=== PATIENT | female | born 1985 | race Caucasian/White ===

== ENCOUNTER 2023-08-05 15:23 | Outpatient (AMB) | payer OTHER, SELFPAY ==
--- NOTE | 2023-08-05 15:28 | A.OFFPC_ITS ---
Vital Signs 08/05/23 15:36 08/05/23 15:40 08/05/23 16:07 Height 5 ft 7.4 in Weight 377 lb 4 oz BMI 58.4 BP 178/115 H 169/92 H 124/66 Blood Pressure Location Rt brachial Lt brachial Rt radial Position Sitting Sitting Sitting Respiration 22 H Pulse 92 Pulse Source Pulse Oximeter Temp 98 F Temp Source Oral Pulse Oximetry (%) 98 Oxygen Delivery Method Room Air Intake Visit Reasons: Establish Care Intake Note: New patient visit Jde Developer Required: No Allergies No Known Allergies Allergy (Verified 08/05/23 15:30) Tobacco use date assessed: 08/05/23 Dental Screening Dental Screen Date: 08/05/23 Did you have a dental visit in the last 12 months?: Yes Did you have a dental problem in the last 6 months where you did not have access to dental care?: No Was dental information given to patient?: Patient has dentist HPI HPI Comments History of Present Illness Details 38-year-old female with scoliosis, seaso nal allergies, former smoker, obesity, varicose veins in BLE, generalized anxiety disorder family history: father alcohol abuse, paternal grandmother diabetes, maternal grandmother colon cancer, maternal aunt breast cancer Health Maintenance: Tdap 08/12/2008, Pap admits to being overdue Specialists: Bariatric clinic at [facility] PROFESSIONAL B[employer] FISHER Here today as a new patient to establish care and for complete physical exam. Most problematic issue is her obesity. Always feels tired, gaining weight, snoring. Was recently tested for DM and Thyroid during an urgent care visit. Working w/ Dr Mohan for bariatric surgery. August 30 meet w/ cpr ambulance driver Has never had medical intervention Plans to get full gastric bypass Has edema of BLE assoc w/ varicose veins , painful legs that limit her physical activity Reports frequent urination at night. Tinea versicolor present since her teens. Treated with topicals with limited relief. Plan Start Wellbutrin XL 150 mg p.o. daily. Start fluconazole >Text vascular to see if there is any limitations on treatment for varicose veins given her BMI. As at this time no answer back from vascular I will follow up with them. Advised to buy compression stockings. PFSH Medical History (Updated 08/05/23 @ 16:28 by Ofelia Layne, CORRECTIONAL OFFICER LIEUTENANT-) Edema Family History (Updated 08/05/23 @ 15:51 by Anisa Pabon CMA) Father HTN (hypertension) Cirrhosis Colon cancer Paternal Aunt No problems noted. 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 1. Little interest or pleasure in doing things: not at all 2. Feeling down, depressed, or hopeless: not at all 3. Trouble falling or staying asleep, or sleeping too much: not at all 4. Feeling tired or having little energy: several days 5. Poor appetite or overeating: not at all 6. Feeling bad about yourself - or that you are a failure or have let yourself or your family down: not at all 7. Trouble concentrating on things, such as reading the newspaper or watching television: not at all 8. Moving or speaking so slowly that other people could have noticed. Or the op posite - being so fidgety or restless that you have been moving around a lot more than usual: not at all 9. Thoughts that you would be better off or of hurting yourself in some way: not at all Total score: 1 Depression Screening Interpretation: Negative Depression Screening Done: Yes 41337 - PHQ-9 Billing: Yes Source: Developed by Drs. Chao Flower, Agustina Butcher, Chuy Dave and colleagues, with an educational jame from [employer]. Thrive Questionnaire Date Thrive assessed: 08/05/23 I am a: Patient What is your living situation today?: I have a steady place to live Within the past 12 months, did the food you bought not last and you didn't have the money to get more?: Never true Within the past 12 months, did you worry whether your food would run out before you got money to buy more?: Never true Do you have trouble paying for medicines?: No Do you have trouble getting transportation to medical appointments?: No Do you have trouble paying your heating and electricity bill?: No Do you have trouble taking care of your child, family member or friend?: No Do you have trouble with day-to-day activities such as bathing, preparing meals, shopping, managing finances, etc.?: No Are you currently unemployed and looking for a job?: No Are you interested in more education?: No Please select the resources that you would like help with: None Currently or been in a relationship where the following occur: no concerns reported THRIVE Score: 0 AUDIT C Alcohol Use Questionnaire (AUDIT-C) 1. How often do you have a drink containing alcohol?: Monthly or less 2. How many drinks containing alcohol do you have on a typical day when you are drinking?: 10 or more (14) 3. How often do you have six or more drinks on one occasion?: Less than monthly Total Score: 6 Score Reviewed/Action Taken: Yes FLORINA-7 AMB Questionnaire FLORINA-7 Date FLORINA - 7 assessed: 08/05/23 Feeling nervous, anxious, or on edge: 0 = Not at all Not being able to stop or control worryin = Not at all Worrying too much about different things: 0 = Not at all Trouble relaxin = Not at all Being so restless that it is hard to sit still: 0 = Not at all Becoming easily annoyed or irritable: 1 = Several days Feeling afraid as if something awful might happen: 0 = Not at all Total FLORINA-7 score (0-4 normal; 5-9 mild; 10-14 moderate; 15-21 severe): 1 Source: Developed by Drs. Chao Flower, Agustina Butcher, Chuy Dave and colleagues, with an educational jame from [employer]. FLORINA-7 Assessment Billing FLORINA-7 Assessment Tool: FLORINA-7 Assessment 64693 Review of Systems Const Details: Constitutional: Denies fever. Skin: Denies rash. Eye: Denies eye pain. ENMT: Denies sore throat and nasal congestion. Respiratory: Denies shortness of breath and cough. Gastrointestinal: Denies nausea, vomiting or abdominal pain. Cardiovascular: Denies chest pain and syncope. Genitourinary: Denies dysuria. Neurologic: Denies headaches, confusion, and weakness. Psychiatric: Denies suicidal thoughts and substance abuse. Allergy/ Immunologic: Denies impaired immunity. Physical exam (Primary Care) Vital Signs: Last Vital Signs Temp 98 F 08/05/23 15:36 Pulse 92 08/05/23 15:36 Resp 22 H 08/05/23 15:36 BP 169/92 H 08/05/23 15:40 Pulse Ox 98 08/05/23 15:36 Oxygen Delivery Method Room Air 08/05/23 15:36 BMI result Body Mass Index 58.4 BMI Assessment/Plan discussion: High BMI High, discussed plan: lifestyle Tobacco/Smoking Status: Tobacco use Status Tobacco use date assessed 08/05/23 08/05/23 15:35 Patient Tobacco Use Status Former Tobacco user 08/05/23 15:35 e-Cigarette/Vaping Use Never Used 08/05/23 15:35 PHQ-9: PHQ-9 Score PHQ-9: Total score 1 08/05/23 15:43 Depression Screening Interpretation: Negative Thrive Assessment: Date of Thrive Assessment Date Thrive assessed 08/05/23 08/05/23 15:43 Currently or been in a relationship where the following occur: no concerns repor mirian Const Other: General: Well developed, well nourished, in no acute distress. Appears stated age. Head: Normocephalic, atraumatic. Eyes: Pupils are equal, round and reactive to light and accommodation. Conjunctivae are clear. Vision grossly normal. Ears: TMs clear AU, EACS WNL Nose: Patent, without discharge. Mouth: There are no ulcers or lesions noted. No inflammation, no post nasal drip, no plaques nor exudates. Neck: Supple, no adenopathy or thyromegaly. Lungs: Clear to auscultation bilaterally. No rales, rhonchi or wheeze noted. Good air flow in all rodriguez. Heart: Regular rate and rhythm. No murmurs, click, rubs or gallops are noted. Abdomen: Bowel sounds present in all quadrants. The abdomen is soft, nontender, with no masses or organomegaly noted. No hernias are noted. Musculoskeletal: Joints are nontender, without redness, or effusions. Range of motion is observed to be normal. Pulses: Peripheral pulses are equal and palpable bilaterally. Extremities: No clubbing, cyanosis is noted. Trace edema bilateral lower extremities with tortuous varicosities upper and lower legs bilat Neurologic: Gait and station normal. Cranial Nerves 2-12 intact. Motor strength grossly symmetrical and intact. No sensory loss. Balance normal. Skin: Tinea versicolor to left neck and anterior chest,No ulcers, or lesions noted. Turgor is good. Skin color is good. Hair and nails are without abnormalities. Psych: Normal eye contact, affect and mood appropriate, and normal interactions. Patient is alert and appropriate to context. Extremities: No clubbing, cyanosis or edema. Very tearful and anxious when talking about her weight Assessment and Plan Assessment & Plan (1) Encounter for general adult medical examination with abnormal findings: Code(s): Z00.01 - Encounter for general adult medical examination with abnormal findings (2) Morbid (severe) obesity due to excess calories: Code(s): E66.01 - Morbid (severe) obesity due to excess calories (3) Varicose veins of both legs with edema: Code(s): I83.893 - Varicose veins of bilateral lower extremities with other complications (4) Cervical cancer screening: Code(s): Z12.4 - Encounter for screening for malignant neoplasm of cervix (5) FLORINA (generalized anxiety disorder): Code(s): F41.1 - Generalized anxiety disorder (6) Tinea versicolor: Code(s): B36.0 - Pityriasis versicolor Plan This note is constructed using voice recognition software. While every effort has been made to ensure accuracy in knockout man, still errors may have been included Sometimes, these errors may affect the content or meaning of the given sentence . Additional time spent caring for the patient today was 15 minutes to manage the problems. This includes time spent before the visit reviewing the chart, time spent during the visit, and time spent after the visit on documentation Orders: Referrals SALES APPOINTMENT COORDINATOR Referral Z12.4 - Encounter for screening for malignant neoplasm of cervix Medications: New bupropion HCl XL (Wellbutrin XL) 150 mg PO QAM 90 tabs 0RF fluconazole one tablet once per week x 2 weeks 200 mg PO DAILY 2 tabs 0RF Patient Instructions: Plan Start Wellbutrin XL 150 mg p.o. daily. Start fluconazole >Text vascular to see if there is any limitations on treatment for varicose veins given her BMI. As at this time no answer back from vascular I will follow up with them. Advised to buy compression stockings. Tdap 08/12/2008, -- please get updated shot at pharmacy [email or web address] Return to office in about 8 weeks to follow up on the Wellbutrin, anxiety. Sooner if needed Health screenings for women You should visit your health care provider from time to time, even if you are healthy. The purpose of these visits is to: Screen for medical issues Assess your risk for future medical problems Encourage a healthy lifestyle Update vaccinations and other preventive care services Help you get to know your provider in case of an illness Information Even if you feel fine, you should still see your provider for regular checkups. These visits can help you avoid problems in the future. For example, the only way to find out if you have high blood pressure is to have it checked regularly. High blood sugar and high cholesterol levels also may not have any symptoms in the early stages. A simple blood test can check for these conditions. There are specific times when you should see your provider or receive specific health screenings. The [place] Preventive Services Task Force publishes a list of recommended screenings. Below are screening guidelines for women ages 18 to 39. BLOOD PRESSURE SCREENING Your blood pressure should be checked at least once every 3 to 5 years if: Your blood pressure is in the normal range (top number less than 120 mm Hg and bottom number less than 80 mm Hg) You don't have risk factors for high blood pressure Ask your provider if you need your blood pressure checked more often if: The top number is 120 to 129 mm Hg or the bottom number is 70 to 79 mm Hg You have diabetes, heart disease, kidney problems, are overweight, or have certain other health conditions You have a first-degree relative with high blood pressure You are Black You had high blood pressure during a If the top number is 130 mm Hg or greater or the bottom number is 80 mm Hg or greater, this is considered stage 1 hypertension. Schedule an appointment with your provider to learn how you can reduce your blood pressure. Watch for blood pressure screenings in your area. Ask your provider if you can stop in to have your blood pressure checked. BREAST CANCER SCREENING Experts do not agree about the benefits of breast self-exams in finding breast cancer or saving lives. Talk to your provider about what is best for you. A screening mammogram is not recommended for most women under age 40. Your provider may discuss and recommend mammograms, MRI scans, or ultrasounds if you have an increased risk for breast cancer, such as: A mother or sister who had breast cancer at a young age (most often starting screening earlier than the age the close relative was diagnosed) You carry a high-risk genetic marker CERVICAL CANCER SCREENING Cervical cancer screening should start at age 21 years unless your provider advises otherwise. After the first test: Women ages 21 through 29 should have a Pap test every 3 years. Exoprts do not agree on whether HPV testing is recommended for this age group. Women ages 30 through 65 should be screened with either a Pap test every 3 years or the HPV test every 5 years or both tests every 5 years (called cotesting ). Women who have been treated for precancer (cervical dysplasia) should continue to have Pap tests for 20 years after treatment or until age 65, whichever is longer. If you have had your uterus and cervix removed (total hysterectomy), and you have not been diagnosed with cervical cancer or precancer (high grade cervical neoplasia), you do not need cervical cancer screening. CHOLESTEROL SCREENING Cholesterol screening should begin at: Age 45 for women with no known risk factors for coronary heart disease Age 20 for women with known risk factors for coronary heart disease Repeat cholesterol screening should take place: Every 5 years for women with normal cholesterol levels More often if changes occur in lifestyle (including weight gain and diet) More often if you have diabetes, heart disease, kidney problems, or certain other conditions DIABETES SCREENING You should be screened for diabetes starting at age 35 and then repeated every 3 years if you have no risk factors for diabetes. Screening may need to start earlier and be repeated more often if you have other risk factors for diabetes, such as: You have a first degree relative with diabetes. You are overweight or have obesity. You have high blood pressure, prediabetes, or a history of heart disease. Screening for diabetes should be done if you are planning to become and you are overweight and have other risk factors such as high blood pressure. DENTAL EXAM Go to the dentist once or twice every year for an exam and cleaning. Your dentist will evaluate if you need more frequent visits. EYE EXAM Have an eye exam every 5 to 10 years before age 40. If you have vision problems, have an eye exam every 2 years or more often if recommended by your provider. You should have an eye exam that includes an examination of your retina (back of your eye) at least every year if you have diabetes. IMMUNIZATIONS Commonly needed vaccines include: Flu shot: get one every year. COVID-19 vaccine: ask your provider what is best for you. Tetanus-diphtheria and acellular pertussis (Tdap) vaccine: have one at or after age 19 as one of your tetanus-diphtheria vaccines if you did not receive it as an adolescent. Tetanus-diphtheria: have a booster (or Tdap) every 10 years. Varicella vaccine: receive 2 doses if you never had chickenpox or the varicella vaccine. Hepatitis B vaccine: receive 2, 3, or 4 doses, depending on your exact cir cumstances. Measles, mumps, and rubella (MMR) vaccine: receive 1 to 2 doses if you are not already immune to MMR. Your provider can tell you if you are immune. Ask your provider about the human papillomavirus (HPV) vaccine if: You have not received the HPV vaccine in the past You have not completed the full vaccine series (you should catch up on this shot) Ask your provider if you should receive other immunizations if you have certain health problems that increase your risk for some diseases such as pneumonia. INFECTIOUS DISEASE SCREENING Women who are sexually active should be screened for chlamydia and gonorrhea up until age 25. Women 25 years and older should be screened for chlamydia and gonorrhea if at high risk. Screening for hepatitis C: All adults ages 18 to 79 should get a one-time test for hepatitis C. people should be screened at every . Screening for human immunodeficiency virus (HIV): All people ages 15 to 65 should get a one-time test for HIV. Depending on your lifestyle and medical history, you may also need to be screened for infections such as syphilis and HIV, as well as other infections. PHYSICAL EXAM All adults should visit their provider from time to time, even if they are healthy. The purpose of these visits is to: Screen for disease Assess your risk of future medical problems Encourage a healthy lifestyle Update your vaccinations and other preventive care services Maintain a relationship with a provider in case of an illness Your height, weight, and BMI should be checked at every exam. During your exam, your provider may ask you about: Depression and anxiety Diet and exercise Alcohol and tobacco use Safety issues, such as using seat belts, smoke detectors, and intimate partner violence Your medicines and risk for interactions SKIN SELF-EXAM Your provider may check your skin for signs of skin cancer, especially if you're at high risk, such as if you: Have had skin cancer before Have close relatives with skin cancer Have a weakened immune system OTHER SCREENING Talk with your provider about colon cancer screening if you have a strong family history of colon cancer or polyps, or if you have had inflammatory bowel disease or polyps yourself. Routine bone density screening of women under 40 is not recommended. Coding Level of Care Code New Pt Level 2 (55296) New Pt Prev Care 18-39yr(38904 Diagnoses Encounter for general adult medical examination with abnormal findings Z00.01 Morbid (severe) obesity due to excess calories E66.01 Varicose veins of both legs with edema I83.893 Cervical cancer screening Z12.4 FLORINA (generalized anxiety disorder) F41.1 Tinea versicolor B36.0 Additional Codes FLORINA-7 Assessment Billing - FLORINA-7 Assessment Tool: FLORINA-7 Assessment [id number] ([id number])
[2023-08-05 15:36] VITALS: BP 178/115; PULSE 92; RESP 22; TEMP 36.6; O2SAT 98; BMI 58.4
[2023-08-05 15:40] VITALS: BP 169/92
[2023-08-05 16:07] VITALS: BP 124/66
== END 2023-08-05 16:23 | disposition home or self-care (01) ==
PROVIDERS: PCP Nurse Practitioner Family; Visit Provider Nurse Practitioner Family
DX: Z00.01 Encounter for general adult medical examination with abnormal findings (principal); E66.01 Morbid (severe) obesity due to excess calories; Z68.43 Body mass index [BMI] 50.0-59.9, adult; I83.893 Varicose veins of bilateral lower extremities with other complications; F41.1 Generalized anxiety disorder; B36.0 Pityriasis versicolor
CPT/HCPCS: 99202; 99385

== ENCOUNTER 2023-10-04 08:15 | Outpatient (AMB) | payer OTHER, SELFPAY ==
--- NOTE | 2023-10-04 08:25 | A.OFFPC_ITS ---
Vital Signs 10/04/23 08:29 Height 5 ft 7.4 in Weight 377 lb BMI 58.3 BP 128/88 Blood Pressure Location Rt brachial Position Sitting Respiration 16 Pulse 81 Pulse Source Pulse Oximeter Pulse Oximetry (%) 97 Oxygen Delivery Method Room Air Intake Visit Reasons: F/U FLORINA Wellbutrin sta Intake Note: Medication follow up Is last menstrual period known: No Allergies No Known Allergies Allergy (Verified 10/04/23 09:09) Medication List - Last Reconciled 10/04/23 by IRENE BeckhamP- bupropion HCl XL (Wellbutrin XL) 150 mg PO QAM Tobacco use date assessed: 10/04/23 Dental Screening Dental Screen Date: 08/05/23 HPI HPI Comments History of Present Illness Details 38-year-old female with scoliosis, seaso nal allergies, former smoker, obesity, varicose veins in BLE, generalized anxiety disorder family history: father alcohol abuse, paternal grandmother diabetes, maternal grandmother colon cancer, maternal aunt breast cancer Health Maintenance: Tdap 08/12/2008, today Pap admits to being overdue Specialists: Bariatric clinic at [facility] vascular Here today to fu on chronic conditions Since starting the Wellbutrin she has noticed that she was snacking less, chocolate taste discussing and therefore she is not eating at. It is also helping her anxiety. Admitted that she was argumentative within the 1st week of starting at however this has completely resolved. She is active with [facility] bariatric clinic and will receiving labs for them today. She will need a physical prior to having the surgery done. She remains interested in having her varicose veins treated however the initial referral to [place] [facility] did not accept her insurance. We will refer to [facility]'s vascular group for evaluation and treatment. She used fluconazole 200 mg for the tinea versicolor which helped initially, however the rash has returned. She is due for a Tdap and willing to get today New complaints today of hypersomnolence, witnessed apnea, severe snoring, falling asleep while driving, nodding off during the day, wakes feeling exhausted. Yawns all day long. Has never had a sleep study. Exam: General: Well developed, well nourished, in no acute distress. Appears stated age. Lungs: Clear to auscultation bilaterally. No rales, rhonchi or wheeze noted. Good air flow in all rodriguez. Heart: Regular rate and rhythm. No murmurs, click, rubs or gallops are noted. Extremities: No clubbing, cyanosis is noted. Trace edema bilateral lower extremities with tortuous varicosities upper and lower legs bilat Skin: Tinea versicolor to left neck and anterior chest,No ulcers, or lesions noted. Turgor is good. Skin color is good. Hair and nails are without abnormalities. Psych: Normal eye contact, affect and mood appropriate, and normal interactions. Patient is alert and appropriate to context. Plan Increase Wellbutrin to 300 mg daily. Continue care with [facility] bariatric office. Please cc all labs performed to me. Refer to [facility] vascular for varicose veins Start terbinafine 250 mg p.o. daily x6 weeks. Use the additional 2 weeks for pulse therapy as needed. Tdap today Stat Slep Study I will see you back in November for complete physical exam, sooner as needed. This note is constructed using voice recognition software. While every effort has been made to ensure accuracy in bellhop captain, still errors may have been included Sometimes, these errors may affect the content or meaning of the given sentence . [facility] Medical History (Updated 10/04/23 @ 09:15 by YEYO Beckham-) Edema Family History (Updated 08/05/23 @ 15:51 by Anisa Pabon [facility]) Father HTN (hypertension) Cirrhosis Colon cancer Paternal Aunt No problems noted. 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 1. Little interest or pleasure in doing things: not at all 2. Feeling down, depressed, or hopeless: not at all 3. Trouble falling or staying asleep, or sleeping too much: not at all 4. Feeling tired or having little energy: nearly every day 5. Poor appetite or overeating: nearly every day 6. Feeling bad about yourself - or that you are a failure or have let yourself or your family down: not at all 7. Trouble concentrating on things, such as reading the newspaper or watching television: not at all 8. Moving or speaking so slowly that other people could have noticed. Or the opposite - being so fidgety or restless that you have been moving around a lot more than usual: not at all 9. Thoughts that you would be better off or of hurting yourself in some way: not at all Total score: 6 Depression Screening Interpretation: Positive Depression Screening Done: Yes 47479 - PHQ-9 Billing: Yes Source: Developed by Drs. Chao Flower, Agustina Butcher, Chuy Dave and colleagues, with an educational jame from [employer]. Thrive Questionnaire Date Thrive assessed: 08/05/23 FLORINA-7 AMB Questionnaire FLORINA-7 Date FLORINA - 7 assessed: 08/05/23 Feeling nervous, anxious, or on edge: 0 = Not at all Not being able to stop or control worryin = Not at all Trouble relaxin = Not at all Being so restless that it is hard to sit still: 0 = Not at all Becoming easily annoyed or irritable: 1 = Several days Feeling afraid as if something awful might happen: 0 = Not at all Source: Developed by Drs. Chao Flower, Agustina Butcher, Chuy Dave and colleagues, with an educational jame from [employer]. Physical exam (Primary Care) Vital Signs: Last Vital Signs Pulse 81 10/04/23 08:29 Resp 16 10/04/23 08:29 BP 128/88 10/04/23 08:29 Pulse Ox 97 10/04/23 08:29 Oxygen Delivery Method Room Air 10/04/23 08:29 BMI result Body Mass Index 58.3 Tobacco/Smoking Status: Tobacco use Status Tobacco use date assessed 10/04/23 10/04/23 08:31 Patient Tobacco Use Status Former Tobacco user 10/04/23 08:31 e-Cigarette/Vaping Use Never Used 10/04/23 08:31 PHQ-9: PHQ-9 Score PHQ-9: Total score 6 10/04/23 09:31 Depression Screening Interpretation: Positive Thrive Assessment: Date of Thrive Assessment Date Thrive assessed 08/05/23 10/04/23 08:31 Assessment and Plan Assessment & Plan (1) Morbid (severe) obesity due to excess calories: Code(s): E66.01 - Morbid (severe) obesity due to excess calories (2) Hypersomnia: Code(s): G47.10 - Hypersomnia, unspecified (3) Witnessed episode of apnea: Code(s): R06.81 - Apnea, not elsewhere classified (4) FLORINA (generalized anxiety disorder): Code(s): F41.1 - Generalized anxiety disorder (5) Tinea versicolor: Code(s): B36.0 - Pityriasis versicolor (6) Varicose veins of both legs with edema: Code(s): I83.893 - Varicose veins of bilateral lower extremities with other complications Orders: Orders RT home sleep study Today E66.01 - Morbid (severe) obesity due to excess calories, G47.10 - Hypersomnia, unspecified, R06.81 - Apnea, not elsewhere classified Medications: New bupropion HCl XL 300 mg PO QAM 90 tabs 0RF terbinafine HCl 250 mg PO DAILY 30 tabs 1RF Discontinued bupropion HCl XL (Wellbutrin XL) Discontinued Reason: Doctor's Order 150 mg PO QAM 90 tabs 0RF Coding Level of Care Code Est Pt Level 4 (76497) Diagnoses Morbid (severe) obesity due to excess calories E66.01 Hypersomnia G47.10 Witnessed episode of apnea R06.81 FLORINA (generalized anxiety disorder) F41.1 Tinea versicolor B36.0 Varicose veins of both legs with edema I83.893
[2023-10-04 08:29] VITALS: BP 128/88; PULSE 81; RESP 16; O2SAT 97; BMI 58.3
== END 2023-10-04 09:31 | disposition home or self-care (01) ==
PROVIDERS: PCP Nurse Practitioner Family; Visit Provider Nurse Practitioner Family
DX: G47.10 Hypersomnia, unspecified (principal); F41.1 Generalized anxiety disorder; E66.01 Morbid (severe) obesity due to excess calories; Z68.43 Body mass index [BMI] 50.0-59.9, adult; B36.0 Pityriasis versicolor; I83.893 Varicose veins of bilateral lower extremities with other complications; R06.81 Apnea, not elsewhere classified
CPT/HCPCS: 99214

== ENCOUNTER 2023-11-15 07:50 | Outpatient (AMB) | payer OTHER, SELFPAY ==
--- NOTE | 2023-11-15 08:01 | A.OFFPC_ITS ---
Vital Signs 11/15/23 08:04 Height 5 ft 4 in Weight 362 lb BMI 62.1 BP 118/70 Blood Pressure Location Rt brachial Position Sitting Respiration 14 Pulse 70 Pulse Source Pulse Oximeter Pulse Oximetry (%) 99 Oxygen Delivery Method Room Air Intake Visit Reasons: CPE Intake Note: physical Allergies No Known Allergies Allergy (Verified 11/15/23 08:03) Medication List - Last Reconciled 11/15/23 by Ofelia Layne, DENSITOMETER READER- bupropion HCl XL 300 mg PO QAM cholecalciferol (vitamin D3) 1,250 mcg PO QWEEK ferrous sulfate 324 mg PO BID 90 days Tobacco use date assessed: 11/15/23 Dental Screening Dental Screen Date: 11/15/23 Did you have a dental visit in the last 12 months?: Yes Did you have a dental problem in the last 6 months where you did not have access to dental care?: No Was dental information given to patient?: Patient has dentist HPI HPI Comments History of Present Illness Details 38-year-old female with scoliosis, seaso nal allergies, former smoker, obesity, varicose veins in BLE, generalized anxiety disorder, Vit D def, Iron Def Anemia s/p D&C 2011 family history: father alcohol abuse, paternal grandmother diabetes, maternal grandmother colon cancer, maternal aunt breast cancer 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 Broke up w boyfriend who enabled her overeating. Using wellbutrin. Exercising. Cont w/ bariatrics. No surgery date yet. However still in the plans. Tinea is not resolved. It does get better w/ treatment, however as soon as this is stopped it comes right back. Interested in referral to Derm at this point. Was referred to [facility] in July however has not been able to get appt d/t referral issues. I have updated the referral today. Has sleep study this week. Cont to feel the same sx as last time. Never did hear about vascular referral, the referral was placed again today to tx her sx varicose veins BLE Optho feels like her vision is blurry, both near and far vision. Does not wear glasses or contacts. Interested in referral, placed today. GI: had some constipation which resolved w/ increased h20 intake. No hospital or ED visits. 2 weeks ago, mechanical fall landed on right side, was having pain in R arm that is now resolved. Admits to falling a lot. Plan: Continue medications as currently prescribed. Continue follow up with your care team. If you have any issues with the referrals placed today, please let me know. I will follow up with you via phone after her sleep study results are ba ck. I would like to see you back in the office in 4-6 months follow up on your generalized anxiety disorder and obesity. Sooner as needed. This note is constructed using voice recognition software. While every effort has been made to ensure accuracy in business ethics professor, still errors may have been included Sometimes, these errors may affect the content or meaning of the given sentence . [facility] Medical History (Updated 11/15/23 @ 08:45 by YEYO Beckham-) Edema Family History (Updated 08/05/23 @ 15:51 by Anisa Pabon [facility]) Father HTN (hypertension) Cirrhosis Colon cancer Paternal Aunt No problems noted. 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 1. Little interest or pleasure in doing things: not at all 2. Feeling down, depressed, or hopeless: not at all 3. Trouble falling or staying asleep, or sleeping too much: not at all 4. Feeling tired or having little energy: nearly every day 5. Poor appetite or overeating: not at all 6. Feeling bad about yourself - or that you are a failure or have let yourself or your family down: several days 7. Trouble concentrating on things, such as reading the newspaper or watching television: not at all 8. Moving or speaking so slowly that other people could have noticed. Or the opposite - being so fidgety or restless that you have been moving around a lot more than usual: not at all 9. Thoughts that you would be better off or of hurting yourself in some way: not at all Total score: 4 70606 - PHQ-9 Billing: Yes Source: Developed by Drs. Chao Flower, Agustina Butcher, Chuy Dave and colleagues, with an educational jame from [employer]. Thrive Questionnaire Date Thrive assessed: 11/15/23 I am a: Patient What is your living situation today?: I have a steady place to live Within the past 12 months, did the food you bought not last and you didn't have the money to get more?: Never true Within the past 12 months, did you worry whether your food would run out before you got money to buy more?: Never true Do you have trouble paying for medicines?: No Do you have trouble getting transportation to medical appointments?: No Do you have trouble paying your heating and electricity bill?: No Do you have trouble taking care of your child, family member or friend?: No Do you have trouble with day-to-day activities such as bathing, preparing meals, shopping, managing finances, etc.?: No Are you currently unemployed and looking for a job?: No Are you interested in more education?: No Please select the resources that you would like help with: None THRIVE Score: 0 FLORINA-7 AMB Questionnaire FLORINA-7 Date FLORINA - 7 assessed: 11/15/23 Feeling nervous, anxious, or on edge: 0 = Not at all Not being able to stop or control worryin = Not at all Worrying too much about different things: 0 = Not at all Trouble relaxin = Not at all Being so restless that it is hard to sit still: 0 = Not at all Becoming easily annoyed or irritable: 1 = Several days Feeling afraid as if something awful might happen: 1 = Several days Total FLORINA-7 score (0-4 normal; 5-9 mild; 10-14 moderate; 15-21 severe): 2 Source: Developed by Drs. Chao Flower, Agustina Butcher, Chuy Dave and colleagues, with an educational jame from [employer]. FLORINA-7 Assessment Billing FLORINA-7 Assessment Tool: FLORINA-7 Assessment 99144 Review of Systems Const Details: Constitutional: Denies fever. Skin: Denies rash. Eye: Denies eye pain. ENMT: Denies sore throat and nasal congestion. Respiratory: Denies shortness of breath and cough. Gastrointestinal: Denies nausea, vomiting or abdominal pain. Cardiovascular: Denies chest pain and syncope. Genitourinary: Denies dysuria. Musculoskeletal: Denies back pain and extremity pain. Neurologic: Denies headaches, confusion, and weakness. Psychiatric: Denies suicidal thoughts and substance abuse. Allergy/ Immunologic: Denies impaired immunity. Physical exam (Primary Care) Vital Signs: Last Vital Signs Pulse 70 11/15/23 08:04 Resp 14 11/15/23 08:04 BP 118/70 11/15/23 08:04 Pulse Ox 99 11/15/23 08:04 Oxygen Delivery Method Room Air 11/15/23 08:04 BMI result Body Mass Index 62.1 Tobacco/Smoking Status: Tobacco use Status Tobacco use date assessed 11/15/23 11/15/23 08:06 Patient Tobacco Use Status Former Tobacco user 11/15/23 08:01 e-Cigarette/Vaping Use Never Used 11/15/23 08:01 PHQ-9: PHQ-9 Score PHQ-9: Total score 4 11/15/23 08:10 Thrive Assessment: Date of Thrive Assessment Date Thrive assessed 08/05/23 11/15/23 08:01 Const Other: General: Well developed, well nourished, in no acute distress. Appears stated age. Head: Normocephalic, atraumatic. Eyes: Pupils are equal, round and reactive to light and accommodation. Conjunctivae are clear. Vision grossly normal. Ears: TMs clear AU, EACS WNL Nose: Patent, without discharge. Mouth: There are no ulcers or lesions noted. No inflammation, no post nasal drip, no plaques nor exudates. Neck: Supple, no adenopathy or thyromegaly. Lungs: Clear to auscultation bilaterally. No rales, rhonchi or wheeze noted. Good air flow in all rodriguez. Heart: Regular rate and rhythm. No murmurs, click, rubs or gallops are noted. Abdomen: Bowel sounds present in all quadrants. The abdomen is soft, nontender, with no masses or organomegaly noted. No hernias are noted. Musculoskeletal: Joints are nontender, without swelling, redness, or effusions. Range of motion is observed to be normal. Pulses: Peripheral pulses are equal and palpable bilaterally. Extremities: No clubbing, cyanosis is noted. Trace edema bilateral lower extremities with tortuous varicosities upper and lower legs bilat Neurologic: Gait and station normal. Cranial Nerves 2-12 intact. Motor strength grossly symmetrical and intact. No sensory loss. Balance normal. Skin: Tinea versicolor to left neck and anterior chest,No ulcers, or lesions noted. Turgor is good. Skin color is good. Hair and nails are without abnormalities. Psych: Normal eye contact, affect and mood appropriate, and normal interactions. Patient is alert and appropriate to context. Assessment and Plan Assessment & Plan (1) Encounter for general adult medical examination without abnormal findings: Code(s): Z00.00 - Encounter for general adult medical examination without abnormal findings (2) Tinea versicolor: Code(s): B36.0 - Pityriasis versicolor (3) Varicose veins of both legs with edema: Code(s): I83.893 - Varicose veins of bilateral lower extremities with other complications (4) Blurred vision: Code(s): H53.8 - Other visual disturbances (5) Cervical cancer screening: Code(s): Z12.4 - Encounter for screening for malignant neoplasm of cervix (6) FLORINA (generalized anxiety disorder): Code(s): F41.1 - Generalized anxiety disorder (7) Morbid (severe) obesity due to excess calories: Code(s): E66.01 - Morbid (severe) obesity due to excess calories (8) Hypersomnia: Code(s): G47.10 - Hypersomnia, unspecified (9) Witnessed episode of apnea: Code(s): R06.81 - Apnea, not elsewhere classified (10) Vitamin D deficiency: Code(s): E55.9 - Vitamin D deficiency, unspecified (11) Iron deficiency anemia: Code(s): D50.9 - Iron deficiency anemia, unspecified Qualifiers: Iron deficiency anemia type: other iron deficiency Qualified Code(s): D50.8 - Other iron deficiency anemias Orders: Referrals Dermatology Referral B36.0 - Pityriasis versicolor Vascular Surgery Referral I83.893 - Varicose veins of bilateral lower extremities with other complications BIN TRIPPER OPERATOR Referral Z12.4 - Encounter for screening for malignant neoplasm of cervix Ophthalmology Referral H53.8 - Other visual disturbances Medications: New ferrous sulfate 324 mg PO BID 90 days 180 tabs 2RF Patient Instructions: Health screenings for women You should visit your health care provider from time to time, even if you are healthy. The purpose of these visits is to: Screen for medical issues Assess your risk for future medical problems Encourage a healthy lifestyle Update vaccinations and other preventive care services Help you get to know your provider in case of an illness Information Even if you feel fine, you should still see your provider for regular checkups. These visits can help you avoid problems in the future. For example, the only way to find out if you have high blood pressure is to have it checked regularly. High blood sugar and high cholesterol levels also may not have any symptoms in the early stages. A simple blood test can check for these conditions. There are specific times when you should see your provider or receive specific health screenings. The [place] Preventive Services Task Force publishes a list of recommended screenings. Below are screening guidelines for women ages 18 to 39. BLOOD PRESSURE SCREENING Your blood pressure should be checked at least once every 3 to 5 years if: Your blood pressure is in the normal range (top number less than 120 mm Hg and bottom number less than 80 mm Hg) You don't have risk factors for high blood pressure Ask your provider if you need your blood pressure checked more often if: The top number is 120 to 129 mm Hg or the bottom number is 70 to 79 mm Hg You have diabetes, heart disease, kidney problems, are overweight, or have certain other health conditions You have a first-degree relative with high blood pressure You are Black You had high blood pressure during a If the top number is 130 mm Hg or greater or the bottom number is 80 mm Hg or greater, this is considered stage 1 hypertension. Schedule an appointment with your provider to learn how you can reduce your blood pressure. Watch for blood pressure screenings in your area. Ask your provider if you can stop in to have your blood pressure checked. BREAST CANCER SCREENING Experts do not agree about the benefits of breast self-exams in finding breast cancer or saving lives. Talk to your provider about what is best for you. A screening mammogram is not recommended for most women under age 40. Your provider may discuss and recommend mammograms, MRI scans, or ultrasounds if you have an increased risk for breast cancer, such as: A mother or sister who had breast cancer at a young age (most often starting screening earlier than the age the close relative was diagnosed) You carry a high-risk genetic marker CERVICAL CANCER SCREENING Cervical cancer screening should start at age 21 years unless your provider advises otherwise. After the first test: Women ages 21 through 29 should have a Pap test every 3 years. Exoprts do not agree on whether HPV testing is recommended for this age group. Women ages 30 through 65 should be screened with either a Pap test every 3 years or the HPV test every 5 years or both tests every 5 years (called cotesting ). Women who have been treated for precancer (cervical dysplasia) should continue to have Pap tests for 20 years after treatment or until age 65, whichever is longer. If you have had your uterus and cervix removed (total hysterectomy), and you have not been diagnosed with cervical cancer or precancer (high grade cervical neoplasia), you do not need cervical cancer screening. CHOLESTEROL SCREENING Cholesterol screening should begin at: Age 45 for women with no known risk factors for coronary heart disease Age 20 for women with known risk factors for coronary heart disease Repeat cholesterol screening should take place: Every 5 years for women with normal cholesterol levels More often if changes occur in lifestyle (including weight gain and diet) More often if you have diabetes, heart disease, kidney problems, or certain other conditions DIABETES SCREENING You should be screened for diabetes starting at age 35 and then repeated every 3 years if you have no risk factors for diabetes. Screening may need to start earlier and be repeated more often if you have other risk factors for diabetes, such as: You have a first degree relative with diabetes. You are overweight or have obesity. You have high blood pressure, prediabetes, or a history of heart disease. Screening for diabetes should be done if you are planning to become and you are overweight and have other risk factors such as high blood pressure. DENTAL EXAM Go to the dentist once or twice every year for an exam and cleaning. Your dentist will evaluate if you need more frequent visits. EYE EXAM Have an eye exam every 5 to 10 years before age 40. If you have vision problems, have an eye exam every 2 years or more often if recommended by your provider. You should have an eye exam that includes an examination of your retina (back of your eye) at least every year if you have diabetes. IMMUNIZATIONS Commonly needed vaccines include: Flu shot: get one every year. COVID-19 vaccine: ask your provider what is best for you. Tetanus-diphtheria and acellular pertussis (Tdap) vaccine: have one at or after age 19 as one of your tetanus-diphtheria vaccines if you did not receive it as an adolescent. Tetanus-diphtheria: have a booster (or Tdap) every 10 years. Varicella vaccine: receive 2 doses if you never had chickenpox or the varicella vaccine. Hepatitis B vaccine: receive 2, 3, or 4 doses, depending on your exact ci rcumstances. Measles, mumps, and rubella (MMR) vaccine: receive 1 to 2 doses if you are not already immune to MMR. Your provider can tell you if you are immune. Ask your provider about the human papillomavirus (HPV) vaccine if: You have not received the HPV vaccine in the past You have not completed the full vaccine series (you should catch up on this shot) Ask your provider if you should receive other immunizations if you have certain health problems that increase your risk for some diseases such as pneumonia. INFECTIOUS DISEASE SCREENING Women who are sexually active should be screened for chlamydia and gonorrhea up until age 25. Women 25 years and older should be screened for chlamydia and gonorrhea if at high risk. Screening for hepatitis C: All adults ages 18 to 79 should get a one-time test for hepatitis C. people should be screened at every . Screening for human immunodeficiency virus (HIV): All people ages 15 to 65 should get a one-time test for HIV. Depending on your lifestyle and medical history, you may also need to be screened for infections such as syphilis and HIV, as well as other infections. PHYSICAL EXAM All adults should visit their provider from time to time, even if they are healthy. The purpose of these visits is to: Screen for disease Assess your risk of future medical problems Encourage a healthy lifestyle Update your vaccinations and other preventive care services Maintain a relationship with a provider in case of an illness Your height, weight, and BMI should be checked at every exam. During your exam, your provider may ask you about: Depression and anxiety Diet and exercise Alcohol and tobacco use Safety issues, such as using seat belts, smoke detectors, and intimate partner violence Your medicines and risk for interactions SKIN SELF-EXAM Your provider may check your skin for signs of skin cancer, especially if you're at high risk, such as if you: Have had skin cancer before Have close relatives with skin cancer Have a weakened immune system OTHER SCREENING Talk with your provider about colon cancer screening if you have a strong family history of colon cancer or polyps, or if you have had inflammatory bowel disease or polyps yourself. Routine bone density screening of women under 40 is not recommended. Coding Level of Care Code Est Pt Prev Care 18-39y(07252) Diagnoses Encounter for general adult medical examination without abnormal findings Z00.00 Tinea versicolor B36.0 Varicose veins of both legs with edema I83.893 Blurred vision H53.8 Cervical cancer screening Z12.4 FLORINA (generalized anxiety disorder) F41.1 Morbid (severe) obesity due to excess calories E66.01 Hypersomnia G47.10 Witnessed episode of apnea R06.81 Vitamin D deficiency E55.9 Other iron deficiency anemia D50.8 Iron deficiency anemia type: other iron deficiency Additional Codes FLORINA-7 Assessment Billing - FLORINA-7 Assessment Tool: FLORINA-7 Assessment 61357 ([id number])
[2023-11-15 08:04] VITALS: BP 118/70; PULSE 70; RESP 14; O2SAT 99; BMI 62.1
== END 2023-11-15 08:40 | disposition home or self-care (01) ==
PROVIDERS: PCP Nurse Practitioner Family; Visit Provider Nurse Practitioner Family
DX: Z00.00 Encounter for general adult medical examination without abnormal findings (principal); E66.01 Morbid (severe) obesity due to excess calories; Z68.44 Body mass index [BMI] 60.0-69.9, adult; B36.0 Pityriasis versicolor; I83.893 Varicose veins of bilateral lower extremities with other complications; H53.8 Other visual disturbances; F41.1 Generalized anxiety disorder; G47.10 Hypersomnia, unspecified; R06.81 Apnea, not elsewhere classified; E55.9 Vitamin D deficiency, unspecified; D50.8 Other iron deficiency anemias
CPT/HCPCS: 99395

== ENCOUNTER → 2023-11-17 16:00 | Outpatient (BNV) | payer OTHER, SELFPAY | PROVIDERS: PCP Nurse Practitioner Family; Visit Provider Internal Medicine | DX: G47.33 Obstructive sleep apnea (adult) (pediatric) (principal) | CPT/HCPCS: 95806 ==

== ENCOUNTER → 2023-11-17 16:09 | Outpatient (REF) | payer OTHER, SELFPAY | LOC: HO.SL 16:09 | PROVIDERS: PCP Nurse Practitioner Family; Visit Provider Nurse Practitioner Family | DX: E66.01 Morbid (severe) obesity due to excess calories (principal); G47.10 Hypersomnia, unspecified; R06.81 Apnea, not elsewhere classified | CPT/HCPCS: 95806 ==

== ENCOUNTER 2023-11-25 07:59 | Outpatient (AMB) | payer OTHER, SELFPAY ==
--- NOTE | 2023-11-25 08:05 | MHC.OFFWIV ---
Intake Vital Signs 11/25/23 09:25 Height 5 ft 4 in Weight 359 lb BMI 61.6 Pulse 79 Pulse Source Pulse Oximeter Pulse Oximetry (%) 98 Oxygen Delivery Method Room Air Intake Visit Reasons: est/ edgard stated she could come in Intake Note: Wonders if she has BV Patient Tobacco Use Status: Former Tobacco user Archaeology Professor Required: No Accompanied by: Self / Same As Patient Patient : No Allergies No Known Allergies Allergy (Verified 11/25/23 08:06) Medication List - Last Reconciled 11/25/23 by AZAM Beckham bupropion HCl XL 300 mg PO QAM cholecalciferol (vitamin D3) 1,250 mcg PO QWEEK ferrous sulfate 324 mg PO BID 90 days Do you need a note to return to daycare/school/sports/work: No HPI HPI Comments History of Present Illness Details Here today for complaints of vaginal discharge Fishy odor after cleaning, started a few days ago after using a new body wash No douching No blood No concern for STD No GI complaints No itch Exam Awake alert oriented Self swabbed for BV Plan Will send in medications as needed based on swab results. This note is constructed using voice recognition software. While every effort has been made to ensure accuracy in segmental wall installer, still errors may have been included Sometimes, these errors may affect the content or meaning of the given sentence . PFSH Medical History (Updated 11/25/23 @ 09:27 by YEYO Beckham-ANNA) Edema Family History (Updated 08/05/23 @ 15:51 by Anisa Pabon CMA) Father HTN (hypertension) Cirrhosis Colon cancer Paternal Aunt No problems noted. 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 Orders: Orders Bacterial Vaginosis Panel Today Z11.3 - Encounter for screening for infections with a predominantly sexual mode of transmission Coding Level of Care Code Est Pt Level 3 (25205) Diagnoses Vaginal discharge N89.8
[2023-11-25 09:25] VITALS: PULSE 79; O2SAT 98; BMI 61.6
== END 2023-11-25 11:29 | disposition home or self-care (01) ==
PROVIDERS: PCP Nurse Practitioner Family; Visit Provider Nurse Practitioner Family
DX: N89.8 Other specified noninflammatory disorders of vagina (principal)

== ENCOUNTER 2023-11-25 07:59 | Outpatient (REF) | payer OTHER, SELFPAY | END 2023-11-25 08:00 | disposition home or self-care (01) | LOC: HO.LAB 07:59 | PROVIDERS: PCP Nurse Practitioner Family; Visit Provider Nurse Practitioner Family | DX: N89.8 Other specified noninflammatory disorders of vagina (principal) | CPT/HCPCS: 99212 ==

== ENCOUNTER 2023-11-25 08:22 | Outpatient (REF) | payer OTHER, SELFPAY ==
[2023-11-25 14:40] LABS: Bacterial Vaginosis PCR NEGATIVE (Negative); Candida Group PCR NOT DETECTED (Not Detect); Candida glab krusei PCR DETECTED (Not Detect); Trichomonas vaginalis PCR NOT DETECTED (Not Detect)
== END 2023-11-25 08:23 | disposition home or self-care (01) ==
LOC: HO.LNP 08:22
PROVIDERS: Visit Provider Nurse Practitioner Family
DX: Z11.3 Encounter for screening for infections with a predominantly sexual mode of transmission (principal)
CPT/HCPCS: 0352U

== ENCOUNTER 2023-12-12 16:11 | Outpatient (AMB) | payer OTHER, SELFPAY ==
--- NOTE | 2023-12-12 16:48 | A.OFFPC_ITS ---
Intake Visit Reasons: Sleep Apnea Results Allergies No Known Allergies Allergy (Verified 11/25/23 08:06) Medication List - Last Reconciled 12/12/23 by Ofelia Layne PROCUREMENT CLERK- bupropion HCl XL 300 mg PO QAM cholecalciferol (vitamin D3) 1,250 mcg PO QWEEK ferrous sulfate 324 mg PO BID 90 days Tobacco use date assessed: 11/15/23 Dental Screening Dental Screen Date: 11/15/23 HPI HPI Comments History of Present Illness Details Telehealth visit today for this 38-year-old female to sleep study results. Sleep study from 11/17/2023 reviewed with her today. Significant for mild to moderate obstructive sleep apnea. Auto PAP recommended. CPAP instructions reviewed with her today. She is willing to proceed. Order form will be faxed to [facility] ( ) Patient aware that she needs to wear this 7 days a week. Compliance will be reviewed. Consider B testing when she is situated to see if the overnight hypoxemia is corrected. In other regards she would like to discuss medication options for losing weight. She continues to lead a healthy lifestyle. Has lost weight on the bupropion. We will hold off on undergoing bariatric surgery. She is currently maintained on bupropion 300 mg daily. She is suffering constipation in the use of this a low with iron. Not taking anything at the current time but wonders what she can take. Plan: Start colace 100mg po BID as needed for constipation OR can try Miralax 1 capful (17gm) mixed in 8 oz of fluid at bedtime as needed. Both available OTC CPAP supplies sent as above, advised to follow up with them directly if she does not hear from them Discontinue bupropion 300 mg daily and start bupropion SR 150 mg p.o. b.i.d. and naltrexone 50 mg take half tablet once per day x1 week then increase to half tablet twice per day. Discouraged use of GLP ones I would like to follow up with her at the end of January, sooner as needed Office staff sent message to arrange FU wt loss/ADRIÁN This note is constructed using voice recognition software. While every effort has been made to ensure accuracy in manager biologics, still errors may have been included Sometimes, these errors may affect the content or meaning of the given sentence . Total time spent caring for the patient today was 30 minutes. This includes time spent before the visit reviewing the chart, time spent during the visit, and time spent after the visit on documentation [facility] Medical History (Updated 12/12/23 @ 17:28 by YEYO Beckham-) Hypersomnia Edema Family History (Updated 08/05/23 @ 15:51 by Anisa Pabon CMA) Father HTN (hypertension) Cirrhosis Colon cancer Paternal Aunt No problems noted. 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 Chao Flower, Agustina Butcher, Chuy Dave and colleagues, with an educational jame from [employer]. Physical exam (Primary Care) Tobacco/Smoking Status: Tobacco use Status Tobacco use date assessed 11/15/23 12/12/23 16:53 Patient Tobacco Use Status Former Tobacco user 12/12/23 16:53 e-Cigarette/Vaping Use Never Used 12/12/23 16:53 Thrive Assessment: Date of Thrive Assessment Date Thrive assessed 11/15/23 12/12/23 16:53 Telehealth Telehealth Telehealth Platform: Telephone Location of provider rendering services: practice address Location of patient: address on file Patient Identification confirmed using: Name, : Yes Telehealth method: voice only Patient verbally consented to treatment: Yes Patient verbally consented to billing insurance company: Yes Patient informed of any privacy concerns related to visit: Yes Minutes spent on Phone/Video with Pt.: 13 Coding Level of Care Code Tele Est Pt Level 3 (07958) Complex EM visit Add On G2211 Diagnoses ADRIÁN (obstructive sleep apnea) G47.33 Morbid (severe) obesity due to excess calories E66.01 Drug induced constipation K59.03 Assessment & Plan Assessment & Plan (1) ADRIÁN (obstructive sleep apnea): Comment: sleep study 11/17/2023 [facility] 12/2023 Code(s): G47.33 - Obstructive sleep apnea (adult) (pediatric) Category: Medical Plan: . (2) Morbid (severe) obesity due to excess calories: Code(s): E66.01 - Morbid (severe) obesity due to excess calories Category: Medical Plan: . (3) Drug induced constipation: Code(s): K59.03 - Drug induced constipation Plan: . Medications: New bupropion HCl SR 150 mg PO BID 180 tabs 0RF 90 days naltrexone Take 1/2 tab daily in the AM for 1 week then 1/2 tab twice per day 25 mg (1/2 x 50 mg) PO DIRECTED 45 tabs 0RF Discontinued bupropion HCl XL Discontinued Reason: Doctor's Order 300 mg PO QAM 90 tabs 0RF fluconazole take 1 tab day 1, repeat second dose on day 3 Discontinued Reason: Patient Completed Course 150 mg PO Q3D 2 tabs 0RF
== END 2023-12-12 17:01 | disposition home or self-care (01) ==
LOC: HO.HMCFM 16:11
PROVIDERS: PCP Nurse Practitioner Family; Visit Provider Nurse Practitioner Family
DX: G47.33 Obstructive sleep apnea (adult) (pediatric) (principal); E66.01 Morbid (severe) obesity due to excess calories; K59.03 Drug induced constipation

== ENCOUNTER → 2023-12-12 16:11 | Outpatient (BNVA) | payer OTHER, SELFPAY | PROVIDERS: PCP Nurse Practitioner Family; Visit Provider Nurse Practitioner Family ==

== ENCOUNTER 2024-01-26 08:55 | Outpatient (AMB) | payer OTHER, SELFPAY ==
--- NOTE | 2024-01-26 09:01 | A.OFFVIS_ITS ---
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 Doing well with concerns: She recently found out her partner of 11 years had cheated on her and she is concerned as she has a large skin tag that developed in the perianal region. History of syphilis years ago treated. Regular monthly menses. Has a Nexplanon device in place that was in 2021. Currently is not sexually active. She denies vaginal itching and irritation. STI screening offered; she accepts. She tries to eat healthy and stays active with exercise-admits she had gained 100 lb during COVID and reports recent lost 55 lb in the last 3 months. Denies family history of ovarian cancer. Family history of colon cancer- maternal grandmother, paternal with breast cancer Last pap smear many years ago, last was negative. Prior history of abnormal, no records available. [facility] Medical History (Updated 01/26/24 @ 09:44 by Beth Quintanilla CNM) Labial lesion History of syphilis Vitamin D deficiency Iron deficiency anemia ADRIÁN (obstructive sleep apnea) Hypersomnia Edema Surgical History (Updated 01/26/24 @ 09:09 by RANDY Lin) Hx of dilation and curettage Family History (Updated 01/26/24 @ 09:09 by RANDY Lin) Father HTN (hypertension) Cirrhosis Colon cancer Paternal Aunt History of breast cancer Paternal Grandmother Diabetes Maternal Grandmother Colon cancer Other FH: mental illness Hypercholesteremia Substance use Social History Housing: Apartment Patient Tobacco Use Status: Former Tobacco user Years Smoked: 26 quit 02/26 e-Cigarette/Vaping Use: Never Used Second Hand Smoke Exposure: No service: No Current occupational status: employed 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 Current occupational exposures/hazards: No Cognitive needs: No Hearing needs: No Vision needs: No Female Reproductive History Menstrual Date of last menstrual period: 01/20/24 control method: implanted (2017 Nexplanon) Total pregnancies: 4 Full term: 1 Number of Living Children: 1 Ab induced: 2 Ab spontaneous: 1 Review of Systems Const All systems reviewed & are unremarkable except as noted in HPI and below Reports as per HPI Eyes Reports no additional complaints ENT Reports no additional complaints Card Reports no additional complaints Resp Reports no additional complaints GI Reports as per HPI and Reports no additional complaints Reports as per HPI Musc Reports no additional complaints Skin/Breast Reports as per HPI Neuro Reports no additional complaints Psych Reports no additional complaints Endo Reports no additional complaints Andrés/Lymph Reports no additional complaints Aller/Immun Reports no additional complaints Physical Exam Const General: cooperative, healthy appearing, no acute distress, well developed and alert Orientation/consciousness: patient oriented x3 HEENT Head: Yes normal to inspection Eyes General: appearance normal, both eyes and all related structures Neck Neck: Yes normal visual inspection Thyroid: Thyroid normal Chest Chest palpation & inspection: normal inspection of the chest and other (no puckering, dimpling, peau de orange, retraction, discharge, masses) Breast/axilla inspection: normal inspection of the breasts Breast/axilla palpation: normal palpation of the breasts Resp Effort & Inspection: normal respiratory effort GI Inspection: Yes normal to inspection Palpation (GI): Soft to palpation Rectal Exam - Female: deferred Other: Left labial lesion lower section dark with rough surface(she reports it was present for years), large perianal lesion appears to be condyloma. General: Yes bladder normal to palpation External Female Exam: normal external appearance and normal appearance of the urethra Speculum Exam - Vagina: normal appearance of the vagina, normal palpation and no rmal vaginal discharge Speculum Exam - Cervix: normal appearance of the cervix, normal palpation and Other cervical findings present (Bled slightly with Pap) Bimanual exam- vagina & uterus: normal bimanual exam, normal palpation, uterine size normal, bladder normal to palpation, normal palpation and non-tender Bimanual Exam- Adnexa, other: no masses Skin General skin exam: no rashes or lesions noted Rashes: no rashes Neuro General: patient oriented x3 Cognition (Neuro): normal cognition Extrem General: Yes normal to inspection Psych Attitude: cooperative Thought process: Normal thought process present Assessment & Plan Assessment & Plan (1) Encounter for well woman exam with routine gynecological exam: Code(s): Z01.419 - Encounter for gynecological examination (general) (routine) without abnormal findings Category: Medical (2) Potential exposure to STD: Code(s): Z20.2 - Contact with and (suspected) exposure to infections with a predominantly sexual mode of transmission Category: Medical (3) Lesion of female perineum: Code(s): N90.9 - Noninflammatory disorder of vulva and perineum, unspecified Plan Discussed: Current recommendations for pap smears per ASCCP guidelines. Breast awareness and periodic breast exams. Maintain a healthy lifestyle including a well balanced diet and routine exercise. Use condoms for STI and prevention. Follow up pending test results. Schedule Nexplanon removal appointment. Desires a referral to a female provider only for further evaluation/treatment of perineal, labial lesion. Referral [facility] to [facility]. Patient verbalizes understanding and agrees to the plan of care. She was given opportunity to ask questions and all questions were answered to the best of my ability. RTO in one year for annual court of appeals judge examination. This note is constructed using voice recognition software. While every effort has been made to ensure accuracy, rubber tubing splicer errors may have been included. Orders: Orders HIV Ab/Ag Today Z20.2 - Contact with and (suspected) exposure to infections with a predominantly sexual mode of transmission RPR Monitor reflex titer Today Z20.2 - Contact with and (suspected) exposure to infections with a predominantly sexual mode of transmission, Z86.19 - Personal history of other infectious and parasitic diseases Hepatitis C Antibody Reflex Today Z20.2 - Contact with and (suspected) exposure to infections with a predominantly sexual mode of transmission Hepatitis B Core Antibody Today Z20.2 - Contact with and (suspected) exposure to infections with a predominantly sexual mode of transmission CT NG by PCR Today Z20.2 - Contact with and (suspected) exposure to infections with a predominantly sexual mode of transmission Bacterial Vaginosis Panel Today Z20.2 - Contact with and (suspected) exposure to infections with a predominantly sexual mode of transmission Pap Smear Today Z01.419 - Encounter for gynecological examination (general) (routine) without abnormal findings Referrals CHARGEBACK SPECIALIST Referral N90.89 - Other specified noninflammatory disorders of vulva and perineum, N90.9 - Noninflammatory disorder of vulva and perineum, unspecified Coding Level of Care Code New Pt Prev Care 18-39yr(38110 Diagnoses Encounter for well woman exam with routine gynecological exam Z01.419 Potential exposure to STD Z20.2 Lesion of female perineum N90.9
[2024-01-26 09:07] VITALS: BP 120/82; BMI 59.2
== END 2024-01-26 09:37 | disposition home or self-care (01) ==
LOC: HO.HWS 08:55
PROVIDERS: PCP Nurse Practitioner Family; Visit Provider Advanced Practice Midwife
DX: Z01.419 Encounter for gynecological examination (general) (routine) without abnormal findings (principal); Z20.2 Contact with and (suspected) exposure to infections with a predominantly sexual mode of transmission; N90.9 Noninflammatory disorder of vulva and perineum, unspecified
CPT/HCPCS: 99385

== ENCOUNTER 2024-01-26 08:55 | Outpatient (REF) | payer OTHER, SELFPAY ==
[2024-01-26 11:12] LABS: HIV AB/AG Nonreactive (Nonreactive); HIV Num 1 0.06 S/CO (0.00-0.99); Hepatitis B Core Antibody Nonreactive (Nonreactive); ~HepC Num1 0.11 S/CO (0.00-0.79); ~Hepatitis C Antibody Nonreactive (Nonreactive)
[2024-01-26 14:19] LABS: HPV 16,18/45 See PAP report
[2024-01-27 11:56] LABS: Bacterial Vaginosis PCR NEGATIVE (Negative); Candida Group PCR NOT DETECTED (Not Detect); Candida glab krusei PCR DETECTED (Not Detect); Trichomonas vaginalis PCR NOT DETECTED (Not Detect)
[2024-01-27 17:38] LABS: CT PCR NOT DETECTED (Not Detect.); NG PCR NOT DETECTED (Not Detect.)
[2024-01-30 11:08] LABS: RPR Rapid Plasma Reagin NON-REACTIVE (NON-REACTIVE)
== END 2024-01-26 08:56 | disposition home or self-care (01) ==
LOC: HO.LNP 08:55
PROVIDERS: PCP Nurse Practitioner Family; Visit Provider Advanced Practice Midwife
DX: Z01.419 Encounter for gynecological examination (general) (routine) without abnormal findings (principal); Z12.4 Encounter for screening for malignant neoplasm of cervix; Z20.2 Contact with and (suspected) exposure to infections with a predominantly sexual mode of transmission; Z86.19 Personal history of other infectious and parasitic diseases
CPT/HCPCS: 0352U; 86592; 86704; 86803; 87389; 87491; 87591; 87624; 88175; 99385

== ENCOUNTER 2024-01-26 09:40 | Outpatient (REF) | payer OTHER, SELFPAY | END 2024-01-26 09:41 | disposition home or self-care (01) | LOC: HO.LAB 09:40 | PROVIDERS: PCP Nurse Practitioner Family; Visit Provider Advanced Practice Midwife | DX: Z13.89 Encounter for screening for other disorder (principal) ==

== ENCOUNTER → 2024-02-07 15:22 | Outpatient (AMB) | payer OTHER, SELFPAY ==
--- NOTE | 2024-02-07 15:24 | A.OFFVIS_ITS ---
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 Started 20 years ago. 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 Accompanied by: Self / Same As Patient Allergies No Known Allergies Allergy (Verified 02/07/24 15:27) HPI HPI PRODUCT MARKETING DIRECTOR/HMG referral for BLE VV: Details: Very pleasant 38-year-old morbidly obese female patient presents for painful varicose veins. Complaints include pain over varicosities, swelling of lower extremities, cramping, fatigue, and heaviness of the lower extremities. 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 It is noted more so in left leg. She reports it all began approximately 20 years ago after the of her 1st child. Patient denies any previous venous surgery or injections. Patient denies any history of DVT/ PE. Patient denies any history of phlebitis. Trial of compression includes - [id number] They now present for vascular evaluation regarding their varicose veins. [facility] Medical History Labial lesion History of syphilis Vitamin D deficiency Iron deficiency anemia ADRIÁN (obstructive sleep apnea) Hypersomnia Edema Surgical History Hx of dilation and curettage Family History Father HTN (hypertension) Cirrhosis Colon cancer Paternal Aunt History of breast cancer Paternal Grandmother Diabetes Maternal Grandmother Colon cancer Other FH: mental illness Hypercholesteremia Substance use Social History Housing: Apartment Patient Tobacco Use Status: Former Tobacco user Years Smoked: 26 quit 02/26 e-Cigarette/Vaping Use: Never Used Second Hand Smoke Exposure: No service: No Current occupational status: employed 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 Current occupational exposures/hazards: No Cognitive needs: No Hearing needs: No Vision needs: No Review of Systems Const Reports as per HPI ENT Reports no additional complaints Card Denies chest pain, Denies chest pain at rest and Denies chest pain with activity Resp Denies chest congestion and Denies cough GI Reports no additional complaints Musc Details: pain over varicosities, aching of lower extremities, swelling, cramping, heaviness and tiredness, itching Denies abnormal gait Skin/Breast Reports pruritus and Denies wounds Neuro Reports no additional complaints and Denies abnormal gait Psych Denies no additional complaints Physical Exam Const General: cooperative, healthy appearing and comfortable Orientation/consciousness: oriented to person, oriented to place and oriented to time Neck Carotids: no bruits Chest Chest palpation & inspection: normal inspection of the chest and normal palpation of entire chest wall Resp Effort & Inspection: normal respiratory effort and able to speak in complete sentences Cardio Rate: regular rate Heart sounds: S1 normal heart sound present and S2 normal heart sound present Peripheral pulses: Peripheral pulses 2+ throughout GI Inspection: Yes normal to inspection Skin Other: +2 edema, large rope-like varicosities greater than 4 mm bilateral thighs CEAP Classification C4 - skin color changes Ep - Etiology Primary As - superficial veins P - reflux General skin exam: dry skin Neuro General: oriented to person, oriented to place and oriented to time Extrem Right lower extremity: full ROM, normal capillary refill and edema Left lower extremity: full ROM, normal capillary refill and edema Psych Mental Status: mental status grossly normal Assessment & Plan Assessment & Plan (1) Varicose veins of left lower extremity with inflammation: Code(s): I83.12 - Varicose veins of left lower extremity with inflammation Category: Medical Plan: In short, the patient has evidence of venous insufficiency. I have discussed the pathophysiology with the patient. In addition I have provided informational material regarding venous disease to the patient. We have discussed conservative measures including compression, elevation, and exercise. I have also provided a handout regarding appropriate use of compression stockings and where to purchase good compression stockings as well. I have taken the liberty of ordering venous insufficiency testing with the patient. They will follow up with me after testing. The patient had an opportunity to ask questions regarding the treatment plan. All questions were answered. Imaging studies, laboratory studies and physical exam results were discussed and reviewed in detail. No major barriers to understanding were identified. The patient expressed understanding and agreement with the above treatment plan. The patient is aware they should contact our office by phone for worsening of the current condition or the appearance of new symptoms. Thank you for allowing me to participate in the vascular care of this patient. If you have any questions or concerns regarding the treatment for the above condition please do not hesitate to contact me. The office telephone contact is [phone]. This note is constructed using voice recognition software. While every effort has been made to ensure accuracy, medical transcription radiology errors may have been included. Thank you for allowing me to participate in the care of your patient. Yours sincerely, Fan Sy MD, FACS, R.P.V.I. Orders: Orders US venous duplex LE BI 1 Week I83.12 - Varicose veins of left lower extremity with inflammation Coding Level of Care Code New Pt Level 4 (16217) Diagnoses Varicose veins of left lower extremity with inflammation I83.12
== END ==
PROVIDERS: PCP Nurse Practitioner Family; Visit Provider Surgery Vascular Surgery
DX: I83.12 Varicose veins of left lower extremity with inflammation (principal)
CPT/HCPCS: 99204

== ENCOUNTER → 2024-02-07 15:22 | Outpatient (BNVA) | payer OTHER, SELFPAY | PROVIDERS: PCP Nurse Practitioner Family; Visit Provider Surgery Vascular Surgery | DX: I83.12 Varicose veins of left lower extremity with inflammation (principal); I83.813 Varicose veins of bilateral lower extremities with pain | CPT/HCPCS: 99202 ==

== ENCOUNTER 2024-02-27 13:12 | Outpatient (REF) | payer OTHER, SELFPAY | END 2024-02-27 13:13 | disposition home or self-care (01) | LOC: HO.US 13:12 | PROVIDERS: PCP Nurse Practitioner Family; Visit Provider Surgery Vascular Surgery | DX: I83.12 Varicose veins of left lower extremity with inflammation (principal) | CPT/HCPCS: 93970 ==

== ENCOUNTER 2024-03-05 12:58 | Outpatient (AMB) | payer OTHER, SELFPAY ==
--- NOTE | 2024-03-05 12:59 | A.OFFPC_ITS ---
Vital Signs 03/05/24 13:02 Height 5 ft 4 in Weight 345 lb 6 oz BMI 59.3 BP 134/80 Blood Pressure Location Lt brachial Position Sitting Respiration 14 Pulse 73 Pulse Source Pulse Oximeter Pulse Oximetry (%) 96 Oxygen Delivery Method Room Air Intake Visit Reasons: FU Wt loss/ADRIÁN Intake Note: follow up on weight loss Encapsulator Required: No Allergies No Known Allergies Allergy (Verified 03/05/24 13:27) Medication List - Last Reconciled 03/05/24 by IRENE BeckhamP- bupropion HCl SR 150 mg PO BID 90 days cholecalciferol (vitamin D3) 1,250 mcg PO QWEEK ferrous sulfate 324 mg PO BID 90 days naltrexone 25 mg (1/2 x 50 mg) PO DIRECTED Tobacco use date assessed: 11/15/23 Dental Screening Dental Screen Date: 11/15/23 HPI HPI Comments History of Present Illness0 Details 38-year-old female with scoliosis, seaso nal allergies, former smoker, obesity, varicose veins in BLE, generalized anxiety disorder family history: father alcohol abuse, paternal grandmother diabetes, maternal grandmother colon cancer, maternal aunt breast cancer Health Maintenance: Tdap 10/04/23 Pap 01/2024 wnl @ [facility] Specialists: Bariatric clinic at [facility] TRAVEL RN vascular first appt 03/2024 The patient is a 38-year-old female presenting with follow-up for weight loss and obstructive sleep apnea. She reports ongoing efforts to address weight loss through medical therapy and dietitian consultations. Initially experienced nausea while on naltrexone, which abated after a period off medication. Appetite suppression was great initially w/ naltrexone, however she stopped taking for a few days and restarted, she did not notice the same benefit upon restarting. She has urge to snack. Working hard to resist this as she has successfully lost chelo ght. She has been engaging in regular physical activity. She reports difficulty with her continuous positive airway pressure (CPAP) therapy for obstructive sleep apnea due to nasal pillow discomfort and full-face mask issues, including a chin strap not maintaining its position. The patient is experiencing suboptimal sleep, typically achieving 3.5 to 4 hours consecutively, which contributes to daytime fatigue. There have been attempts to utilize the internet for support in adjusting CPAP equipment. The patient also reports left arm pain over several weeks, exacerbated by movement with symptoms suggesting possible shoulder involvement. She recalls no specific inciting trauma other than possibly sleeping in an awkward position. Did have a mechanical fall prior to onset. Exam: General: Well developed, well nourished, in no acute distress. Appears stated age. Lungs: Clear to auscultation bilaterally. No rales, rhonchi or wheeze noted. Good air flow in all rodriguez. Heart: Regular rate and rhythm. No murmurs, click, rubs or gallops are noted. Extremities: No clubbing, cyanosis is noted. Trace edema bilateral lower extremities with tortuous varicosities upper and lower legs bilat. Full ROM L arm, pain with overhead extension in the anterior aspect of shoulder; pain with palp in this area. No clavicular pain. No deformity, erythema or warmth. Neurovasc intact. Skin: Tinea versicolor to left neck and anterior chest,No ulcers, or lesions noted. Turgor is good. Skin color is good. Hair and nails are without abnormalities. Psych: Normal eye contact, affect and mood appropriate, and normal interactions. Patient is alert and appropriate to context. Plan - Increase naltrexone from 25mg BID to 5 0mg twice per day - max dose. - Increased bupropion to 200 mg twice da laci - max dose . - Adjust CPAP therapy equipment as neede d, ensuring proper fitting. Consult w/ company or buy mask online. - Recommend physical therapy home exerci ses for left arm/shoulder pain possibly due to rotator cuff tendinitis. - Suggested analgesic gel like tiger bal m for symptomatic relief of left arm pain. - Follow-up and evaluation of arm pain, possibly considering x-ray if symptoms persist. Recommend increasing naltrexone first for 2 weeks before adding the higher dose on wellbutrin to monitor for side effects. RTO in Mar as scheduled to fu on med increase and L shoulder pain, sooner PRN Patient was informed and verbally consented to the use of an ambient scribe for clinic note documentation during this visit. This note is constructed using voice recognition software. While every effort has been made to ensure accuracy in fisher quahog, still errors may have been included Sometimes, these errors may affect the content or meaning of the given sentence . Total time spent caring for the patient today was 40 minutes. This includes time spent before the visit reviewing the chart, time spent during the visit, and time spent after the visit on documentation [facility] Medical History Labial lesion History of syphilis Vitamin D deficiency Iron deficiency anemia ADRIÁN (obstructive sleep apnea) Hypersomnia Edema Surgical History Hx of dilation and curettage Family History Father HTN (hypertension) Cirrhosis Colon cancer Paternal Aunt History of breast cancer Paternal Grandmother Diabetes Maternal Grandmother Colon cancer Other FH: mental illness Hypercholesteremia Substance use Social History Housing: Apartment Patient Tobacco Use Status: Former Tobacco user Years Smoked: 26 quit 02/26 e-Cigarette/Vaping Use: Never Used Second Hand Smoke Exposure: No service: No Current occupational status: employed 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 1. Little interest or pleasure in doing things: not at all 2. Feeling down, depressed, or hopeless: several days 3. Trouble falling or staying asleep, or sleeping too much: not at all 4. Feeling tired or having little energy: not at all 5. Poor appetite or overeating: several days 6. Feeling bad about yourself - or that you are a failure or have let yourself or your family down: not at all 7. Trouble concentrating on things, such as reading the newspaper or watching television: not at all 8. Moving or speaking so slowly that other people could have noticed. Or the opposite - being so fidgety or restless that you have been moving around a lot more than usual: not at all 9. Thoughts that you would be better off or of hurting yourself in some way: not at all Total score: 2 50745 - PHQ-9 Billing: Yes Source: Developed by Drs. Chao Flower, Agustina Butcher, Chuy Dave and colleagues, with an educational jame from [employer]. Thrive Questionnaire Date Thrive assessed: 03/05/24 I am a: Patient What is your living situation today?: I have a steady place to live Within the past 12 months, did the food you bought not last and you didn't have the money to get more?: Often true Within the past 12 months, did you worry whether your food would run out before you got money to buy more?: I choose not to answer this question Do you have trouble paying for medicines?: Yes Do you have trouble getting transportation to medical appointments?: I choose not to answer this question Do you have trouble paying your heating and electricity bill?: Yes Do you have trouble taking care of your child, family member or friend?: I choose not to answer this question Do you have trouble with day-to-day activities such as bathing, preparing meals, shopping, managing finances, etc.?: I choose not to answer this question Are you currently unemployed and looking for a job?: I choose not to answer this question Are you interested in more education?: I choose not to answer this question Please select the resources that you would like help with: None Currently or been in a relationship where the following occur: I choose not to answer THRIVE Score: 2 AUDIT C Alcohol Use Questionnaire (AUDIT-C) 1. How often do you have a drink containing alcohol?: Never Total Score: 0 FLORINA-7 AMB Questionnaire FLORINA-7 Date FLORINA - 7 assessed: 03/05/24 Feeling nervous, anxious, or on edge: 0 = Not at all Not being able to stop or control worryin = Not at all Worrying too much about different things: 0 = Not at all Trouble relaxin = Not at all Being so restless that it is hard to sit still: 0 = Not at all Becoming easily annoyed or irritable: 1 = Several days Feeling afraid as if something awful might happen: 0 = Not at all Total FLORINA-7 score (0-4 normal; 5-9 mild; 10-14 moderate; 15-21 severe): 1 Source: Developed by Drs. Chao Flower, Agustina Butcher, Chuy Dave and colleagues, with an educational jame from [employer] FLORINA-7 Assessment Billing FLORINA-7 Assessment Tool: FLORINA-7 Assessment 22405 Physical exam (Primary Care) Vital Signs: Last Vital Signs Pulse 73 03/05/24 13:02 Resp 14 03/05/24 13:02 BP 134/80 03/05/24 13:02 Pulse Ox 96 03/05/24 13:02 Oxygen Delivery Method Room Air 03/05/24 13:02 BMI result Body Mass Index 59.3 Tobacco/Smoking Status: Tobacco use Status Tobacco use date assessed 11/15/23 03/05/24 13:04 Patient Tobacco Use Status Former Tobacco user 03/05/24 13:04 e-Cigarette/Vaping Use Never Used 03/05/24 13:04 PHQ-9: PHQ-9 Score PHQ-9: Total score 2 03/05/24 13:27 Thrive Assessment: Date of Thrive Assessment Date Thrive assessed 03/05/24 03/05/24 13:04 Currently or been in a relationship where the following occur: I choose not to answer Coding Level of Care Code Est Pt Level 5 (17138) Complex EM visit Add On G2211 Diagnoses Morbid (severe) obesity due to excess calories E66.01 ADRIÁN (obstructive sleep apnea) G47.33 Acute pain of left shoulder M25.512 Chronicity: acute Additional Codes FLORINA-7 Assessment Billing - FLORINA-7 Assessment Tool: FLORINA-7 Assessment 85230 ([id number]) PHQ-9 - 29524 - PHQ-9 Billing: Yes ([id number]) Assessment & Plan Assessment & Plan (1) Morbid (severe) obesity due to excess calories: Code(s): E66.01 - Morbid (severe) obesity due to excess calories Category: Medical (2) ADRIÁN (obstructive sleep apnea): Comment: sleep study 11/17/2023 [facility] 12/2023 Code(s): G47.33 - Obstructive sleep apnea (adult) (pediatric) Category: Medical (3) Left shoulder pain: Code(s): M25.512 - Pain in left shoulder Category: Medical Qualifiers: Chronicity: acute Qualified Code(s): M25.512 - Pain in left shoulder Plan . Medications: New bupropion HCl SR 200 mg PO BID 180 tabs 1RF 90 days Changed From naltrexone Take 1/2 tab daily in the AM for 1 week then 1/2 tab twice per day 25 mg (1/2 x 50 mg) PO DIRECTED 45 tabs 0RF To naltrexone 50 mg PO BID 90 tabs 0RF Discontinued bupropion HCl SR Discontinued Reason: Doctor's Order 150 mg PO BID 90 days 180 tabs 0RF
[2024-03-05 13:02] VITALS: BP 134/80; PULSE 73; RESP 14; O2SAT 96; BMI 59.3
== END 2024-03-05 13:48 | disposition home or self-care (01) ==
PROVIDERS: PCP Nurse Practitioner Family; Visit Provider Nurse Practitioner Family
DX: M25.512 Pain in left shoulder (principal); E66.01 Morbid (severe) obesity due to excess calories; Z68.43 Body mass index [BMI] 50.0-59.9, adult; G47.33 Obstructive sleep apnea (adult) (pediatric)

== ENCOUNTER → 2024-03-05 12:58 | Outpatient (BNVA) | payer OTHER, SELFPAY | PROVIDERS: PCP Nurse Practitioner Family; Visit Provider Nurse Practitioner Family | DX: E66.01 Morbid (severe) obesity due to excess calories (principal); G47.33 Obstructive sleep apnea (adult) (pediatric); Z68.43 Body mass index [BMI] 50.0-59.9, adult; M25.512 Pain in left shoulder; Z71.3 Dietary counseling and surveillance | CPT/HCPCS: 96127; 99212 ==

== ENCOUNTER 2024-03-08 15:26 | Outpatient (AMB) | payer OTHER, SELFPAY ==
--- NOTE | 2024-03-08 15:26 | A.OFFVIS_ITS ---
Intake Visit Reasons: 2 week follow up s/p US 02/27/24 Intake Note: Patient presents for US performed on 02/17/24. Stands at work , always has pains in legs. Accompanied by: Self / Same As Patient Allergies No Known Allergies Allergy (Verified 03/08/24 15:27) HPI HPI 2 week follow up s/p US 02/27/24: Details: Very pleasant 38-year-old female presents for follow-up regarding venous insufficiency. She has rather large varicosities on both lower extremities coursing through the anterior aspect of her thigh down into her calf. They have been a source of significant pain and discomfort for her. She now presents to us for follow-up with venous insufficiency testing. [facility] Medical History Labial lesion History of syphilis Vitamin D deficiency Iron deficiency anemia ADRIÁN (obstructive sleep apnea) Hypersomnia Edema Surgical History Hx of dilation and curettage Family History Father HTN (hypertension) Cirrhosis Colon cancer Paternal Aunt History of breast cancer Paternal Grandmother Diabetes Maternal Grandmother Colon cancer Other FH: mental illness Hypercholesteremia Substance use Social History Housing: Apartment Patient Tobacco Use Status: Former Tobacco user Years Smoked: 26 quit 02/26 e-Cigarette/Vaping Use: Never Used Second Hand Smoke Exposure: No service: No Current occupational status: employed 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 Current occupational exposures/hazards: No Cognitive needs: No Hearing needs: No Vision needs: No Review of Systems Const Reports as per HPI ENT Reports no additional complaints Card Denies chest pain, Denies chest pain at rest and Denies chest pain with activity Resp Denies chest congestion and Denies cough GI Reports no additional complaints Musc Details: pain over varicosities, aching of lower extremities, swelling, cramping, heaviness and tiredness, itching Denies abnormal gait Skin/Breast Reports pruritus and Denies wounds Neuro Reports no additional complaints and Denies abnormal gait Psych Denies no additional complaints Physical Exam Const General: cooperative, healthy appearing and comfortable Orientation/consciousness: oriented to person, oriented to place and oriented to time Neck Carotids: no bruits Chest Chest palpation & inspection: normal inspection of the chest and normal palpation of entire chest wall Resp Effort & Inspection: normal respiratory effort and able to speak in complete sentences Cardio Rate: regular rate Heart sounds: S1 normal heart sound present and S2 normal heart sound present Peripheral pulses: Peripheral pulses 2+ throughout GI Inspection: Yes normal to inspection Skin Other: +2 edema, large rope-like varicosities greater than 4 mm bilateral anterior thigh CEAP Classification C4 - skin color changes Ep - Etiology Primary As - superficial veins P - reflux General skin exam: dry skin Neuro General: oriented to person, oriented to place and oriented to time Extrem Right lower extremity: full ROM, normal capillary refill and edema Left lower extremity: full ROM, normal capillary refill and edema Psych Mental Status: mental status grossly normal Results Reviewed Results Reviewed: Brief summary of venous insufficiency testing is as follows: right great saphenous vein: Positive at junctional right small saphenous vein: Positive right accessory vein: none present left great saphenous vein: negative left small saphenous vein: negative left accessory vein: none present Please note there is no evidence of any venous aneurysms or significant tortuosity Assessment & Plan Assessment & Plan (1) Varicose veins of left lower extremity with inflammation: Code(s): I83.12 - Varicose veins of left lower extremity with inflammation Category: Medical Plan: This patient has varicose veins with inflammation. They continue to be a source of discomfort for the patient. The patient has tried conservative treatment with compression, leg elevation and exercise program for over 3 months time. They have been compliant with all treatment. This has provided minimal relief for the patient. I do not anticipate this course of treatment will alter the underlying etiology. The patient has been scheduled for lower extremity venous treatment inclusive of --- left leg microphlebectomy. Risks, benefits, and complications of this procedure has been discussed in detail with the patient including but not limited to bleeding, infection, and the development of a DVT. The patient has demonstrated a clear understanding and has consented. We will schedule the patient as soon as possible. Thank you for allowing us to participate in this patient's care. If there are any questions or concerns please do not hesitate to contact us. Coding Level of Care Code Est Pt Level 4 (85657) Diagnoses Varicose veins of left lower extremity with inflammation I83.12
== END 2024-03-09 08:51 | disposition home or self-care (01) ==
PROVIDERS: PCP Nurse Practitioner Family; Visit Provider Surgery Vascular Surgery
DX: I83.12 Varicose veins of left lower extremity with inflammation (principal)
CPT/HCPCS: 99214

== ENCOUNTER → 2024-03-08 15:26 | Outpatient (BNVA) | payer OTHER, SELFPAY | PROVIDERS: PCP Nurse Practitioner Family; Visit Provider Surgery Vascular Surgery | DX: I83.12 Varicose veins of left lower extremity with inflammation (principal) | CPT/HCPCS: 99212 ==

== ENCOUNTER → 2024-03-16 16:07 | Outpatient (BNV) | payer OTHER, SELFPAY ==
--- NOTE | 2024-03-16 16:07 | MHC.PC.OV ---
Intake Visit Reasons: Amb Documentation Logistics Coordinator Required: No Allergies No Known Allergies Allergy (Verified 03/16/24 16:09) Medication List - Last Reconciled 03/16/24 by YEYO Beckham- bupropion HCl SR 200 mg PO BID 90 days cholecalciferol (vitamin D3) 1,250 mcg PO QWEEK ferrous sulfate 324 mg PO BID 90 days naltrexone 50 mg PO BID 90 days Tobacco use date assessed: 03/16/24 Dental Screening Dental Screen Date: 03/16/24 Did you have a dental visit in the last 12 months?: Yes Did you have a dental problem in the last 6 months where you did not have access to dental care?: No Was dental information given to patient?: Patient has dentist HPI HPI Comments History of Present Illness Details History of Present Illness The patient is a 38-year-old female presenting with a request for medication management, specifically refills for Naltrexone which is being used for weight management. The patient reports attempting to refill Naltrexone 50 mg, which she takes twice daily; however, she was informed that no refills remain. The absence of medication previously resulted in disruption to her regimen. She also mentions recent follow-up with Dr. Strong, who considered increasing her dose of Bupropion, although she was already adjusted to a higher dose. Additionally, the patient notes a weight loss of 3 pounds since the last consult. No other updates or changes in her medical condition were discussed at this time. She is tolerating the increase of her medications quite well Review of Systems - Neurological: Reports weight loss of 3 pounds. - Psychological: Denies worsening of depressive symptoms aside from the information discussed. Plan - Refill Naltrexone with a 90-day supply, including a refill to cover treatment for 6 months. - Ensure Bupropion refill is assessed for current dose and appropriateness - Continue monitoring weight and mental health status, considering medication effects and lifestyle factors. Patient was informed and verbally consented to the use of an ambient scribe for clinic note documentation during this visit. Discussion Notes I discussed with the patient the importance of maintaining consistency with her prescribed medication regimen to avoid any lapse that might affect her recovery. We reviewed the plan to provide a 90-day supply of Naltrexone and an additional refill to manage continuity of care over six months, stressing the aim to prevent any issues with pharmacy availability. We also discussed her recent weight loss and confirmed that her current regimen is effective. I reassured her of the measures in place, including the prompt transmission of her prescriptions to the pharmacy, ensuring her medications remain a priority to her overall health plan. Patient Instructions - mother superior prescribed Naltrexone and Bupropion refills from the pharmacy. - Continue medications as advised, and adhere to the prescribed doses. - Monitor weight changes and mental health status; report any concerns. - Expect contact from the pharmacy to confirm prescription readiness. This note is constructed using voice recognition software. While every effort has been made to ensure accuracy in wheelchair van operator first responder, still errors may have been included Sometimes, these errors may affect the content or meaning of the given sentence . PFSH Medical History Labial lesion History of syphilis Vitamin D deficiency Iron deficiency anemia ADRIÁN (obstructive sleep apnea) Hypersomnia Edema Surgical History Hx of dilation and curettage Family History Father HTN (hypertension) Cirrhosis Colon cancer Paternal Aunt History of breast cancer Paternal Grandmother Diabetes Maternal Grandmother Colon cancer Other FH: mental illness Hypercholesteremia Substance use Social History Housing: Apartment Patient Tobacco Use Status: Former Tobacco user Years Smoked: 26 quit 02/26 e-Cigarette/Vaping Use: Never Used Second Hand Smoke Exposure: No service: No Current occupational status: employed 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 Chao Flower, Agustina Butcher, Chuy Dave and colleagues, with an educational jame from [facility]. Physical exam (Primary Care) Tobacco/Smoking Status: Tobacco use Status Tobacco use date assessed 03/16/24 03/16/24 16:10 Patient Tobacco Use Status Former Tobacco user 03/16/24 16:07 e-Cigarette/Vaping Use Never Used 03/16/24 16:07 Thrive Assessment: Date of Thrive Assessment Date Thrive assessed 03/05/24 03/16/24 16:07 Telehealth Telehealth Telehealth Platform: [facility] Location of provider rendering services: practice address Location of patient: address on file Patient Identification confirmed using: Name, : Yes Telehealth method: voice only Patient verbally consented to treatment: Yes Patient verbally consented to billing insurance company: Yes Patient informed of any privacy concerns related to visit: Yes Minutes spent on Phone/Video with Pt.: 4 Coding Level of Care Code Tele Est Pt Level 1 (23389) Complex EM visit Add On G2211 Diagnoses Morbid (severe) obesity due to excess calories E66.01 Assessment & Plan Assessment & Plan (1) Morbid (severe) obesity due to excess calories: Code(s): E66.01 - Morbid (severe) obesity due to excess calories Category: Medical Plan: . Medications: Changed From naltrexone 50 mg PO BID 90 tabs 0RF To naltrexone 50 mg PO BID 180 tabs 1RF 90 days
== END ==
PROVIDERS: PCP Nurse Practitioner Family; Visit Provider Nurse Practitioner Family
DX: E66.01 Morbid (severe) obesity due to excess calories (principal)
CPT/HCPCS: 99499

== ENCOUNTER 2024-03-19 08:31 | Outpatient (AMB) | payer OTHER, SELFPAY ==
--- NOTE | 2024-03-19 08:42 | A.OFFPC_ITS ---
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 Required: No Allergies No Known Allergies Allergy (Verified 03/19/24 08:54) Medication List - Last Reconciled 03/19/24 by IRENE BeckhamP- bupropion HCl SR 200 mg PO BID 90 days cholecalciferol (vitamin D3) 1,250 mcg PO QWEEK ferrous sulfate 324 mg PO BID 90 days naltrexone 50 mg PO BID 90 days Tobacco use date assessed: 03/16/24 Dental Screening Dental Screen Date: 03/16/24 HPI HPI Comments History of Present Illness Details 38-year-old female with scoliosis, seaso nal allergies, former smoker, obesity, varicose veins in BLE, generalized anxiety disorder family history: father alcohol abuse, paternal grandmother diabetes, maternal grandmother colon cancer, maternal aunt breast cancer Health Maintenance: Tdap 10/04/23 Pap 01/2024 wnl @ [facility] Specialists: Bariatric clinic at 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 Her medication-assisted weight loss regimen includes bupropion and naltrexone, which were recently increased without any reported adverse effects, leading to successful continued weight loss. She reported successful adjustment to a new CPAP machine for sleep apnea, which she described as functioning well and fitting comfortably. Previous concerns of left arm and shoulder pain have improved since she adjusted her sleeping position, allowing normal function without further discomfort. She cont w/ bariatric surgeon. She expressed concerns about the delayed timeline for surgery despite significant weight loss and the absence of clearly defined surgical weight loss targets. Additionally, the patient has scheduled microphlebectomy for vascular insuf ficiency in her left leg 04/16/24, with a follow-up procedure planned for her right leg once the left leg heals. Cont on Iron for anemia and Vit d for def. Due for repeat labs. 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 She describes sharp, pinching pain in her legs and hips, which intensifies with prolonged standing. Present for years. Affecting ble. Feels better when laying down. Has had imaging in the past, per report. Denies red flag assoc w/ back pain. The patient mentioned a history of scoliosis, potentially contributing to her symptoms, and is open to pursuing more aggressive management options, including referrals to pain management or spine centers. Exam: General: Well developed, well nourished, in no acute distress. Appears stated age. Lungs: Clear to auscultation bilaterally. No rales, rhonchi or wheeze noted. Good air flow in all rodriguez. Heart: Regular rate and rhythm. No murmurs, click, rubs or gallops are noted. Extremities: No clubbing, cyanosis is noted. Trace edema bilateral lower extremities with tortuous varicosities upper and lower legs bilat. No deformity, erythema or warmth. Neurovasc intact. Negative SLR bilat. Able to do glute bridge w/o pain. + leg length discrepancy L shorter than R, pain over lumarsacral spine w/ palp. No paraspinal tenderness. 5/5 strength, normal tone and reflexes. Skin: Tinea versicolor to left neck and anterior chest,No ulcers, or lesions noted. Turgor is good. Skin color is good. Hair and nails are without abnormalities. Psych: Normal eye contact, affect and mood appropriate, and normal interactions. Patient is alert and appropriate to context. Discussion Notes During our conversation, I outlined the management strategies for the patient's ongoing concerns. The importance of maintaining routine use of the CPAP machine for sleep apnea management was emphasized. In managing weight loss, the focus remained on consistency with medication and lifestyle changes, with surgical options discussed as a long-term goal contingent upon meeting specific criteria, which should be clarified further with the surgeon. We acknowledged the patient's frustration with the timeline. For sciatica, we discussed pain management through anti-inflammatory medication and potential referrals for further evaluation. Exercise regimens and lifestyle adjustments were proposed to alleviate musculoskeletal discomforts. I encouraged open communication with specialists to ensure a comprehensive approach to her care. A follow-up in August was planned for a physical examination unless earlier contact was necessary. Plan - Continue current dosing of bupropion a nd naltrexone for weight management, given its efficacy and lack of adverse effects. - Maintain the use of the CPAP machine f or sleep apnea and monitor ongoing benefits. - Scheduled microphlebectomy procedure - Initiate a plan to manage sciatica wit h meloxicam as an anti-inflammatory, to be taken mainly on weekends or as needed. Home exercises and refer to pain management for potential evaluation and treatment. Ok to cancel if NSAID helps. - Labs today. Patient was informed and verbally consented to the use of an ambient scribe for clinic note documentation during this visit. Patient Instructions - Continue using the CPAP machine every night. - Take meloxicam as directed, preferably with food during weekends when symptoms are more pronounced. - Reach out to the vascular surgeon to c larify surgical criteria and ongoing management plans. - Follow up on scheduled blood work for anemia and vitamin D levels. - Practice sacroiliac joint exercises an d hip bridge techniques to potentially alleviate sciatica symptoms. - Attend referral appointments with the spine or pain management center as scheduled. - Monitor symptoms and report any signif icant changes or worsening of condition promptly. This note is constructed using voice recognition software. While every effort has been made to ensure accuracy in proof press operator, still errors may have been included Sometimes, these errors may affect the content or meaning of the given sentence . Total time spent caring for the patient today was 30 minutes. This includes time spent before the visit reviewing the chart, time spent during the visit, and time spent after the visit on documentation [facility] Medical History Labial lesion History of syphilis Vitamin D deficiency Iron deficiency anemia ADRIÁN (obstructive sleep apnea) Hypersomnia Edema Surgical History Hx of dilation and curettage Family History Father HTN (hypertension) Cirrhosis Colon cancer Paternal Aunt History of breast cancer Paternal Grandmother Diabetes Maternal Grandmother Colon cancer Other FH: mental illness Hypercholesteremia Substance use Social History Housing: Apartment Patient Tobacco Use Status: Former Tobacco user Years Smoked: 26 quit 02/26 e-Cigarette/Vaping Use: Never Used Second Hand Smoke Exposure: No service: No Current occupational status: employed 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 60763 - PHQ-9 Billing: Patient declined-do not bill Source: Developed by Drs. Chao Flower, Agustina Butcher, Chuy Dave and colleagues, with an educational jame from [employer]. Thrive Questionnaire Date Thrive assessed: 03/19/24 I am a: Patient What is your living situation today?: I choose not to answer this question Within the past 12 months, did the food you bought not last and you didn't have the money to get more?: I choose not to answer this question Within the past 12 months, did you worry whether your food would run out before you got money to buy more?: I choose not to answer this question Do you have trouble paying for medicines?: I choose not to answer this question Do you have trouble getting transportation to medical appointments?: I choose not to answer this question Do you have trouble paying your heating and electricity bill?: I choose not to answer this question Do you have trouble taking care of your child, family member or friend?: I choose not to answer this question Do you have trouble with day-to-day activities such as bathing, preparing meals, shopping, managing finances, etc.?: I choose not to answer this question Are you currently unemployed and looking for a job?: I choose not to answer this question Are you interested in more education?: I choose not to answer this question Please select the resources that you would like help with: None Currently or been in a relationship where the following occur: I choose not to answer THRIVE Score: 0 AUDIT C Alcohol Use Questionnaire (AUDIT-C) 1. How often do you have a drink containing alcohol?: Never Total Score: 0 FLORINA-7 AMB Questionnaire FLORINA-7 Date FLORINA - 7 assessed: 03/19/24 Feeling nervous, anxious, or on edge: 3 = Nearly every day Not being able to stop or control worryin = Not at all Worrying too much about different things: 0 = Not at all Trouble relaxin = Not at all Being so restless that it is hard to sit still: 0 = Not at all Becoming easily annoyed or irritable: 0 = Not at all Feeling afraid as if something awful might happen: 0 = Not at all Total FLORINA-7 score (0-4 normal; 5-9 mild; 10-14 moderate; 15-21 severe): 3 Source: Developed by Drs. Chao Flower, Agustina Butcher, Chuy Dave and colleagues, with an educational jame from [employer]. FLORINA-7 Assessment Billing FLORINA-7 Assessment Tool: FLORINA-7 Assessment 77450 Physical exam (Primary Care) Vital Signs: Last Vital Signs Pulse 76 03/19/24 08:44 Resp 12 03/19/24 08:44 BP 118/68 03/19/24 08:44 Pulse Ox 94 03/19/24 08:44 Oxygen Delivery Method Room Air 03/19/24 08:44 BMI result Body Mass Index 58.7 BMI Assessment/Plan discussion: High BMI High, discussed plan: lifestyle, weight reduction and physical activity Tobacco/Smoking Status: Tobacco use Status Tobacco use date assessed 03/16/24 03/19/24 08:46 Patient Tobacco Use Status Former Tobacco user 03/19/24 08:46 e-Cigarette/Vaping Use Never Used 03/19/24 08:46 Thrive Assessment: Date of Thrive Assessment Date Thrive assessed 03/19/24 03/19/24 08:46 Currently or been in a relationship where the following occur: I choose not to answer Coding Level of Care Code Est Pt Level 4 (42959) Complex EM visit Add On G2211 Diagnoses Morbid (severe) obesity due to excess calories E66.01 ADRIÁN (obstructive sleep apnea) G47.33 Varicose veins of left lower extremity with inflammation I83.12 Chronic bilateral low back pain with bilateral sciatica M54.42; M54.41; G89.29 Chronicity: chronic Sciatica laterality: bilateral sciatica Vitamin D deficiency E55.9 Other iron deficiency anemia D50.8 Iron deficiency anemia type: other iron deficiency Varicose veins of both legs with edema I83.893 Additional Codes FLORINA-7 Assessment Billing - FLORINA-7 Assessment Tool: FLORINA-7 Assessment 41166 ([id number]) Assessment & Plan Assessment & Plan (1) Morbid (severe) obesity due to excess calories: Code(s): E66.01 - Morbid (severe) obesity due to excess calories Category: Medical (2) ADRIÁN (obstructive sleep apnea): Comment: sleep study 11/17/2023 [facility] 12/2023 Code(s): G47.33 - Obstructive sleep apnea (adult) (pediatric) Category: Medical (3) Varicose veins of left lower extremity with inflammation: Code(s): I83.12 - Varicose veins of left lower extremity with inflammation Category: Medical (4) Bilateral low back pain with sciatica: Code(s): M54.40 - Lumbago with sciatica, unspecified side Category: Medical Qualifiers: Chronicity: chronic Sciatica laterality: bilateral sciatica Qualified Code(s): M54.42 - Lumbago with sciatica, left side; M54.41 - Lumbago with sciatica, right side; G89.29 - Other chronic pain (5) Vitamin D deficiency: Code(s): E55.9 - Vitamin D deficiency, unspecified Category: Medical (6) Iron deficiency anemia: Code(s): D50.9 - Iron deficiency anemia, unspecified Category: Medical Qualifiers: Iron deficiency anemia type: other iron deficiency Qualified Code(s): D50.8 - Other iron deficiency anemias (7) Varicose veins of both legs with edema: Code(s): I83.893 - Varicose veins of bilateral lower extremities with other complications Category: Medical Plan . Orders: Orders Complete Blood Count no Diff Today D50.8 - Other iron deficiency anemias, E55.9 - Vitamin D deficiency, unspecified, E66.01 - Morbid (severe) obesity due to excess calories Hemoglobin A1c Today D50.8 - Other iron deficiency anemias, E55.9 - Vitamin D deficiency, unspecified, E66.01 - Morbid (severe) obesity due to excess calories TSH reflex Free T4 Today D50.8 - Other iron deficiency anemias, E55.9 - Vitamin D deficiency, unspecified, E66.01 - Morbid (severe) obesity due to excess calories Vitamin D 25-OH Total Today D50.8 - Other iron deficiency anemias, E55.9 - Vitamin D deficiency, unspecified, E66.01 - Morbid (severe) obesity due to excess calories Comprehensive Met. Panel Today D50.8 - Other iron deficiency anemias, E55.9 - Vitamin D deficiency, unspecified, E66.01 - Morbid (severe) obesity due to excess calories Lipid Panel Today D50.8 - Other iron deficiency anemias, E55.9 - Vitamin D deficiency, unspecified, E66.01 - Morbid (severe) obesity due to excess calories IRON PROFILE Today D50.8 - Other iron deficiency anemias, E55.9 - Vitamin D deficiency, unspecified, E66.01 - Morbid (severe) obesity due to excess calories Vitamin B12 and Folate Today D50.8 - Other iron deficiency anemias, E55.9 - Vitamin D deficiency, unspecified, E66.01 - Morbid (severe) obesity due to excess calories Referrals Pain Management Referral M54.40 - Lumbago with sciatica, unspecified side Medications: New meloxicam 15 mg PO DAILY PRN 30 tabs 3RF pain Patient Instructions: Look up exercises for sacroiliac joint dysfunctin at home and perform there.
[2024-03-19 08:44] VITALS: BP 118/68; PULSE 76; RESP 12; O2SAT 94; BMI 58.7
== END 2024-03-19 09:15 | disposition home or self-care (01) ==
PROVIDERS: PCP Nurse Practitioner Family; Visit Provider Nurse Practitioner Family
DX: I83.12 Varicose veins of left lower extremity with inflammation (principal); G47.33 Obstructive sleep apnea (adult) (pediatric); E66.01 Morbid (severe) obesity due to excess calories; Z68.43 Body mass index [BMI] 50.0-59.9, adult; M54.42 Lumbago with sciatica, left side; M54.41 Lumbago with sciatica, right side; G89.29 Other chronic pain; E55.9 Vitamin D deficiency, unspecified; D50.8 Other iron deficiency anemias; I83.893 Varicose veins of bilateral lower extremities with other complications

== ENCOUNTER → 2024-03-19 08:31 | Outpatient (BNVA) | payer OTHER, SELFPAY | PROVIDERS: PCP Nurse Practitioner Family; Visit Provider Nurse Practitioner Family | DX: E66.01 Morbid (severe) obesity due to excess calories (principal); G47.33 Obstructive sleep apnea (adult) (pediatric); I83.12 Varicose veins of left lower extremity with inflammation; M54.42 Lumbago with sciatica, left side; M54.41 Lumbago with sciatica, right side; G89.29 Other chronic pain; E55.9 Vitamin D deficiency, unspecified; D50.8 Other iron deficiency anemias; I83.893 Varicose veins of bilateral lower extremities with other complications | CPT/HCPCS: 96127; 99212 ==

== ENCOUNTER 2024-03-19 09:19 | Outpatient (REF) | payer OTHER, SELFPAY ==
[2024-03-19 11:20] LABS: Hematocrit 40.7 % (37.0-47.0); Hemoglobin 13.3 g/dl (12.0-16.0); Mean Corpuscular HGB Conc 32.7 g/dl (31.0-35.0); Mean Corpuscular Volume 91.7 fL (80.0-98.0); Mean Platelet Volume 9.5 fL (9.4-12.3); Platelet Count 295 X10*3/uL (160-400); Red Blood Count 4.44 X10*6/uL (4.20-5.50); White Blood Count 6.9 X10*3/uL (4.8-10.8)
[2024-03-19 11:26] LABS: Estimated Average Glucose 111 mg/dL; Hemoglobin A1C 124.1494 umol/L; Hemoglobin A1c % 5.5 % (<6.0)
[2024-03-19 12:19] LABS: Alanine Aminotransferase 26 U/L (0-31); Albumin Level 3.9 g/dL (3.5-5.0); Alkaline Phosphatase 73 U/L (39-117); Anion Gap 8 (12-20); Aspartate Amino Transferase 20 U/L (5-31); Bilirubin Total 0.3 mg/dL (0.0-1.0); Blood Urea Nitrogen 14 mg/dL (9-16); Carbon Dioxide 28 mmol/L (22-29); Chloride 110 mmol/L (96-108); Cholesterol 176 mg/dL (<200); Estimated Glomerular Filt Rate > 60; Glucose Random 71 mg/dL (60-115); HDL Cholesterol 37 mg/dL (>40); Iron 45 mcg/dL (30-160); LDL Cholesterol Calculated 117 mg/dL (<100); Percent Iron Saturation 16 % (15-50); Potassium 4.1 mmol/L (3.3-5.1); Sodium 142 mmol/L (135-145); TSH reflex Free T4 0.68 uIU/mL (0.32-4.0); Total Iron Binding Capacity 278 mcg/dL (228-428); Triglycerides 112 mg/dL (<150); Unsaturated Iron Binding 233 ug/dL
[2024-03-19 12:29] LABS: Folate 9.5 ng/mL (> or = 4.0); Vitamin B12 487 pg/mL (200-900)
== END 2024-03-19 09:20 | disposition home or self-care (01) ==
LOC: HO.WFDLDS 09:19
PROVIDERS: Visit Provider Nurse Practitioner Family
DX: E55.9 Vitamin D deficiency, unspecified (principal); D50.8 Other iron deficiency anemias; E66.01 Morbid (severe) obesity due to excess calories
CPT/HCPCS: 36415; 80053; 80061; 82306; 82607; 82746; 83036; 83540; 84443; 85027

== ENCOUNTER → 2024-04-03 14:03 | Outpatient (BNVA) | payer OTHER, SELFPAY | PROVIDERS: PCP Nurse Practitioner Family; Visit Provider Advanced Practice Midwife | DX: Z30.46 Encounter for surveillance of implantable subdermal contraceptive (principal) | CPT/HCPCS: 11982 ==

== ENCOUNTER 2024-04-09 11:40 | Outpatient (AMB) | payer OTHER, SELFPAY ==
[2024-04-09 12:54] VITALS: BP 118/80; PULSE 77; TEMP 36.7; O2SAT 96
--- NOTE | 2024-04-09 12:54 | AM.OFFWIN_ITS ---
Intake Vital Signs 04/09/24 12:54 Weight 341 lb BP 118/80 Blood Pressure Location Rt brachial Position Sitting Pulse 77 Pulse Source Pulse Oximeter Temp 98.1 F Temp Source Oral Pulse Oximetry (%) 96 Oxygen Delivery Method Room Air Intake Visit Reasons: EP stuffy nose, sore throat, cough, feeling tired Intake Note: Patient here for cough, congestion, sore throat, fatigued which started Tuesday night. Patient Tobacco Use Status: Former Tobacco user Allergies No Known Allergies Allergy (Verified 04/09/24 12:58) Do you need a note to return to daycare/school/sports/work: Yes HPI HPI Comments History of Present Illness Details 38 y/o female patient who presents to [facility] walk in clinic with c/o cough, chest/nasal congestion, sore-throat and headaches since Tuesday night. [facility] Medical History (Updated 04/09/24 @ 12:57 by Maite Galicia NP) Acute respiratory disease Labial lesion History of syphilis Vitamin D deficiency Iron deficiency anemia ADRIÁN (obstructive sleep apnea) Hypersomnia Edema Surgical History Hx of dilation and curettage Family History Father HTN (hypertension) Cirrhosis Colon cancer Paternal Aunt History of breast cancer Paternal Grandmother Diabetes Maternal Grandmother Colon cancer Other FH: mental illness Hypercholesteremia Substance use Social History Housing: Apartment Patient Tobacco Use Status: Former Tobacco user Years Smoked: 26 quit 02/26 e-Cigarette/Vaping Use: Never Used Second Hand Smoke Exposure: No service: No Current occupational status: employed 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 Current occupational exposures/hazards: No Cognitive needs: No Hearing needs: No Vision needs: No Review of Systems Const All systems reviewed & are unremarkable except as noted in HPI and below Physical Exam Vital Signs: Last Vital Signs Temp 98.1 F 04/09/24 12:54 Pulse 77 04/09/24 12:54 BP 118/80 04/09/24 12:54 Pulse Ox 96 04/09/24 12:54 Oxygen Delivery Method Room Air 04/09/24 12:54 Const General: cooperative and no acute distress Nutritional Appearance: obese Orientation/consciousness: patient oriented x3 HEENT Head: Yes normocephalic Ears: external ears normal and TM abnormal bulging bilateral and with fluid behind the TM bilateral General nose exam: Abnormal mucous membranes and turbinates present boggy and erythematous and Nasal discharge present Face and sinus: Yes sinuses nontender Mouth: moist mucous membranes Throat: Yes posterior oropharynx normal, Yes uvula midline and Yes postnasal drainage Resp Effort & Inspection: normal respiratory effort and able to speak in complete sentences Auscultation: clear to auscultation bilaterally, no crackles, no rales, no rhonchi and no wheezes Cardio Heart sounds: S1 normal heart sound present and S2 normal heart sound present Neuro General: patient oriented x3 Assessment & Plan Assessment & Plan (1) Acute respiratory disease: Code(s): J06.9 - Acute upper respiratory infection, unspecified Plan: Ordered SARs Acetaminophen for pain relief Rest and hydrate well Orders: Orders SARS-CoV2/FLU/RSV Today J06.9 - Acute upper respiratory infection, unspecified Medications: New pseudoephedrine HCl ER (Sudafed 12 Hour) 120 mg PO Q12H 30 tabs 0RF J06.9 - Acute upper respiratory infection, unspecified acetaminophen 1,000 mg (2 x 500 mg) PO Q6H PRN 90 caps 0RF pain J06.9 - Acute upper respiratory infection, unspecified Coding Level of Care Code Est Pt Level 4 (91359) Diagnoses Acute respiratory disease J06.9 Time Spent (min) 20
--- OUTSIDE RECORDS SUMMARY | 2024-04-09 12:58 | XMS_ITS | Clinical Summary ---
Author Organization 175 [facility] Address [address] [place] [address] Phone Care Team Providers Care Clinical Molecular Geneticist Name Role Phone Dayanna Arellano MD Primary Care Provider [phone] Allergies No known active allergies Medications Medication Sig Dispensed Refills Start Date End Date Status etonogestrel-elutin g contraceptive device 68 mg implant subdermal implant Inject into the skin. Active buPROPion SR (WELLBUTRIN SR) 150 mg 12 hr tablet Take 1 tablet (150 mg total) by mouth 2 (two) times a day. for 90 days 12/12/2023 Active ferrous sulfate 324 mg (65 mg elemental iron) EC tablet Take 1 tablet (324 mg total) by mouth 2 (two) times a day. 12/06/2023 Active naltrexone (DEPADE) 50 mg tablet Take 1 tablet (50 mg total) by mouth 1 (one) time each day. 02/06/2024 Active cholecalciferol (VITAMIN D-3) 1,250 mcg (50,000 unit) capsuleIndications: Obesity, class 3 TAKE 1 CAPSULE BY MOUTH ONE TIME PER WEEK 8 capsule 04/03/2024 Active cholecalciferol (VITAMIN D-3) 1,250 mcg (50,000 unit) capsuleIndications: Obesity, class 3 TAKE 1 CAPSULE BY MOUTH ONE TIME PER WEEK 8 capsule 02/05/2024 Discontinued Active Problems Problem Noted Date Diagnosed Date Class 3 severe obesity with body mass index (BMI) of 50.0 to 59.9 in adult 12/02/2023 Seasonal allergies 08/21/2010 Tinea versicolor 05/13/2009 Overview (12/02/2023): Tinea Versicolor 05/14 right arm & back Scoliosis 10/29/2008 Backache 09/23/2005 Overview (12/02/2023): IMO update Encounters Date Type Department Care Team Description 04/02/2024 3:30 PM EST Office Visit Bariatric Surgery - [address] [phone] Chelita Amador PA Class 3 severe obesity due to excess calories with body mass index (BMI) of 50.0 to 59.9 in adult, unspecified whether serious comorbidity present (CMS/HCC) (Primary Dx) 03/15/2024 3:15 PM EST Office Visit Bariatric Surgery [address] [phone] Neida Mohan MD Class 3 severe obesity with body mass index (BMI) of 50.0 to 59.9 in adult, unspecified obesity type, unspecified whether serious comorbidity present (CMS/HCC) (Primary Dx) 03/06/2024 2:00 PM EST Telemedicine Bariatric Surgery - [address] [phone] Class 3 severe obesity with body mass index (BMI) of 50.0 to 59.9 in adult, unspecified obesity type, unspecified whether serious comorbidity present (CMS/HCC) (Primary Dx) 01/24/2024 [facility] [address] [phone] Selina Garcia MD Appointment 01/11/2024 3:00 PM EST Telemedicine Bariatric Surgery [address] [phone] Class 3 severe obesity with serious comorbidity and body mass index (BMI) of 50.0 to 59.9 in adult, unspecified obesity type (CMS/HCC) (Primary Dx) from Last 3 Months Immunizations Name Administration Dates Next Due HPV, Quadrivalent 01/31/2008 Tdap Tetanus diptheria acell ular pertussis (Boostrix; Adacel) 7yo and older 08/12/2008 Surgical History Surgery Date Site/Laterality Comments OTHER SURGICAL HISTORY PROCEDURE: DENIES PREVIOUS SURGERY Medical History Medical History Date Comments Backache, unspecified 09/23/2005 DX:Backach e, unspecified Seasonal allergies 08/21/2010 DX:Seasonal a llergies Family History Medical History Relation Name Comments Breast cancer Aunt mothers sister Alcohol abuse Father Colon cancer Maternal Grandmother Diabetes Paternal Grandmother Ovarian cancer Neg Hx Relation Name Status Comments Aunt Father Maternal Grandmother Paternal Grandmother Social History Tobacco Use Types Packs/Day Years Used Date Smoking Tobacco: Every Day Cigarettes Smokeless Tobacco: Never Alcohol Use Standard Drinks/Week Comments Yes 0 (1 standard drink = 0.6 oz pur e alcohol) Sex and Gender Information Value Date Recorded Sex Assigned at Not on file Gender Identity Not on file Sexual Orientation Not on file Job Start Date Occupation Industry Not on file Not on file Not on file Obstetrics History Last Filed Vital Signs Vital Sign Reading Time Taken Comments Blood Pressure 130/78 04/02/2024 3:33 PM EST Pulse 64 04/02/2024 3:33 PM EST Temperature 36.2 ??C (97.2 ??F) 04/02/2024 3:33 PM ES T Respiratory Rate - - Oxygen Saturation - - Inhaled Oxygen Concentration - - Weight 156 kg (343 lb) 04/02/2024 3:33 PM EST Height 170.2 cm (5' 7 ) 04/02/2024 3:33 PM EST Body Mass Index 53.72 04/02/2024 3:33 PM EST Plan of Treatment Upcoming Encounters Date Type Department Care Team (Late st Contact Info) Description 05/02/2024 2:00 PM EST Telemedicine Bariatric Surgery - [place] 175 [facility] [address] [place] [phone] Randee Daniel, RD 175 [facility] [address] [place] [address] Scheduled Procedures Name Priority Associated Diagnoses Date/Ti me ANASTOMOSIS DUODENOILEAL SIN GLE ROBOT Class 3 severe obesity due to excess calories with body mass index (BMI) of 50.0 to 59.9 in adult, unspecified whether serious comorbidity present (CMS/HCC) Health Maintenance Due Date Last Done Comments Pneumococcal Vaccine: Pediatrics (0 to 5 Years) and At-Risk Patients (6 to 64 Years) (1 of 2 - PCV) 06/30/1991 HPV Vaccines (2 - 3-dose series) 02/28/2008 01/31/2008 Hepatitis B Vaccines (2 of 3 - 19+ 3-dose series) 04/20/2012 03/23/2012 Cervical Cancer Screening: P ap Smear 12/24/2013 12/24/2010 Depression Screening 09/27/2023 Social Influencers of Health Screening 09/27/2023 COVID-19 Vaccine (3 - 2023-2 5 season) 2023 09/28/2020, 08/05/2020 Influenza Vaccine (#1) 2023 DTaP,Tdap,and Td Vaccines (3 - Td or Tdap) 01/14/2027 01/14/2017, 08/12/2008 Cholesterol Screening (Lipid Panel) 10/05/2028 10/06/2023, 10/06/2023 Hepatitis C Screening Completed 05/27/2009 HIV Screening Completed 12/24/2010 MMR Vaccines Aged Out 03/23/2012 No longer eligi ble based on patient's age to complete this topic HIB Vaccines Aged Out No longer eligi ble based on patient's age to complete this topic Hepatitis A Vaccines Aged Out No long er eligible based on patient's age to complete this topic IPV Vaccines Aged Out No longer eligi ble based on patient's age to complete this topic Meningococcal ACWY Vaccine Aged Out N o longer eligible based on patient's age to complete this topic RSV Immunization Patients Under 20 months Aged Out No longer eligible b ased on patient's age to complete this topic Varicella Vaccines Aged Out No longer eligible based on patient's age to complete this topic Procedures Procedure Name Priority Date/Time Associated Diagnosis Comments EXTERNAL CLINICAL LAB 03/19/2024 LIPID PANEL Routine 10/06/2023 HIV SCREENING Routine 12/24/2010 HM PAP SMEAR Routine 12/24/2010 HEPATITIS C SCREENING Routine 05/27/2009 from Last 3 Months or Most Recently Relevant to Health Maintenance Results * External clinical lab (03/19/2024) Provider Susy Onpedro LAB BLOOD ORDERA BLES * (ABNORMAL) Lipid panel (10/06/2023) [facility] LDL/HDL Ratio 4 0 - 4 Triglycerides 121 0 - 150 mg/dL Cholesterol 193 0 - 200 mg/dL HDL 51 40 mg/dL LDL Cholesterol 118(A) 0 - 100 mg/dL Blood Venous blood specimen / Unknown Historical Provider LAB BLOOD ORDERAB LES * HIV Screening (12/24/2010) [facility] HIV Screening abstracted Historical Provider [facility] SmalldealsJULIET E * Pap Smear (12/24/2010) [facility] Pap smear abstracted, no interpretation Historical Provider [facility] SmalldealsJULIET * Hepatitis C Screening (05/27/2009) [facility] Hepatitis C Screening abstracted Historical Provider [facility] SmalldealsJULIET E from Last 3 Months or Most Recently Relevant to Health Maintenance Care Teams Clinical Molecular Geneticist Relationship Specialty Start Date End Date Dayanna Arellano MD [address] [place] [address] [address] [place] [address] PCP - General 04/21/23
--- OUTSIDE RECORDS SUMMARY | 2024-04-09 12:58 | XMS_ITS | Encounter Summary ---
Author Organization [facility] Address [address] [place] [address] Care Team Providers Care Slat Basket Maker Helper Machine Name Role Phone Dayanna Arellano MD Primary Care Provider [phone] Reason for Visit * Reason Comments Follow-up Encounter Details Date Type Department Care Team ([facility] Contact Info) Description 03/15/2024 3:15 PM EST Office Visit Bariatric Surgery - [place] [address] [facility] [address] [place] [phone] Neida Mohan MD 175 [facility] [address] [place] [address] Class 3 severe obesity with body mass index (BMI) of 50.0 to 59.9 in adult, unspecified obesity type, unspecified whether serious comorbidity present (CMS/HCC) (Primary Dx) Social History Tobacco Use Types Packs/Day Years [...] file Not on file Not on file documented as of this encounter Last Filed Vital Signs Vital Sign Reading Time Taken Comments Blood Pressure 124/79 03/15/2024 2:52 PM EST Pulse 71 03/15/2024 2:52 PM EST Temperature 36.9 ??C (98.4 ??F) 03/15/2024 2:52 PM ES T Respiratory Rate - - Oxygen Saturation - - Inhaled Oxygen Concentration - - Weight 156 kg (343 lb) 03/15/2024 2:52 PM EST Height 170.2 cm (5' 7 ) 03/15/2024 2:52 PM EST Body Mass Index 53.72 03/15/2024 2:52 PM EST documented in this encounter Progress Notes * Neida Mohan MD - 03/15/2024 3:15 PM EST Ms. Tony is a 38 y.o. year old female who presents for surgical follow up regarding obesity. HPI: Ms. Tony has lost 34 lbs since July. Has been on combination of naltrexone and bupropion. Has changed eating habits. Hiking and water aerobics. BMI is 53.72. ROS: GENERAL: No malaise, significant unintentional weight loss, fever, chills or night sweats. HEENT: No changes in hearing or vision, no nose bleeds or other nasal problems. NECK: No lumps, goiter, pain or significant neck swelling RESPIRATORY: No cough, wheezing or shortness of breath CARDIOVASCULAR: No chest pain, leg swelling or palpitations. GI: No abdominal discomfort, nausea, vomiting, or change in bowel habits. : No dysuria, frequency or incontinence. SKIN: No lesions, rash or itching. HEMATOLOGY: No prolonged bleeding, easy bruisability. LYMPHOLOGY No swollen nodes. MUSCULOSKELETAL: No abnormalities. NEURO: No abnormalities. All other systems reviewed which are negative. PAST MEDICAL HISTORY: Patient Active Problem List Diagnosis Date Noted Date Diagnosed Class 3 severe obesity with body mass index (BMI) of 50.0 to 59.9 in adult ([facility]) 12/02/2023 Seasonal allergies 08/21/2010 Tinea versicolor 05/13/2009 Scoliosis 10/29/2008 Backache 09/23/2005 PAST SURGICAL HISTORY: Past Surgical History: Procedure Laterality Date OTHER SURGICAL HISTORY PROCEDURE: DENIES PREVIOUS SURGERY SOCIAL HISTORY: Social History Tobacco Use Smoking status: Every Day Current packs/day: 0.30 Types: Cigarettes Smokeless tobacco: Never Substance Use Topics Alcohol use: Yes FAMILY HISTORY: Family History Problem Relation Name Age of Onset Alcohol abuse Father Diabetes Paternal Grandmother Colon cancer Maternal Grandmother Breast cancer Aunt mothers sister Ovarian cancer Neg Hx Family Status Relation Name Status Father (Not Specified) PGM (Not Specified) MGM (Not Specified) Aunt (Not Specified) Neg Hx (Not Specified) No partnership data on file MEDICATIONS: There are no discontinued medications. ACTIVE MEDICATIONS: Outpatient Medications Marked as Taking for the 03/15/24 encounter (Office Visit) with Neida Mohan MD Medication Sig Dispense Refill buPROPion SR (WELLBUTRIN SR) 150 mg 12 hr tablet Take 1 tablet (150 mg total) by mouth 2 (two) times a day. for 90 days ferrous sulfate 324 mg (65 mg elemental iron) EC tablet Take 1 tablet (324 mg total) by mouth 2 (two) times a day. naltrexone (DEPADE) 50 mg tablet Take 1 tablet (50 mg total) by mouth 1 (one) time each day. ALLERGIES: No Known Allergies PHYSICAL EXAM: Visit Vitals BP 124/79 Pulse 71 Temp 36.9 ??C (98.4 ??F) (Oral) Ht 1.702 m (67 ) Wt 156 kg (343 lb) BMI 53.72 kg/m?? Smoking Status Every Day BSA 2.55 m?? APPEARANCE: Alert and oriented and in no acute distress EYES: Conjunctiva normal and sclera normal and anicteric. NECK: Neck supple with no adenopathy. HEART: RRR with normal S 1 and S 2, no murmurs, no gallops. LUNG: Clear to auscultation LYMPH NODES: No gross cervical or clavicular lymphadenopathy. ABDOMEN: Bowel sounds normoactive, soft, non-tender, non-distended, EXTREMITIES: Extremities warm and well perfused without clubbing, cyanosis, or edema. SKIN: Skin color and texture normal. No rashes or lesions. NEUROLOGIC: Alert and oriented ??3. No motor or sensory deficits in the extremities. LABS/IMAGING: ASSESSMENT: 1. Class 3 severe obesity with body mass index (BMI) of 50.0 to 59.9 in adult, unspecified obesity type, unspecified whether serious comorbidity present (CMS/[facility]) PLAN: 1. I reviewed with the patient different techniques to change the behavior towards food. Written material was given to the patient can review these tools. I explained to the patient the need for night good sleep; the benefits of exercising half an hour to an hour a day, 4 to 5 days a week; and the importance of self-monitoring by weighing 3-5 times a week, and importance of practicing mindfulnesswhen eating: what, how much and why. 2. Will continue combination of naltrexone and bupropion. 3. F/U in 6 months. documented in this encounter Plan of Treatment Upcoming Encounters Date Type Department Care Team (Late st Contact Info) Description 05/02/2024 2:00 PM EST Telemedicine Bariatric Surgery - [place] 175 [facility] [address] [place] [address] 175 [facility] [address] [place] [address] Scheduled Procedures Name Priority Associated Diagnoses Date/Ti me ANASTOMOSIS DUODENOILEAL SIN GLE ROBOT Class 3 severe obesity due to excess calories with body mass index (BMI) of 50.0 to 59.9 in adult, unspecified whether serious comorbidity present (CMS/HCC) documented as of this encounter Visit Diagnoses Diagnosis Class 3 severe obesity with body mass index (BMI) of 50.0 to 59.9 in adult, unspecified obesity type, unspecified whether serious comorbidity present (CMS/HCC)- Primary documented in this encounter Historical Medications * This list may reflect changes made after this encounter. Medication Sig Dispensed Refills Start Date End Date naltrexone (DEPADE) 50 mg tablet Take 1 tablet (50 mg total) by mouth 1 (one) time each day. 02/06/2024 ferrous sulfate 324 mg (65 mg elemental iron) EC tablet Take 1 tablet (324 mg total) by mouth 2 (two) times a day. 12/06/2023 buPROPion SR (WELLBUTRIN SR) 150 mg 12 hr tablet Take 1 tablet (150 mg total) by mouth 2 (two) times a day. for 90 days 12/12/2023 added in this encounter Care Teams Slat Basket Maker Helper Machine Relationship Specialty Start Date End Date Dayanna Arellano MD 175 [facility] [address] [place] [address] PCP - General 04/21/23 documented as of this encounter
--- OUTSIDE RECORDS SUMMARY | 2024-04-09 12:58 | XMS_ITS | Encounter Summary ---
Author Organization [facility] Address [address] [place] [address] Care Team Providers Care Decorating Equipment Setter Name Role Phone Dayanna Arellano MD Primary Care Provider [phone] Reason for Visit * Reason Comments Consult Ready to sign Encounter Details Date Type Department Care Team ([facility] Contact Info) Description 04/02/2024 3:30 PM EST Office Visit Bariatric Surgery - [place] 175 [facility] [address] [place] [phone] Chelita Amador PA [address] [facility] [address] [place] [address] Class 3 severe obesity due to excess [...] Mass Index 53.72 04/02/2024 3:33 PM EST documented in this encounter Progress Notes * KORI Santana - 04/02/2024 3:30 PM EST Katja Tony is a 38 y.o. year old female who presents for follow up regarding obesity. HPI: Katja Tony has shown dedication and commitment to our program They have been cleared by the dietitian and psych Proposed procedure is JACOB Weight has been stable since last follow up Family hx of obesity (paternal side) and bariatric surgery PMHx and Medication reviewed: + ADRIÁN on CPAP faithfully Non smoker No cardiac conditions Prediabetic Medication: Wellbutrin and Naltrexone, Iron, Vit D PSHx reviewed: D&C Allergies reviewed: NKDA Pre op labs have been reviewed and discussed with the patient. A1c 5.9 Body mass index is 53.72 kg/m??. ROS: GENERAL: No malaise, significant unintentional weight loss, fever, chills or night sweats. RESPIRATORY: No cough, wheezing or shortness of breath CARDIOVASCULAR: No chest pain, leg swelling or palpitations. GI: No abdominal discomfort, nausea, vomiting, or change in bowel habits. : No dysuria, frequency or incontinence. SKIN: No lesions, rash or itching. HEMATOLOGY/LYMPHOLOGY No prolonged bleeding, easy bruisability or swollen nodes. MUSCULOSKELETAL: No abnormalities. NEURO: No abnormalities. The remainder of the review of systems is noncontributory PAST MEDICAL HISTORY: Patient Active Problem List Diagnosis Backache Scoliosis Seasonal allergies Tinea versicolor Class 3 severe obesity with body mass index (BMI) of 50.0 to 59.9 in adult (CMS/[facility]) PAST SURGICAL HISTORY: Past Surgical History: Procedure [...] There are no discontinued medications. ACTIVE MEDICATIONS: No outpatient medications have been marked as taking for the 04/02/24 encounter (Office Visit) with KORI Santana. ALLERGIES: No Known Allergies PHYSICAL EXAM: Visit Vitals BP 130/78 Pulse 64 Temp 36.2 ??C (97.2 ??F) (Oral) Ht 1.702 m (67 ) Wt 156 kg (343 lb) BMI 53.72 kg/m?? Smoking Status Every Day BSA 2.55 m?? APPEARANCE: Alert and in no acute distress EYES: Conjunctiva normal and sclera normal and anicteric. LUNG: Chest no retractions. ABDOMEN: Soft, non-tender, without organomegaly or palpable masses. EXTREMITIES: Extremities warm and well perfused without clubbing, cyanosis, or edema. SKIN: Skin color and texture normal. No rashes or lesions. ASSESSMENT: 1. Class 3 severe obesity due to excess calories with body mass index (BMI) of 50.0 to 59.9 in adult, unspecified whether serious comorbidity present (CMS/[facility]) PLAN: 1. Obesity - We will submit surgical booking form Patient will need to follow-up for PAT, pre op class, and pre op appointment All questions were answered to the patient's satisfaction. Information regarding the procedure was provided to the patient. Total time of today's encounter was 15 minutes in reviewing PMHx/PSHx, performing a medical appropriate exam, counseling the patient, and documenting in the EMR. None of which was spent performing separately billable procedures or ancillary services. Medication and lab orders: Orders Placed This Encounter Procedures XR Chest 2 Views CBC and differential BMP Magnesium Prothrombin time with INR Type and screen , urine Urinalysis with reflex microscopic and culture NPO Instructions Prior to Day of Procedure ECG 12 lead Other orders: DIET INSTRUCTIONS TO NURSING XR CHEST 2 VIEWS KORI Santana cc: Dayanna Arellano MD documented in this encounter Plan of Treatment Upcoming Encounters Date Type Department Care Team ([facility] st Contact Info) Description 05/02/2024 2:00 PM EST Telemedicine Bariatric Surgery - [address] [place] [address] [place] [phone] Randee Daniel, RD [address] [facility] [address] [place] [address] Scheduled Orders Name Type Priority Associated Diagnoses Orde r Schedule CBC and differential Lab Routine Class 3 severe obesity due to excess calories with body mass index (BMI) of 50.0 to 59.9 in adult, unspecified whether serious comorbidity present (CMS/HCC) 1 Occurrences starting 04/05/2024 until 04/05/2025 BMP Lab Routine Class 3 severe obesity due to excess calories with body mass index (BMI) of 50.0 to 59.9 in adult, unspecified whether serious comorbidity present (CMS/HCC) 1 Occurrences starting 04/05/2024 until 04/05/2025 Magnesium Lab Routine Class 3 severe obesity due to excess calories with body mass index (BMI) of 50.0 to 59.9 in adult, unspecified whether serious comorbidity present (CMS/HCC) 1 Occurrences starting 04/05/2024 until 04/05/2025 Prothrombin time with INR Lab Routine Class 3 severe obesity due to excess calories with body mass index (BMI) of 50.0 to 59.9 in adult, unspecified whether serious comorbidity present (CMS/HCC) 1 Occurrences starting 04/05/2024 until 04/05/2025 Type and screen Lab Routine Class 3 severe obesity due to excess calories with body mass index (BMI) of 50.0 to 59.9 in adult, unspecified whether serious comorbidity present (CMS/HCC) 1 Occurrences starting 04/05/2024 until 04/05/2025 , urine Lab Routine Class 3 severe obesity due to excess calories with body mass index (BMI) of 50.0 to 59.9 in adult, unspecified whether serious comorbidity present (CMS/HCC) 1 Occurrences starting 04/05/2024 until 04/05/2025 Urinalysis with reflex microscopic and culture Lab Routine Class 3 severe obesity due to excess calories with body mass index (BMI) of 50.0 to 59.9 in adult, unspecified whether serious comorbidity present (CMS/HCC) 1 Occurrences starting 04/05/2024 until 04/05/2025 XR Chest 2 Views Imaging Routine Class 3 severe obesity due to excess calories with body mass index (BMI) of 50.0 to 59.9 in adult, unspecified whether serious comorbidity present (CMS/HCC) Expected: 04/05/2024, Expires: 04/05/2025 ECG 12 lead ECG Routine Class 3 severe obesity due to excess calories with body mass index (BMI) of 50.0 to 59.9 in adult, unspecified whether serious comorbidity present (CMS/HCC) 1 Occurrences starting 04/05/2024 until 04/05/2025 Scheduled Procedures Name Priority Associated Diagnoses Date/Ti me ANASTOMOSIS DUODENOILEAL SIN GLE ROBOT Class 3 severe obesity due to excess calories with body mass index (BMI) of 50.0 to 59.9 in adult, unspecified whether serious comorbidity present (CMS/HCC) documented as of this encounter Visit Diagnoses Diagnosis Class 3 severe obesity due to excess calories with body mass index (BMI) of 50.0 to 59.9 in adult, unspecified whether serious comorbidity present (CMS/HCC)- Primary documented in this encounter Orders Nursing Count Last Ordered Date First Orde red Date DIET INSTRUCTIONS TO NURSING 1 04/05/2024 Case Request Count Last Ordered Date First Orde red Date CASE REQUEST OPERATING ROOM 1 04/05/2024 documented in this encounter Care Teams Decorating Equipment Setter Relationship Specialty Start Date End Date Dayanna Arellano MD [address] [place] [address] [place] [address] PCP - General 04/21/23 documented as of this encounter
--- OUTSIDE RECORDS SUMMARY | 2024-04-09 12:58 | XMS_ITS | Clinical Summary ---
Author Organization [facility] Address [address] [place] [address] Care Team Providers Care Hosting Engineer Name Role Phone Dayanna Arellano MD Primary Care Provider [phone] Allergies No known active allergies Medications Medication Sig Dispensed Refills Start Date End Date Status ALBUTEROL SULFATE (PROAIR HFA) 108 (90 BASE) MCG/ACT Aero Soln Inhale 2 Puffs into the lungs every 4 hours as needed for Wheezing or Shortness of Breath. 1 Inhaler 3 11/09/2014 Active Etonogestrel (NEXPLANON) 68 MG Implant Inject into the skin. 0 Active Naproxen 500 MG Tab EC Take 1 Tab by mouth 2 times daily. Take with food. 60 Tab 1 09/09/2015 Active Cholecalciferol (Vitamin D3) 1.25 MG (72655 UT) CapIndications:Class 3 severe obesity with body mass index (BMI) of 50.0 to 59.9 in adult, unspecified obesity type, unspecified whether serious comorbidity present (HCC) TAKE 1 CAPSULE BY MOUTH ONE TIME PER WEEK 8 Capsule 0 12/07/2023 Active Active Problems Problem Noted Date Class 3 severe obesity with body mass in dex (BMI) of 50.0 to 59.9 in adult 08/31/2023 Seasonal allergies 08/21/2010 Tinea versicolor 05/13/2009 Overview: Tinea Versicolor 05/14 right arm & back Scoliosis 10/29/2008 BACKACHE 09/23/2005 Overview: IMO update Immunizations Name Administration Dates Next Due HPV (Gardasil) 01/31/2008 03/31/2008 Tdap 08/12/2008 Family History Medical History Relation Name Comments CA Breast Aunt mothers sister Alcohol Abuse Father CA Colon Maternal Grandmother Diabetes Paternal Grandmother CA Ovarian Negative Hx Relation Name Status Comments Aunt Father Maternal Grandmother Paternal Grandmother Social History Tobacco Use Types Packs/Day Years Used Date Smoking Tobacco: Every Day Cigarettes 0.3 Smokeless Tobacco: Never Comments:1/2 pack a day Alcohol Use Standard Drinks/Week Comments Yes 0 (1 standard drink = 0.6 oz pur e alcohol) occ Sex Assigned at Date Recorded Not on file Last Filed Vital Signs Vital Sign Reading Time Taken Comments Blood Pressure 134/84 07/25/2023 2:26 PM EDT Pulse 83 07/25/2023 2:26 PM EDT Temperature 36.7 ??C (98.1 ??F) 07/13/2023 1:48 PM ED T Respiratory Rate 14 09/09/2015 2:06 PM EDT Oxygen Saturation 92% 07/13/2023 1:48 PM EDT Inhaled Oxygen Concentration - - Weight 171 kg (377 lb) 08/31/2023 8:07 AM EDT Height 172.7 cm (5' 8 ) 07/25/2023 2:26 PM EDT Body Mass Index 57.32 07/25/2023 2:26 PM EDT Plan of Treatment Health Maintenance Due Date Last Done Comments Covid-19 Vaccine (#1) 1985 TOBACCO CHECK/ADVISE 06/30/2003 BASELINE HEALTH EXAM 18-39 2004 CERVICAL CANCER SCREENING 12/24/20132010, 05/27/2009, 01/31/2008 DTAP/TDAP/TD (2 - Td or Tdap) 08/12/2018 08/12/2008 INFLUENZA (#1) 2023 BMI CHECK/ADVISE 03/07/2024 07/25/2023 DEPRESSION SCREENING/FOLLOWUP 03/07/2024 SOCIAL NEEDS SCREENING 03/07/2024 CHOLESTEROL SCREENING 10/05/2028 10/06/2023 PNEUMOCOCCAL VACCINE FOR HIG H RISK PATIENTS (#1) 2050 Care Teams Hosting Engineer Relationship Specialty Start Date End Date Dayanna Arellano MD PCP - General Internal Medicine 04/21/23
--- OUTSIDE RECORDS SUMMARY | 2024-04-09 12:58 | XMS_ITS | Encounter Summary ---
Author Organization [facility] Address [address] [place] [address] Care Team Providers Care Senior Engineering Manager Name Role Phone Dayanna Arellano MD Primary Care Provider [phone] Encounter Details Date Type Department Care Team Description 11/10/2023 Station Detective Reports Bariatric Surgery - [address] [place] [address] Social History Tobacco Use Types Packs/Day Years Used Date Smoking Tobacco: Every Day Cigarettes 0.3 Smokeless Tobacco: Never Comments:1/2 pack a day Alcohol Use Standard Drinks/Week Comments Yes 0 (1 standard drink = 0.6 oz pur e alcohol) occ Sex Assigned at Date Recorded Not on file documented as of this encounter Plan of Treatment Not on file documented as of this encounter Visit Diagnoses Not on filedocumented in this encounter Care Teams Senior Engineering Manager Relationship Specialty Start Date End Date Dayanna Arellano MD PCP - General Internal Medicine 04/21/23 documented as of this encounter
--- OUTSIDE RECORDS SUMMARY | 2024-04-09 12:58 | XMS_ITS | Encounter Summary ---
Author Organization [facility] Address [address] [place] [address] Care Team Providers Care Hop Worker Name Role Phone Steffen Robles MD Primary Care Provider [phone] Dayanna Arellano MD Primary Care Provider [phone] Encounter Details Date Type Department Care Team Description 05/17/2012 Plant Engineer Report Medical Records [address] [place] [phone] Edson Rouse III, MD Social History Tobacco Use Types Packs/Day Years Used Date Smoking Tobacco: Every Day Cigarettes 0.3 Smokeless Tobacco: Never Alcohol Use Standard Drinks/Week Comments Yes 0 (1 standard drink = 0.6 oz pur e alcohol) occ Sex Assigned at Date Recorded Not on file documented as of this encounter Plan of Treatment Not on file documented as of this encounter Visit Diagnoses Not on filedocumented in this encounter Care Teams Hop Worker Relationship Specialty Start Date End Date Steffen Robles MD [address] [place] [address] [phone] PCP - General 12/05/08 04/20/23 Dayanna Arellano MD [address] [place] [phone] PCP - General Internal Medicine 04/21/23 documented as of this encounter
--- OUTSIDE RECORDS SUMMARY | 2024-04-09 12:58 | XMS_ITS | Encounter Summary ---
Author Organization [facility] Address [address] [place] [address] Care Team Providers Care Acid Crane Operator Name Role Phone Steffen Robles MD Primary Care Provider [phone] Dayanna Arellano MD Primary Care Provider [phone] Encounter Details Date Type Department Care Team Description 01/14/2012 Hospital Medical Records [address] [place] [address] Karla Romero MD Social History Tobacco Use Types Packs/Day [...] on filedocumented in this encounter Care Teams Acid Crane Operator Relationship Specialty Start Date End Date Steffen Robles MD [address] [place] [address] PCP - General 12/05/08 04/20/23 Dayanna Arellano MD [address] [place] [id number] PCP - General Internal Medicine 04/21/23 documented as of this encounter
== END 2024-04-09 13:25 | disposition home or self-care (01) ==
PROVIDERS: PCP Nurse Practitioner Family; Visit Provider Nurse Practitioner Family
DX: J06.9 Acute upper respiratory infection, unspecified (principal); Z13.9 Encounter for screening, unspecified

== ENCOUNTER 2024-04-09 11:40 | Outpatient (REF) | payer OTHER, SELFPAY ==
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
--- OUTSIDE RECORDS SUMMARY | 2024-04-09 14:28 | XMS_ITS | Encounter Summary ---
Author Organization [facility] Address [address] [place] [address] Care Team Providers Care Manager Cargo Name Role Phone Steffen Robles MD Primary Care Provider [phone] Dayanna Arellano MD Primary Care Provider [phone] Encounter Details Date Type Department Care Team Description 05/17/2012 Casino Gaming Worker Report Medical Records [address] [place] [address] Edson Rouse III, MD Social History Tobacco [...] on filedocumented in this encounter Care Teams Manager Cargo Relationship Specialty Start Date End Date Steffen Robles MD [address] [place] [address] [id number] PCP - General 12/05/08 04/20/23 Dayanna Arellano MD [address] [place] [address] PCP - General Internal Medicine 04/21/23 documented as of this encounter
--- OUTSIDE RECORDS SUMMARY | 2024-04-09 14:28 | XMS_ITS | Encounter Summary ---
Author Organization [facility] Address [address] [place] [address] Care Team Providers Care Dietitian Chief Name Role Phone Steffen Robles MD Primary Care Provider [phone] Dayanna Arellano MD Primary Care Provider [phone] Encounter Details Date Type Department Care Team Description 01/14/2012 Hospital Medical Records [address] [place] [address] Karla Romero MD Social History Tobacco Use [...] on filedocumented in this encounter Care Teams Dietitian Chief Relationship Specialty Start Date End Date Steffen Robles MD [address] [place] [phone] PCP - General 12/05/08 04/20/23 Dayanna Arellano MD [address] [place] [address] PCP - General Internal Medicine 04/21/23 documented as of this encounter
--- OUTSIDE RECORDS SUMMARY | 2024-04-09 14:28 | XMS_ITS | Encounter Summary ---
Author Organization [facility] Address [address] [place] [address] Care Team Providers Care Pianos And Organs Salesperson Name Role Phone Steffen Robles MD Primary Care Provider [phone] Dayanna Arellano MD Primary Care Provider [phone] Encounter Details Date Type Department Care Team Description 11/07/2011 Night Triage Doc Medical Records [address] [place] [address] Abstract, Provider Social History Tobacco Use Types Packs/Day Years [...] on filedocumented in this encounter Care Teams Pianos And Organs Salesperson Relationship Specialty Start Date End Date Steffen Robles MD [address] [place] [address] PCP - General 12/05/08 04/20/23 Dayanna Arellano MD [address] [place] [address] PCP - General Internal Medicine 04/21/23 documented as of this encounter
--- OUTSIDE RECORDS SUMMARY | 2024-04-09 14:29 | XMS_ITS | Encounter Summary ---
Author Organization [facility] Address [address] [place] [address] Care Team Providers Care Billboard Poster Helper Name Role Phone Dayanna Arellano MD Primary Care Provider [phone] Reason for Visit * Reason Onset Date Comments REFERRAL 10/06/2023 Encounter Details Date Type Department Care Team Description 10/06/2023 Telephone OBGYN - [place] [address] [place] [address] Selina Garcia MD [address] [place] [address] REFERRAL Social History Tobacco Use Types Packs/Day Years Used Date Smoking Tobacco: Every Day Cigarettes 0.3 Smokeless Tobacco: Never Comments:1/2 pack a day Alcohol Use Standard Drinks/Week Comments Yes 0 (1 standard drink = 0.6 oz pur e alcohol) occ Sex Assigned at Date Recorded Not on file documented as of this encounter Miscellaneous Notes * Telephone Encounter - Tracey Alvarez - 10/06/2023 4:32 PM EDT [facility] [place] [facility]- for screening for malignant neoplasm of cervix. Left message on to call back. documented in this encounter Plan of Treatment Not on file documented as of this encounter Visit Diagnoses Not on filedocumented in this encounter Care Teams Billboard Poster Helper Relationship Specialty Start Date End Date Dayanna Arellano MD PCP - General Internal Medicine 04/21/23 documented as of this encounter
--- OUTSIDE RECORDS SUMMARY | 2024-04-09 14:29 | XMS_ITS | Clinical Summary ---
Author Organization [address] [facility] Address [address] [place] [address] Phone Care Team Providers Care Service Tech Name Role Phone Dayanna Arellano MD Primary Care Provider [phone] Allergies No known active allergies Medications Medication [...] PM EST Office Visit Bariatric Surgery - [address] [phone] Chelita Amador PA Class 3 severe obesity due to excess calories with body mass index (BMI) of 50.0 to 59.9 in adult, unspecified whether serious comorbidity present (CMS/HCC) (Primary Dx) 03/15/2024 3:15 PM EST Office Visit Bariatric Surgery [address] [phone] Neida Mohan MD Class 3 severe obesity with body mass index (BMI) of 50.0 to 59.9 in adult, unspecified obesity type, unspecified whether serious comorbidity present (CMS/HCC) (Primary Dx) 03/06/2024 2:00 PM EST Telemedicine Bariatric Surgery - [address] [phone] Class 3 severe obesity with body mass index (BMI) of 50.0 to 59.9 in adult, unspecified obesity type, unspecified whether serious comorbidity present (CMS/HCC) (Primary Dx) 01/24/2024 [facility] [address] [phone] Selina Garcia MD Appointment 01/11/2024 3:00 PM EST Telemedicine Bariatric Surgery [address] [phone] Class 3 severe obesity [...] 2:00 PM EST Telemedicine Bariatric Surgery - [place] 175 [facility] [address] [place] [phone] Randee Daniel, RD 175 [facility] [address] [place] [address] Scheduled Procedures Name Priority Associated Diagnoses Date/Ti [...] ORDERA BLES * (ABNORMAL) Lipid panel (10/06/2023) [facility] LDL/HDL Ratio 4 0 - 4 Triglycerides 121 0 - 150 mg/dL Cholesterol 193 0 - 200 mg/dL HDL 51 40 mg/dL LDL Cholesterol 118(A) 0 - 100 mg/dL Blood Venous blood specimen / Unknown Historical Provider LAB BLOOD ORDERAB LES * HIV Screening (12/24/2010) [facility] HIV Screening abstracted Historical Provider [facility] [employer] E * Pap Smear (12/24/2010) [facility] Pap smear abstracted, no interpretation Historical Provider [facility] [employer] * Hepatitis C Screening (05/27/2009) [facility] Hepatitis C Screening abstracted Historical Provider [facility] [employer]UL[employer] E from Last 3 Months or Most Recently Relevant to Health Maintenance Care Teams Service Tech Relationship Specialty Start Date End Date Dayanna Arellano MD [address] [place] [address] [address] [place] [address] PCP - General 04/21/23
--- OUTSIDE RECORDS SUMMARY | 2024-04-09 14:29 | XMS_ITS | Encounter Summary ---
Author Organization [facility] Address [address] [place] [address] Care Team Providers Care Electron Beam Welding Machine Operator Name Role Phone Dayanna Arellano MD Primary Care Provider [phone] Reason for Visit * Reason Onset Date Comments LAB WORK 08/31/2023 Encounter Details Date Type Department Care Team Description 08/31/2023 Telephone Bariatric Surgery - [place] [address] [phone] Randee Diallo MS,RDN,LDN [address] [address] LAB WORK Social History Tobacco Use Types Packs/Day Years Used Date Smoking Tobacco: Every Day Cigarettes 0.3 Smokeless Tobacco: Never Comments:1/2 pack a day Alcohol Use Standard Drinks/Week Comments Yes 0 (1 standard drink = 0.6 oz pur e alcohol) occ Sex Assigned at Date Recorded Not on file documented as of this encounter Miscellaneous Notes * Telephone Encounter - Randee Diallo MS,RAMÍREZN,LDN - 08/31/2023 8:29 AM EDT Please order bariatric labs, Dr. Mohan is the surgeon documented in this encounter Plan of Treatment Not on file documented as of this encounter Visit Diagnoses Not on filedocumented in this encounter Care Teams Electron Beam Welding Machine Operator Relationship Specialty Start Date End Date Dayanna Arellano MD PCP - General Internal Medicine 04/21/23 documented as of this encounter
--- OUTSIDE RECORDS SUMMARY | 2024-04-09 14:29 | XMS_ITS | Encounter Summary ---
Author Organization [facility] Address [address] [place] [address] Care Team Providers Care Image Processing Engineer Name Role Phone Dayanna Arellano MD Primary Care Provider [phone] Reason for Visit * Reason Comments Consult Ready to sign Encounter Details Date Type Department Care Team ([facility] Contact Info) Description 04/02/2024 3:30 PM EST Office Visit Bariatric Surgery - [place] 175 [facility] [address] [place] [phone] Chelita Amador PA [address] [facility] [address] [place] [address] Class 3 severe obesity due to excess [...] (BMI) of 50.0 to 59.9 in adult (CMS/[facility]) PAST SURGICAL HISTORY: Past Surgical History: Procedure [...] in adult, unspecified whether serious comorbidity present (CMS/[facility]) PLAN: 1. Obesity - We will submit [...] Upcoming Encounters Date Type Department Care Team ([facility] st Contact Info) Description 05/02/2024 2:00 PM EST Telemedicine Bariatric Surgery - [address] [place] [address] [place] [address] Randee Daniel, RD 175 [facility] [address] [place] [address] Scheduled Orders Name Type Priority Associated Diagnoses [...] 04/05/2024 documented in this encounter Care Teams Image Processing Engineer Relationship Specialty Start Date End Date Dayanna Arellano MD [address] [place] [address] [place] [address] PCP - General 04/21/23 documented as of this encounter
--- OUTSIDE RECORDS SUMMARY | 2024-04-09 14:29 | XMS_ITS | Encounter Summary ---
Author Organization [facility] Address [address] [place] [address] Care Team Providers Care Mobile Marketing Manager Name Role Phone Dayanna Arellano MD Primary Care Provider [phone] Reason for Visit * Reason Comments E-prescribe Rx Request Encounter Details Date Type Department Care Team Description 12/06/2023 Refill Bariatric Surgery - [address] [place] [phone] Neida Mohan MD [address] [place] [address] [address] [place] [address] E-prescribe Rx Request Social History Tobacco Use Types Packs/Day Years [...] type, unspecified whether serious comorbidity present (HCC) documented in this encounter Care Teams Mobile Marketing Manager Relationship Specialty Start Date End Date Dayanna Arellano MD PCP - General Internal Medicine 04/21/23 documented as of this encounter
--- OUTSIDE RECORDS SUMMARY | 2024-04-09 14:29 | XMS_ITS | Encounter Summary ---
Author Organization [facility] Address [address] [place] [address] Care Team Providers Care Echocardiograph Tech Name Role Phone Dayanna Arellano MD Primary Care Provider [phone] Reason for Visit * Reason Comments Follow-up Encounter Details Date Type Department Care Team ([facility] Contact Info) Description 03/15/2024 3:15 PM EST Office Visit Bariatric Surgery - [place] 175 [facility] [address] [place] [phone] Neida Mohan MD 175 [facility] [address] [place] [address] Class 3 severe obesity with body mass [...] (BMI) of 50.0 to 59.9 in adult ([facility]) 12/02/2023 Seasonal allergies 08/21/2010 Tinea [...] obesity type, unspecified whether serious comorbidity present (CMS/[facility]) PLAN: 1. I reviewed with [...] 2:00 PM EST Telemedicine Bariatric Surgery - [place] 175 [facility] [address] [place] [address] [facility] [address] [place] [address] Scheduled Procedures Name Priority Associated Diagnoses Date/Ti [...] 12/12/2023 added in this encounter Care Teams Echocardiograph Tech Relationship Specialty Start Date End Date Dayanna Arellano MD 175 [facility] [address] [place] [address] PCP - General 04/21/23 documented as of this encounter
[2024-04-09 17:33] LABS: Influenza A PCR NEGATIVE (Negative); Influenza B PCR NEGATIVE (Negative); Resp Syncy Virus RNA Qual PCR NEGATIVE (Negative); SARS COV2 PCR INHOUSE NEGATIVE (Negative)
== END 2024-04-09 11:41 | disposition home or self-care (01) ==
LOC: HO.LAB 11:40
PROVIDERS: PCP Nurse Practitioner Family; Visit Provider Nurse Practitioner Family
DX: J06.9 Acute upper respiratory infection, unspecified (principal)
CPT/HCPCS: 0241U; 87880; 99212

== ENCOUNTER 2024-04-30 05:48 | Day surgery (SDC) | payer OTHER, SELFPAY ==
[2024-04-12 13:40] VITALS: BMI 53.2
--- NOTE | 2024-04-13 08:51 | HO.ANESPROP2 ---
Documented by User: Erica Owens NP 04/13/24 08:58 HPI - Anesthesia Eval Consult details Narrative: 38yo F for Left MicroPhlebectomy BMI 53 Recent URI - negative Flu/COVID Naltrexone daily for weight loss PMFSH Active Problems Active Problems: All Active Problems Bilateral low back pain with sciatica (Acute) Varicose veins of left lower extremity with inflammation (Acute) Potential exposure to STD (Acute) Encounter for well woman exam with routine gynecological exam (Acute) Encounter for general adult medical examination without abnormal findings (Acute) Blurred vision (Acute) Tinea versicolor (Acute) FLORINA (generalized anxiety disorder) (Acute) Cervical cancer screening (Acute) Varicose veins of both legs with edema (Acute) Morbid (severe) obesity due to excess calories (Acute) Acute respiratory disease (Acute) Labial lesion (Acute) History of syphilis (Acute) ADRIÁN (obstructive sleep apnea) (Acute) Iron deficiency anemia (Acute) Vitamin D deficiency (Acute) Past Medical History Medical History Pre-diabetes URI (upper respiratory infection) (04/09/24) Acute respiratory disease Labial lesion History of syphilis ADRIÁN (obstructive sleep apnea) Iron deficiency anemia Vitamin D deficiency Hypersomnia Edema Family History Family History Father HTN (hypertension) Cirrhosis Colon cancer Paternal Aunt History of breast cancer Paternal Grandmother Diabetes Maternal Grandmother Colon cancer Other FH: mental illness Hypercholesteremia Substance use Surgical History Surgical History Hx of dilation and curettage Social History Social History (Updated 04/12/24 @ 13:45 by Rossy Gibson RN) Household Members: None Housing: Apartment Are you a primary resident care manager rn to a significant other at home: No Do you presently have visiting nurse or other home services: No Patient Tobacco Use Status: Former Tobacco user Tobacco use type: Cigarette Years Smoked: 26 quit 02/2023 Smoked in Last 30 Days: No e-Cigarette/Vaping Use: Never Used Second Hand Smoke Exposure: No Use of substances other than those prescribed or required for medical reasons: Yes Substance Use Type: Marijuana Substance Use Frequency: Daily Have you been hit, kicked, punched, or otherwise hurt by someone within the past year? 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 Current occupational exposures/hazards: No Cognitive needs: No Hearing needs: No Vision needs: No Meds Allergies Allergy/AdvReac Type Severity Reaction Status Date / Time No Known Allergies Allergy Verified 04/30/24 06:05 Home Medications ?Medication ?Instructions ?Recorded ?Confirmed ?Last Taken ?Type cholecalciferol (vitamin D3) 1,250 1,250 mcg PO QWEEK 11/15/23 04/30/24 Unknown History mcg (50,000 unit) capsule Exam Height,Weight and Vital Signs: Height 5 ft 7 in Weight 154.221 kg Pertinent Lab Results Pertinent Lab Results: Laboratory Tests 03/19/24 09:20 WBC 6.9 Hgb 13.3 Hct 40.7 Plt Count 295 Sodium 142 Potassium 4.1 Chloride 110 H Carbon Dioxide 28 BUN 14 Creatinine 0.89 Assessment and Plan Assessment Anesthesia Assessment: Chart Reviewed Documented by User: Silva Senior MD 04/30/24 07:27 [facility] Past Medical History Medical History Pre-diabetes URI (upper respiratory infection) (04/09/24) Acute respiratory disease Labial lesion History of syphilis ADRIÁN (obstructive sleep apnea) Iron deficiency anemia Vitamin D deficiency Hypersomnia Edema Family History Family History Father HTN (hypertension) Cirrhosis Colon cancer Paternal Aunt History of breast cancer Paternal Grandmother Diabetes Maternal Grandmother Colon cancer Other FH: mental illness Hypercholesteremia Substance use Family history of problems with anesthesia: No Surgical History Surgical History Hx of dilation and curettage History of Problems with Anesthesia: No Social History Social History (Updated 04/12/24 @ 13:45 by Rossy Gibson RN) Household Members: None Housing: Apartment Are you a primary resident care manager rn to a significant other at home: No Do you presently have visiting nurse or other home services: No Patient Tobacco Use Status: Former Tobacco user Tobacco use type: Cigarette Years Smoked: 26 quit 02/2023 Smoked in Last 30 Days: No e-Cigarette/Vaping Use: Never Used Second Hand Smoke Exposure: No Use of substances other than those prescribed or required for medical reasons: Yes Substance Use Type: Marijuana Substance Use Frequency: Daily Have you been hit, kicked, punched, or otherwise hurt by someone within the past year? 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 Current occupational exposures/hazards: No Cognitive needs: No Hearing needs: No Vision needs: No Meds Allergies Allergy/AdvReac Type Severity Reaction Status Date / Time No Known Allergies Allergy Verified 04/30/24 06:05 Home Medications ?Medication ?Instructions ?Recorded ?Confirmed ?Last Taken ?Type cholecalciferol (vitamin D3) 1,250 1,250 mcg PO QWEEK 11/15/23 04/30/24 Unknown History mcg (50,000 unit) capsule Exam Airway Mallampati Class: III TM Dist: >3cm Neck ROM: Full Loose/Missing/Broken Teeth: Yes and Lower Assessment and Plan Assessment Anesthesia Assessment: Anesthesia Plan Discussed Final Anesthetic Review Family History of Problems with Anesthesia: No History of Problems with Anesthesia: No NPO: Yes ASA Class: III Final Preanesthetic Review: No Changes in Pt Med Stat, Meds/Allgs Chart Reviewed, Consent Obtained/Reviewed, Anes Risks/Benef Reviewed and DNR Form (If Appl.) Patient Risk: Intermediate Procedure Risk: Low Anesthetic Plan Anesthetic Plan: GA Disposition: Standard PACU
--- NOTE | 2024-04-16 07:39 | MHC.SHP ---
Pre-Procedural Eval Section A - 24 Hr Update-Section A only Date of Service: 04/16/24 The patient is an INPATIENT: No Changes since office visit: Yes Patient answered all questions The patient has been examined within 24 hours of the surgical procedure. The History & Physical has been completed within 30 days and I have reviewed it.: Yes Section B - Complete if H&P > 30 days Chief Complaint: Varicose veins of left lower extremity with inflam Allergies: Allergies Allergy/AdvReac Type Severity Reaction Status Date / Time No Known Allergies Allergy Verified 04/12/24 13:46 Plan I have reviewed the history and physical and performed a pertinent physical examination on my patient. No changes have occurred unless specified. Time Spent With Patient Time: Total time managing care of this patient today ____ minutes.
[2024-04-30] VITALS (17 sets, daily range): BP systolic 108–134; BP diastolic 55–80; PULSE 58–69; RESP 15–20; TEMP 36.4–36.7; O2SAT 93–99; BMI 52.3
[2024-04-30 06:23] LABS: Urine Pregnancy NEGATIVE (NEGATIVE)
[2024-04-30 06:24] LABS: UPreg QC Valid YES
[2024-04-30] MEDS: Lactated Ringers 1,000 ML 100 ML IVCONT (06:32)
--- NOTE | 2024-04-30 07:27 | MHC.SHP ---
Pre-Procedural Eval Section A - 24 Hr Update-Section A only Date of Service: 04/30/24 The patient is an INPATIENT: No Changes since office visit: Yes Patient answered all questions The patient has been examined within 24 hours of the surgical procedure. The History & Physical has been completed within 30 days and I have reviewed it.: Yes Section B - Complete if H&P > 30 days Chief Complaint: Varicose veins of left lower extremity with inflam Allergies: Allergies Allergy/AdvReac Type Severity Reaction Status Date / Time No Known Allergies Allergy Verified 04/30/24 06:05 Plan I have reviewed the history and physical and performed a pertinent physical examination on my patient. No changes have occurred unless specified. Time Spent With Patient Time: Total time managing care of this patient today ____ minutes.
--- NOTE | 2024-04-30 08:52 | P.OP_ITS ---
Operative Note Operative Note Date of Service: 04/30/24 Narrative: Operative note by [facility] Preoperative diagnosis: Left leg varicose veins with inflammation Postoperative diagnosis: Same Procedure: 1. Left leg microphlebectomy (21) 2. Ligation of venous cluster x2 Surgeon:Fan Sy M.D. Crimping Machine Operator: Vesta SHEIKH Anesthesia: General Specimens: 1 Drains: None Estimated blood loss: 250 mL Indications: 38-year-old female with history of significant left lower extremity varicosities now presents for microphlebectomy The patient has signed the informed consent after reviewing risks, complications, benefits, and alternatives previously discussed with the patient. The patient was given the opportunity to ask any additional questions or voice any concerns. All questions were answered to the patient's satisfaction. Procedure in detail: Varicose veins were marked in the standing position on the left leg and the patient was then placed in the supine position. The left lower extremity was prepared and draped to allow knee flexion in the sterile field. The patient had large superficial varicose veins with significant symptoms of pain. It was therefore determined to perform microphlebectomies of the clusters of varicose veins. The patient had bulging varicose veins which were previously marked in the standing position. A small stab incision was made longitudinally directly overlying the varicose vein in the calf and the varicose vein was grasped with a hemostat aided by a vein hook. It was then dissected as far proximally and distally as possible and avulsed. A total of 21 stab incisions were made and the procedure of stab phlebectomies was repeated 21 times. There were 2 venous clusters on the medial aspect thigh. We identified the base remove the varicosities. Due to the bleeding from the base we had to suture ligated with a 2-0 Polysorb. Residual varicosities were removed. This was once again done in 2 separate locations. Hemostasis was checked and stab incision sites were closed with steri-strips and sterile dressing was given with gauze and krilex wrap followed by an galina bandage. There were no complications and blood loss was minimal. Post-Op instructions were given and a follow-up appointment was recommended. This note is constructed using voice recognition software. While every effort has been made to ensure accuracy, cuffing machine operator errors may have been included. Thank you for allowing me to participate in the care of your patient. Yours sincerely, Fan Sy MD, FACS, R.P.V.I.
[2024-04-30] MEDS: fentaNYL citrate/PF 100 MCG/2 ML VIAL 50 MCG IVPUSH ×4 (09:14→09:37)
== END 2024-04-30 10:41 | disposition home or self-care (01) ==
PROVIDERS: Nurse Practitioner; PCP Nurse Practitioner Family; Visit Provider Surgery Vascular Surgery
PROC: (CPT 37766; principal; 2024-04-30 07:30)
DX: I83.12 Varicose veins of left lower extremity with inflammation (principal); M79.652 Pain in left thigh; M79.662 Pain in left lower leg; D50.9 Iron deficiency anemia, unspecified; R60.9 Edema, unspecified; E55.9 Vitamin D deficiency, unspecified; G47.10 Hypersomnia, unspecified; G47.33 Obstructive sleep apnea (adult) (pediatric); N90.89 Other specified noninflammatory disorders of vulva and perineum; Z86.19 Personal history of other infectious and parasitic diseases; Z79.899 Other long term (current) drug therapy; Z87.891 Personal history of nicotine dependence
CPT/HCPCS: 37766; 37785; 81025; 88304; J0131; J0690; J1100; J2003; J2250; J2405; J2704; J2795; J3010

== ENCOUNTER → 2024-04-30 05:48 | Outpatient (BNV) | payer OTHER, SELFPAY | PROVIDERS: PCP Nurse Practitioner Family; Visit Provider Surgery Vascular Surgery | DX: I83.12 Varicose veins of left lower extremity with inflammation (principal) | CPT/HCPCS: 37766; 37785 ==

== ENCOUNTER 2024-05-04 12:37 | Emergency (ER) | payer OTHER, SELFPAY ==
--- NOTE | ~2024-05-04 | US_ITS ---
EXAMINATION: US TRIPLEX LOWER EXTREMITY, RIGHT CLINICAL INFORMATION: Right lower extremity swelling and erythema, rule out DVT. The patient is status post microfollicular lobe 04/30/[address] Sy. COMPARISON: None available. TECHNIQUE: Color-flow triplex imaging with spectral analysis and compression Doppler were performed on the right lower extremity. Imaging of the left lower extremity superficial venous system was also performed per request given recent microphlebectomy. FINDINGS: Right Lower Extremity: Respiratory variation, normal compression and augmented flow are noted throughout the right lower extremity. The visualized common femoral vein, superficial femoral vein, profunda femoral vein, popliteal vein and midcalf peroneal and posterior tibial venous segments show no evidence of deep venous thrombosis. There is no Tran's cyst. In the area of concern in the medial calf, mid aspect, there are varicosities seen, largest diameter 0.6 cm. Left Lower Extremity: There is thrombosis of the greater saphenous vein beginning approximately 1.0 cm distal to the saphenofemoral junction. US/US venous duplex LE RT IMPRESSION: 1. No evidence of deep venous thrombosis involving the RIGHT lower extremity. In the area of concern in the RIGHT medial calf, mid aspect, there are varicosities seen, largest diameter 0.6 cm. 2. Thrombosis of the greater saphenous vein on the LEFT beginning approximately 1.0 cm distal to the saphenofemoral junction. Electronically signed by: Kirk Nielson MD 05/04/2024 02:50 PM [facility]
[2024-05-04 12:44] VITALS: BP 135/81; PULSE 88; RESP 20; TEMP 36.4; O2SAT 96; BMI 51.0
--- NOTE | 2024-05-04 12:46 | ED_ITS ---
HPI - Extremity Injury (Lower) General Chief Complaint: General Medical Stated Complaint: surgery 04/30 r leg redness Related Data Home Medications ?Medication ?Instructions ?Recorded ?Confirmed cholecalciferol (vitamin D3) 1,250 1,250 mcg PO QWEEK 11/15/23 04/30/24 mcg (50,000 unit) capsule Previous Rx's ?Medication ?Instructions ?Recorded ferrous sulfate 324 mg (65 mg 324 mg PO BID 90 days #180 tabs 11/15/23 iron) tablet,delayed release bupropion HCl 200 mg tablet,12 hr 200 mg PO BID 90 days #180 tabs 03/05/24 sustained-release naltrexone 50 mg tablet 50 mg PO BID 90 days #180 tabs 03/16/24 acetaminophen 500 mg capsule 1,000 mg (2 x 500 mg) PO Q6H PRN 04/09/24 pain #90 caps apixaban 5 mg (74 tabs) tablets in 5 mg PO BID #74 ea 05/04/24 a dose pack (Wakie/Budist DVT-PE Treat 30D Start) Allergies Allergy/AdvReac Type Severity Reaction Status Date / Time No Known Allergies Allergy Verified 05/04/24 20:57 [facility] Past Medical History Medical History Pre-diabetes URI (upper respiratory infection) (04/09/24) Acute respiratory disease Labial lesion History of syphilis ADRIÁN (obstructive sleep apnea) Iron deficiency anemia Vitamin D deficiency Hypersomnia Edema Surgical History Hx of dilation and curettage Family History Family History Father HTN (hypertension) Cirrhosis Colon cancer Paternal Aunt History of breast cancer Paternal Grandmother Diabetes Maternal Grandmother Colon cancer Other FH: mental illness Hypercholesteremia Substance use Social History Social History Household Members: None Housing: Apartment Are you a primary career development manager to a significant other at home: No Do you presently have visiting nurse or other home services: No Comment: medicated Patient Tobacco Use Status: Former Tobacco user Tobacco use type: Cigarette Years Smoked: 26 quit 02/2023 e-Cigarette/Vaping Use: Never Used Second Hand Smoke Exposure: No Substance Use Type: Marijuana Advance Directives: No Advance Directives Information Provided: No Do you have a plan to hurt others: No Plan service: No Current occupational status: employed 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 Full HPI, ROS and PE to be performed by primary ED provider. 38 yo F w/PMHx Left leg microphlebectomy by Dr Sy on 04/30/24 presenting to the ED c/o RLE swelling, erythema & pain since Tuesday. Denies AC use or SOB PE: +RLE localized swelling/erythema & ttp Plan: US 2025--US venous duplex LE RT IMPRESSION: 1. No evidence of deep venous thrombosis involving the RIGHT lower extremity. In the area of concern in the RIGHT medial calf, mid aspect, there are varicosities seen, largest diameter 0.6 cm. 2. Thrombosis of the greater saphenous vein on the LEFT beginning approximately 1.0 cm distal to the saphenofemoral junction. > patient left without completing treatment however called to inform of US results, informed she should return to the ED for labs as she should be anticoagulated based on this ultrasound read. She is agreeable and will return to the ED Discharge Plan Discharge Clinical Impression: Leg pain, right Patient Disposition: Left W/O Completing Treatment Prescriptions: No Action Eliquis DVT-PE Treat 30D Start 5 mg (74 tabs) tablets,dose pack 5 mg PO BID Qty: 74 0RF Rx Instructions: 10 mg twice a day for 7 days then 5 mg twice daily ferrous sulfate 324 mg (65 mg iron) tablet,delayed release (DR/EC) 324 mg PO BID 90 Days Qty: 180 2RF cholecalciferol (vitamin D3) 1,250 mcg (50,000 unit) capsule 1,250 mcg PO QWEEK naltrexone 50 mg tablet 50 mg PO BID 90 Days Qty: 180 1RF bupropion HCl 200 mg tablet sustained-release 12 hr 200 mg PO BID 90 Days Qty: 180 1RF acetaminophen 500 mg capsule 1,000 mg PO Q6H PRN (Reason: pain) Qty: 90 0RF Discharge Date/Time: 05/04/24 20:16
--- NOTE | 2024-05-04 19:51 | PC.NURSE ---
no answer from [facility] at 194
--- NOTE | 2024-05-04 20:00 | PC.NURSE ---
T/w reviewed chart and imaging as patient was not in the [facility]. +DVT noted on U/S. KORI Cantu made aware that this patient was no longer in the [facility]. Alondra calling this patient to return to the ED for labs and possibly anticoagulants.
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
--- OUTSIDE RECORDS SUMMARY | 2024-05-04 20:09 | XMS_ITS | Encounter Summary ---
Author Organization [facility] Address [address] [place] [address] Care Team Providers Care Cattle Knocker Name Role Phone Steffen Robles MD Primary Care Provider [phone] Dayanna Arellano MD Primary Care Provider [phone] Reason for Visit * Reason Onset Date Comments er follow up 06/05/2014 [facility] 06/05/2014 Encounter Details Date Type Department Care Team Description 06/05/2014 Telephone Adult Medicine [facility] [address] [place] [id number] [id number] Steffen Robles MD [address] [place] [id number] er follow up ([facility]); injury Social History Tobacco Use Types Packs/Day Years Used Date Smoking Tobacco: Every Day Cigarettes 0.3 Smokeless Tobacco: Never Alcohol Use Standard Drinks/Week Comments Yes 0 (1 standard drink = 0.6 oz pur e alcohol) occ Sex Assigned at Date Recorded Not on file documented as of this encounter Miscellaneous Notes * Telephone Encounter - Candis Cardozo R.N. - 06/05/2014 3:25 PM EDT [facility] - Telephone Triage Documentation CHIEF COMPLAINT ER followup CAll placed to patient she was in a stand up tanning abdalla yesterday when she went in the abdalla the door caught her nipple ring and pulled it out, tearing her nipple she was given a referral to plastic surgeon Lianna Galvez MD when she called today for appt she was told they don't take her insurance she will need a referral to plastic surgeon PCP: Steffen Robles LMP/EDC: Current Outpatient Prescriptions Medication Sig Dispense Refill ??? ketoconazole (NIZORAL) 2 % cream Apply topically. Twice daily 60 g 1 ??? ibuprofen (IBU) 800 MG tablet Take 1 Tab by mouth every 8 hours as needed for Pain. 60 Tab 3 ??? [DISCONTINUED] omeprazole (PRILOSEC) 20 MG capsule Take 1 Cap by mouth daily. 30 Cap 0 No current facility-administered medications for this visit. Allergies: Review of patient's allergies indicates no known allergies. Patient Active Problem List Diagnosis Code ??? BACKACHE 724.5 ??? Scoliosis 737.30 ??? Tinea Versicolor 111.0 ??? Seasonal allergies 477.9 DISPOSITION:Appointment given REFERENCE:[facility] Telephone Triage Protocols for Nurses by Kiley Arias CALLER UNDERSTANDS & AGREES WITH ADVICE:YES * Telephone Encounter - Hermes Pro - 06/05/2014 1:12 PM EDT Patient is calling back to speak to triage * Telephone Encounter - George Billingsley L.P.N. - 06/05/2014 11:56 AM EDT Called patient left message for patient to call triage nurse * Telephone Encounter - Steffany Mckeon - 06/05/2014 9:40 AM EDT Hospital follow up appointment needed Hospital patient was treated at: [facility] Was this only an ER visit or was the patient admitted to the hospital? ER visit only Date of visit if ER visit only: 06/04/14 If patient was admitted what was the date of discharge? N/A Reason/diagnosis for visit or stay: Patient ripped her piercing from her nipple and now she needs to see an plastic surgeon [facility]. The one that she was referred to can't see her. When was the patient told to follow up? [facility] Was visit or stay related to an injury? NO If yes, what was the date of injury (DOI)? N/A If yes, was the injury due to N/A documented in this encounter Plan of Treatment Not on file documented as of this encounter Visit Diagnoses Not on filedocumented in this encounter Care Teams Cattle Knocker Relationship Specialty Start Date End Date Steffen Robles MD [address] [place] [phone] PCP - General 12/05/08 04/20/23 Dayanna Arellano MD [address] [place] [phone] PCP - General Internal Medicine 04/21/23 documented as of this encounter
--- OUTSIDE RECORDS SUMMARY | 2024-05-04 20:09 | XMS_ITS | Clinical Summary ---
Author Organization 175 [facility] Address [address] [place] [address] Phone Care Team Providers Care Electric Range Servicer Name Role Phone LiudmilaOfelia Dutta YEYO Primary Care Provider [phone] Allergies No known active allergies Medications buPROPion SR (WELLBUTRIN SR) 150 mg 12 hr tablet Take 1 tablet (150 mg total) by mouth 2 (two) times a day. for 90 days 12/12/19 24 Active ferrous sulfate 324 mg (65 mg elemental iron) EC tablet Take 1 tablet (324 mg total) by mouth 2 (two) times a day. 12/06/19 24 Active naltrexone (DEPADE) 50 mg tablet Take 1 tablet (50 mg total) by mouth 1 (one) time each day. 02/06/20 24 Active cholecalciferol (VITAMIN D-3) 1,250 mcg (50,000 unit) capsuleIndication s:Obesity, class 3 TAKE 1 CAPSULE BY MOUTH ONE TIME PER WEEK 8 capsule 04/03/19 25 Active acetaminophen (TYLENOL) 500 mg tablet Take 2 tablets (1,000 mg total) by mouth every 8 (eight) hours. 180 tablet 04/26/19 25 Active pantoprazole (PROTONIX) 40 mg EC tablet Take 1 tablet (40 mg total) by mouth 1 (one) time each day before breakfast. Do not crush, chew, or split. 30 each 2 04/26/19 25 025 Active polyethylene glycol (MIRALAX) 17 gram packet Take 17 g by mouth 1 (one) time each day. 510 g 04/26/19 25 025 Active simethicone (MYLICON) 80 mg chewable tablet Chew 1 tablet (80 mg total) every 6 (six) hours if needed for flatulence. 120 tablet 04/26/19 25 Active ursodioL (ACTIGALL) 300 mg capsule Take 1 capsule (300 mg total) by mouth 2 (two) times a day. 60 each 5 04/26/19 25 025 Active wheat dextrin 3 gram/3.5 gram powder in packet Take 1 packet by mouth 1 (one) time each day. 30 packet 04/26/19 25 Active etonogestrel-elut ing contraceptive device 68 mg implant subdermal implant Inject into the skin. 025 Discontinued ondansetron (ZOFRAN) 4 mg tablet Take 1 tablet (4 mg total) by mouth every 8 (eight) hours if needed for nausea or vomiting for up to 7 days. 21 tablet 04/26/19 25 025 Active Problems Problem Noted Date Diagnosed Date Class 3 severe obesity with body mass index (BMI) of 50.0 to 59.9 in adult 12/02/2023 Seasonal allergies 08/21/2010 Tinea versicolor 05/13/2009 Overview (12/02/2023): Tinea Versicolor 05/14 right arm & back Scoliosis 10/29/2008 Backache 09/23/2005 Overview (12/02/2023): IMO update Encounters Date Type Department Care Team Description 05/02/2024 2:00 PM EST Telemedicine Bariatric Surgery - [address] [phone] Class 3 severe obesity with body mass index (BMI) of 50.0 to 59.9 in adult, unspecified obesity type, unspecified whether serious comorbidity present (CMS/HCC) (Primary Dx) 04/26/2024 10:45 AM EST Consult Bariatric Surgery - [address] [phone] Chelita Amador PA Class 3 severe obesity due to excess calories with body mass index (BMI) of 50.0 to 59.9 in adult, unspecified whether serious comorbidity present (CMS/HCC) (Primary Dx) 04/26/2024 10:25 AM EST - 04/26/2024 11:59 PM EST Hospital Encounter Xray [address] [place] [phone] Discharge Disposition: Home or Self Care 04/23/2024 Telephone Bariatric Surgery - [address] [phone] Neida Mohan MD Advice Only (Pre admission testing) 04/02/2024 3:30 PM EST Office Visit Bariatric Surgery [address] [phone] Chelita Amador PA Class 3 severe obesity due to excess calories with body mass index (BMI) of 50.0 to 59.9 in adult, unspecified whether serious comorbidity present (CMS/HCC) (Primary Dx) 03/15/2024 3:15 PM EST Office Visit Bariatric Surgery - [address] [phone] Neida Mohan MD Class 3 severe obesity with body mass index (BMI) of 50.0 to 59.9 in adult, unspecified obesity type, unspecified whether serious comorbidity present (CMS/HCC) (Primary Dx) 03/06/2024 2:00 PM EST Telemedicine Bariatric Surgery - [address] [phone] Class 3 severe obesity with body mass index (BMI) of 50.0 to 59.9 in adult, unspecified obesity type, unspecified whether serious comorbidity present (CMS/HCC) (Primary Dx) from Last 3 Months Immunizations Name Administration Dates Next Due HPV, Quadrivalent 01/31/2008 Tdap Tetanus diptheria acell ular pertussis (Boostrix; Adacel) 7yo and older 08/12/2008 Surgical History Surgery Date Site/Laterality Comments OTHER SURGICAL HISTORY PROCEDURE: DENIES PREVIOUS SURGERY DILATION AND CURETTAGE OF UTERUS Medical History Medical History Date Comments Backache, [...] AM EST Sexual Orientation Not on file Obstetrics History Last Filed Vital Signs Vital Sign Reading Time Taken Comments Blood Pressure 134/83 04/26/2024 10:53 AM EST Pulse 78 04/26/2024 10:53 AM EST Temperature 36.2 ??C (97.2 ??F) 04/02/2024 3:33 PM ES T Respiratory Rate - - Oxygen Saturation - - Inhaled Oxygen Concentration - - Weight 151 kg (333 lb) 05/02/2024 2:00 PM EST Height 170.2 cm (5' 7 ) 04/26/2024 10:53 AM EST Body Mass Index 52.16 04/26/2024 10:53 AM EST Plan of Treatment Upcoming Encounters Date Type Department Care Team (Latest Contact Info) Description 05/09/2024 8:30 AM EST Hospital Encounter Main OR [address] [place] [phone] Neida Mohan MD [address] [phone] 05/09/2024 8:30 AM EST - 05/09/2024 11:00 AM EST Surgery Main OR [address] [place] [phone] Neida Mohan MD [address] [address] DAVINCI ANASTOMOSIS DUODENOILEAL SINGLE (JACOB) [[id number] (CPT??)] 05/24/2024 9:45 AM EDT Office Visit Bariatric Surgery - [place] [address] [phone] Chelita Amador PA [address] [phone] 06/12/2024 12:30 PM EDT Telemedicine Bariatric Surgery - [place] [address] [phone] Randee Daniel, RD [address] [phone] 07/03/2024 11:30 AM EDT Office Visit Bariatric Surgery [address] [phone] Chelita Amador PA [address] [phone] Scheduled Procedures Name Priority Associated Diagnoses Date/Ti me ANASTOMOSIS DUODENOILEAL SINGLE ROBOT Class 3 severe obesity due to excess calories with body mass index (BMI) of 50.0 to 59.9 in adult, unspecified whether serious comorbidity present ([facility]/HCC) 05/09/2024 8:30 AM EST Health Maintenance Due Date Last Done Comments Pneumococcal Vaccine: Pediatrics (0 to 5 Years) and At-Risk Patients (6 to 64 Years) (1 of 2 - PCV) 2004 HPV Vaccines (2 - 3-dose series) 02/28/2008 [...] patient's age to complete this topic Meningococcal B Vacine Aged Out No lo nger eligible based on patient's age to complete this topic RSV Immunization Patients Under 20 months Aged Out No longer eligible b ased on patient's age to complete this topic Varicella Vaccines Aged Out No longer eligible based on patient's age to complete this topic Procedures Procedure Name Priority Date/Time Associated Diagnosis Comments XR CHEST 2 VIEWS Routine 04/26/2024 10:2 8 AM EST Class 3 severe obesity due to excess calories with body mass index (BMI) of 50.0 to 59.9 in adult, unspecified whether serious comorbidity present (CMS/HCC) CBC WITH AUTO DIFFERENTIAL Routine 04/26/2024 10:00 AM EST Class 3 severe obesity due to excess calories with body mass index (BMI) of 50.0 to 59.9 in adult, unspecified whether serious comorbidity present (CMS/HCC) STEELE URINE CULTURE TUBE Routine 04/26/2024 10:00 AM EST Class 3 severe obesity due to excess calories with body mass index (BMI) of 50.0 to 59.9 in adult, unspecified whether serious comorbidity present (CMS/HCC) URINALYSIS WITH REFLEX MICROSCOPIC AND CULTURE Routine 04/26/2024 10:00 AM EST Class 3 severe obesity due to excess calories with body mass index (BMI) of 50.0 to 59.9 in adult, unspecified whether serious comorbidity present (CMS/HCC) CBC AND DIFFERENTIAL Routine 04/26/2024 10:00 AM EST Class 3 severe obesity due to excess calories with body mass index (BMI) of 50.0 to 59.9 in adult, unspecified whether serious comorbidity present (CMS/HCC) BASIC METABOLIC PANEL Routine 04/26/2024 10:00 AM EST Class 3 severe obesity due to excess calories with body mass index (BMI) of 50.0 to 59.9 in adult, unspecified whether serious comorbidity present (CMS/HCC) MAGNESIUM Routine 04/26/2024 10:00 AM EST Class 3 severe obesity due to excess calories with body mass index (BMI) of 50.0 to 59.9 in adult, unspecified whether serious comorbidity present (CMS/HCC) PROTHROMBIN TIME WITH INR Routine 04/26/2024 10:00 AM EST Class 3 severe obesity due to excess calories with body mass index (BMI) of 50.0 to 59.9 in adult, unspecified whether serious comorbidity present (CMS/HCC) TYPE AND SCREEN Routine 04/26/2024 10:00 AM EST Class 3 severe obesity due to excess calories with body mass index (BMI) of 50.0 to 59.9 in adult, unspecified whether serious comorbidity present (CMS/HCC) URINALYSIS WITH REFLEX MICROSCOPIC AND CULTURE Routine 04/26/2024 10:00 AM EST Class 3 severe obesity due to excess calories with body mass index (BMI) of 50.0 to 59.9 in adult, unspecified whether serious comorbidity present (CMS/HCC) CULTURE URINE Routine 04/26/2024 10:00 AM EST Class 3 severe obesity due to excess calories with body mass index (BMI) of 50.0 to 59.9 in adult, unspecified whether serious comorbidity present (CMS/HCC) ECG 12-LEAD Routine 04/26/2024 9:43 AM EST Class 3 severe obesity due to excess calories with body mass index (BMI) of 50.0 to 59.9 in adult, unspecified whether serious comorbidity present (CMS/HCC) EXTERNAL CLINICAL LAB 03/19/2024 LIPID PANEL Routine 10/06/2023 HIV SCREENING Routine 12/24/2010 HM PAP SMEAR Routine 12/24/2010 HEPATITIS C SCREENING Routine 05/27/2009 from Last 3 Months or Most Recently Relevant to Health Maintenance Results * XR Chest 2 Views (04/26/2024 10:28 AM EST) Anatomical Region Laterality Modality Body Radiographic Chely ging 04/26/2024 10:3 3 AM EST Impressions 04/26/2024 10:34 AM EST Normal examination. Code 51567 -------- FINAL REPORT -------- Dictated By: Billy Kam Dictated Date: 04/26/2024 10:33 ET Assigned Physician: Billy Kam Reviewed and Electronically Signed By: Billy Kam Signed Date: 04/26/2024 10:34 ET Workstation ID: [id number] Transcribed By: Self Edit Transcribed Date: 04/26/2024 10:33 ET Narrative 04/26/2024 10:34 AM EST HISTORY: The patient is a 38-year-old female undergoing evaluation prior to bariatric surgery. FINDINGS: PA and lateral radiographs of the chest demonstrate normal appearance of the bony structures. The cardiac and mediastinal contours are within normal limits. The lungs and costophrenic angles are clear. Procedure Note Billy Kam MD - 04/26/2024 HISTORY: The patient is a 38-year-old female undergoing evaluation priorto bariatric surgery. FINDINGS: PA and lateral radiographs of the chest demonstrate normalappearance of the bony structures. The cardiac and mediastinal contoursare within normal limits. The lungs and costophrenic angles are clear. IMPRESSION: Normal examination. Code 76603 -------- FINAL REPORT -------- Dictated By: Billy Kam Dictated Date: 04/26/2024 10:33 ET Assigned Physician: Billy Kam Reviewed and Electronically Signed By: Billy Kam Signed Date: 04/26/2024 10:34 ET Workstation ID: [id number] Transcribed By: Self Edit Transcribed Date: 04/26/2024 10:33 ET Chelita SHEIKH IMG XR PROCEDURES Final Resu lt * (ABNORMAL) Urinalysis with reflex microscopic and culture (04/26/2024 10:00 AM EST) Pathologist [facility] Specific [place] Urine 1.012 1.003 - 1.030 LAB URINALYSIS - AUTOMATED METHOD 04/26/2024 10:54 AM [facility] pH, Urine 6.0 5.0 - 8.0 pH LAB URINALYSIS - AUTOMATED METHOD 04/26/2024 10:54 AM [facility] Leukocytes, Urine Trace(A) Negative LAB URINALYSIS - AUTOMATED METHOD 04/26/2024 10:54 AM [facility] Nitrite, Urine Negative Negative LAB URINALYSIS - AUTOMATED METHOD 04/26/2024 10:54 AM [facility] Protein, Urine Negative <=Trace mg/dL LAB URINALYSIS - AUTOMATED METHOD 04/26/2024 10:54 AM [facility] Glucose, Urine Negative Negative mg/dL LAB URINALYSIS - AUTOMATED METHOD 04/26/2024 10:54 AM [facility] Ketones, Urine Negative Negative mg/dL LAB URINALYSIS - AUTOMATED METHOD 04/26/2024 10:54 AM [facility] Urobilinogen, Urine 0.2 0.2 - 1.0 mg/dL LAB URINALYSIS - AUTOMATED METHOD 04/26/2024 10:54 AM [facility] Bilirubin, Urine Negative Negative LAB URINALYSIS - AUTOMATED METHOD 04/26/2024 10:54 AM [facility] Blood, Urine Negative Negative LAB URINALYSIS - AUTOMATED METHOD 04/26/2024 10:54 AM [facility] RBC, Urine 1.8 0 - 4 /HPF LAB URINALYSIS - AUTOMATED METHOD 04/26/2024 10:54 AM [facility] WBC, Urine 3.3 0 - 4 /HPF LAB URINALYSIS - AUTOMATED METHOD 04/26/2024 10:54 AM [facility] Squamous Epithelial, Urine 44 0 - 60 /LPF LAB URINALYSIS - AUTOMATED METHOD 04/26/2024 10:54 AM [facility] Bacteria, Urine Negative Negative /HPF LAB URINALYSIS - AUTOMATED METHOD 04/26/2024 10:54 AM [facility] Hyaline Casts, Urine 0.4 0 - 3 /LPF LAB URINALYSIS - AUTOMATED METHOD 04/26/2024 10:54 AM [facility] Urine Urine specimen obtained by clean catch procedure / Unknown Non-blood Collection / Unknown 04/26/2024 10:00 AM EST 04/26/2024 10:47 AM EST us Chelita SHEIKH LAB URINE ORDERABLES Final R esult Performing Organization Address [facility]/ZIP Co de Phone Number [facility] [address] [place] [address], [place] [phone] * Steele urine culture tube (04/26/2024 10:00 AM EST) Extra Tube Hold for add-ons. 04/26/2024 12:01 PM [facility] Comment:Auto resulted. Urine Urine specimen obtained by clean catch procedure / Unknown Non-blood Collection / Unknown 04/26/2024 10:00 AM EST 04/26/2024 10:47 AM EST us Chelita SHEIKH LAB URINE ORDERABLES Final R esult [facility] [address] [place] [address], * CBC auto differential (04/26/2024 10:00 AM EST) [facility] WBC 8.8 4.8 - 10.8 K/mcL LAB HEMETOLOGY METHOD 04/26/2024 11:00 AM [facility] RBC 4.40 3.80 - 4.80 M/mcL LAB HEMETOLOGY METHOD 04/26/2024 11:00 AM [facility] Hemoglobin 13.2 11.5 - 16.0 g/dL LAB HEMETOLOGY METHOD 04/26/2024 11:00 AM [facility] Hematocrit 41.1 35.0 - 47.0 % LAB HEMETOLOGY METHOD 04/26/2024 11:00 AM [facility] MCV 93.4 79.0 - 98.0 FL LAB HEMETOLOGY METHOD 04/26/2024 11:00 AM [facility] MCH 30.0 27.0 - 32.0 pcg LAB HEMETOLOGY METHOD 04/26/2024 11:00 AM [facility] MCHC 32.1 32.0 - 37.0 g/dL LAB HEMETOLOGY METHOD 04/26/2024 11:00 AM [facility] RDW 12.8 11.0 - 15.0 % LAB HEMETOLOGY METHOD 04/26/2024 11:00 AM [facility] Platelets 269 130 - 400 K/mcL LAB HEMETOLOGY METHOD 04/26/2024 11:00 AM [facility] MPV 9.8 7.0 - 11.0 FL LAB HEMETOLOGY METHOD 04/26/2024 11:00 AM [facility] NRBC 0.0 <1.0 % LAB HEMETOLOGY METHOD 04/26/2024 11:00 AM [facility] NRBC Absolute 0.00 <0.10 K/mcL LAB HEMETOLOGY METHOD 04/26/2024 11:00 AM [facility] Neutrophils Relative 62.4 % LAB HEMETOLOGY METHOD 04/26/2024 11:00 AM [facility] Lymphocytes Relative 26.8 % LAB HEMETOLOGY METHOD 04/26/2024 11:00 AM [facility] Monocytes Relative 7.8 % LAB HEMETOLOGY METHOD 04/26/2024 11:00 AM [facility] Eosinophils Relative 2.0 % LAB HEMETOLOGY METHOD 04/26/2024 11:00 AM [facility] Basophils Relative 0.8 % LAB HEMETOLOGY METHOD 04/26/2024 11:00 AM [facility] Immature Granulocytes Relative 0.2 % LAB HEMETOLOGY METHOD 04/26/2024 11:00 AM [facility] Neutrophils Absolute 5.50 1.50 - 7.00 K/mcL LAB HEMETOLOGY METHOD 04/26/2024 11:00 AM [facility] Lymphocytes Absolute 2.36 1.00 - 5.00 K/mcL LAB HEMETOLOGY METHOD 04/26/2024 11:00 AM [facility] Monocytes Absolute 0.69 0.20 - 1.00 K/mcL LAB HEMETOLOGY METHOD 04/26/2024 11:00 AM [facility] Eosinophils Absolute 0.18 0.00 - 0.50 K/mcL LAB HEMETOLOGY METHOD 04/26/2024 11:00 AM [facility] Basophils Absolute 0.07 0.00 - 0.20 K/mcL LAB HEMETOLOGY METHOD 04/26/2024 11:00 AM [facility] Immature Granulocytes Absolute 0.02 0.00 - 0.03 K/mcL LAB HEMETOLOGY METHOD 04/26/2024 11:00 AM [facility] Blood Venous blood specimen / Unknown Venipuncture / Unknown 04/26/2024 10:00 AM EST 04/26/2024 10:47 AM EST us Chelita SHEIKH LAB BLOOD ORDERABLES Final R esult Performing Organization Address City/[facility]/ZIP Co de Phone Number [facility] [address] [place] [address], [place] [phone] * Prothrombin time with INR (04/26/2024 10:00 AM EST) Protime 12.3 10.6 - 13.9 sec LAB COAGULATION METHOD 04/26/2024 11:11 AM EST [facility] INR 1.0 LAB COAGULATION METHOD 04/26/2024 11:11 AM EST [facility] Blood Venous blood specimen / Unknown Venipuncture / Unknown 04/26/2024 10:00 AM EST 04/26/2024 10:47 AM EST us Chelita SHEIKH LAB BLOOD ORDERABLES Final R esult Performing Organization Address City/[facility]/ZIP Co de Phone Number [facility] [address] [place] [address], [place] [phone] * Type and screen (04/26/2024 10:00 AM EST) ABO Group O 04/26/2024 4:39 PM EST [facility] Rh Type Positive 04/26/2024 4:39 PM EST [facility] Antibody Screen Negative 04/26/2024 4:39 PM EST [facility] Blood Venous blood specimen / Unknown Venipuncture / Unknown 04/26/2024 10:00 AM EST 04/26/2024 10:46 AM EST us Chelita SHEIKH LAB BLOOD BANK TEST ORDERABL ES Final Result Performing Organization Address [facility]/ZIP Co de Phone Number [facility] [address] [place] [address], [place] [phone] * Culture urine (04/26/2024 10:00 AM EST) Culture, Urine No growth 04/27/2024 10:31 AM EST [facility] Urine Urine specimen obtained by clean catch procedure / Unknown Non-blood Collection / Unknown 04/26/2024 10:00 AM EST 04/26/2024 10:54 AM EST Chelita SHEIKH LAB MICROBIOLOGY - GENERAL O RDERABLES Final Result Performing Organization Address [facility] Co de Phone Number [facility] [address] [place] [address], * Magnesium (04/26/2024 10:00 AM EST) Magnesium 2.1 1.9 - 2.6 mg/dL LAB CHEMISTRY METHOD 04/26/2024 11:20 AM EST [facility] Blood Venous blood specimen / Unknown Venipuncture / Unknown 04/26/2024 10:00 AM EST 04/26/2024 10:47 AM EST Chelita SHEIKH LAB BLOOD ORDERABLES Final R esult Performing Organization Address City/[facility]/ZIP Co de Phone Number [facility] [address] [place] [address], [place] [phone] * BMP (04/26/2024 10:00 AM EST) Sodium 139 133 - 145 mmol/L LAB CHEMISTRY METHOD 04/26/2024 11:23 AM EST [facility] Potassium 4.2 3.5 - 5.5 mmol/L LAB CHEMISTRY METHOD 04/26/2024 11:23 AM [facility] Chloride 109 96 - 110 mmol/L LAB CHEMISTRY METHOD 04/26/2024 11:23 AM [facility] CO2 21 21 - 32 mmol/L LAB CHEMISTRY METHOD 04/26/2024 11:23 AM [facility] Anion Gap 9 3 - 11 LAB CHEMISTRY METHOD 04/26/2024 11:23 AM [facility] Glucose 85 70 - 100 mg/dL LAB CHEMISTRY METHOD 04/26/2024 11:23 AM [facility] BUN 11 5 - 25 mg/dL LAB CHEMISTRY METHOD 04/26/2024 11:23 AM [facility] Creatinine 0.86 0.50 - 1.10 mg/dL LAB CHEMISTRY METHOD 04/26/2024 11:23 AM [facility] eGFR 89 >=60 mL/min/1. 73m2 LAB CHEMISTRY METHOD 04/26/2024 11:23 AM [facility] Comment:Calculation based on the??Chronic Kidney Disease Epidemiology Collaboration (CKD-EPI) equation refit??without adjustment for race. BUN/Creatinine Ratio 12.8 LAB CHEMISTRY METHOD 04/26/2024 11:23 AM [facility] Calcium 8.8 8.5 - 10.5 mg/dL LAB CHEMISTRY METHOD 04/26/2024 11:23 AM [facility] Blood Venous blood specimen / Unknown Venipuncture / Unknown 04/26/2024 10:00 AM EST 04/26/2024 10:47 AM EST us Chelita SHEIKH LAB BLOOD ORDERABLES Final R esult [facility] [address] [place] [address], [place] [phone] * ECG 12 lead (04/26/2024 9:43 AM EST) Ventricular Rate ECG 77 BPM GEMUSE Atrial Rate 77 BPM GEMUSE P-R Interval 144 ms GEMUSE QRS Duration 84 ms GEMUSE Q-T Interval 366 ms GEMUSE QTc 414 ms GEMUSE P Wave [place] 57 degrees GEMUSE R [place] 38 degrees GEMUSE T [place] 53 degrees GEMUSE ECG Interpretation Normal sinus rhythm Normal ECG No previous ECGs available Confirmed by MD Sierra Christopher ([id number]) on 04/26/2024 9:51:59 PM GEMUSE 04/26/2024 9:43 AM EST 04/26/2024 9:51 PM EST Result [facility] Chelita SHEIKH ECG ORDERABLES Final Result GEMUSE * External clinical lab (03/19/2024) Result [facility] Susy [facility] LAB BLOOD ORDERABLES Fin al Result * (ABNORMAL) Lipid panel (10/06/2023) [facility] LDL/HDL Ratio 4 0 - 4 Triglycerides 121 0 - 150 mg/dL Cholesterol 193 0 - 200 mg/dL HDL 51 >=40 mg/dL LDL Cholesterol 118(A) 0 - 100 mg/dL Blood Venous blood specimen / Unknown Result [facility] LAB BLOOD ORDERABLES Gabbi l Result * HIV Screening (12/24/2010) [facility] HIV Screening abstracted Result [facility] Provider HEALTH MAINTENANCE Final Result * Pap Smear (12/24/2010) [facility] Pap smear abstracted, no interpretation Result [facility] Provider HEALTH MAINTENANCE Final Result * Hepatitis C Screening (05/27/2009) [facility] Hepatitis C Screening abstracted Result [facility] Zarina MENDOZA HEALTH MAINTENANCE Final Result from Last 3 Months or Most Recently Relevant to Health Maintenance Insurance [employer] Care Teams Electric Range Servicer Relationship Specialty Start Date End Date Ofelia Layne FNP [address] [place] [address] PCP - General Nurse Practitioner 04/18/24
--- OUTSIDE RECORDS SUMMARY | 2024-05-04 20:09 | XMS_ITS | Clinical Summary ---
Author Organization [facility] Address [address] [place] [address] Care Team Providers Care Applications Chemist Name Role Phone Dayanna Arellano MD Primary Care Provider [phone] Allergies No known active allergies Medications Medication [...] 09/09/2015 Active Cholecalciferol (Vitamin D3) 1.25 MG (87385 UT) CapIndications:Class 3 severe obesity with body [...] H RISK PATIENTS (#1) 2050 Care Teams Applications Chemist Relationship Specialty Start Date End Date Dayanna Arellano MD PCP - General Internal Medicine 04/21/23
--- OUTSIDE RECORDS SUMMARY | 2024-05-04 20:09 | XMS_ITS | Encounter Summary ---
Author Organization [facility] Address [address] [place] [address] Care Team Providers Care Demolitionist Name Role Phone Ofelia Layne Primary Care Provider [phone] Reason for Visit * Reason Comments Pre-op Exam JACOB 05/09 Encounter Details Date Type Department Care Team ([facility] Contact Info) Description 04/26/2024 10:45 AM EST Consult Bariatric Surgery - [place] [address] [phone] Chelita Amador PA [address] [facility] [address] [place] [address] Class 3 severe obesity due to excess [...] Pulse 78 04/26/2024 10:53 AM EST Temperature - - Respiratory Rate - - Oxygen Saturation - - Inhaled Oxygen Concentration - - Weight 152 kg (334 lb 12.8 oz) 04/26/2024 10:53 AM EST Height 170.2 cm (5' 7 ) 04/26/2024 10:53 AM EST Body Mass Index 52.44 04/26/2024 10:53 AM EST documented in this encounter Ordered Prescriptions Prescription Sig Dispense Quantity Refills Last Filled Start Date End Date wheat dextrin 3 gram/3.5 gram powder in packet Take 1 packet by mouth 1 (one) time each day. 30 packet 04/26/2024 ursodioL (ACTIGALL) 300 mg capsule Take 1 capsule (300 mg total) by mouth 2 (two) times a day. 60 each 5 04/26/2024 5 simethicone (MYLICON) 80 mg chewable tablet Chew 1 tablet (80 mg total) every 6 (six) hours if needed for flatulence. 120 tablet 04/26/2024 polyethylene glycol (MIRALAX) 17 gram packet Take 17 g by mouth 1 (one) time each day. 510 g 04/26/2024 5 pantoprazole (PROTONIX) 40 mg EC tablet Take 1 tablet (40 mg total) by mouth 1 (one) time each day before breakfast. Do not crush, chew, or split. 30 each 2 04/26/2024 5 acetaminophen (TYLENOL) 500 mg tablet Take 2 tablets (1,000 mg total) by mouth every 8 (eight) hours. 180 tablet 04/26/2024 ondansetron (ZOFRAN) 4 mg tablet Take 1 tablet (4 mg total) by mouth every 8 (eight) hours if needed for nausea or vomiting for up to 7 days. 21 tablet 04/26/2024 5 documented in this encounter Progress Notes * KORI Santana - 04/26/2024 10:45 AM EST Katja Tony is a 38 y.o. year old female who presents for follow up regarding obesity. HPI: Katja Tony is scheduled for JACOB with Kimberlee on 05/09/24 - 10 lbs since RTS On the pre op diet Weight has been stable since last follow up Family hx of obesity (paternal side) and bariatric surgery PMHx and Medication reviewed: + ADRIÁN on CPAP faithfully Non smoker No cardiac conditions Prediabetic Medication: Wellbutrin and Naltrexone, Iron, Vit D PSHx reviewed: D&C Allergies reviewed: NKDA Pre op labs have been reviewed and discussed with the patient. A1c 5.9 No leuko on pre op labs BMP pending EKG WNL CXR pending Body mass index is 52.44 kg/m??. ROS: GENERAL: No malaise, significant unintentional [...] of 50.0 to 59.9 in adult (CMS/[facility]) PAST SURGICAL HISTORY: Past Surgical History: Procedure Laterality Date DILATION AND CURETTAGE OF UTERUS OTHER SURGICAL HISTORY PROCEDURE: DENIES PREVIOUS SURGERY [...] have been marked as taking for the 04/26/24 encounter (Consult) with KORI Santana. ALLERGIES: No Known Allergies PHYSICAL EXAM: Visit Vitals BP 134/83 Pulse 78 Ht 1.702 m (67 ) Wt 152 kg (334 lb 12.8 oz) BMI 52.44 kg/m?? Smoking Status Every Day BSA 2.52 m?? APPEARANCE: Alert and in no acute [...] adult, unspecified whether serious comorbidity present (CMS/[facility]) PLAN: 1. Obesity - Post op medications discussed and sent to patient's pharmacy Patient to attend pre op class prior to surgery for more information regarding what to expect in the hospital, discharge instructions, post op diet requirements Follow up 2 weeks post op Medication and lab orders: No orders of the defined types were placed in this encounter. Other orders: None KORI Santana cc: YEYO Morse documented in this encounter Plan of Treatment Upcoming Encounters Date Type Department Care Team (Latest Contact Info) Description 05/09/2024 8:30 AM EST Hospital Encounter [address] [phone] Neida Mohan MD [address] [address] 05/09/2024 8:30 AM EST - 05/09/2024 11:00 AM EST Surgery [address] [phone] Neida Mohan MD [address] [address] DAVINCI ANASTOMOSIS DUODENOILEAL SINGLE (JACOB) [[id number] (CPT??)] 05/24/2024 9:45 AM EDT Office Visit Bariatric Surgery - [place] [address] [phone] Chelita Amador PA [address] [address] 06/12/2024 12:30 PM EDT Telemedicine Bariatric Surgery - [place] [address] [phone] Randee Daniel, RAMÍREZ [address] [phone] 07/03/2024 11:30 AM EDT Office Visit Bariatric Surgery - [place] [address] [phone] Chelita Amador PA [address] [address] Scheduled Procedures Name Priority Associated Diagnoses Date/Ti [...] adult (CMS/HCC)- Primary Class 3 severe obesity due to excess calories with body mass index (BMI) of 50.0 to 59.9 in adult, unspecified whether serious comorbidity present (CMS/HCC)- Primary Class 3 severe obesity due to excess calories with body mass index (BMI) of 50.0 to 59.9 in adult, unspecified whether serious comorbidity present (CMS/HCC) documented in this encounter Care Teams Demolitionist Relationship Specialty Start Date End Date Ofelia Layne FNP [address] [place] [address] PCP - General Nurse Practitioner 04/18/24 documented as of this encounter
--- OUTSIDE RECORDS SUMMARY | 2024-05-04 20:09 | XMS_ITS | Encounter Summary ---
Author Organization [facility] Address [address] [place] [address] Care Team Providers Care Java Web Application Developer Name Role Phone Dayanna Arellano MD Primary Care Provider [phone] Encounter Details Date Type Department Care Team Description 11/10/2023 Inspector Structural Bonding Reports Bariatric Surgery - [address] [place] [address] Social History Tobacco Use Types [...] on filedocumented in this encounter Care Teams Java Web Application Developer Relationship Specialty Start Date End Date Dayanna Arellano MD PCP - General Internal Medicine 04/21/23 documented as of this encounter
--- OUTSIDE RECORDS SUMMARY | 2024-05-04 20:09 | XMS_ITS | Encounter Summary ---
Author Organization [facility] Address [address] [place] [address] Care Team Providers Care Metal Products Viewer Name Role Phone Dayanna Arellano MD Primary Care Provider [phone] Reason for Visit * Reason Onset Date Comments REFERRAL 10/06/2023 Encounter Details Date Type Department Care Team Description 10/06/2023 Telephone OBGYN - [place] [address] [place] [address] Selina Garcai MD [address] [place] [address] REFERRAL Social History Tobacco Use Types Packs/Day [...] PM EDT Patient referred to us by [facility]- for screening for malignant neoplasm of cervix. Left message on to call back. documented in this encounter Plan of Treatment Not on file documented as of this encounter Visit Diagnoses Not on filedocumented in this encounter Care Teams Metal Products Viewer Relationship Specialty Start Date End Date Dayanna Arellano MD PCP - General Internal Medicine 04/21/23 documented as of this encounter
--- OUTSIDE RECORDS SUMMARY | 2024-05-04 20:09 | XMS_ITS | Encounter Summary ---
Author Organization [facility] Address [address] [place] [address] Care Team Providers Care Barrel Cutter Name Role Phone Dayanna Arellano MD Primary Care Provider Reason for Visit * Reason Comments E-prescribe Rx Request Encounter Details Date Type Department Care Team Description 12/06/2023 Refill Bariatric Surgery - [address] [place] [phone] Neida Mohan MD [address] [place] [address] [address] [place] [address] E-prescribe Rx Request Social History Tobacco Use [...] (HCC) documented in this encounter Care Teams Barrel Cutter Relationship Specialty Start Date End Date Dayanna Arellano MD PCP - General Internal Medicine 04/21/23 documented as of this encounter
--- OUTSIDE RECORDS SUMMARY | 2024-05-04 20:09 | XMS_ITS | Encounter Summary ---
Author Organization [facility] Address [address] [place] [address] Care Team Providers Care Batch Tester Name Role Phone Steffen Robles MD Primary Care Provider [phone] Dayanna Arellano MD Primary Care Provider [phone] Encounter Details Date Type Department Care Team Description 08/04/2012 Night Triage Doc Medical Records [address] [place] [address] Abstract, Provider Social History Tobacco Use Types [...] on filedocumented in this encounter Care Teams Batch Tester Relationship Specialty Start Date End Date Steffen Robles MD [address] [place] [address] PCP - General 12/05/08 04/20/23 Dayanna Arellano MD [address] [place] [address] PCP - General Internal Medicine 04/21/23 documented as of this encounter
--- OUTSIDE RECORDS SUMMARY | 2024-05-04 20:09 | XMS_ITS | Encounter Summary ---
Author Organization [facility] Address [address] [place] [address] Care Team Providers Care Enterprise Systems Administrator Name Role Phone Ofelia Layne Primary Care Provider [phone] Encounter Details Date Type Department Care Team (Latest Contact Info) Description 04/26/2024 10:25 AM EST - 04/26/2024 11:59 PM EST Hospital Encounter [facility] Xray [address] [place] [address] Discharge Disposition: Home or Self Care Social History Tobacco Use Types Packs/Day Years [...] on file documented as of this encounter Medications at Time of Discharge acetaminophen (TYLENOL) 500 mg tablet Take 2 tablets (1,000 mg total) by mouth every 8 (eight) hours. 180 tablet 04/26/2024 buPROPion SR (WELLBUTRIN SR) 150 mg 12 hr tablet Take 1 tablet (150 mg total) by mouth 2 (two) times a day. for 90 days 12/12/2023 cholecalciferol (VITAMIN D-3) 1,250 mcg (50,000 unit) capsuleIndicatio ns:Obesity, class 3 TAKE 1 CAPSULE BY MOUTH ONE TIME PER WEEK 8 capsule 04/03/2024 ferrous sulfate 324 mg (65 mg elemental iron) EC tablet Take 1 tablet (324 mg total) by mouth 2 (two) times a day. 12/06/2023 naltrexone (DEPADE) 50 mg tablet Take 1 tablet (50 mg total) by mouth 1 (one) time each day. 02/06/2024 pantoprazole (PROTONIX) 40 mg EC tablet Take 1 tablet (40 mg total) by mouth 1 (one) time each day before breakfast. Do not crush, chew, or split. 30 each 2 04/26/2024 07/25/2024 polyethylene glycol (MIRALAX) 17 gram packet Take 17 g by mouth 1 (one) time each day. 510 g 04/26/2024 05/26/2024 simethicone (MYLICON) 80 mg chewable tablet Chew 1 tablet (80 mg total) every 6 (six) hours if needed for flatulence. 120 tablet 04/26/2024 ursodioL (ACTIGALL) 300 mg capsule Take 1 capsule (300 mg total) by mouth 2 (two) times a day. 60 each 5 04/26/2024 10/23/2024 wheat dextrin 3 gram/3.5 gram powder in packet Take 1 packet by mouth 1 (one) time each day. 30 packet 04/26/2024 ondansetron (ZOFRAN) 4 mg tablet Take 1 tablet (4 mg total) by mouth every 8 (eight) hours if needed for nausea or vomiting for up to 7 days. 21 tablet 04/26/2024 05/03/2024 documented as of this encounter Discharge Disposition Disposition Code Departure Means Destination Home or Self Care documented in this encounter Plan of Treatment Upcoming Encounters Date Type Department Care Team (Latest Contact Info) Description 05/09/2024 8:30 AM EST Hospital Encounter [facility] Main OR [address] [place] [phone] Neida Mohan MD [address] [address] 05/09/2024 8:30 AM EST - 05/09/2024 11:00 AM EST Surgery [facility] Main OR [address] [place] [phone] Neida Mohan MD [address] [phone] DAVINCI ANASTOMOSIS DUODENOILEAL SINGLE (JACOB) [[id number] (CPT??)] 05/24/2024 9:45 AM EDT Office Visit Bariatric Surgery - [place] [address] [phone] Chelita Amador PA [address] [phone] 06/12/2024 12:30 PM EDT Telemedicine Bariatric Surgery - [place] [address] [phone] [phone] 07/03/2024 11:30 AM EDT Office Visit Bariatric Surgery [facility] [address] [phone] Chelita Amador PA [address] [phone] Scheduled Procedures Name Priority Associated Diagnoses Date/Ti me ANASTOMOSIS DUODENOILEAL SINGLE ROBOT Class 3 severe obesity due to excess calories with body mass index (BMI) of 50.0 to 59.9 in adult, unspecified whether serious comorbidity present (CMS/HCC) 05/09/2024 8:30 AM EST documented as of this encounter Procedures Procedure Name Priority Date/Time Associated Diagnosis Comments XR CHEST 2 VIEWS Routine 04/26/2024 10:2 8 AM EST Class 3 severe obesity due to excess calories with body mass index (BMI) of 50.0 to 59.9 in adult, unspecified whether serious comorbidity present (CMS/HCC) documented in this encounter Results * XR Chest 2 Views (04/26/2024 10:28 AM EST) Anatomical Region Laterality Modality Body Radiographic Chely ging 04/26/2024 10:3 3 AM EST Impressions 04/26/2024 10:34 AM EST Normal examination. Code 71184 -------- FINAL REPORT -------- Dictated By: Billy Kam Dictated Date: 04/26/2024 10:33 ET Assigned Physician: Billy Kam Reviewed and Electronically Signed By: Billy Kam Signed Date: 04/26/2024 10:34 ET Workstation ID: [id number] Transcribed By: Self Edit Transcribed Date: 04/26/2024 [...] angles are clear. IMPRESSION: Normal examination. Code 53408 -------- FINAL REPORT -------- Dictated By: Billy Kam Dictated Date: 04/26/2024 10:33 ET Assigned Physician: Billy Kam Reviewed and Electronically Signed By: Billy Kam Signed Date: 04/26/2024 10:34 ET Workstation ID: [id number] Transcribed By: Self Edit Transcribed Date: 04/26/2024 10:33 ET Chelita SHEIKH IMG XR PROCEDURES Final Resu lt documented in this encounter Visit Diagnoses Not on filedocumented in this encounter Care Teams Enterprise Systems Administrator Relationship Specialty Start Date End Date Ofelia Layne FNP [address] [place] [address] PCP - General Nurse Practitioner 04/18/24 documented as of this encounter
--- OUTSIDE RECORDS SUMMARY | 2024-05-04 20:09 | XMS_ITS | Encounter Summary ---
Author Organization [facility] Address [address] [place] [address] Care Team Providers Care Executive Vice President Name Role Phone Dayanna Arellano MD Primary Care Provider [phone] Reason for Visit * Reason Onset Date Comments LAB WORK 08/31/2023 Encounter Details Date Type Department Care Team Description 08/31/2023 Telephone Bariatric Surgery - [place] [address] [phone] Randee Diallo MS,RDN,LDN [address] [address] LAB WORK Social History Tobacco Use Types [...] on filedocumented in this encounter Care Teams Executive Vice President Relationship Specialty Start Date End Date Dayanna Arellano MD PCP - General Internal Medicine 04/21/23 documented as of this encounter
--- OUTSIDE RECORDS SUMMARY | 2024-05-04 20:09 | XMS_ITS | Encounter Summary ---
Author Organization [facility] Address [address] [place] [address] Care Team Providers Care Tester Regulator Name Role Phone LiudmilaYanetOfelia Kearney Primary Care Provider [phone] Reason for Visit * Reason Onset Date Comments Advice Only 04/23/2024 Pre admission te sting Encounter Details Date Type Department Care Team (Late st Contact Info) Description 04/23/2024 Telephone Bariatric Surgery - [place] 175 [facility] [address] [place] [phone] Neida Mohan MD 175 [facility] [address] [place] [address] Advice Only (Pre admission testing) Social History Tobacco Use Types Packs/Day Years [...] on file documented as of this encounter Progress Notes * Jenelle Fonseca MA - 04/30/2024 5:03 PM EST I was out of the office 04/23 - 04/25 The patient was rescheduled for pre admission testing on 04/26/24 - all testing complete. * Justina Tabares - 04/23/2024 9:34 AM EST Patient needs to reschedule her PAT due to illness. She says she's available next Mon. 04/30 and the later the better (if not, she'll take what they have). documented in this encounter Plan of Treatment Upcoming Encounters Date Type Department Care Team (Latest Contact Info) Description 05/09/2024 8:30 AM EST Hospital Encounter [facility] Main OR [address] [place] [phone] Neida Mohan MD [address] [address] 05/09/2024 8:30 AM EST - 05/09/2024 11:00 AM EST Surgery [facility] Main [place] [address] [place] [phone] Neida Mohan MD [address] [address] DAVINCI ANASTOMOSIS DUODENOILEAL SINGLE (JACOB) [[id number] (CPT??)] 05/24/2024 9:45 AM EDT Office Visit Bariatric Surgery - [place] [address] [phone] Chelita Amador PA [address] [address] 06/12/2024 12:30 PM EDT Telemedicine Bariatric Surgery - [address] [phone] [address] 07/03/2024 11:30 AM EDT Office Visit Bariatric Surgery - [place] 175 [facility] [address] [place] [phone] Chelita Amador PA 271 [facility] [address] [place] [address] Scheduled Procedures Name Priority Associated Diagnoses Date/Ti me ANASTOMOSIS DUODENOILEAL SINGLE ROBOT Class 3 severe obesity due to excess calories with body mass index (BMI) of 50.0 to 59.9 in adult, unspecified whether serious comorbidity present (CMS/[facility]) 05/09/2024 8:30 AM EST documented as of this encounter Visit Diagnoses Not on filedocumented in this encounter Care Teams Tester Regulator Relationship Specialty Start Date End Date Ofelia Layne FNP [address] [place] [address] PCP - General Nurse Practitioner 04/18/24 documented as of this encounter
== END 2024-05-04 20:16 | disposition left against medical advice (07) ==
LOC: HO.ED 20:07
PROVIDERS: Emergency Provider Emergency Medicine; PCP Nurse Practitioner Family
DX: M79.604 Pain in right leg (principal); R60.0 Localized edema
CPT/HCPCS: 93971; 99281; 99284

== ENCOUNTER → 2024-05-04 12:49 | Outpatient (BNV) | payer OTHER, SELFPAY | PROVIDERS: PCP Nurse Practitioner Family; Visit Provider Radiology Diagnostic Radiology | DX: I83.11 Varicose veins of right lower extremity with inflammation (principal) | CPT/HCPCS: 93971 ==

== ENCOUNTER 2024-05-04 20:53 | Emergency (ER) | payer OTHER, SELFPAY ==
[2024-05-04 20:54] VITALS: BP 143/78; PULSE 78; RESP 20; TEMP 36.4; O2SAT 98; BMI 51.3
[2024-05-04 21:14] LABS: Hemoglobin 13.4 g/dl (12.0-16.0); PLT CLUMP 1; SCAN SMEAR FLAG 1
[2024-05-04 21:16] LABS: Basophils Absolute Auto 0.1 X10*3/uL (0.0-0.2); Basophils Percent Auto 0.7 % (0-2); Eosinophils Absolute Auto 0.5 X10*3/uL (0.0-0.4); Hematocrit 39.7 % (37.0-47.0); Imm Gran Abs Auto 0.05 X10*3/uL (0.00-0.03); Imm Gran Pct Auto 0.4 % (0.0-0.4); Lymphocytes Absolute Auto 2.9 X10*3/uL (1.2-4.9); Lymphocytes Percent Auto 21.2 % (20-40); MANUAL DIFF FLAG SCAN; Mean Corpuscular HGB Conc 33.8 g/dl (31.0-35.0); Mean Corpuscular Hemoglobin 30.4 pg (27.0-33.0); Mean Platelet Volume 9.7 fL (9.4-12.3); Monocytes Absolute Auto 1.1 X10*3/uL (0.1-1.2); Monocytes Percent Auto 8.5 % (2-11); Neutrophils Absolute Auto 8.8 x10*3/uL (2.0-8.3); Neutrophils Percent Auto 65.2 % (45-73); Red Blood Count 4.41 X10*6/uL (4.20-5.50)
[2024-05-04 21:20] LABS: Prothrombin Time 12.2 SEC (10.9-12.4)
[2024-05-04 21:23] LABS: Partial Thromboplastin Time 31.3 SEC (26.0-36.8)
--- OUTSIDE RECORDS SUMMARY | 2024-05-04 21:23 | XMS_ITS | Encounter Summary ---
Author Organization [facility] Address [address] [place] [address] Care Team Providers Care Director Of Tax Services Name Role Phone LiudmilaYanetOfelia Kearney Primary Care Provider [phone] Reason for Visit * Reason Onset Date Comments Advice Only 04/23/2024 Pre admission te sting Encounter Details Date Type Department Care Team (Late st Contact Info) Description 04/23/2024 Telephone Bariatric Surgery - [place] 175 [facility] [address] [place] [phone] Neida Mohan MD 175 [facility] [address] [place] [address] Advice Only (Pre admission testing) Social History [...] Description 05/09/2024 8:30 AM EST Hospital Encounter [facility] Main OR [address] [place] [phone] Neida Mohan MD [address] [address] 05/09/2024 8:30 AM EST - 05/09/2024 11:00 AM EST Surgery [facility] Main OR [address] [place] [phone] Neida Mohan MD [address] [address] DAVINCI ANASTOMOSIS DUODENOILEAL SINGLE (JACOB) [[id number] (CPT??)] 05/24/2024 9:45 AM EDT Office Visit Bariatric Surgery - [place] [address] [phone] Chelita Amador PA [address] [address] 06/12/2024 12:30 PM EDT Telemedicine Bariatric Surgery - [address] [phone] [address] 07/03/2024 11:30 AM EDT Office Visit Bariatric Surgery - [place] 175 [facility] [address] [place] [phone] Chelita Amador PA 271 [facility] [address] [place] [address] Scheduled Procedures Name Priority Associated Diagnoses Date/Ti me ANASTOMOSIS DUODENOILEAL SINGLE ROBOT Class 3 severe obesity due to excess calories with body mass index (BMI) of 50.0 to 59.9 in adult, unspecified whether serious comorbidity present (CMS/[facility]) 05/09/2024 8:30 AM EST documented as of this encounter Visit Diagnoses Not on filedocumented in this encounter Care Teams Director Of Tax Services Relationship Specialty Start Date End Date Ofelia Layne FNP [address] [place] [address] PCP - General Nurse Practitioner 04/18/24 documented as of this encounter
--- OUTSIDE RECORDS SUMMARY | 2024-05-04 21:23 | XMS_ITS | Encounter Summary ---
Author Organization [facility] Address [address] [place] [address] Care Team Providers Care Stapler Machine Name Role Phone Ofelia Layne Primary Care Provider [phone] Encounter Details Date Type Department Care Team (Latest Contact Info) Description 04/26/2024 10:25 AM EST - 04/26/2024 11:59 PM EST Hospital Encounter [facility] Xray [address] [place] [address] Discharge Disposition: Home or Self Care Social [...] Description 05/09/2024 8:30 AM EST Hospital Encounter [facility] Main OR [address] [place] [phone] Neida Mohan MD [address] [address] 05/09/2024 8:30 AM EST - 05/09/2024 11:00 AM EST Surgery [facility] Main OR [address] [place] [phone] Neida Mohan MD [address] [phone] DAVINCI ANASTOMOSIS DUODENOILEAL SINGLE (JACOB) [[id number] (CPT??)] 05/24/2024 9:45 AM EDT Office Visit Bariatric Surgery - [place] [address] [phone] Chelita Amador PA [address] [phone] 06/12/2024 12:30 PM EDT Telemedicine Bariatric Surgery - [place] [address] [phone] [phone] 07/03/2024 11:30 AM EDT Office Visit Bariatric Surgery [facility] [address] [phone] Chelita Amador PA [address] [phone] Scheduled Procedures Name Priority Associated Diagnoses Date/Ti [...] 04/26/2024 10:34 AM EST Normal examination. Code 54751 -------- FINAL REPORT -------- Dictated By: Billy Kam Dictated Date: 04/26/2024 10:33 ET Assigned Physician: Billy Kam Reviewed and Electronically Signed By: Billy Kam Signed Date: 04/26/2024 10:34 ET Workstation ID: [id number] Transcribed By: Self Edit Transcribed Date: 04/26/2024 [...] angles are clear. IMPRESSION: Normal examination. Code 32311 -------- FINAL REPORT -------- Dictated By: Billy Kam Dictated Date: 04/26/2024 10:33 ET Assigned Physician: Billy Kam Reviewed and Electronically Signed By: Billy Kam Signed Date: 04/26/2024 10:34 ET Workstation ID: [id number] Transcribed By: Self Edit Transcribed Date: 04/26/2024 10:33 ET Chelita SHEIKH IMG XR PROCEDURES Final Resu lt documented in this encounter Visit Diagnoses Not on filedocumented in this encounter Care Teams Stapler Machine Relationship Specialty Start Date End Date Ofelia Layne FNP [address] [place] [address] PCP - General Nurse Practitioner 04/18/24 documented as of this encounter
--- OUTSIDE RECORDS SUMMARY | 2024-05-04 21:23 | XMS_ITS | Clinical Summary ---
Author Organization 175 [facility] Address [address] [place] [address] Phone Care Team Providers Care Rn Acls Name Role Phone LiudmilaOfelia Dutta YEYO Primary Care Provider [phone] Allergies No known active allergies Medications buPROPion [...] 2:00 PM EST Telemedicine Bariatric Surgery - [address] [phone] Class 3 severe obesity with body mass index (BMI) of 50.0 to 59.9 in adult, unspecified obesity type, unspecified whether serious comorbidity present (CMS/HCC) (Primary Dx) 04/26/2024 10:45 AM EST Consult Bariatric Surgery - [address] [phone] Chelita Amador PA Class 3 severe obesity due to excess calories with body mass index (BMI) of 50.0 to 59.9 in adult, unspecified whether serious comorbidity present (CMS/HCC) (Primary Dx) 04/26/2024 10:25 AM EST - 04/26/2024 11:59 PM EST Hospital Encounter [facility] Xray [address] [place] [phone] Discharge Disposition: Home or Self Care 04/23/2024 Telephone Bariatric Surgery - [address] [phone] Neida Mohan MD Advice Only (Pre admission testing) 04/02/2024 3:30 PM EST Office Visit Bariatric Surgery [address] [phone] Chelita Amador PA Class 3 severe obesity due to excess calories with body mass index (BMI) of 50.0 to 59.9 in adult, unspecified whether serious comorbidity present (CMS/HCC) (Primary Dx) 03/15/2024 3:15 PM EST Office Visit Bariatric Surgery - [address] [phone] Neida Mohan MD Class 3 severe obesity with body mass index (BMI) of 50.0 to 59.9 in adult, unspecified obesity type, unspecified whether serious comorbidity present (CMS/HCC) (Primary Dx) 03/06/2024 2:00 PM EST Telemedicine Bariatric Surgery - [address] [phone] Class 3 severe obesity [...] Description 05/09/2024 8:30 AM EST Hospital Encounter [facility] Main OR [address] [place] [phone] Neida Mohan MD [address] [address] 05/09/2024 8:30 AM EST - 05/09/2024 11:00 AM EST Surgery [facility] Main OR [address] [place] [phone] Neida Mohan MD [address] [address] DAVINCI ANASTOMOSIS DUODENOILEAL SINGLE (JACOB) [64603 (CPT??)] 05/24/2024 9:45 AM EDT Office Visit Bariatric Surgery - [place] [address] [phone] Chelita Amador PA [address] [phone] 06/12/2024 12:30 PM EDT Telemedicine Bariatric Surgery - [place] [address] [phone] Randee Daniel, RD [address] [phone] 07/03/2024 11:30 AM EDT Office Visit Bariatric Surgery [address] [phone] Chelita Amador PA [address] [phone] Scheduled Procedures Name Priority Associated Diagnoses Date/Ti me ANASTOMOSIS DUODENOILEAL SINGLE ROBOT Class 3 severe obesity due to excess calories with body mass index (BMI) of 50.0 to 59.9 in adult, unspecified whether serious comorbidity present ([facility]/HCC) 05/09/2024 8:30 AM EST Health Maintenance Due [...] 04/26/2024 10:34 AM EST Normal examination. Code 74534 -------- FINAL REPORT -------- Dictated By: Billy Kam Dictated Date: 04/26/2024 10:33 ET Assigned Physician: Billy Kam Reviewed and Electronically Signed By: Billy Kam Signed Date: 04/26/2024 10:34 ET Workstation ID: [id number] Transcribed By: Self Edit Transcribed Date: 04/26/2024 [...] angles are clear. IMPRESSION: Normal examination. Code 57361 -------- FINAL REPORT -------- Dictated By: Billy Kam Dictated Date: 04/26/2024 10:33 ET Assigned Physician: Billy Kam Reviewed and Electronically Signed By: Billy Kam Signed Date: 04/26/2024 10:34 ET Workstation ID: [id number] Transcribed By: Self Edit Transcribed Date: 04/26/2024 10:33 ET Chelita SHEIKH IMG XR PROCEDURES Final Resu lt * (ABNORMAL) Urinalysis with reflex microscopic and culture (04/26/2024 10:00 AM EST) Pathologist [facility] Specific [place] Urine 1.012 1.003 - 1.030 LAB URINALYSIS - AUTOMATED METHOD 04/26/2024 10:54 AM [facility] pH, Urine 6.0 5.0 - 8.0 pH LAB URINALYSIS - AUTOMATED METHOD 04/26/2024 10:54 AM [facility] Leukocytes, Urine Trace(A) Negative LAB URINALYSIS - AUTOMATED METHOD 04/26/2024 10:54 AM [facility] Nitrite, Urine Negative Negative LAB URINALYSIS - AUTOMATED METHOD 04/26/2024 10:54 AM [facility] Protein, Urine Negative <=Trace mg/dL LAB URINALYSIS - AUTOMATED METHOD 04/26/2024 10:54 AM [facility] Glucose, Urine Negative Negative mg/dL LAB URINALYSIS - AUTOMATED METHOD 04/26/2024 10:54 AM [facility] Ketones, Urine Negative Negative mg/dL LAB URINALYSIS - AUTOMATED METHOD 04/26/2024 10:54 AM [facility] Urobilinogen, Urine 0.2 0.2 - 1.0 mg/dL LAB URINALYSIS - AUTOMATED METHOD 04/26/2024 10:54 AM [facility] Bilirubin, Urine Negative Negative LAB URINALYSIS - AUTOMATED METHOD 04/26/2024 10:54 AM [facility] Blood, Urine Negative Negative LAB URINALYSIS - AUTOMATED METHOD 04/26/2024 10:54 AM [facility] RBC, Urine 1.8 0 - 4 /HPF LAB URINALYSIS - AUTOMATED METHOD 04/26/2024 10:54 AM [facility] WBC, Urine 3.3 0 - 4 /HPF LAB URINALYSIS - AUTOMATED METHOD 04/26/2024 10:54 AM [facility] Squamous Epithelial, Urine 44 0 - 60 /LPF LAB URINALYSIS - AUTOMATED METHOD 04/26/2024 10:54 AM [facility] Bacteria, Urine Negative Negative /HPF LAB URINALYSIS - AUTOMATED METHOD 04/26/2024 10:54 AM [facility] Hyaline Casts, Urine 0.4 0 - 3 /LPF LAB URINALYSIS - AUTOMATED METHOD 04/26/2024 10:54 AM [facility] Urine Urine specimen obtained by clean catch procedure / Unknown Non-blood Collection / Unknown 04/26/2024 10:00 AM EST 04/26/2024 10:47 AM EST us Chelita SHEIKH LAB URINE ORDERABLES Final R esult Performing Organization Address [facility]/ZIP Co de Phone Number [facility] [address] [place] [address], [place] [phone] * Steele urine culture tube (04/26/2024 10:00 AM EST) Extra Tube Hold for add-ons. 04/26/2024 12:01 PM [facility] Comment:Auto resulted. Urine Urine specimen obtained by clean catch procedure / Unknown Non-blood Collection / Unknown 04/26/2024 10:00 AM EST 04/26/2024 10:47 AM EST us Chelita SHEIKH LAB URINE ORDERABLES Final R esult [facility] [address] [place] [address], * CBC auto differential (04/26/2024 10:00 AM EST) [facility] WBC 8.8 4.8 - 10.8 K/mcL LAB HEMETOLOGY METHOD 04/26/2024 11:00 AM [facility] RBC 4.40 3.80 - 4.80 M/mcL LAB HEMETOLOGY METHOD 04/26/2024 11:00 AM [facility] Hemoglobin 13.2 11.5 - 16.0 g/dL LAB HEMETOLOGY METHOD 04/26/2024 11:00 AM [facility] Hematocrit 41.1 35.0 - 47.0 % LAB HEMETOLOGY METHOD 04/26/2024 11:00 AM [facility] MCV 93.4 79.0 - 98.0 FL LAB HEMETOLOGY METHOD 04/26/2024 11:00 AM [facility] MCH 30.0 27.0 - 32.0 pcg LAB HEMETOLOGY METHOD 04/26/2024 11:00 AM [facility] MCHC 32.1 32.0 - 37.0 g/dL LAB HEMETOLOGY METHOD 04/26/2024 11:00 AM [facility] RDW 12.8 11.0 - 15.0 % LAB HEMETOLOGY METHOD 04/26/2024 11:00 AM [facility] Platelets 269 130 - 400 K/mcL LAB HEMETOLOGY METHOD 04/26/2024 11:00 AM [facility] MPV 9.8 7.0 - 11.0 FL LAB HEMETOLOGY METHOD 04/26/2024 11:00 AM [facility] NRBC 0.0 <1.0 % LAB HEMETOLOGY METHOD 04/26/2024 11:00 AM [facility] NRBC Absolute 0.00 <0.10 K/mcL LAB HEMETOLOGY METHOD 04/26/2024 11:00 AM [facility] Neutrophils Relative 62.4 % LAB HEMETOLOGY METHOD 04/26/2024 11:00 AM [facility] Lymphocytes Relative 26.8 % LAB HEMETOLOGY METHOD 04/26/2024 11:00 AM [facility] Monocytes Relative 7.8 % LAB HEMETOLOGY METHOD 04/26/2024 11:00 AM [facility] Eosinophils Relative 2.0 % LAB HEMETOLOGY METHOD 04/26/2024 11:00 AM [facility] Basophils Relative 0.8 % LAB HEMETOLOGY METHOD 04/26/2024 11:00 AM [facility] Immature Granulocytes Relative 0.2 % LAB HEMETOLOGY METHOD 04/26/2024 11:00 AM [facility] Neutrophils Absolute 5.50 1.50 - 7.00 K/mcL LAB HEMETOLOGY METHOD 04/26/2024 11:00 AM [facility] Lymphocytes Absolute 2.36 1.00 - 5.00 K/mcL LAB HEMETOLOGY METHOD 04/26/2024 11:00 AM [facility] Monocytes Absolute 0.69 0.20 - 1.00 K/mcL LAB HEMETOLOGY METHOD 04/26/2024 11:00 AM [facility] Eosinophils Absolute 0.18 0.00 - 0.50 K/mcL LAB HEMETOLOGY METHOD 04/26/2024 11:00 AM [facility] Basophils Absolute 0.07 0.00 - 0.20 K/mcL LAB HEMETOLOGY METHOD 04/26/2024 11:00 AM [facility] Immature Granulocytes Absolute 0.02 0.00 - 0.03 K/mcL LAB HEMETOLOGY METHOD 04/26/2024 11:00 AM [facility] Blood Venous blood specimen / Unknown Venipuncture / Unknown 04/26/2024 10:00 AM EST 04/26/2024 10:47 AM EST us Chelita SHEIKH LAB BLOOD ORDERABLES Final R esult Performing Organization Address City/[facility]/ZIP Co de Phone Number [facility] [address] [place] [address], [place] [phone] * Prothrombin time with INR (04/26/2024 10:00 AM EST) Protime 12.3 10.6 - 13.9 sec LAB COAGULATION METHOD 04/26/2024 11:11 AM EST [facility] INR 1.0 LAB COAGULATION METHOD 04/26/2024 11:11 AM EST [facility] Blood Venous blood specimen / Unknown Venipuncture / Unknown 04/26/2024 10:00 AM EST 04/26/2024 10:47 AM EST us Chelita SHEIKH LAB BLOOD ORDERABLES Final R esult Performing Organization Address City/[facility]/ZIP Co de Phone Number [facility] [address] [place] [address], [place] [phone] * Type and screen (04/26/2024 10:00 AM EST) ABO Group O 04/26/2024 4:39 PM EST [facility] Rh Type Positive 04/26/2024 4:39 PM EST [facility] Antibody Screen Negative 04/26/2024 4:39 PM EST [facility] Blood Venous blood specimen / Unknown Venipuncture / Unknown 04/26/2024 10:00 AM EST 04/26/2024 10:46 AM EST us Chelita SHEIHK LAB BLOOD BANK TEST ORDERABL ES Final Result Performing Organization Address [facility]/ZIP Co de Phone Number [facility] [address] [place] [address], [place] [phone] * Culture urine (04/26/2024 10:00 AM EST) Culture, Urine No growth 04/27/2024 10:31 AM EST [facility] Urine Urine specimen obtained by clean catch procedure / Unknown Non-blood Collection / Unknown 04/26/2024 10:00 AM EST 04/26/2024 10:54 AM EST Chelita SHEIKH LAB MICROBIOLOGY - GENERAL O RDERABLES Final Result Performing Organization Address [facility] Co de Phone Number [facility] [address] [place] [address], * Magnesium (04/26/2024 10:00 AM EST) Magnesium 2.1 1.9 - 2.6 mg/dL LAB CHEMISTRY METHOD 04/26/2024 11:20 AM EST [facility] Blood Venous blood specimen / Unknown Venipuncture / Unknown 04/26/2024 10:00 AM EST 04/26/2024 10:47 AM EST Chelita SHEIKH LAB BLOOD ORDERABLES Final R esult Performing Organization Address City/[facility]/ZIP Co de Phone Number [facility] [address] [place] [address], [place] [phone] * BMP (04/26/2024 10:00 AM EST) Sodium 139 133 - 145 mmol/L LAB CHEMISTRY METHOD 04/26/2024 11:23 AM EST [facility] Potassium 4.2 3.5 - 5.5 mmol/L LAB CHEMISTRY METHOD 04/26/2024 11:23 AM [facility] Chloride 109 96 - 110 mmol/L LAB CHEMISTRY METHOD 04/26/2024 11:23 AM [facility] CO2 21 21 - 32 mmol/L LAB CHEMISTRY METHOD 04/26/2024 11:23 AM [facility] Anion Gap 9 3 - 11 LAB CHEMISTRY METHOD 04/26/2024 11:23 AM [facility] Glucose 85 70 - 100 mg/dL LAB CHEMISTRY METHOD 04/26/2024 11:23 AM [facility] BUN 11 5 - 25 mg/dL LAB CHEMISTRY METHOD 04/26/2024 11:23 AM [facility] Creatinine 0.86 0.50 - 1.10 mg/dL LAB CHEMISTRY METHOD 04/26/2024 11:23 AM [facility] eGFR 89 >=60 mL/min/1. 73m2 LAB CHEMISTRY METHOD 04/26/2024 11:23 AM [facility] Comment:Calculation based on the??Chronic Kidney Disease Epidemiology Collaboration (CKD-EPI) equation refit??without adjustment for race. BUN/Creatinine Ratio 12.8 LAB CHEMISTRY METHOD 04/26/2024 11:23 AM [facility] Calcium 8.8 8.5 - 10.5 mg/dL LAB CHEMISTRY METHOD 04/26/2024 11:23 AM [facility] Blood Venous blood specimen / Unknown Venipuncture / Unknown 04/26/2024 10:00 AM EST 04/26/2024 10:47 AM EST us Chelita SHEIKH LAB BLOOD ORDERABLES Final R esult [facility] [address] [place] [address], [place] [phone] * ECG 12 lead (04/26/2024 9:43 AM EST) Ventricular Rate ECG 77 BPM GEMUSE Atrial Rate 77 BPM GEMUSE P-R Interval 144 ms GEMUSE QRS Duration 84 ms GEMUSE Q-T Interval 366 ms GEMUSE QTc 414 ms GEMUSE P Wave Isabella 57 degrees GEMUSE R Isabella 38 degrees GEMUSE T Isabella 53 degrees GEMUSE ECG Interpretation Normal sinus rhythm Normal ECG No previous ECGs available Confirmed by MD Sierra Christopher ([id number]) on 04/26/2024 9:51:59 PM GEMUSE 04/26/2024 9:43 AM EST 04/26/2024 9:51 PM EST Result [facility] Chelita SHEIKH ECG ORDERABLES Final Result GEMUSE * External clinical lab (03/19/2024) Result [facility] Susy [facility]base LAB BLOOD ORDERABLES Fin al Result * (ABNORMAL) Lipid panel (10/06/2023) [facility] LDL/HDL Ratio 4 0 - 4 Triglycerides 121 0 - 150 mg/dL Cholesterol 193 0 - 200 mg/dL HDL 51 >=40 mg/dL LDL Cholesterol 118(A) 0 - 100 mg/dL Blood Venous blood specimen / Unknown Result [facility] LAB BLOOD ORDERABLES Gabbi l Result * HIV Screening (12/24/2010) [facility] HIV Screening abstracted Result [facility] Provider HEALTH MAINTENANCE Final Result * Pap Smear (12/24/2010) [facility] Pap smear abstracted, no interpretation Result [facility] Provider HEALTH MAINTENANCE Final Result * Hepatitis C Screening (05/27/2009) [facility] Hepatitis C Screening abstracted Result [facility] Zarina MENDOZA HEALTH MAINTENANCE Final Result from Last 3 Months or Most Recently Relevant to Health Maintenance Insurance [facility] Care Teams Rn Acls Relationship Specialty Start Date End Date Ofelia Layne FNP [address] [place] [address] PCP - General Nurse Practitioner 04/18/24
--- OUTSIDE RECORDS SUMMARY | 2024-05-04 21:23 | XMS_ITS | Encounter Summary ---
Author Organization [facility] Address [address] [place] [address] Care Team Providers Care Seamer Elastic Band Name Role Phone Ofelia Layne Primary Care Provider [phone] Reason for Visit * Reason Comments Pre-op Exam JACOB 05/09 Encounter Details Date Type Department Care Team ([facility] Contact Info) Description 04/26/2024 10:45 AM EST Consult Bariatric Surgery - [place] [address] [phone] Chelita Amador PA 271 [facility] [address] [place] [address] Class 3 severe obesity due to excess [...] (BMI) of 50.0 to 59.9 in adult (CMS/[facility]) PAST SURGICAL HISTORY: Past Surgical History: Procedure [...] in adult, unspecified whether serious comorbidity present (CMS/[facility]) PLAN: 1. Obesity - Post op medications [...] Description 05/09/2024 8:30 AM EST Hospital Encounter [address] [phone] Neida Mohan MD [address] [address] 05/09/2024 8:30 AM EST - 05/09/2024 11:00 AM EST Surgery [address] [phone] Neida Mohan MD [address] [address] DAVINCI ANASTOMOSIS DUODENOILEAL SINGLE (JACOB) [34903 (CPT??)] 05/24/2024 9:45 AM EDT Office Visit Bariatric Surgery - [place] [address] [phone] Chelita Amador PA [address] [address] 06/12/2024 12:30 PM EDT Telemedicine Bariatric Surgery - [place] [address] [phone] Randee Daniel, RAMÍREZ [address] [phone] 07/03/2024 11:30 AM EDT Office Visit Bariatric Surgery - [place] [address] [phone] Chelita Amador PA [address] [address] Scheduled Procedures Name Priority Associated Diagnoses Date/Ti [...] (CMS/HCC) documented in this encounter Care Teams Seamer Elastic Band Relationship Specialty Start Date End Date Ofelia Layne FNP [address] [place] [phone] PCP - General Nurse Practitioner 04/18/24 documented as of this encounter
--- OUTSIDE RECORDS SUMMARY | 2024-05-04 21:23 | XMS_ITS | Encounter Summary ---
Author Organization [facility] [place] [address] Care Team Providers Care Cosmetology Instructor Name Role Phone Ofelia Layne Primary Care Provider [phone] Reason for Visit * Reason Comments Obesity Encounter Details Date Type Department Care Team ([facility] Contact Info) Description 05/02/2024 2:00 PM EST Telemedicine Bariatric Surgery - [place] 175 [facility] [address] [place] [phone] Randee Daniel, RD 175 [facility] [address] [place] [address] Class 3 severe obesity with body mass [...] to communicate, the services of a qualified director of search engine marketing will be provided during the visit. Patients Location: [facility] Total Time: 30 minutes Patient Name: [...] current - wt at BMI of 25: [phone] Challenges: hungry on preop diet Changes since [...] (>50% of the time spent) in direct [id number] consultation for counseling, reviewing medical record and/or coordinating the plan as described above. Randee Daniel RD NUTRITION SERVICES Cosigned by Neida Mohan MD at 05/02/2024 4:38 PM EST documented in this encounter Plan of Treatment Upcoming Encounters Date Type Department Care Team (Latest Contact Info) Description 05/09/2024 8:30 AM EST Hospital Encounter [facility] Main OR [address] [place] [phone] Neida Mohan MD [address] [address] 05/09/2024 8:30 AM EST - 05/09/2024 11:00 AM EST Surgery [facility] Main OR [address] [place] [phone] Neida Mohan MD [address] [address] DAVINCI ANASTOMOSIS DUODENOILEAL SINGLE (JACOB) [28171 (CPT??)] 05/24/2024 9:45 AM EDT Office Visit Bariatric Surgery - [place] [address] [phone] Chelita Amador PA [address] [address] 06/12/2024 12:30 PM EDT Telemedicine Bariatric Surgery - [place] [address] [phone] Randee Daniel, RD [address] [phone] 07/03/2024 11:30 AM EDT Office Visit Bariatric Surgery - [place] [address] [phone] Chelita Amador PA [address] [address] Scheduled Procedures Name Priority Associated Diagnoses Date/Ti [...] (CMS/HCC) documented in this encounter Care Teams Cosmetology Instructor Relationship Specialty Start Date End Date Ofelia Layne FNP [address] [place] [phone] PCP - General Nurse Practitioner 04/18/24 documented as of this encounter
[2024-05-04 21:33] LABS: White Blood Count 13.4 X10*3/uL (4.8-10.8)
[2024-05-04 21:34] LABS: SLIDE REVIEW VERIFIED
[2024-05-04 21:38] LABS: Anion Gap 14 (12-20); Blood Urea Nitrogen 13 mg/dL (9-16); Calcium 9.1 mg/dL (8.4-10.2); Carbon Dioxide 19 mmol/L (22-29); Chloride 109 mmol/L (96-108); Creatinine Clr Calc Pharmacy 143.3; Estimated Glomerular Filt Rate > 60; Glucose Random 84 mg/dL (60-115); Potassium 3.8 mmol/L (3.3-5.1); Sodium 138 mmol/L (135-145)
--- NOTE | 2024-05-04 21:50 | ED_ITS ---
HPI - Extremity Problem General Chief complaint: Extremity Injury, Lower Stated complaint: + blood clots Time Seen by Provider: 05/04/24 21:50 Source: patient Mode of arrival: ambulatory Limitations: no limitations History of Present Illness ED Provider: HPI Narrative: Patient with no prior history of DVTs had microphlebectomy of left lower extremities on 04/30 since 04/30 noticed pain in the right leg along with the left groin area no shortness a breath had venous Doppler done prior to my evaluation which showed thrombosis of left great saphenous vein Related Data Home Medications ?Medication ?Instructions ?Recorded ?Confirmed cholecalciferol (vitamin D3) 1,250 1,250 mcg PO QWEEK 11/15/23 04/30/24 mcg (50,000 unit) capsule Previous Rx's ?Medication ?Instructions ?Recorded ferrous sulfate 324 mg (65 mg 324 mg PO BID 90 days #180 tabs 11/15/23 iron) tablet,delayed release bupropion HCl 200 mg tablet,12 hr 200 mg PO BID 90 days #180 tabs 03/05/24 sustained-release naltrexone 50 mg tablet 50 mg PO BID 90 days #180 tabs 03/16/24 acetaminophen 500 mg capsule 1,000 mg (2 x 500 mg) PO Q6H PRN 04/09/24 pain #90 caps apixaban 5 mg (74 tabs) tablets in 5 mg PO BID #74 ea 05/04/24 a dose pack (Eliquis DVT-PE Treat 30D Start) Allergies Allergy/AdvReac Type Severity Reaction Status Date / Time No Known Allergies Allergy Verified 05/04/24 20:57 Review of Systems 2 Review of Systems: Yes all other systems are reviewed and are negative [facility] Past Medical History Medical History Pre-diabetes URI (upper respiratory infection) (04/09/24) Acute respiratory disease Labial lesion History of syphilis ADRIÁN (obstructive sleep apnea) Iron deficiency anemia Vitamin D deficiency Hypersomnia Edema Surgical History Hx of dilation and curettage Family History Family History Father HTN (hypertension) Cirrhosis Colon cancer Paternal Aunt History of breast cancer Paternal Grandmother Diabetes Maternal Grandmother Colon cancer Other FH: mental illness Hypercholesteremia Substance use Social History Social History Household Members: None Housing: Apartment Are you a primary child care to a significant other at home: No Do you presently have visiting nurse or other home services: No Comment: medicated Patient Tobacco Use Status: Former Tobacco user Tobacco use type: Cigarette Years Smoked: 26 quit 02/2023 e-Cigarette/Vaping Use: Never Used Second Hand Smoke Exposure: No Substance Use Type: Marijuana Advance Directives: No Advance Directives Information Provided: No Do you have a plan to hurt others: No Plan service: No Current occupational status: employed 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 Oriented X3. No acute distress. Eyes: No pallor or icterus ENT: Pharynx normal. Oral Mucosa moist Neck: Normal inspection. Neck supple. CVS: Normal heart rate and rhythm. Pulses normal. Respiratory: No respiratory distress. Equal air entry bilateral, no wheezing/rales/rhonchi Abdomen: Soft and nontender. Bowel sounds are present, no mass palpable, no CVA tenderness Skin: Skin warm and dry. Normal skin color. Normal skin turgor. Extremities: No lower extremity edema. Left thigh tenderness in the upper 3rd medial area Neuro: Oriented X 3. No motor deficit. Medications Administered Discontinued Medications Generic Name Dose Route Start Last Admin Trade Name Freq PRN Reason Stop Dose Admin Apixaban 10 mg 05/04/24 21:53 05/04/24 22:06 Apixaban 5 Mg Tablet PO 05/04/24 21:54 10 mg ONCE ONE Administration Medical Decision Making Medical Decision Making MDM Narrative: Patient with new acute DVT in left saphenous vein after microphlebectomy for the varicose vein likely the cause will start on Eliquis advised patient to follow with Dr. Sy the vascular surgeon. Dark tomorrow responded to the text after patient's discharge, does not think that patient needs Eliquis as a blood clot as in superficial vein but for now advised to continue and he will call the patient on tuesday for further evaluation Lab Data MDM Lab Attestation statement: I reviewed the patient's lab results. 05/04/24 21:06 05/04/24 21:06 Labs: Lab Results 05/04/24 Range/Units 21:06 WBC 13.4 H (4.8-10.8) X10*3/uL RBC 4.41 (4.20-5.50) X10*6/uL Hgb 13.4 (12.0-16.0) g/dl Hct 39.7 (37.0-47.0) % MCV 90.0 (80.0-98.0) fL MCH 30.4 (27.0-33.0) pg MCHC 33.8 (31.0-35.0) g/dl RDW 13.0 (11.0-16.0) % Plt Count TNP MPV 9.7 (9.4-12.3) fL Immature Gran % (Auto) 0.4 (0.0-0.4) % Neut % (Auto) 65.2 (45-73) % Lymph % (Auto) 21.2 (20-40) % [place] % (Auto) 8.5 (2-11) % Eos % (Auto) 4.0 (0-4) % Baso % (Auto) 0.7 (0-2) % Lymph # (Auto) 2.9 (1.2-4.9) X10*3/uL [place] # (Auto) 1.1 (0.1-1.2) X10*3/uL Eos # (Auto) 0.5 H (0.0-0.4) X10*3/uL Baso # (Auto) 0.1 (0.0-0.2) X10*3/uL Abs Immat Gran (auto) 0.05 H (0.00-0.03) X10*3/uL Absolute Neuts (auto) 8.8 H (2.0-8.3) x10*3/uL Absolute Nucleated RBC 0.000 (0.0-0.012) X10*3/uL Nucleated RBC % (auto) 0.0 (0.0-0.2) /100WBC Smear Tech's Comments VERIFIED PT 12.2 (10.9-12.4) SEC INR 1.0 (0.9-1.1) APTT 31.3 (26.0-36.8) SEC Sodium 138 (135-145) mmol/L Potassium 3.8 (3.3-5.1) mmol/L Chloride 109 H (96-108) mmol/L Carbon Dioxide 19 L (22-29) mmol/L Anion Gap 14 (12-20) BUN 13 (9-16) mg/dL Creatinine 0.81 (0.5-1.4) mg/dL Estim Creat Clear Calc 143.3 Estimated GFR > 60 Random Glucose 84 (60-115) mg/dL Calcium 9.1 (8.4-10.2) mg/dL Radiology Impression Discussion of test interpretation with radiology: I have reviewed the radiologist's reading. Radiologist Impression: [place] [id number] Ultrasound Report Signed Patient: Katja Tony MR#: [id number] : 1985 Acct:[id number] Age/Sex: 38 / F ADM Date: 05/04/24 Loc: .ED Attending Dr: Ordering Physician: Alondra Valera Date of Service: 05/04/24 Procedure(s): US venous duplex LE RT Accession Number(s): [id number] cc: Ofelia Layne WIRE WORKER-; Alondra Valera~ EXAMINATION: US TRIPLEX LOWER EXTREMITY, RIGHT CLINICAL INFORMATION: Right lower extremity swelling and erythema, rule out DVT. The patient is status post microfollicular lobe 04/30/[address] Sy. COMPARISON: None available. TECHNIQUE: Color-flow triplex imaging with spectral analysis and compression Doppler were performed on the right lower extremity. Imaging of the left lower extremity superficial venous system was also performed per request given recent microphlebectomy. FINDINGS: Right Lower Extremity: Respiratory variation, normal compression and augmented flow are noted throughout the right lower extremity. The visualized common femoral vein, superficial femoral vein, profunda femoral vein, popliteal vein and midcalf peroneal and posterior tibial venous segments show no evidence of deep venous thrombosis. There is no Tran's cyst. In the area of concern in the medial calf, mid aspect, there are varicosities seen, largest diameter 0.6 cm. Left Lower Extremity: There is thrombosis of the greater saphenous vein beginning approximately 1.0 cm distal to the saphenofemoral junction. US/US venous duplex LE RT IMPRESSION: 1. No evidence of deep venous thrombosis involving the RIGHT lower extremity. In the area of concern in the RIGHT medial calf, mid aspect, there are varicosities seen, largest diameter 0.6 cm. 2. Thrombosis of the greater saphenous vein on the LEFT beginning approximately 1.0 cm distal to the saphenofemoral junction. Electronically signed by: Kirk Nielson MD 05/04/2024 02:50 PM [facility] Discharge Plan Discharge Clinical Impression: DVT of leg (deep venous thrombosis) Patient Disposition: Home, Self-Care Instructions: Deep Vein Thrombosis (ED) Additional Instructions: Take Eliquis as prescribed 10 mg twice a day for 7 days and then 5 mg twice daily for 3-6 months Follow up with your vascular surgeon for possible thrombectomy Prescriptions: New Eliquis DVT-PE Treat 30D Start 5 mg (74 tabs) tablets,dose pack 5 mg PO BID Qty: 74 0RF Rx Instructions: 10 mg twice a day for 7 days then 5 mg twice daily No Action ferrous sulfate 324 mg (65 mg iron) tablet,delayed release (DR/EC) 324 mg PO BID 90 Days Qty: 180 2RF cholecalciferol (vitamin D3) 1,250 mcg (50,000 unit) capsule 1,250 mcg PO QWEEK naltrexone 50 mg tablet 50 mg PO BID 90 Days Qty: 180 1RF bupropion HCl 200 mg tablet sustained-release 12 hr 200 mg PO BID 90 Days Qty: 180 1RF acetaminophen 500 mg capsule 1,000 mg PO Q6H PRN (Reason: pain) Qty: 90 0RF Stand Alone Forms: Work/School Release Interventions: ED Discharge Assessment Last Done: 05/04/24 22:34 Discharge Date/Time: 05/04/24 22:34 Print Language: Palestinian
[2024-05-04] MEDS: Apixaban 5 MG TABLET 10 MG PO (22:06)
[2024-05-04 22:27] VITALS: BP 142/96; PULSE 82; RESP 20; TEMP 36.6; O2SAT 100
[2024-05-04 22:34] VITALS: BP 142/96; PULSE 82; RESP 20; TEMP 36.6; O2SAT 100
== END 2024-05-04 22:34 | disposition home or self-care (01) ==
PROVIDERS: Physician Assistant; Emergency Provider Internal Medicine; PCP Nurse Practitioner Family
DX: I82.4Z2 Acute embolism and thrombosis of unspecified deep veins of left distal lower extremity (principal); M79.604 Pain in right leg; R10.32 Left lower quadrant pain; Z79.899 Other long term (current) drug therapy; Z87.891 Personal history of nicotine dependence
CPT/HCPCS: 36415; 80048; 85025; 85610; 85730; 99283

== ENCOUNTER 2024-05-08 15:15 | Outpatient (AMB) | payer OTHER, SELFPAY ==
[2024-05-08 15:21] VITALS: BMI 51.2
--- NOTE | 2024-05-08 15:21 | MHC.OFFVIS ---
Vital Signs 05/08/24 15:21 Height 5 ft 7 in Weight 327 lb BMI 51.2 Intake Visit Reasons: follow up Micro 04/30/2024 Intake Note: follow up Left Micro 04/30/24 w/ post procedure complications per pt, states has a round hard spot on the Right LE (not Left) the day after Left LE micro, also states that she had gone to the ED 05/04/24 for LE pain and had US of Left LE showing thrombus in GSV. Accompanied by: Self / Same As Patient Allergies No Known Allergies Allergy (Verified 05/08/24 15:27) HPI HPI follow up Micro 04/30/2024: Details: Very pleasant morbidly obese 38-year-old female presents for follow-up status post microphlebectomy. This was an operative microphlebectomy to to the large nature of her varicosities that was performed on 04/30/2024. She had a reasonable postoperative course but was concerned actually a phlebitic vein on the right lower extremity. Ended up in the emergency room they underwent an ultrasound of the left lower extremity. Subsequent to that she had concerns of a DVT and was started on Eliquis and was subsequently discharged. She now presents for follow-up after procedure. [facility] Medical History Pre-diabetes URI (upper respiratory infection) (04/09/24) Acute respiratory disease Labial lesion History of syphilis ADRIÁN (obstructive sleep apnea) Iron deficiency anemia Vitamin D deficiency Hypersomnia Edema Surgical History Hx of dilation and curettage Family History Father HTN (hypertension) Cirrhosis Colon cancer Paternal Aunt History of breast cancer Paternal Grandmother Diabetes Maternal Grandmother Colon cancer Other FH: mental illness Hypercholesteremia Substance use Social History Household Members: None Caregiver staying overnight: No Housing: Apartment Are you a primary director long term care to a significant other at home: No Do you presently have visiting nurse or other home services: No 75 years or older and lives alone: No Comment: medicated Patient Tobacco Use Status: Former Tobacco user Tobacco use type: Cigarette Years Smoked: 26 quit 02/2023 e-Cigarette/Vaping Use: Never Used Second Hand Smoke Exposure: No Substance Use Type: Marijuana service: No Current occupational status: employed 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 Current occupational exposures/hazards: No Cognitive needs: No Hearing needs: No Vision needs: No Review of Systems Const Reports as per HPI ENT Reports no additional complaints Card Denies chest pain, Denies chest pain at rest and Denies chest pain with activity Resp Denies chest congestion and Denies cough GI Reports no additional complaints Musc Details: pain over varicosities, aching of lower extremities, swelling, cramping, heaviness and tiredness, itching Denies abnormal gait Skin/Breast Reports pruritus and Denies wounds Neuro Reports no additional complaints and Denies abnormal gait Psych Denies no additional complaints Physical Exam Vital Signs: BMI result Body Mass Index 51.2 Const General: cooperative, healthy appearing and comfortable Orientation/consciousness: oriented to person, oriented to place and oriented to time Neck Carotids: no bruits Chest Chest palpation & inspection: normal inspection of the chest and normal palpation of entire chest wall Resp Effort & Inspection: normal respiratory effort and able to speak in complete sentences Cardio Rate: regular rate Heart sounds: S1 normal heart sound present and S2 normal heart sound present Peripheral pulses: Peripheral pulses 2+ throughout GI Inspection: Yes normal to inspection Skin Other: +2 edema, incision is healing well with bruising CEAP Classification C4 - skin color changes Ep - Etiology Primary As - superficial veins P - reflux General skin exam: dry skin Neuro General: oriented to person, oriented to place and oriented to time Extrem Right lower extremity: full ROM, normal capillary refill and edema Left lower extremity: full ROM, normal capillary refill and edema Psych Mental Status: mental status grossly normal Results Reviewed Results Reviewed: Ultrasound dated 05/04/2024 demonstrates no evidence of DVT. Thrombus of the left great saphenous vein 1 cm distal to the saphenofemoral junction. Written report and images were reviewed. Assessment & Plan Assessment & Plan (1) Varicose veins of left lower extremity with inflammation: Comment: 04/30/2024 - left leg operative microphlebectomy Code(s): I83.12 - Varicose veins of left lower extremity with inflammation Category: Medical Plan: In short patient is doing well status post microphlebectomy. She did have an element of phlebitis. She did not have a DVT and was stopped from taking any further Eliquis. We did reinforce that the bruising and discomfort will decrease. It is expected that the great saphenous vein be occluded and may even experience episodes of phlebitis after the procedure, and I have discussed with the patient use of warm compresses and NSAIDS if tolerated for pain discomfort. In addition, I have discussed continued conservative measures including use of compression, leg elevation, and exercise. The patient was also given an information sheet regarding appropriate use of compression stockings and future purchases. The patient is stable from my perspective to move forward with gastric bypass surgery. She will follow up with us in approximately 3 weeks to ensure that the postprocedure bruising is decreasing appropriately. Thank you for allowing us to care for your patient with venous disease. The patient had an opportunity to ask questions regarding the treatment plan. All questions were answered. Imaging studies, laboratory studies and physical exam results were discussed and reviewed in detail. No major barriers to understanding were identified. The patient expressed understanding and agreement with the above treatment plan. The patient is aware they should contact our office by phone for worsening of the current condition or the appearance of new symptoms. Thank you for allowing me to participate in the vascular care of this patient. If you have any questions or concerns regarding the treatment for the above condition please do not hesitate to contact me. The office telephone contact is [phone]. This note is constructed using voice recognition software. While every effort has been made to ensure accuracy, trading analyst errors may have been included. Thank you for allowing me to participate in the care of your patient. Yours sincerely, Fan Sy MD, FACS, R.P.V.I. Coding Level of Care Code Est Pt Level 3 (45504) Diagnoses Varicose veins of left lower extremity with inflammation I83.12
--- OUTSIDE RECORDS SUMMARY | 2024-05-08 19:18 | XMS_ITS | Clinical Summary ---
Author Organization 175 [facility] Address [address] [place] [address] Phone Care Team Providers Care Boomboat Operator Name Role Phone LiudmilaOfelia Dutta YEYO Primary Care Provider [phone] Allergies No known active allergies Medications buPROPion [...] Active Problems Problem Noted Date Diagnosed Date Morbid obesity 05/08/2024 Class 3 severe obesity with body mass index (BMI) of 50.0 to 59.9 in adult 12/02/2023 Seasonal allergies 08/21/2010 Tinea versicolor 05/13/2009 Overview (12/02/2023): Tinea Versicolor 05/14 right arm & back Scoliosis 10/29/2008 Backache 09/23/2005 Overview (12/02/2023): IMO update Encounters Date Type Department Care Team Description 05/07/2024 Telephone Bariatric Surgery - [address] [phone] Neida Mohan MD Advice Only 05/02/2024 2:00 PM EST Telemedicine Bariatric Surgery [address] [phone] Class 3 severe obesity with body mass index (BMI) of 50.0 to 59.9 in adult, unspecified obesity type, unspecified whether serious comorbidity present (CMS/[facility]) (Primary Dx) 04/26/2024 10:45 AM EST Consult Bariatric Surgery - [address] [phone] Chelita Amador PA Class 3 severe obesity due to excess calories with body mass index (BMI) of 50.0 to 59.9 in adult, unspecified whether serious comorbidity present (CMS/HCC) (Primary Dx) 04/26/2024 10:25 AM EST - 04/26/2024 11:59 PM EST Hospital Encounter [facility] Xray [address] [place] [phone] Discharge Disposition: Home or Self Care 04/23/2024 Telephone Bariatric Surgery - [address] [phone] Neida Mohan MD Advice Only (Pre admission testing) 04/02/2024 3:30 PM EST Office Visit Bariatric Surgery [address] [phone] Chelita Amador PA Class 3 severe obesity due to excess calories with body mass index (BMI) of 50.0 to 59.9 in adult, unspecified whether serious comorbidity present (CMS/HCC) (Primary Dx) 03/15/2024 3:15 PM EST Office Visit Bariatric Surgery [address] [phone] Neida Mohan MD Class 3 severe obesity with body mass index (BMI) of 50.0 to 59.9 in adult, unspecified obesity type, unspecified whether serious comorbidity present (CMS/HCC) (Primary Dx) 03/06/2024 2:00 PM EST Telemedicine Bariatric Surgery - [address] [phone] Class 3 severe obesity [...] Care Team (Late st Contact Info) Description 05/24/2024 9:45 AM EDT Office Visit Bariatric Surgery - [place] [address] [phone] Chelita Amador PA [address] [address] 05/28/2024 Hospital Encounter [facility] Main OR [address] [place] [phone] Neida Mohan MD [address] [phone] 06/12/2024 12:30 PM EDT Telemedicine Bariatric Surgery - [place] [address] [phone] [address] 07/03/2024 11:30 AM EDT Office Visit Bariatric Surgery - [place] [address] [phone] Chelita Amador PA [address] [address] Scheduled Procedures Name Priority Associated Diagnoses Date/Ti me PYLOROPLASTY LAPAROSCOPIC Morbid obesity (CMS/HCC) Health Maintenance Due Date Last Done [...] CLINICAL LAB 03/19/2024 LIPID PANEL Routine 10/06/2023 HM HIV SCREENING Routine 12/24/2010 HM PAP SMEAR Routine 12/24/2010 HM HEPATITIS C SCREENING Routine 05/27/2009 from Last 3 Months or Most Recently Relevant to Health Maintenance Results * XR Chest 2 Views (04/26/2024 10:28 AM EST) Anatomical Region Laterality Modality Body Radiographic Chely ging 04/26/2024 10:3 3 AM EST Impressions 04/26/2024 10:34 AM EST Normal examination. Code 79886 -------- FINAL REPORT -------- Dictated By: Billy Kam Dictated Date: 04/26/2024 10:33 ET Assigned Physician: Billy Kam Reviewed and Electronically Signed By: Billy Kam Signed Date: 04/26/2024 10:34 ET Workstation ID: [id number] Transcribed By: Self Edit Transcribed Date: 04/26/2024 [...] angles are clear. IMPRESSION: Normal examination. Code 45821 -------- FINAL REPORT -------- Dictated By: Billy Kam Dictated Date: 04/26/2024 10:33 ET Assigned Physician: Billy Kam Reviewed and Electronically Signed By: Billy Kam Signed Date: 04/26/2024 10:34 ET Workstation ID: [id number] Transcribed By: Self Edit Transcribed Date: 04/26/2024 10:33 ET us Chelita SHEIKH IMG XR PROCEDURES Final Resu lt * (ABNORMAL) Urinalysis with reflex microscopic and culture (04/26/2024 10:00 AM EST) Specific [place] Urine 1.012 1.003 - 1.030 LAB URINALYSIS - AUTOMATED METHOD 04/26/2024 10:54 AM [facility] pH, Urine 6.0 5.0 - 8.0 pH LAB URINALYSIS - AUTOMATED METHOD 04/26/2024 10:54 AM [facility] Leukocytes, Urine Trace(A) Negative LAB URINALYSIS - AUTOMATED METHOD 04/26/2024 10:54 AM [facility] Nitrite, Urine Negative Negative LAB URINALYSIS - AUTOMATED METHOD 04/26/2024 10:54 AM [facility] Protein, Urine Negative <=Trace mg/dL LAB URINALYSIS - AUTOMATED METHOD 04/26/2024 10:54 AM [facility] Glucose, Urine Negative Negative mg/dL LAB URINALYSIS - AUTOMATED METHOD 04/26/2024 10:54 AM [facility] Ketones, Urine Negative Negative mg/dL LAB URINALYSIS - AUTOMATED METHOD 04/26/2024 10:54 AM [facility] Urobilinogen, Urine 0.2 0.2 - 1.0 mg/dL LAB URINALYSIS - AUTOMATED METHOD 04/26/2024 10:54 AM [facility] Bilirubin, Urine Negative Negative LAB URINALYSIS - AUTOMATED METHOD 04/26/2024 10:54 AM [facility] Blood, Urine Negative Negative LAB URINALYSIS - AUTOMATED METHOD 04/26/2024 10:54 AM [facility] RBC, Urine 1.8 0 - 4 /HPF LAB URINALYSIS - AUTOMATED METHOD 04/26/2024 10:54 AM [facility] WBC, Urine 3.3 0 - 4 /HPF LAB URINALYSIS - AUTOMATED METHOD 04/26/2024 10:54 AM [facility] Squamous Epithelial, Urine 44 0 - 60 /LPF LAB URINALYSIS - AUTOMATED METHOD 04/26/2024 10:54 AM [facility] Bacteria, Urine Negative Negative /HPF LAB URINALYSIS - AUTOMATED METHOD 04/26/2024 10:54 AM [facility] Hyaline Casts, Urine 0.4 0 - 3 /LPF LAB URINALYSIS - AUTOMATED METHOD 04/26/2024 10:54 AM [facility] Urine Urine specimen obtained by clean catch procedure / Unknown Non-blood Collection / Unknown 04/26/2024 10:00 AM EST 04/26/2024 10:47 AM EST Chelita SHEIKH LAB URINE ORDERABLES Final R esult Performing Organization Address City/[facility]/ZIP Co de Phone Number [facility] [address] [place] [address], [place] [phone] * Steele urine culture tube (04/26/2024 10:00 AM EST) Extra Tube Hold for add-ons. 04/26/2024 12:01 PM EST [facility] Comment:Auto resulted. Urine Urine specimen obtained by clean catch procedure / Unknown Non-blood Collection / Unknown 04/26/2024 10:00 AM EST 04/26/2024 10:47 AM EST Chelita SHEIKH LAB URINE ORDERABLES Final R esult [facility] [address] [place] [address], [place] [phone] * CBC auto differential (04/26/2024 10:00 AM EST) WBC 8.8 4.8 - 10.8 K/[facility] LAB HEMETOLOGY METHOD 04/26/2024 11:00 AM [facility] RBC 4.40 3.80 - 4.80 M/mcL LAB HEMETOLOGY METHOD 04/26/2024 11:00 AM [facility] Hemoglobin 13.2 11.5 - 16.0 g/dL LAB HEMETOLOGY METHOD 04/26/2024 11:00 AM [facility] Hematocrit 41.1 35.0 - 47.0 % LAB HEMETOLOGY METHOD 04/26/2024 11:00 AM [facility] MCV 93.4 79.0 - 98.0 FL LAB HEMETOLOGY METHOD 04/26/2024 11:00 AM [facility] MCH 30.0 27.0 - 32.0 pcg LAB HEMETOLOGY METHOD 04/26/2024 11:00 AM [facility] MCHC 32.1 32.0 - 37.0 g/dL LAB HEMETOLOGY METHOD 04/26/2024 11:00 AM [facility] RDW 12.8 11.0 - 15.0 % LAB HEMETOLOGY METHOD 04/26/2024 11:00 AM [facility] Platelets 269 130 - 400 K/mcL LAB HEMETOLOGY METHOD 04/26/2024 11:00 AM [facility] MPV 9.8 7.0 - 11.0 FL LAB HEMETOLOGY METHOD 04/26/2024 11:00 AM [facility] NRBC 0.0 <1.0 % LAB HEMETOLOGY METHOD 04/26/2024 11:00 AM [facility] NRBC Absolute 0.00 <0.10 K/mcL LAB HEMETOLOGY METHOD 04/26/2024 11:00 AM [facility] Neutrophils Relative 62.4 % LAB HEMETOLOGY METHOD 04/26/2024 11:00 AM [facility] Lymphocytes Relative 26.8 % LAB HEMETOLOGY METHOD 04/26/2024 11:00 AM [facility] Monocytes Relative 7.8 % LAB HEMETOLOGY METHOD 04/26/2024 11:00 AM [facility] Eosinophils Relative 2.0 % LAB HEMETOLOGY METHOD 04/26/2024 11:00 AM [facility] Basophils Relative 0.8 % LAB HEMETOLOGY METHOD 04/26/2024 11:00 AM [facility] Immature Granulocytes Relative 0.2 % LAB HEMETOLOGY METHOD 04/26/2024 11:00 AM [facility] Neutrophils Absolute 5.50 1.50 - 7.00 K/mcL LAB HEMETOLOGY METHOD 04/26/2024 11:00 AM [facility] Lymphocytes Absolute 2.36 1.00 - 5.00 K/mcL LAB HEMETOLOGY METHOD 04/26/2024 11:00 AM [facility] Monocytes Absolute 0.69 0.20 - 1.00 K/mcL LAB HEMETOLOGY METHOD 04/26/2024 11:00 AM [facility] Eosinophils Absolute 0.18 0.00 - 0.50 K/mcL LAB HEMETOLOGY METHOD 04/26/2024 11:00 AM [facility] Basophils Absolute 0.07 0.00 - 0.20 K/mcL LAB HEMETOLOGY METHOD 04/26/2024 11:00 AM [facility] Immature Granulocytes Absolute 0.02 0.00 - 0.03 K/mcL LAB HEMETOLOGY METHOD 04/26/2024 11:00 AM [facility] Blood Venous blood specimen / Unknown Venipuncture / Unknown 04/26/2024 10:00 AM EST 04/26/2024 10:47 AM EST us Chelita SHEIKH LAB BLOOD ORDERABLES Final R esult [facility] [address] [place] [address], [place] [phone] * Prothrombin time with INR (04/26/2024 10:00 AM EST) Protime 12.3 10.6 - 13.9 sec LAB COAGULATION METHOD 04/26/2024 11:11 AM EST [facility] INR 1.0 LAB COAGULATION METHOD 04/26/2024 11:11 AM EST [facility] Blood Venous blood specimen / Unknown Venipuncture / Unknown 04/26/2024 10:00 AM EST 04/26/2024 10:47 AM EST us Chelita SHEIKH LAB BLOOD ORDERABLES Final R esult Performing Organization Address City/[facility]/ZIP Co de Phone Number [facility] [address] [place] [address], * Type and screen (04/26/2024 10:00 AM EST) ABO Group O 04/26/2024 4:39 PM EST [facility] Rh Type Positive 04/26/2024 4:39 PM EST [facility] Antibody Screen Negative 04/26/2024 4:39 PM EST [facility] Blood Venous blood specimen / Unknown Venipuncture / Unknown 04/26/2024 10:00 AM EST 04/26/2024 10:46 AM EST us Chelita SHEIKH LAB BLOOD BANK TEST ORDERABL ES Final Result [facility] [address] [place] [address], [place] [phone] * Culture urine (04/26/2024 10:00 AM EST) Culture, Urine No growth 04/27/2024 10:31 AM EST [facility] Urine Urine specimen obtained by clean catch procedure / Unknown Non-blood Collection / Unknown 04/26/2024 10:00 AM EST 04/26/2024 10:54 AM EST Chelita SHEIKH LAB MICROBIOLOGY - GENERAL O RDERABLES Final Result [facility] [address] [place] [address], [place] [phone] * Magnesium (04/26/2024 10:00 AM EST) Magnesium 2.1 1.9 - 2.6 mg/dL LAB CHEMISTRY METHOD 04/26/2024 11:20 AM [facility] Blood Venous blood specimen / Unknown Venipuncture / Unknown 04/26/2024 10:00 AM EST 04/26/2024 10:47 AM EST Chelita SHEIKH LAB BLOOD ORDERABLES Final R esult [facility] [address] [place] [address], [place] [phone] * BMP (04/26/2024 10:00 AM EST) Sodium 139 133 - 145 mmol/L LAB CHEMISTRY METHOD 04/26/2024 11:23 AM [facility] Potassium 4.2 3.5 - 5.5 mmol/L LAB CHEMISTRY METHOD 04/26/2024 11:23 AM [facility] Chloride 109 96 - 110 mmol/L LAB CHEMISTRY METHOD 04/26/2024 11:23 AM [facility] CO2 21 21 - 32 mmol/L LAB CHEMISTRY METHOD 04/26/2024 11:23 AM [facility] Anion Gap 9 3 - 11 LAB CHEMISTRY METHOD 04/26/2024 11:23 AM [facility] Glucose 85 70 - 100 mg/dL LAB CHEMISTRY METHOD 04/26/2024 11:23 AM EST [facility] BUN 11 5 - 25 mg/dL LAB CHEMISTRY METHOD 04/26/2024 11:23 AM [facility] Creatinine 0.86 0.50 - 1.10 mg/dL LAB CHEMISTRY METHOD 04/26/2024 11:23 AM EST [facility] eGFR 89 >=60 mL/min/1. 73m2 LAB CHEMISTRY METHOD 04/26/2024 11:23 AM [facility] Comment:Calculation based on the??Chronic Kidney Disease Epidemiology Collaboration (CKD-EPI) equation refit??without adjustment for race. BUN/Creatinine Ratio 12.8 LAB CHEMISTRY METHOD 04/26/2024 11:23 AM [facility] Calcium 8.8 8.5 - 10.5 mg/dL LAB CHEMISTRY METHOD 04/26/2024 11:23 AM EST [facility] Blood Venous blood specimen / Unknown Venipuncture / Unknown 04/26/2024 10:00 AM EST 04/26/2024 10:47 AM EST Chelita SHEIKH LAB BLOOD ORDERABLES Final R esult [facility] [address] [place] [address], * ECG 12 lead (04/26/2024 9:43 AM EST) Ventricular Rate ECG 77 BPM GEMUSE Atrial Rate 77 BPM GEMUSE P-R Interval 144 ms GEMUSE QRS Duration 84 ms GEMUSE Q-T Interval 366 ms GEMUSE QTc 414 ms GEMUSE P Wave Hurt 57 degrees GEMUSE R Hurt 38 degrees GEMUSE T Hurt 53 degrees GEMUSE ECG Interpretation Normal sinus rhythm Normal ECG No previous ECGs available Confirmed by MD Sierra Christopher ([id number]) on 04/26/2024 9:51:59 PM GEMUSE 04/26/2024 9:43 AM EST 04/26/2024 9:51 PM EST Result [facility] Chelita SHEIKH ECG ORDERABLES Final Result GEMUSE * External clinical lab (03/19/2024) Result [facility] Zarina Jain Onbase LAB BLOOD ORDERABLES Fin al Result * (ABNORMAL) Lipid panel (10/06/2023) Pathologist [facility] LDL/HDL Ratio 4 0 - 4 Triglycerides 121 0 - 150 mg/dL Cholesterol 193 0 - 200 mg/dL HDL 51 >=40 mg/dL LDL Cholesterol 118(A) 0 - 100 mg/dL Blood Venous blood specimen / Unknown Result [facility] Historical Provider LAB BLOOD ORDERABLES Gabbi l Result * HIV Screening (12/24/2010) [facility] HIV Screening abstracted Result [facility] Provider HEALTH MAINTENANCE Final Result * Pap Smear (12/24/2010) [facility] Pap smear abstracted, no interpretation Result [facility] Provider HEALTH MAINTENANCE Final Result * Hepatitis C Screening (05/27/2009) [facility] Hepatitis C Screening abstracted Result [facility] Provider HEALTH MAINTENANCE Final Result from Last 3 Months or Most Recently Relevant to Health Maintenance Insurance [facility] [employer] Care Teams Boomboat Operator Relationship Specialty Start Date End Date Ofelia Layne FNP [address] [place] [phone] PCP - General Nurse Practitioner 04/18/24
--- OUTSIDE RECORDS SUMMARY | 2024-05-08 19:18 | XMS_ITS | Encounter Summary ---
Author Organization [facility] [place] [address] Care Team Providers Care Plastic Fixture Builder Name Role Phone Ofelia Layne Primary Care Provider [phone] Reason for Visit * Reason Comments Obesity Encounter Details Date Type Department Care Team ([facility] Contact Info) Description 05/02/2024 2:00 PM EST Telemedicine Bariatric Surgery - [place] 175 [facility] [address] [place] [phone] Randee Daniel, RD 175 [facility] [address] [place] [address] Class 3 severe obesity with body mass [...] to communicate, the services of a qualified respiratory technician will be provided during the visit. Patients Location: [facility] house Total Time: 30 minutes [...] current - wt at BMI of 25: [phone] Challenges: hungry on preop diet Changes since [...] (>50% of the time spent) in direct [id number] consultation for counseling, reviewing medical record and/or coordinating the plan as described above. Randee Daniel RD NUTRITION SERVICES Cosigned by Neida Mohan MD at 05/02/2024 4:38 PM EST documented in this encounter Plan of Treatment Upcoming Encounters Date Type Department Care Team (Late st Contact Info) Description 05/24/2024 9:45 AM EDT Office Visit Bariatric Surgery [facility] [address] [phone] Chelita Amador PA [address] [address] 05/28/2024 Hospital Encounter [facility] Main OR [address] [place] [phone] Neida Mohan MD [address] [address] 06/12/2024 12:30 PM EDT Telemedicine Bariatric Surgery - [place] [address] [phone] [address] 07/03/2024 11:30 AM EDT Office Visit Bariatric Surgery - [place] 175 [facility] [address] [place] [phone] Chelita Amador PA 271 [facility] [address] [place] [address] Scheduled Procedures Name Priority Associated Diagnoses Date/Ti me PYLOROPLASTY LAPAROSCOPIC Morbid obesity (CMS/HCC) documented as of this encounter Visit Diagnoses Diagnosis Class 3 severe obesity with body mass index (BMI) of 50.0 to 59.9 in adult, unspecified obesity type, unspecified whether serious comorbidity present (CMS/HCC)- Primary documented in this encounter Care Teams Plastic Fixture Builder Relationship Specialty Start Date End Date Ofelia Layne FNP [address] [place] [phone] PCP - General Nurse Practitioner 04/18/24 documented as of this encounter
--- OUTSIDE RECORDS SUMMARY | 2024-05-08 19:18 | XMS_ITS | Encounter Summary ---
Author Organization [facility] Address [address] [place] [address] Care Team Providers Care Metal Pickling Equipment Operator Name Role Phone Ofelia Layne Primary Care Provider [phone] Reason for Visit * Reason Comments Pre-op Exam JACOB 05/09 Encounter Details Date Type Department Care Team ([facility] Contact Info) Description 04/26/2024 10:45 AM EST Consult Bariatric Surgery - [place] [address] [phone] Chelita Amador PA 271 [facility] [address] [place] [address] Class 3 severe obesity due to excess [...] (BMI) of 50.0 to 59.9 in adult (CMS/[facility]) PAST SURGICAL HISTORY: Past Surgical [...] in adult, unspecified whether serious comorbidity present (CMS/[facility]) PLAN: 1. Obesity - Post [...] 9:45 AM EDT Office Visit Bariatric Surgery [facility] [address] [phone] Chelita Amador PA [address] [address] 05/28/[address] [facility] Main OR [address] [place] [phone] Neida Mohan MD [address] [address] 06/12/2024 12:30 PM EDT Telemedicine Bariatric Surgery - [place] [address] [phone] [address] 07/03/2024 11:30 AM EDT Office Visit Bariatric Surgery [place] 175 [facility] [address] [place] [phone] Chelita Amador PA 271 [facility] [address] [place] [address] Scheduled Procedures Name Priority Associated Diagnoses Date/Ti me PYLOROPLASTY LAPAROSCOPIC Morbid obesity (CMS/HCC) documented as of this encounter Visit Diagnoses Diagnosis Class 3 severe obesity due to excess calories with body mass index (BMI) of 50.0 to 59.9 in adult, unspecified whether serious comorbidity present (CMS/HCC)- Primary documented in this encounter Care Teams Metal Pickling Equipment Operator Relationship Specialty Start Date End Date Ofelia Layne FNP [address] [place] [phone] PCP - General Nurse Practitioner 04/18/24 documented as of this encounter
--- OUTSIDE RECORDS SUMMARY | 2024-05-08 19:18 | XMS_ITS | Encounter Summary ---
Author Organization [facility] [place] [address] Care Team Providers Care Psychiatric Nurse Practitioner Name Role Phone LiudmilaYanetOfelia Kearney Primary Care Provider [phone] Reason for Visit * Reason Onset Date Comments Advice Only 05/07/2024 Encounter Details Date Type Department Care Team ([facility] Contact Info) Description 05/07/2024 Telephone Bariatric Surgery - [place] 175 [facility] [address] [place] [phone] Neida Mohan MD 175 [facility] [address] [place] [address] Advice Only Social History Tobacco Use Types Packs/Day Years [...] Progress Notes * Jenelle Fonseca MA - 05/07/2024 11:01 AM EST Surgery for 05/09/24 cancelled with OR surgical bookings. * KORI Santana - 05/07/2024 10:26 AM EST Called patient to discuss Initially scheduled for single anastomosis duodenal ileal bypass on 05/09/[address] Mohan Completed preop appointment on 04/26/2023 Subsequent to that, patient underwent vascular procedure (last week) requiring general anesthesia This was unbeknownst to our office Patient states that initially the vascular procedure was canceled however was rescheduled fairly quickly which is why our office was unaware Post surgery she developed significant pain, redness, and swelling to her leg Diagnosed with DVT and placed on Eliquis this past weekend States that the emergency department called her today and took her off Eliquis pending her follow-up with vascular surgeon (Dr. Sy) tomorrow Regardless given this information patient's bariatric procedure will have to be put on hold for 6 months given recent diagnosis of DVT And is aware and completely understands She agrees to postpone her surgery for 6 months * Justina Tabares - 05/07/2024 10:09 AM EST Patient is scheduled for surgery this Wed and was recently discharged from the hospital for a bloodclot in her leg. She has questions in reference to recently being on blood thinners. She's asking to please speak with Chelita or Dr Mohan Please call patient at [phone] documented in this encounter Plan of Treatment Upcoming Encounters Date Type Department Care Team (Late st Contact Info) Description 05/24/2024 9:45 AM EDT Office Visit Bariatric Surgery - [place] [address] [facility] [address] [phone] Chelita Amador PA [address] [address] 05/28/2024 Hospital Encounter [facility] Main OR [address] [place] [phone] Neida Mohan MD [address] [address] 06/12/2024 12:30 PM EDT Telemedicine Bariatric Surgery - [place] [address] [phone] [phone] 07/03/2024 11:30 AM EDT Office Visit Bariatric Surgery [address] [phone] Chelita Amador PA [address] [phone] Scheduled Procedures Name Priority Associated Diagnoses Date/Ti me PYLOROPLASTY LAPAROSCOPIC Morbid obesity (CMS/HCC) documented as of this encounter Visit Diagnoses Not on filedocumented in this encounter Care Teams Psychiatric Nurse Practitioner Relationship Specialty Start Date End Date Ofelia Layne FNP [address] [place] [phone] PCP - General Nurse Practitioner 04/18/24 documented as of this encounter
--- OUTSIDE RECORDS SUMMARY | 2024-05-08 19:18 | XMS_ITS | Encounter Summary ---
Author Organization [facility] Address [address] [place] [address] Care Team Providers Care Ecommerce Project Manager Name Role Phone LiudmilaYanetOfelia Kearney Primary Care Provider [phone] Reason for Visit * Reason Onset Date Comments Advice Only 04/23/2024 Pre admission te sting Encounter Details Date Type Department Care Team (Late st Contact Info) Description 04/23/2024 Telephone Bariatric Surgery - [place] 175 [facility] [address] [place] [phone] Neida Mohan MD 175 [facility] [address] [place] [address] Advice Only (Pre admission testing) Social History [...] 9:45 AM EDT Office Visit Bariatric Surgery [facility] [address] [phone] Chelita Amador PA [address] [address] 05/28/2024 Hospital Encounter [facility] Main OR 271 [place] [phone] Neida Mohan MD [address] [address] 06/12/2024 12:30 PM EDT Telemedicine Bariatric Surgery [facility] [address] [phone] [address] 07/03/2024 11:30 AM EDT Office Visit Bariatric Surgery [facility] [address] [phone] Chelita Amador PA [address] [address] Scheduled Procedures Name Priority Associated Diagnoses Date/Ti me PYLOROPLASTY LAPAROSCOPIC Morbid obesity (CMS/HCC) documented as of this encounter Visit Diagnoses Not on filedocumented in this encounter Care Teams Ecommerce Project Manager Relationship Specialty Start Date End Date O'Caio, Ofelia, TECHNOLOGY METHODOLOGY CONSULTANT [address] [place] [phone] PCP - General Nurse Practitioner 04/18/24 documented as of this encounter
--- OUTSIDE RECORDS SUMMARY | 2024-05-08 19:18 | XMS_ITS | Encounter Summary ---
Author Organization [facility] Address [address] [place] [address] Care Team Providers Care Alternative Medicine Practitioner Name Role Phone Ofelia Layne Primary Care Provider [phone] Encounter Details Date Type Department Care Team (Latest Contact Info) Description 04/26/2024 10:25 AM EST - 04/26/2024 11:59 PM EST Hospital Encounter [facility] Xray [address] [place] [address] Discharge Disposition: Home or Self Care Social [...] AM EDT Office Visit Bariatric Surgery - [place] [address] [phone] Chelita Amador PA [address] [address] 05/28/2024 Hospital Encounter [facility] Main OR [address] [place] [address] Neida Mohan MD [address] [phone] 06/12/2024 12:30 PM EDT Telemedicine Bariatric Surgery - [place] [address] [phone] [phone] 07/03/2024 11:30 AM EDT Office Visit Bariatric Surgery - [place] [address] [phone] Chelita Amador PA [address] [phone] Scheduled Procedures Name Priority Associated Diagnoses Date/Ti me PYLOROPLASTY LAPAROSCOPIC Morbid obesity (CMS/HCC) documented as of this encounter Procedures Procedure [...] 04/26/2024 10:34 AM EST Normal examination. Code 91536 -------- FINAL REPORT -------- Dictated By: Billy Kam Dictated Date: 04/26/2024 10:33 ET Assigned Physician: Billy Kam Reviewed and Electronically Signed By: Billy Kam Signed Date: 04/26/2024 10:34 ET Workstation ID: [id number] Transcribed By: Self Edit Transcribed Date: 04/26/2024 [...] angles are clear. IMPRESSION: Normal examination. Code 44436 -------- FINAL REPORT -------- Dictated By: Billy Kam Dictated Date: 04/26/2024 10:33 ET Assigned Physician: Billy Kam Reviewed and Electronically Signed By: Billy Kam Signed Date: 04/26/2024 10:34 ET Workstation ID: [id number] Transcribed By: Self Edit Transcribed Date: 04/26/2024 10:33 ET us Chelita SHEIKH IMG XR PROCEDURES Final Resu lt documented in this encounter Visit Diagnoses Not on filedocumented in this encounter Care Teams Alternative Medicine Practitioner Relationship Specialty Start Date End Date Ofelia Layne FNP [address] [place] [phone] PCP - General Nurse Practitioner 04/18/24 documented as of this encounter
== END 2024-05-09 08:22 | disposition home or self-care (01) ==
PROVIDERS: PCP Nurse Practitioner Family; Visit Provider Surgery Vascular Surgery
DX: I83.12 Varicose veins of left lower extremity with inflammation (principal)
CPT/HCPCS: 99024

== ENCOUNTER → 2024-05-08 15:15 | Outpatient (BNVA) | payer OTHER, SELFPAY | PROVIDERS: PCP Nurse Practitioner Family; Visit Provider Surgery Vascular Surgery | DX: I83.12 Varicose veins of left lower extremity with inflammation (principal) | CPT/HCPCS: 99212 ==

== ENCOUNTER 2024-05-11 14:54 | Outpatient (AMB) | payer OTHER, SELFPAY ==
--- NOTE | 2024-05-11 16:06 | A.OFFPC_ITS ---
Intake Visit Reasons: lab review Allergies No Known Allergies Allergy (Verified 05/11/24 16:07) Medication List - Last Reconciled 05/11/24 by YEYO Beckham- acetaminophen 1,000 mg (2 x 500 mg) PO Q6H PRN apixaban (Eliquis DVT-PE Treat 30D Start) 5 mg PO BID bupropion HCl SR 200 mg PO BID 90 days cholecalciferol (vitamin D3) 1,250 mcg PO QWEEK ferrous sulfate 324 mg PO BID 90 days naltrexone 50 mg PO BID 90 days Tobacco use date assessed: 03/16/24 Dental Screening Dental Screen Date: 03/16/24 HPI HPI Comments History of Present Illness Details History of Present Illness - The patient is a 38-year-old female pr esenting with a concern related to a recent superficial noninvasive skin cancer diagnosis and a need for lab review. - Diagnosis occurred after a biopsy for a perianal lesion conducted by an OBGYN at [facility] (i do not have these records), new consultation scheduled for June 17 at [facility], unsure what type of provider this is. - ED visit for superficial thrombosis of lower ext s/p phlebectomy. Work up reviewed; blood clot delayed weight loss surgery plan, now rescheduled to may 28 2024; blood thinners were discontinued on the surgeon's advice. - Labs conducted prior to initial surger y showed no abnormalities, including nicotine levels. - Ongoing dermatological issues include tinea exacerbated by medication previously prescribed and unresolved over winter months. Assessment and Plan 1. Superficial noninvasive skin cancer: The patient has a recent diagnosis of carter perficial noninvasive skin cancer in the perianal area. A referral for a full dermatological evaluation is necessary to ensure head-to-toe screening and appropriate management. Current plans include a consultation at [facility] on June 17 for further assessment and management. however i am unsure of the specialist type she is seeing; will have my staff get the consult note from mgmt consultant the patho report and see who she was referred to. if needed i will place a new derm referral; of note i did refer to [facility] back in nov 2023 for tinea - she is still waiting on an appt there 2. Blood clot in the lower extremity: patient had a superficial clot that led to prior surgery delays. Currently, anticoagulation has been stopped under the supervision of a vascular surgeon. The weight loss surgery has been rescheduled, indicating progression past clot-related issues. she is managed by vascular 3. Tinea rash: The patient continues to manage a longstanding rash exacerbated by medication. Further dermatology consultation is recommended to adequately address any treatment-resistant issues and co-manage with ongoing malignant evaluations. Telehealth Attestation The medical documentation of this visit has been conducted via telehealth, and it accurately represents the interactions and information exchanged during the session. The patient has been explained that this is an interactive (audio/video) telehealth encounter and what that consists of. The patient understands and wishes to proceed. Fairphone platform was used. Total time spent caring for the patient today was 25 minutes. This includes time spent before the visit reviewing the chart, time spent during the visit, and time spent after the visit on documentation, reviewing laboratory results, diagnostic imaging, medications, performing a medically necessary evaluation, counseling on diagnoses, care coordination, ordering appropriate tests, ordering appropriate medications, review of tests performed by other providers, reporting test results with the patient, communication with other healthcare providers. [facility] Medical History Pre-diabetes URI (upper respiratory infection) (04/09/24) Acute respiratory disease Labial lesion History of syphilis ADRIÁN (obstructive sleep apnea) Iron deficiency anemia Vitamin D deficiency Hypersomnia Edema Surgical History Hx of dilation and curettage Family History Father HTN (hypertension) Cirrhosis Colon cancer Paternal Aunt History of breast cancer Paternal Grandmother Diabetes Maternal Grandmother Colon cancer Other FH: mental illness Hypercholesteremia Substance use Social History Household Members: None Caregiver staying overnight: No Housing: Apartment Are you a primary after school caregiver to a significant other at home: No Do you presently have visiting nurse or other home services: No 75 years or older and lives alone: No Comment: medicated Patient Tobacco Use Status: Former Tobacco user Tobacco use type: Cigarette Years Smoked: 26 quit 02/2023 e-Cigarette/Vaping Use: Never Used Second Hand Smoke Exposure: No Substance Use Type: Marijuana service: No Current occupational status: employed 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 Chao Flower, Agustina Butcher, Chuy Dave and colleagues, with an educational jame from [employer]. Physical exam (Primary Care) Tobacco/Smoking Status: Tobacco use Status Tobacco use date assessed 03/16/24 03/19/24 08:46 Patient Tobacco Use Status Former Tobacco user 04/30/24 09:02 Tobacco use type Cigarette 04/12/24 13:40 e-Cigarette/Vaping Use Never Used 03/19/24 08:46 Thrive Assessment: Date of Thrive Assessment Date Thrive assessed 03/19/24 03/19/24 08:46 Telehealth Telehealth Telehealth Platform: [facility] Location of provider rendering services: practice address Location of patient: address on file Patient Identification confirmed using: Name, : Yes Telehealth method: voice only Patient verbally consented to treatment: Yes Patient verbally consented to billing insurance company: Yes Patient informed of any privacy concerns related to visit: Yes Minutes spent on Phone/Video with Pt.: 15 Coding Level of Care Code Tele Est Pt Level 4 (25528) Complex EM visit Add On G2211 Diagnoses Labial lesion N90.89 Morbid (severe) obesity due to excess calories E66.01 Tinea versicolor B36.0 Hospital discharge follow-up Z09 Status post phlebectomy Z98.890 Embolism from superficial vein of left lower extremity I82.812 Assessment & Plan Assessment & Plan (1) Labial lesion: Code(s): N90.89 - Other specified noninflammatory disorders of vulva and perineum Category: Medical (2) Morbid (severe) obesity due to excess calories: Code(s): E66.01 - Morbid (severe) obesity due to excess calories Category: Medical (3) Tinea versicolor: Code(s): B36.0 - Pityriasis versicolor Category: Medical (4) Hospital discharge follow-up: Code(s): Z09 - Encounter for follow-up examination after completed treatment for conditions other than malignant neoplasm Category: Medical (5) Status post phlebectomy: Code(s): Z98.890 - Other specified postprocedural states Category: Surgical (6) Embolism from superficial vein of left lower extremity: Code(s): I82.812 - Embolism and thrombosis of superficial veins of left lower extremity Category: Medical Plan .
--- OUTSIDE RECORDS SUMMARY | 2024-05-11 16:36 | XMS_ITS | Encounter Summary ---
Author Organization [facility] Address [address] [place] [address] Care Team Providers Care Solaris Administrator Name Role Phone LiudmilaYanetOfelia Kearney Primary Care Provider [phone] Reason for Visit * Reason Onset Date Comments Advice Only 04/23/2024 Pre admission te sting Encounter Details Date Type Department Care Team (Late st Contact Info) Description 04/23/2024 Telephone Bariatric Surgery - [place] 175 [facility] [address] [place] [phone] Neida Mohan MD 175 [facility] 120 [place] [address] Advice Only (Pre admission testing) Social History [...] Department Care Team (Latest Contact Info) Description 05/28/2024 7:30 AM EDT Hospital Encounter [facility] OR 271 [place] [phone] Neida Mohan MD [address] [address] 05/28/2024 7:30 AM EDT - 05/28/2024 10:30 AM EDT Surgery [facility] OR [address] [place] [phone] Neida Mohan MD [address] [address] DAVINCI ANASTOMOSIS DUODENOILEAL SINGLE (JACOB) [05347 (CPT??)] 06/12/2024 9:45 AM EDT Office Visit Bariatric Surgery - [address] [phone] Chelita Amador PA [address] [address] 2024 10:30 AM EDT Telemedicine Bariatric Surgery - [address] [phone] [address] 07/24/2024 11:15 AM EDT Office Visit Bariatric Surgery - [place] 175 [facility] [address] [place] [phone] Chelita Amador PA 271 [facility] [address] [place] [address] Scheduled Procedures Name Priority Associated Diagnoses Date/Ti me ANASTOMOSIS DUODENOILEAL SINGLE ROBOT Morbid obesity ([facility]) 05/28/2024 7:30 AM EDT documented as of this encounter Visit Diagnoses Not on filedocumented in this encounter Care Teams Solaris Administrator Relationship Specialty Start Date End Date Ofelia Layne FNP [address] [place] [phone] PCP - General Nurse Practitioner 04/18/24 documented as of this encounter
--- OUTSIDE RECORDS SUMMARY | 2024-05-11 16:36 | XMS_ITS | Clinical Summary ---
Author Organization 175 [facility] Address [address] [place] [address] Phone Care Team Providers Care Plate Grinder Name Role Phone LiudmilaOfelia Dutta YEYO Primary Care Provider [phone] Allergies No known active allergies Medications buPROPion [...] Team Description 05/07/2024 Telephone Bariatric Surgery - [address] [phone] Neida Mohan MD Advice Only 05/02/2024 2:00 PM EST Telemedicine Bariatric Surgery [address] [phone] Class 3 severe obesity with body mass index (BMI) of 50.0 to 59.9 in adult, unspecified obesity type, unspecified whether serious comorbidity present (CMS/[facility]) (Primary Dx) 04/26/2024 10:45 AM EST Consult Bariatric Surgery - [address] [phone] Chelita Amador PA Class 3 severe obesity due to excess calories with body mass index (BMI) of 50.0 to 59.9 in adult, unspecified whether serious comorbidity present (CMS/HCC) (Primary Dx) 04/26/2024 10:25 AM EST - 04/26/2024 11:59 PM EST Hospital Encounter [facility] Xray [address] [place] [phone] Discharge Disposition: Home or Self Care 04/23/2024 Telephone Bariatric Surgery - [address] [phone] Neida Mohan MD Advice Only (Pre admission testing) 04/02/2024 3:30 PM EST Office Visit Bariatric Surgery [address] [phone] Chelita Amador PA Class 3 severe obesity due to excess calories with body mass index (BMI) of 50.0 to 59.9 in adult, unspecified whether serious comorbidity present (CMS/HCC) (Primary Dx) 03/15/2024 3:15 PM EST Office Visit Bariatric Surgery [address] [phone] Neida Mohan MD Class 3 severe obesity with body mass index (BMI) of 50.0 to 59.9 in adult, unspecified obesity type, unspecified whether serious comorbidity present (CMS/HCC) (Primary Dx) 03/06/2024 2:00 PM EST Telemedicine Bariatric Surgery - [address] [phone] Class 3 severe obesity [...] Description 05/28/2024 7:30 AM EDT Hospital Encounter [facility] Main OR [address] [place] [address] Neida Mohan MD [address] [address] 05/28/2024 7:30 AM EDT - 05/28/2024 10:30 AM EDT Surgery [facility] Main OR [address] [place] [phone] Neida Mohan MD [address] [phone] DAVINCI ANASTOMOSIS DUODENOILEAL SINGLE (JACOB) [70476 (CPT??)] 06/12/2024 9:45 AM EDT Office Visit Bariatric Surgery [address] [phone] Chelita Aamdor PA [address] [address] 2024 10:30 AM EDT Telemedicine Bariatric Surgery [facility] [address] [phone] [phone] 07/24/2024 11:15 AM EDT Office Visit Bariatric Surgery [address] [phone] Chelita Amador PA [address] [address] Scheduled Procedures Name Priority Associated Diagnoses Date/Ti me ANASTOMOSIS DUODENOILEAL SINGLE ROBOT Morbid obesity (CMS/HCC) 05/28/2024 7:30 AM EDT Health Maintenance Due Date Last Done Comments [...] PANEL Routine 10/06/2023 HIV SCREENING Routine 12/24/2010 PAP SMEAR Routine 12/24/2010 HEPATITIS C SCREENING Routine 05/27/2009 from Last 3 Months or Most Recently Relevant to Health Maintenance Results * XR Chest 2 Views (04/26/2024 10:28 AM EST) Anatomical Region Laterality Modality Body Radiographic Chely ging 04/26/2024 10:3 3 AM EST Impressions 04/26/2024 10:34 AM EST Normal examination. Code 96677 -------- FINAL REPORT -------- Dictated By: Billy Kam Dictated Date: 04/26/2024 10:33 ET Assigned Physician: Billy Kam Reviewed and Electronically Signed By: Billy Kam Signed Date: 04/26/2024 10:34 ET Workstation ID: [id number] Transcribed By: Self Edit Transcribed Date: 04/26/2024 10:33 ET Narrative 04/26/2024 10:34 AM EST HISTORY: The patient is a 38-year-old female undergoing evaluation prior to bariatric surgery. FINDINGS: PA and lateral radiographs of the chest demonstrate normal appearance of the bony structures. The cardiac and mediastinal contours are within normal limits. The lungs and costophrenic angles are clear. Procedure Note iBlly Kam MD - 04/26/2024 HISTORY: The patient is a 38-year-old female undergoing evaluation priorto bariatric surgery. FINDINGS: PA and lateral radiographs of the chest demonstrate normalappearance of the bony structures. The cardiac and mediastinal contoursare within normal limits. The lungs and costophrenic angles are clear. IMPRESSION: Normal examination. Code 22985 -------- FINAL REPORT -------- Dictated By: Billy Kam Dictated Date: 04/26/2024 10:33 ET Assigned Physician: Billy Kam Reviewed and Electronically Signed By: Billy Kam Signed Date: 04/26/2024 10:34 ET Workstation ID: [id number] Transcribed By: Self Edit Transcribed Date: 04/26/2024 10:33 ET us Chelita SHEIKH IMG XR PROCEDURES Final Resu lt * (ABNORMAL) Urinalysis with reflex microscopic and culture (04/26/2024 10:00 AM EST) Specific [place] Urine 1.012 1.003 - 1.030 LAB URINALYSIS - AUTOMATED METHOD 04/26/2024 10:54 AM [facility] pH, Urine 6.0 5.0 - 8.0 pH LAB URINALYSIS - AUTOMATED METHOD 04/26/2024 10:54 AM [facility] Leukocytes, Urine Trace(A) Negative LAB URINALYSIS - AUTOMATED METHOD 04/26/2024 10:54 AM [facility] Nitrite, Urine Negative Negative LAB URINALYSIS - AUTOMATED METHOD 04/26/2024 10:54 AM [facility] Protein, Urine Negative <=Trace mg/dL LAB URINALYSIS - AUTOMATED METHOD 04/26/2024 10:54 AM [facility] Glucose, Urine Negative Negative mg/dL LAB URINALYSIS - AUTOMATED METHOD 04/26/2024 10:54 AM [facility] Ketones, Urine Negative Negative mg/dL LAB URINALYSIS - AUTOMATED METHOD 04/26/2024 10:54 AM [facility] Urobilinogen, Urine 0.2 0.2 - 1.0 mg/dL LAB URINALYSIS - AUTOMATED METHOD 04/26/2024 10:54 AM [facility] Bilirubin, Urine Negative Negative LAB URINALYSIS - AUTOMATED METHOD 04/26/2024 10:54 AM [facility] Blood, Urine Negative Negative LAB URINALYSIS - AUTOMATED METHOD 04/26/2024 10:54 AM [facility] RBC, Urine 1.8 0 - 4 /HPF LAB URINALYSIS - AUTOMATED METHOD 04/26/2024 10:54 AM [facility] WBC, Urine 3.3 0 - 4 /HPF LAB URINALYSIS - AUTOMATED METHOD 04/26/2024 10:54 AM [facility] Squamous Epithelial, Urine 44 0 - 60 /LPF LAB URINALYSIS - AUTOMATED METHOD 04/26/2024 10:54 AM [facility] Bacteria, Urine Negative Negative /HPF LAB URINALYSIS - AUTOMATED METHOD 04/26/2024 10:54 AM [facility] Hyaline Casts, Urine 0.4 0 - 3 /LPF LAB URINALYSIS - AUTOMATED METHOD 04/26/2024 10:54 AM [facility] Urine Urine specimen obtained by clean catch procedure / Unknown Non-blood Collection / Unknown 04/26/2024 10:00 AM EST 04/26/2024 10:47 AM EST us Chelita SHEIKH LAB URINE ORDERABLES Final R esult [facility] [address] [place] [address], * [place] urine culture tube (04/26/2024 10:00 AM EST) Extra Tube Hold for add-ons. 04/26/2024 12:01 PM [facility] Comment:Auto resulted. Urine Urine specimen obtained by clean catch procedure / Unknown Non-blood Collection / Unknown 04/26/2024 10:00 AM EST 04/26/2024 10:47 AM EST us Chelita SHEIKH LAB URINE ORDERABLES Final R esult [facility] [address] [place] [address], * CBC auto differential (04/26/2024 10:00 AM EST) WBC 8.8 4.8 - 10.8 K/mcL LAB HEMETOLOGY METHOD 04/26/2024 11:00 AM [facility] RBC 4.40 3.80 - 4.80 M/mcL LAB HEMETOLOGY METHOD 04/26/2024 11:00 AM [facility] Hemoglobin 13.2 11.5 - 16.0 g/dL LAB HEMETOLOGY METHOD 04/26/2024 11:00 AM [facility] Hematocrit 41.1 35.0 - 47.0 % LAB HEMETOLOGY METHOD 04/26/2024 11:00 AM [facility] MCV 93.4 79.0 - 98.0 FL LAB HEMETOLOGY METHOD 04/26/2024 11:00 AM [facility] MCH 30.0 27.0 - 32.0 pcg LAB HEMETOLOGY METHOD 04/26/2024 11:00 AM [facility] MCHC 32.1 32.0 - 37.0 g/dL LAB HEMETOLOGY METHOD 04/26/2024 11:00 AM [facility] RDW 12.8 11.0 - 15.0 % LAB HEMETOLOGY METHOD 04/26/2024 11:00 AM [facility] Platelets 269 130 - 400 K/mcL LAB HEMETOLOGY METHOD 04/26/2024 11:00 AM [facility] MPV 9.8 7.0 - 11.0 FL LAB HEMETOLOGY METHOD 04/26/2024 11:00 AM [facility] NRBC 0.0 <1.0 % LAB HEMETOLOGY METHOD 04/26/2024 11:00 AM [facility] NRBC Absolute 0.00 <0.10 K/mcL LAB HEMETOLOGY METHOD 04/26/2024 11:00 AM [facility] Neutrophils Relative 62.4 % LAB HEMETOLOGY METHOD 04/26/2024 11:00 AM [facility] Lymphocytes Relative 26.8 % LAB HEMETOLOGY METHOD 04/26/2024 11:00 AM [facility] Monocytes Relative 7.8 % LAB HEMETOLOGY METHOD 04/26/2024 11:00 AM [facility] Eosinophils Relative 2.0 % LAB HEMETOLOGY METHOD 04/26/2024 11:00 AM [facility] Basophils Relative 0.8 % LAB HEMETOLOGY METHOD 04/26/2024 11:00 AM [facility] Immature Granulocytes Relative 0.2 % LAB HEMETOLOGY METHOD 04/26/2024 11:00 AM [facility] Neutrophils Absolute 5.50 1.50 - 7.00 K/mcL LAB HEMETOLOGY METHOD 04/26/2024 11:00 AM [facility] Lymphocytes Absolute 2.36 1.00 - 5.00 K/mcL LAB HEMETOLOGY METHOD 04/26/2024 11:00 AM [facility] Monocytes Absolute 0.69 0.20 - 1.00 K/mcL LAB HEMETOLOGY METHOD 04/26/2024 11:00 AM [facility] Eosinophils Absolute 0.18 0.00 - 0.50 K/mcL LAB HEMETOLOGY METHOD 04/26/2024 11:00 AM [facility] Basophils Absolute 0.07 0.00 - 0.20 K/mcL LAB HEMETOLOGY METHOD 04/26/2024 11:00 AM [facility] Immature Granulocytes Absolute 0.02 0.00 - 0.03 K/mcL LAB HEMETOLOGY METHOD 04/26/2024 11:00 AM EST [facility] Blood Venous blood specimen / Unknown Venipuncture / Unknown 04/26/2024 10:00 AM EST 04/26/2024 10:47 AM EST Chelita SHEIKH LAB BLOOD ORDERABLES Final R esult [facility] [address] [place] [address], [place] [phone] * Prothrombin time with INR (04/26/2024 10:00 [...] ORDERABLES Final R esult Performing Organization Address City/[facility]/ZIP Co de Phone Number [facility] [address] [place] [address], [place] [phone] * Type and screen (04/26/2024 10:00 AM [...] ORDERABL ES Final Result Performing Organization Address [facility] Co de Phone Number [facility] [address] [place] [address], [place] [phone] * Culture urine (04/26/2024 10:00 AM EST) Pathologist [facility] Culture, Urine No growth 04/27/2024 10:31 AM EST [facility] Urine Urine specimen obtained by clean catch procedure / Unknown Non-blood Collection / Unknown 04/26/2024 10:00 AM EST 04/26/2024 10:54 AM EST us Chelita SHEIKH LAB MICROBIOLOGY - GENERAL O RDERABLES Final Result Performing Organization Address [facility] Co de Phone Number [facility] [address] [place] [address], [place] [phone] * Magnesium (04/26/2024 10:00 AM EST) [facility] Magnesium 2.1 1.9 - 2.6 mg/dL LAB CHEMISTRY METHOD 04/26/2024 11:20 AM EST [facility] Blood Venous blood specimen / Unknown Venipuncture / Unknown 04/26/2024 10:00 AM EST 04/26/2024 10:47 AM EST us Chelita SHEIKH LAB BLOOD ORDERABLES Final R esult Performing Organization Address [facility]/ZIP Co de Phone Number [facility] [address] [place] [address], [place] [phone] * BMP (04/26/2024 10:00 AM EST) [facility] Sodium 139 133 - 145 mmol/L LAB CHEMISTRY METHOD 04/26/2024 11:23 AM EST [facility] Potassium 4.2 3.5 - 5.5 mmol/L LAB CHEMISTRY METHOD 04/26/2024 11:23 AM [facility] Chloride 109 96 - 110 mmol/L LAB CHEMISTRY METHOD 04/26/2024 11:23 AM [facility] CO2 21 21 - 32 mmol/L LAB CHEMISTRY METHOD 04/26/2024 11:23 AM [facility] Anion Gap 9 3 - 11 LAB CHEMISTRY METHOD 04/26/2024 11:23 AM [facility] Glucose 85 70 - 100 mg/dL LAB CHEMISTRY METHOD 04/26/2024 11:23 AM [facility] BUN 11 5 - 25 mg/dL LAB CHEMISTRY METHOD 04/26/2024 11:23 AM [facility] Creatinine 0.86 0.50 - 1.10 mg/dL LAB CHEMISTRY METHOD 04/26/2024 11:23 AM [facility] eGFR 89 >=60 mL/min/1. 73m2 LAB CHEMISTRY METHOD 04/26/2024 11:23 AM [facility] Comment:Calculation based on the??Chronic Kidney Disease Epidemiology Collaboration (CKD-EPI) equation refit??without adjustment for race. BUN/Creatinine Ratio 12.8 LAB CHEMISTRY METHOD 04/26/2024 11:23 AM [facility] Calcium 8.8 8.5 - 10.5 mg/dL LAB CHEMISTRY METHOD 04/26/2024 11:23 AM [facility] Blood Venous blood specimen / Unknown Venipuncture / Unknown 04/26/2024 10:00 AM EST 04/26/2024 10:47 AM EST us Chelita SHEIKH LAB BLOOD ORDERABLES Final R esult [facility] [address] [place] [address], * ECG 12 lead (04/26/2024 9:43 AM EST) [facility] Ventricular Rate ECG 77 BPM GEMUSE Atrial Rate 77 BPM GEMUSE P-R Interval 144 ms GEMUSE QRS Duration 84 ms GEMUSE Q-T Interval 366 ms GEMUSE QTc 414 ms GEMUSE P Wave [place] 57 degrees GEMUSE R [place] 38 degrees GEMUSE T [place] 53 degrees GEMUSE ECG Interpretation Normal sinus rhythm Normal ECG No previous ECGs available Confirmed by MD R[place], [place] ([id number]) on 04/26/2024 9:51:59 PM GEMUSE 04/26/2024 9:43 AM EST 04/26/2024 9:51 PM EST Result [facility] Chelita SHEIKH ECG ORDERABLES Final Result GEMUSE * External clinical lab (03/19/2024) Result [facility] Susy Onbase LAB BLOOD ORDERABLES Fin al Result * (ABNORMAL) Lipid panel (10/06/2023) [facility] LDL/HDL Ratio 4 0 - 4 Triglycerides 121 0 - 150 mg/dL Cholesterol 193 0 - 200 mg/dL HDL 51 >=40 mg/dL LDL Cholesterol 118(A) 0 - 100 mg/dL Blood Venous blood specimen / Unknown Result [facility] LAB BLOOD ORDERABLES Gabbi l Result * HIV Screening (12/24/2010) [facility] HIV Screening abstracted Result [facility] Provider HEALTH MAINTENANCE Final Result * Pap Smear (12/24/2010) [facility] Pap smear abstracted, no interpretation Result [facility] Provider HEALTH MAINTENANCE Final Result * Hepatitis C Screening (05/27/2009) [facility] Hepatitis C Screening abstracted Result [facility] Zarina MENDOZA HEALTH MAINTENANCE Final Result from Last 3 Months or Most Recently Relevant to Health Maintenance Insurance [facility] Care Teams Plate Grinder Relationship Specialty Start Date End Date Ofelia Layne FNP [address] [place] [phone] PCP - General Nurse Practitioner 04/18/24
--- OUTSIDE RECORDS SUMMARY | 2024-05-11 16:36 | XMS_ITS | Encounter Summary ---
Author Organization [facility] [place] [address] Care Team Providers Care Insulation And Flooring Assembler Name Role Phone LiudmilaYanetOfelia Kearney Primary Care Provider [phone] Reason for Visit * Reason Onset Date Comments Advice Only 05/07/2024 Encounter Details Date Type Department Care Team ([facility] Contact Info) Description 05/07/2024 Telephone Bariatric Surgery - [place] 175 [facility] [address] [place] [phone] Neida Mohan MD 175 [facility] [address] [place] [address] Advice Only Social History Tobacco Use Types [...] or Dr Mohan Please call patient at [phone] documented in this encounter Plan of Treatment Upcoming Encounters Date Type Department Care Team (Latest Contact Info) Description 05/28/2024 7:30 AM EDT Hospital Encounter [facility] Main OR [address] [place] [phone] Neida Mohan MD [address] [address] 05/28/2024 7:30 AM EDT - 05/28/2024 10:[address] [facility] Main OR [address] [place] [phone] Neida Mohan MD [address] [address] DAVINCI ANASTOMOSIS DUODENOILEAL SINGLE (JACOB) [[id number] (CPT??)] 06/12/2024 9:45 AM EDT Office Visit Bariatric Surgery [facility] [address] [phone] Chelita Amador PA [address] [address] 2024 10:30 AM EDT Telemedicine Bariatric Surgery [facility] [address] [phone] [phone] 07/24/2024 11:15 AM EDT Office Visit Bariatric Surgery [facility] [address] [phone] Chelita Amador PA [address] [address] Scheduled Procedures Name Priority Associated Diagnoses Date/Ti me ANASTOMOSIS DUODENOILEAL SINGLE ROBOT Morbid obesity ([facility]/HCC) 05/28/2024 7:30 AM EDT documented as of this encounter Visit Diagnoses Not on filedocumented in this encounter Care Teams Insulation And Flooring Assembler Relationship Specialty Start Date End Date Ofelia Layne FNP [address] [place] [phone] PCP - General Nurse Practitioner 04/18/24 documented as of this encounter
--- OUTSIDE RECORDS SUMMARY | 2024-05-11 16:36 | XMS_ITS | Encounter Summary ---
Author Organization [facility] Address [address] [place] [address] Care Team Providers Care Field Administrative Assistant Name Role Phone Steffen Robles MD Primary Care Provider [phone] Dayanna Arellano MD Primary Care Provider [phone] Encounter Details Date Type Department Care Team Description 06/22/2010 Interactive Media Designer Report Medical Records [address] [place], [place] [phone] Chao Mac Social History Tobacco Use Types Packs/Day Years Used Date Smoking Tobacco: Passive Smo ke Exposure - Never Smoker Cigarettes Quit: Smokeless Tobacco: Never Alcohol Use Standard Drinks/Week Comments Yes 0 (1 standard drink = 0.6 oz pur e alcohol) occ Sex Assigned at Date Recorded Not on file documented as of this encounter Plan of Treatment Not on file documented as of this encounter Visit Diagnoses Not on filedocumented in this encounter Care Teams Field Administrative Assistant Relationship Specialty Start Date End Date Steffen Robles MD [address] [place] [address] PCP - General 12/05/08 04/20/23 Dayanna rAellano MD [address] [place] [phone] PCP - General Internal Medicine 04/21/23 documented as of this encounter
--- OUTSIDE RECORDS SUMMARY | 2024-05-11 16:36 | XMS_ITS | Encounter Summary ---
Author Organization [facility] Address [address] [place] [address] Care Team Providers Care Electrophysiology Nurse Practitioner Name Role Phone Ofelia Layne Primary Care Provider [phone] Reason for Visit * Reason Comments Pre-op Exam JACOB 05/09 Encounter Details Date Type Department Care Team ([facility] Contact Info) Description 04/26/2024 10:45 AM EST Consult Bariatric Surgery - [place] [address] [phone] Chelita Amador PA 271 [facility] [address] [place] [address] Class 3 severe obesity due to excess [...] (BMI) of 50.0 to 59.9 in adult (CMS/[facility]) PAST SURGICAL HISTORY: Past Surgical History: [...] in adult, unspecified whether serious comorbidity present (CMS/[facility]) PLAN: 1. Obesity - Post op medications [...] Description 05/28/2024 7:30 AM EDT Hospital Encounter [address] [phone] Neida Mohan MD [address] [address] 05/28/2024 7:30 AM EDT - 05/28/2024 10:30 AM EDT Surgery [facility] OR [address] [place] [phone] Neida Mohan MD [address] [address] DAVINCI ANASTOMOSIS DUODENOILEAL SINGLE (JACOB) [[id number] (CPT??)] 06/12/2024 9:45 AM EDT Office Visit Bariatric Surgery - [place] [address] [phone] Chelita Amador PA [address] [address] 2024 10:30 AM EDT Telemedicine Bariatric Surgery - [place] [address] [phone] Randee Daniel, RD [address] [phone] 07/24/2024 11:15 AM EDT Office Visit Bariatric Surgery - [place] [address] [phone] Chelita Amador PA [address] [phone] Scheduled Procedures Name Priority Associated Diagnoses Date/Ti me ANASTOMOSIS DUODENOILEAL SINGLE ROBOT Morbid obesity (CMS/HCC) 05/28/2024 7:30 AM EDT documented as of this encounter Visit Diagnoses Diagnosis Class 3 severe obesity due to excess calories with body mass index (BMI) of 50.0 to 59.9 in adult, unspecified whether serious comorbidity present (CMS/HCC)- Primary Morbid obesity (CMS/HCC) Morbid obesity documented in this encounter Care Teams Electrophysiology Nurse Practitioner Relationship Specialty Start Date End Date Ofelia Layne FNP [address] [place] [phone] PCP - General Nurse Practitioner 04/18/24 documented as of this encounter
--- OUTSIDE RECORDS SUMMARY | 2024-05-11 16:36 | XMS_ITS | Encounter Summary ---
Author Organization [facility] [place] [address] Care Team Providers Care Technical Marketing Engineer Name Role Phone Ofelia Layne Primary Care Provider [phone] Reason for Visit * Reason Comments Obesity Encounter Details Date Type Department Care Team ([facility] Contact Info) Description 05/02/2024 2:00 PM EST Telemedicine Bariatric Surgery - [place] 175 [facility] [address] [place] [phone] Randee Daniel, RD 175 [facility] 120 [place] [address] Class 3 severe obesity with body mass [...] to communicate, the services of a qualified court interpreter will be provided during the visit. Patients Location: [facility] Total Time: 30 minutes Patient Name: [...] current - wt at BMI of 25: [phone] Challenges: hungry on preop diet Changes since [...] (>50% of the time spent) in direct onzl-af-ajre consultation for counseling, reviewing medical record and/or coordinating the plan as described above. Randee Daniel RD NUTRITION SERVICES Cosigned by Neida Mohan MD at 05/02/2024 4:38 PM EST documented in this encounter Plan of Treatment Upcoming Encounters Date Type Department Care Team (Latest Contact Info) Description 05/28/2024 7:30 AM EDT Hospital Encounter [facility] Main OR [address] [place] [phone] Neida Mohan MD [address] [address] 05/28/2024 7:30 AM EDT - 05/28/2024 10:30 AM EDT Surgery [facility] Main OR [address] [place] [phone] Neida Mohan MD [address] [address] DAVINCI ANASTOMOSIS DUODENOILEAL SINGLE (JACOB) [[id number] (CPT??)] 06/12/2024 9:45 AM EDT Office Visit Bariatric Surgery - [place] [address] [phone] Chelita Amador PA [address] [address] 2024 10:30 AM EDT Telemedicine Bariatric Surgery - [place] [address] [phone] Randee Daniel, RD [address] [phone] 07/24/2024 11:15 AM EDT Office Visit Bariatric Surgery - [place] [address] [phone] Chelita Amador PA [address] [address] Scheduled Procedures Name Priority Associated Diagnoses Date/Ti me ANASTOMOSIS DUODENOILEAL SINGLE ROBOT Morbid obesity (CMS/HCC) 05/28/2024 7:30 AM EDT documented as of this encounter Visit Diagnoses Diagnosis Class 3 severe obesity with body mass index (BMI) of 50.0 to 59.9 in adult, unspecified obesity type, unspecified whether serious comorbidity present (CMS/HCC)- Primary Morbid obesity (CMS/HCC) Morbid obesity documented in this encounter Care Teams Technical Marketing Engineer Relationship Specialty Start Date End Date Ofelia Layne FNP [address] [place] [phone] PCP - General Nurse Practitioner 04/18/24 documented as of this encounter
--- OUTSIDE RECORDS SUMMARY | 2024-05-11 16:36 | XMS_ITS | Encounter Summary ---
Author Organization [facility] Address [address] [place] [address] Care Team Providers Care Speech And Hearing Clinic Director Name Role Phone Dayanna Arellano MD Primary Care Provider Reason for Visit * Reason Comments E-prescribe Rx Request Encounter Details Date Type Department Care Team Description 12/06/2023 Refill Bariatric Surgery - [address] [place] [phone] Neida Mohan MD [address] [place] [address] [address] [place] [address] E-prescribe Rx Request Social History Tobacco Use [...] (HCC) documented in this encounter Care Teams Speech And Hearing Clinic Director Relationship Specialty Start Date End Date Dayanna Arellano MD PCP - General Internal Medicine 04/21/23 documented as of this encounter
--- OUTSIDE RECORDS SUMMARY | 2024-05-11 16:36 | XMS_ITS | Encounter Summary ---
Author Organization [facility] Address [address] [place] [address] Care Team Providers Care Registered Dental Assistant Name Role Phone Steffen Robles MD Primary Care Provider [phone] Dayanna Arellano MD Primary Care Provider Encounter Details Date Type Department Care Team Description 05/17/2012 Satellite Tv Technician Report Medical Records [address] [place] [phone] Edson Rouse III, MD Social History Tobacco [...] on filedocumented in this encounter Care Teams Registered Dental Assistant Relationship Specialty Start Date End Date Steffen Robles MD [address] [place] [address] [phone] PCP - General 12/05/08 04/20/23 Dayanna Arellano MD [address] [place] [address] PCP - General Internal Medicine 04/21/23 documented as of this encounter
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
--- OUTSIDE RECORDS SUMMARY | 2024-05-11 16:36 | XMS_ITS | Encounter Summary ---
Author Organization [facility] Address [address] [place] [address] Care Team Providers Care Scribing Machine Operator Name Role Phone Ofelia Layne Primary Care Provider [phone] Encounter Details Date Type Department Care Team (Latest Contact Info) Description 04/26/2024 10:25 AM EST - 04/26/2024 11:59 PM EST Hospital Encounter [facility] Xray [address] [place] [phone] Discharge Disposition: Home or Self Care Social [...] Description 05/28/2024 7:30 AM EDT Hospital Encounter [facility] Main OR [address] [place] [phone] Neida Mohan MD [address] [address] 05/28/2024 7:30 AM EDT - 05/28/2024 10:30 AM EDT Surgery [facility] Main OR [address] [place] [phone] Neida Mohan MD [address] [phone] DAVINCI ANASTOMOSIS DUODENOILEAL SINGLE (JACOB) [[id number] (CPT??)] 06/12/2024 9:45 AM EDT Office Visit Bariatric Surgery [facility] [address] [phone] Chelita Amador PA [address] [phone] 10:30 AM EDT Telemedicine Bariatric Surgery [facility] [address] [phone] [phone] 07/24/2024 11:15 AM EDT Office Visit Bariatric Surgery [facility] [address] [phone] Chelita Amador PA [address] [address] Scheduled Procedures Name Priority Associated Diagnoses Date/Ti me ANASTOMOSIS DUODENOILEAL SINGLE ROBOT Morbid obesity ([facility]/HCC) 05/28/2024 7:30 AM EDT documented as of this encounter Procedures Procedure [...] 04/26/2024 10:34 AM EST Normal examination. Code 01807 -------- FINAL REPORT -------- Dictated By: Billy Kam Dictated Date: 04/26/2024 10:33 ET Assigned Physician: Billy Kam Reviewed and Electronically Signed By: Billy Kam Signed Date: 04/26/2024 10:34 ET Workstation ID: [id number] Transcribed By: Self Edit Transcribed Date: 04/26/2024 [...] angles are clear. IMPRESSION: Normal examination. Code 68295 -------- FINAL REPORT -------- Dictated By: Billy Kam Dictated Date: 04/26/2024 10:33 ET Assigned Physician: Billy Kam Reviewed and Electronically Signed By: Billy Kam Signed Date: 04/26/2024 10:34 ET Workstation ID: [id number] Transcribed By: Self Edit Transcribed Date: 04/26/2024 10:33 ET us Chelita SHEIKH IMG XR PROCEDURES Final Resu lt documented in this encounter Visit Diagnoses Not on filedocumented in this encounter Care Teams Scribing Machine Operator Relationship Specialty Start Date End Date Ofelia Layne FNP [address] [place] [phone] PCP - General Nurse Practitioner 04/18/24 documented as of this encounter
--- OUTSIDE RECORDS SUMMARY | 2024-05-11 16:36 | XMS_ITS | Encounter Summary ---
Author Organization [facility] Address [address] [place] [address] Care Team Providers Care Vasc Tech Name Role Phone Dayanna Arellano MD Primary Care Provider [phone] Encounter Details Date Type Department Care Team Description 11/10/2023 Masking Machine Operator Reports Bariatric Surgery - [address] [place] [address] Social History Tobacco Use Types [...] on filedocumented in this encounter Care Teams Vasc Tech Relationship Specialty Start Date End Date Dayanna Arellano MD PCP - General Internal Medicine 04/21/23 documented as of this encounter
== END 2024-05-11 17:05 | disposition home or self-care (01) ==
LOC: HO.HMCFM 14:54
PROVIDERS: PCP Nurse Practitioner Family; Visit Provider Nurse Practitioner Family
DX: N90.89 Other specified noninflammatory disorders of vulva and perineum (principal); E66.01 Morbid (severe) obesity due to excess calories; B36.0 Pityriasis versicolor; Z09 Encounter for follow-up examination after completed treatment for conditions other than malignant neoplasm; Z98.890 Other specified postprocedural states; I82.812 Embolism and thrombosis of superficial veins of left lower extremity

== ENCOUNTER 2024-05-16 16:08 | Outpatient (AMB) | payer OTHER, SELFPAY ==
--- NOTE | 2024-05-16 16:05 | A.OFFPC_ITS ---
Intake Visit Reasons: go over test results Intake Note: telehealth to go over results from obgyn [employer] Required: No Allergies No Known Allergies Allergy (Verified 05/16/24 16:33) Medication List - Last Reconciled 05/16/24 by YEYO Beckham- acetaminophen 1,000 mg (2 x 500 mg) PO Q6H PRN bupropion HCl SR 200 mg PO BID 90 days cholecalciferol (vitamin D3) 1,250 mcg PO QWEEK ferrous sulfate 324 mg PO BID 90 days naltrexone 50 mg PO BID 90 days Tobacco use date assessed: 05/16/24 Dental Screening Dental Screen Date: 05/16/24 Did you have a dental visit in the last 12 months?: Yes Did you have a dental problem in the last 6 months where you did not have access to dental care?: No Was dental information given to patient?: Patient has dentist HPI HPI Comments History of Present Illness Details 38-year-old female with scoliosis, seaso nal allergies, former smoker, obesity, varicose veins in BLE, generalized anxiety disorder, family hx of breast ca/colon ca/brain ca, 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) family history: father() alcohol abuse + bipolar, paternal grandmother diabetes, maternal grandmother colon cancer, maternal aunt breast cancer, maternal aunt brain cancer Health Maintenance: Tdap 10/04/23 Pap 01/2024 wnl @ [facility] Specialists: Bariatric clinic at [facility] vascular History of Present Illness -Visit to review patho from skin bx done by [facility] confirmed 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 Squamous Cell Carcinoma: A confirmed case of squamous cell carcinoma from a biopsy necessitates surgical excision to prevent recurrence. The plan includes potential surgical removal concurrently with upcoming weight loss surgery, subject to surgeon agreement. Post-surgical management will involve dermatologic follow-up for extensive full-body evaluation and routine monitoring to ensure no further occurrences. Aware if Dr Kimberlee unable, she will need to see Gen surg at [facility] for removal. 2. Family history of cancer: Given signi ficant family medical history, awareness of potential genetic predisposition was discussed. No immediate actions were planned beyond noting the history for future possible genetic testing consultations. Would recommend referral for genetic testing in the future, pt agrees. Telehealth Attestation The consultation was conducted via telehealth, and the details accurately reflect the conversation and information discussed during the virtual visit. The patient has been explained that this is an interactive (audio/video) telehealth encounter and what that consists of. The patient understands and wishes to proceed. Locately platform was used. Total time spent caring for the patient today was 20 minutes. This includes time spent before the visit reviewing the chart, time spent during the visit, and time spent after the visit on documentation, reviewing laboratory results, diagnostic imaging, medications, performing a medically necessary evaluation, counseling on diagnoses, care coordination, ordering appropriate tests, ordering appropriate medications, review of tests performed by other providers, reporting test results with the patient, communication with other healthcare providers. [facility] Medical History (Updated 05/16/24 @ 16:41 by YEYO Beckham-ANNA) Acute respiratory disease Edema History of syphilis Hypersomnia Iron deficiency anemia Labial lesion ADRIÁN (obstructive sleep apnea) Pre-diabetes URI (upper respiratory infection) (04/09/24) Vitamin D deficiency Surgical History (Updated 05/11/24 @ 16:22 by AZAM Beckham) Hx of dilation and curettage Family History Father HTN (hypertension) Cirrhosis Colon cancer Paternal Aunt History of breast cancer Paternal Grandmother Diabetes Maternal Grandmother Colon cancer Other FH: mental illness Hypercholesteremia Substance use Social History Household Members: None Caregiver staying overnight: No Housing: Apartment Are you a primary child care lead teacher to a significant other at home: No Do you presently have visiting nurse or other home services: No 75 years or older and lives alone: No Comment: medicated Patient Tobacco Use Status: Former Tobacco user Tobacco use type: Cigarette Years Smoked: 26 quit 02/2023 e-Cigarette/Vaping Use: Never Used Second Hand Smoke Exposure: No Substance Use Type: Marijuana service: No Current occupational status: employed 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 Chao Flower, Agustina Butcher, Chuy Dave and colleagues, with an educational jame from [employer]. Physical exam (Primary Care) Tobacco/Smoking Status: Tobacco use Status Tobacco use date assessed 05/16/24 05/16/24 16:07 Patient Tobacco Use Status Former Tobacco user 05/16/24 16:07 Tobacco use type Cigarette 05/16/24 16:07 e-Cigarette/Vaping Use Never Used 05/16/24 16:07 Thrive Assessment: Date of Thrive Assessment Date Thrive assessed 03/19/24 05/16/24 16:07 Telehealth Telehealth Telehealth Platform: [place] Location of provider rendering services: practice address Location of patient: address on file Patient Identification confirmed using: Name, : Yes Telehealth method: voice only Patient verbally consented to treatment: Yes Patient verbally consented to billing insurance company: Yes Patient informed of any privacy concerns related to visit: Yes Minutes spent on Phone/Video with Pt.: 18 Coding Level of Care Code Tele Est Pt Level 3 (70391) Complex EM visit Add On G2211 Diagnoses Squamous cell carcinoma of anal skin C44.520 Family history of brain cancer Z80.8 Family history of colon cancer Z80.0 Family history of breast cancer Z80.3 Patient's father is Z84.89 Assessment & Plan Assessment & Plan (1) Squamous cell carcinoma of anal skin: Comment: + biopsy Deacon Wharton 04/25/24 Code(s): C44.520 - Squamous cell carcinoma of anal skin Category: Medical (2) Family history of brain cancer: Comment: maternal aunt Code(s): Z80.8 - Family history of malignant neoplasm of other organs or systems Category: Medical (3) Family history of colon cancer: Comment: maternal grandma Code(s): Z80.0 - Family history of malignant neoplasm of digestive organs Category: Medical (4) Family history of breast cancer: Comment: maternal aunt Code(s): Z80.3 - Family history of malignant neoplasm of breast Category: Medical (5) Patient's father is : Code(s): Z84.89 - Family history of other specified conditions Category: Medical Plan . Orders: Referrals Dermatology Referral C44.520 - Squamous cell carcinoma of anal skin Medications: Discontinued apixaban (Eliquis DVT-PE Treat 30D Start) 10 mg twice a day for 7 days then 5 mg twice daily Discontinued Reason: Doctor's Order 5 mg PO BID 74 [id number] [id number]
--- OUTSIDE RECORDS SUMMARY | 2024-05-16 18:31 | XMS_ITS | Encounter Summary ---
Author Organization [facility] Address [address] [place] [address] Care Team Providers Care Panelboard Tank Pumper Name Role Phone Ofelia Layne Primary Care Provider [phone] Encounter Details Date Type Department Care Team (Latest Contact Info) Description 04/26/2024 10:25 AM EST - 04/26/2024 11:59 PM EST Hospital Encounter [facility] Xray [address] [place] [address] Discharge Disposition: Home or Self Care Social [...] mouth 1 (one) time each day. 02/06/2024 polyethylene glycol (MIRALAX) 17 gram packet Take 17 g by mouth 1 (one) time each day. 510 g 04/26/2024 05/26/2024 simethicone (MYLICON) 80 mg chewable tablet Chew 1 tablet (80 mg total) every 6 (six) hours if needed for flatulence. 120 tablet 04/26/2024 wheat dextrin 3 gram/3.5 gram powder in packet Take 1 packet by mouth 1 (one) time each day. 30 packet 04/26/2024 ondansetron (ZOFRAN) 4 mg tablet Take 1 tablet (4 mg total) by mouth every 8 (eight) hours if needed for nausea or vomiting for up to 7 days. 21 tablet 04/26/2024 05/03/2024 pantoprazole (PROTONIX) 40 mg EC tablet Take 1 tablet (40 mg total) by mouth 1 (one) time each day before breakfast. Do not crush, chew, or split. 30 each 2 04/26/2024 05/14/2024 ursodioL (ACTIGALL) 300 mg capsule Take 1 capsule (300 mg total) by mouth 2 (two) times a day. 60 each 5 04/26/2024 05/14/2024 documented as of this encounter Discharge Disposition Disposition Code Departure Means Destination Home or Self Care documented in this encounter Plan of Treatment Upcoming Encounters Date Type Department Care Team (Latest Contact Info) Description 05/28/2024 7:30 AM EDT Hospital Encounter [facility] Main OR [address] [place] [phone] Neida Mohan MD [address] [address] 05/28/2024 7:30 AM EDT - 05/28/2024 10:30 AM EDT Surgery [facility] Main OR [address] [place] [phone] Neida Mohan MD [address] [phone] DAVINCI ANASTOMOSIS DUODENOILEAL SINGLE (JACOB) [32512 (CPT??)] 06/12/2024 9:45 AM EDT Office Visit Bariatric Surgery [facility] [address] [phone] Chelita Amador PA [address] [phone] 10:30 AM EDT Telemedicine Bariatric Surgery [facility] [address] [phone] [phone] 07/24/2024 11:15 AM EDT Office Visit Bariatric Surgery [facility] [address] [phone] Chelita Amador PA [address] [address] Scheduled Procedures Name Priority Associated Diagnoses Date/Ti me ANASTOMOSIS DUODENOILEAL SINGLE ROBOT Morbid obesity ([facility]/HCC) 05/28/2024 7:30 AM EDT documented as of [...] 04/26/2024 10:34 AM EST Normal examination. Code 52445 -------- FINAL REPORT -------- Dictated By: Billy Kam Dictated Date: 04/26/2024 10:33 ET Assigned Physician: Billy Kam Reviewed and Electronically Signed By: Billy Kam Signed Date: 04/26/2024 10:34 ET Workstation ID: [id number] Transcribed By: Self Edit Transcribed Date: 04/26/2024 [...] angles are clear. IMPRESSION: Normal examination. Code 77243 -------- FINAL REPORT -------- Dictated By: Billy Kam Dictated Date: 04/26/2024 10:33 ET Assigned Physician: Billy Kam Reviewed and Electronically Signed By: Billy Kam Signed Date: 04/26/2024 10:34 ET Workstation ID: [id number] Transcribed By: Self Edit Transcribed Date: 04/26/2024 10:33 ET us Chelita SHEIKH IMG XR PROCEDURES Final Resu lt documented in this encounter Visit Diagnoses Not on filedocumented in this encounter Care Teams Panelboard Tank Pumper Relationship Specialty Start Date End Date Ofelia Layne FNP [address] [place] [phone] PCP - General Nurse Practitioner 04/18/24 documented as of this encounter
--- OUTSIDE RECORDS SUMMARY | 2024-05-16 18:32 | XMS_ITS | Encounter Summary ---
Author Organization [facility] [place] [address] Care Team Providers Care Real Property Evaluator Name Role Phone Ofelia Layne Primary Care Provider [phone] Reason for Visit * Reason Comments Obesity Encounter Details Date Type Department Care Team ([facility] Contact Info) Description 05/02/2024 2:00 PM EST Telemedicine Bariatric Surgery - [place] 175 [facility] [address] [place] [phone] Randee Daniel, RD 175 [facility] [address] [place] [address] Class 3 severe obesity with body mass [...] to communicate, the services of a qualified life insurance underwriter will be provided during the visit. Patients Location: [facility] Total Time: 30 minutes Patient Name: [...] current - wt at BMI of 25: [phone] Challenges: hungry on preop diet Changes since [...] (>50% of the time spent) in direct rssi-no-ukmf consultation for counseling, reviewing medical record and/or coordinating the plan as described above. Randee Daniel RD NUTRITION SERVICES Cosigned by Neida Mohan MD at 05/02/2024 4:38 PM EST documented in this encounter Plan of Treatment Upcoming Encounters Date Type Department Care Team (Latest Contact Info) Description 05/28/2024 7:30 AM EDT Hospital Encounter [facility] Main OR [address] [place] [phone] Neida Mohan MD [address] [address] 05/28/2024 7:30 AM EDT - 05/28/2024 10:30 AM EDT Surgery [facility] Main OR [address] [place] [phone] Neida Mohan MD [address] [address] DAVINCI ANASTOMOSIS DUODENOILEAL SINGLE (JACOB) [35864 (CPT??)] 06/12/2024 9:45 AM EDT Office Visit Bariatric Surgery - [place] [address] [phone] Chelita Amador PA [address] [address] 2024 10:30 AM EDT Telemedicine Bariatric Surgery - [place] [address] [phone] Randee Daniel, RD [address] [phone] 07/24/2024 11:15 AM EDT Office Visit Bariatric Surgery - [place] [address] [phone] Chelita Amador PA [address] [address] Scheduled Procedures Name Priority Associated Diagnoses Date/Ti me ANASTOMOSIS DUODENOILEAL SINGLE ROBOT Morbid obesity (CMS/HCC) 05/28/2024 7:30 AM EDT documented as of this encounter Visit Diagnoses Diagnosis Class 3 severe obesity with body mass index (BMI) of 50.0 to 59.9 in adult, unspecified obesity type, unspecified whether serious comorbidity present (CMS/HCC)- Primary Morbid obesity (CMS/HCC) Morbid obesity documented in this encounter Care Teams Real Property Evaluator Relationship Specialty Start Date End Date Ofelia Layne FNP [address] [place] [phone] PCP - General Nurse Practitioner 04/18/24 documented as of this encounter
--- OUTSIDE RECORDS SUMMARY | 2024-05-16 18:32 | XMS_ITS | Clinical Summary ---
Author Organization 175 [facility] Address [address] [place] [address] Phone Care Team Providers Care Waitstaff Captain Name Role Phone LiudmilaOfelia Dutta YEYO Primary Care Provider [phone] Allergies No known active allergies Medications buPROPion [...] (eight) hours. 180 tablet 04/26/19 25 Active polyethylene glycol (MIRALAX) 17 gram packet Take 17 g by mouth 1 (one) time each day. 510 g 04/26/19 25 025 Active simethicone (MYLICON) 80 mg chewable tablet Chew 1 tablet (80 mg total) every 6 (six) hours if needed for flatulence. 120 tablet 04/26/19 25 Active wheat dextrin 3 gram/3.5 gram powder in packet Take 1 packet by mouth 1 (one) time each day. 30 packet 04/26/19 Active etonogestrel-elut ing contraceptive device 68 mg implant subdermal implant Inject into the skin. 025 Discontinued ondansetron (ZOFRAN) 4 mg tablet Take 1 tablet (4 mg total) by mouth every 8 (eight) hours if needed for nausea or vomiting for up to 7 days. 21 tablet 04/26/19 25 025 pantoprazole (PROTONIX) 40 mg EC tablet Take 1 tablet (40 mg total) by mouth 1 (one) time each day before breakfast. Do not crush, chew, or split. 30 each 2 04/26/19 25 025 Discontinued ursodioL (ACTIGALL) 300 mg capsule Take 1 capsule (300 mg total) by mouth 2 (two) times a day. 60 each 5 04/26/19 25 025 Discontinued Active Problems Problem Noted Date Diagnosed Date Morbid obesity 05/08/2024 Class 3 severe obesity with body mass index (BMI) of 50.0 to 59.9 in adult 12/02/2023 Seasonal allergies 08/21/2010 Tinea versicolor 05/13/2009 Overview (12/02/2023): Tinea Versicolor 05/14 right arm & back Scoliosis 10/29/2008 Backache 09/23/2005 Overview (12/02/2023): IMO update Encounters Date Type Department Care Team Description 05/07/2024 Telephone Bariatric Surgery - [address] [phone] Neida Mohan MD Advice Only 05/02/2024 2:00 PM EST Telemedicine Bariatric Surgery [address] [phone] Class 3 severe obesity with body mass index (BMI) of 50.0 to 59.9 in adult, unspecified obesity type, unspecified whether serious comorbidity present (CMS/[facility]) (Primary Dx) 04/26/2024 10:45 AM EST Consult Bariatric Surgery - [address] [phone] Chelita Amador PA Class 3 severe obesity due to excess calories with body mass index (BMI) of 50.0 to 59.9 in adult, unspecified whether serious comorbidity present (CMS/HCC) (Primary Dx) 04/26/2024 10:25 AM EST - 04/26/2024 11:59 PM EST Hospital Encounter [facility] Xray [address] [place] [phone] Discharge Disposition: Home or Self Care 04/23/2024 Telephone Bariatric Surgery - [address] [phone] Neida Mohan MD Advice Only (Pre admission testing) 04/02/2024 3:30 PM EST Office Visit Bariatric Surgery [address] [phone] Chelita Amador PA Class 3 severe obesity due to excess calories with body mass index (BMI) of 50.0 to 59.9 in adult, unspecified whether serious comorbidity present (CMS/HCC) (Primary Dx) 03/15/2024 3:15 PM EST Office Visit Bariatric Surgery [address] [phone] Neida Mohan MD Class 3 severe obesity with body mass index (BMI) of 50.0 to 59.9 in adult, unspecified obesity type, unspecified whether serious comorbidity present (CMS/HCC) (Primary Dx) 03/06/2024 2:00 PM EST Telemedicine Bariatric Surgery - [address] [phone] Class 3 severe obesity [...] PREVIOUS SURGERY DILATION AND CURETTAGE OF UTERUS VEIN SURGERY Medical History Medical History Date Comments Backache, unspecified 09/23/2005 DX:Backach e, unspecified Seasonal allergies 08/21/2010 DX:Seasonal a llergies GERD (gastroesophageal reflux disease) Family History Medical History Relation Name Comments [...] - Inhaled Oxygen Concentration - - Weight 145 kg (320 lb) 05/14/2024 10:00 AM EDT Height 170.2 cm (5' 7 ) 05/14/2024 10:00 AM EDT Body Mass Index 50.12 05/14/2024 10:00 AM EDT Plan of Treatment Upcoming Encounters Date Type Department Care Team (Latest Contact Info) Description 05/28/2024 7:30 AM EDT Hospital Encounter [facility] Main OR [address] [place] [phone] Neida Mohan MD [address] [place] [address] 05/28/2024 7:30 AM EDT - 05/28/2024 10:30 AM EDT Surgery [facility] Main OR [address] [place] [phone] Neida Mohan MD [address] [phone] DAVINCI ANASTOMOSIS DUODENOILEAL SINGLE (JACOB) [14825 (CPT??)] 06/12/2024 9:45 AM EDT Office Visit Bariatric Surgery - [place] [address] [phone] Chelita Amador PA [address] [phone] 10:30 AM EDT Telemedicine Bariatric Surgery - [place] [address] [phone] [phone] 07/24/2024 11:15 AM EDT Office Visit Bariatric Surgery [address] [phone] Chelita Amador PA [address] [address] Scheduled Procedures Name Priority Associated Diagnoses Date/Ti [...] 04/26/2024 10:34 AM EST Normal examination. Code 95479 -------- FINAL REPORT -------- Dictated By: Billy Kam Dictated Date: 04/26/2024 10:33 ET Assigned Physician: Billy Kam Reviewed and Electronically Signed By: Billy Kam Signed Date: 04/26/2024 10:34 ET Workstation ID: [id number] Transcribed By: Self Edit Transcribed Date: 04/26/2024 [...] angles are clear. IMPRESSION: Normal examination. Code 05430 -------- FINAL REPORT -------- Dictated By: Billy Kam Dictated Date: 04/26/2024 10:33 ET Assigned Physician: Billy Kam Reviewed and Electronically Signed By: Billy Kam Signed Date: 04/26/2024 10:34 ET Workstation ID: [id number] Transcribed By: Self Edit Transcribed Date: 04/26/2024 10:33 ET Chelita SHEIKH IMG XR PROCEDURES Final Resu lt * (ABNORMAL) Urinalysis with reflex microscopic and culture (04/26/2024 10:00 AM EST) Specific Ayden Urine 1.012 1.003 - 1.030 LAB URINALYSIS - AUTOMATED METHOD 04/26/2024 10:54 AM [facility] pH, Urine 6.0 5.0 - 8.0 pH LAB URINALYSIS - AUTOMATED METHOD 04/26/2024 10:54 AM [facility] Leukocytes, Urine Trace(A) Negative LAB URINALYSIS - AUTOMATED METHOD 04/26/2024 10:54 AM [facility] Nitrite, Urine Negative Negative LAB URINALYSIS - AUTOMATED METHOD 04/26/2024 10:54 AM [facility] Protein, Urine Negative <=Trace mg/dL LAB URINALYSIS - AUTOMATED METHOD 04/26/2024 10:54 AM [facility] Glucose, Urine Negative Negative mg/dL LAB URINALYSIS - AUTOMATED METHOD 04/26/2024 10:54 AM [facility] Ketones, Urine Negative Negative mg/dL LAB URINALYSIS - AUTOMATED METHOD 04/26/2024 10:54 AM [facility] Urobilinogen, Urine 0.2 0.2 - 1.0 mg/dL LAB URINALYSIS - AUTOMATED METHOD 04/26/2024 10:54 AM [facility] Bilirubin, Urine Negative Negative LAB URINALYSIS - AUTOMATED METHOD 04/26/2024 10:54 AM [facility] Blood, Urine Negative Negative LAB URINALYSIS - AUTOMATED METHOD 04/26/2024 10:54 AM [facility] RBC, Urine 1.8 0 - 4 /HPF LAB URINALYSIS - AUTOMATED METHOD 04/26/2024 10:54 AM [facility] WBC, Urine 3.3 0 - 4 /HPF LAB URINALYSIS - AUTOMATED METHOD 04/26/2024 10:54 AM [facility] Squamous Epithelial, Urine 44 0 - 60 /LPF LAB URINALYSIS - AUTOMATED METHOD 04/26/2024 10:54 AM [facility] Bacteria, Urine Negative Negative /HPF LAB URINALYSIS - AUTOMATED METHOD 04/26/2024 10:54 AM [facility] Hyaline Casts, Urine 0.4 0 - 3 /LPF LAB URINALYSIS - AUTOMATED METHOD 04/26/2024 10:54 AM [facility] Urine Urine specimen obtained by clean catch procedure / Unknown Non-blood Collection / Unknown 04/26/2024 10:00 AM EST 04/26/2024 10:47 AM EST Chelita SHEIKH LAB URINE ORDERABLES Final R esult [facility] [address] [place] [address], * Steele urine culture tube (04/26/2024 10:00 AM EST) Extra Tube Hold for add-ons. 04/26/2024 12:01 PM [facility] Comment:Auto resulted. Urine Urine specimen obtained by clean catch procedure / Unknown Non-blood Collection / Unknown 04/26/2024 10:00 AM EST 04/26/2024 10:47 AM EST us Chelita SHEIKH LAB URINE ORDERABLES Final R esult [facility] [address] [place] [address], [place] [phone] * CBC auto differential (04/26/2024 10:00 AM EST) WBC 8.8 4.8 - 10.8 K/mcL LAB HEMETOLOGY METHOD 04/26/2024 11:00 AM [facility] RBC 4.40 3.80 - 4.80 M/mcL LAB HEMETOLOGY METHOD 04/26/2024 11:00 AM [facility] Hemoglobin 13.2 11.5 - 16.0 g/dL LAB HEMETOLOGY METHOD 04/26/2024 11:00 AM [facility] Hematocrit 41.1 35.0 - 47.0 % LAB HEMETOLOGY METHOD 04/26/2024 11:00 AM [facility] MCV 93.4 79.0 - 98.0 FL LAB HEMETOLOGY METHOD 04/26/2024 11:00 AM [facility] MCH 30.0 27.0 - 32.0 pcg LAB HEMETOLOGY METHOD 04/26/2024 11:00 AM [facility] MCHC 32.1 32.0 - 37.0 g/dL LAB HEMETOLOGY METHOD 04/26/2024 11:00 AM [facility] RDW 12.8 11.0 - 15.0 % LAB HEMETOLOGY METHOD 04/26/2024 11:00 AM [facility] Platelets 269 130 - 400 K/mcL LAB HEMETOLOGY METHOD 04/26/2024 11:00 AM [facility] MPV 9.8 7.0 - 11.0 FL LAB HEMETOLOGY METHOD 04/26/2024 11:00 AM [facility] NRBC 0.0 <1.0 % LAB HEMETOLOGY METHOD 04/26/2024 11:00 AM [facility] NRBC Absolute 0.00 <0.10 K/mcL LAB HEMETOLOGY METHOD 04/26/2024 11:00 AM [facility] Neutrophils Relative 62.4 % LAB HEMETOLOGY METHOD 04/26/2024 11:00 AM [facility] Lymphocytes Relative 26.8 % LAB HEMETOLOGY METHOD 04/26/2024 11:00 AM [facility] Monocytes Relative 7.8 % LAB HEMETOLOGY METHOD 04/26/2024 11:00 AM [facility] Eosinophils Relative 2.0 % LAB HEMETOLOGY METHOD 04/26/2024 11:00 AM [facility] Basophils Relative 0.8 % LAB HEMETOLOGY METHOD 04/26/2024 11:00 AM [facility] Immature Granulocytes Relative 0.2 % LAB HEMETOLOGY METHOD 04/26/2024 11:00 AM [facility] Neutrophils Absolute 5.50 1.50 - 7.00 K/mcL LAB HEMETOLOGY METHOD 04/26/2024 11:00 AM [facility] Lymphocytes Absolute 2.36 1.00 - 5.00 K/mcL LAB HEMETOLOGY METHOD 04/26/2024 11:00 AM [facility] Monocytes Absolute 0.69 0.20 - 1.00 K/mcL LAB HEMETOLOGY METHOD 04/26/2024 11:00 AM [facility] Eosinophils Absolute 0.18 0.00 - 0.50 K/mcL LAB HEMETOLOGY METHOD 04/26/2024 11:00 AM [facility] Basophils Absolute 0.07 0.00 - 0.20 K/mcL LAB HEMETOLOGY METHOD 04/26/2024 11:00 AM [facility] Immature Granulocytes Absolute 0.02 0.00 - 0.03 K/mcL LAB HEMETOLOGY METHOD 04/26/2024 11:00 AM EST [facility] Blood Venous blood specimen / Unknown Venipuncture / Unknown 04/26/2024 10:00 AM EST 04/26/2024 10:47 AM EST us Chelita SHEIKH LAB BLOOD ORDERABLES Final R esult Performing Organization Address City/[facility]/ZIP Co de Phone Number [facility] [address] [place] [address], [place] [phone] * Prothrombin time with INR (04/26/2024 10:00 AM EST) Protime 12.3 10.6 - 13.9 sec LAB COAGULATION METHOD 04/26/2024 11:11 AM EST [facility] INR 1.0 LAB COAGULATION METHOD 04/26/2024 11:11 AM EST [facility] Blood Venous blood specimen / Unknown Venipuncture / Unknown 04/26/2024 10:00 AM EST 04/26/2024 10:47 AM EST us Chelita SHEIKH LAB BLOOD ORDERABLES Final R esult Performing Organization Address City/[facility]/ZIP Co de Phone Number [facility] [address] [place] [address], [place] [phone] * Type and screen (04/26/2024 10:00 AM EST) ABO Group O 04/26/2024 4:39 PM EST [facility] Rh Type Positive 04/26/2024 4:39 PM EST [facility] Antibody Screen Negative 04/26/2024 4:39 PM EST [facility] Blood Venous blood specimen / Unknown Venipuncture / Unknown 04/26/2024 10:00 AM EST 04/26/2024 10:46 AM EST us Chelita SHEIKH LAB BLOOD BANK TEST ORDERABL ES Final Result Performing Organization Address [facility] Co de Phone Number [facility] [address] [place] [address], [place] [phone] * Culture urine (04/26/2024 10:00 AM EST) Culture, Urine No growth 04/27/2024 10:31 AM EST [facility] Urine Urine specimen obtained by clean catch procedure / Unknown Non-blood Collection / Unknown 04/26/2024 10:00 AM EST 04/26/2024 10:54 AM EST us Chelita SHEIKH LAB MICROBIOLOGY - GENERAL O RDERABLES Final Result Performing Organization Address [facility] Co de Phone Number [facility] [address] [place] [address], [place] [phone] * Magnesium (04/26/2024 10:00 AM EST) Pathologist [facility] Magnesium 2.1 1.9 - 2.6 mg/dL LAB CHEMISTRY METHOD 04/26/2024 11:20 AM EST [facility] Blood Venous blood specimen / Unknown Venipuncture / Unknown 04/26/2024 10:00 AM EST 04/26/2024 10:47 AM EST us Chelita SHEIKH LAB BLOOD ORDERABLES Final R esult Performing Organization Address [facility]/ZIP Co de Phone Number [facility] [address] [place] [address], [place] [phone] * BMP (04/26/2024 10:00 AM EST) Sodium 139 133 - 145 mmol/L LAB CHEMISTRY METHOD 04/26/2024 11:23 AM [facility] Potassium 4.2 3.5 - 5.5 mmol/L LAB CHEMISTRY METHOD 04/26/2024 11:23 AM [facility] Chloride 109 96 - 110 mmol/L LAB CHEMISTRY METHOD 04/26/2024 11:23 AM [facility] CO2 21 21 - 32 mmol/L LAB CHEMISTRY METHOD 04/26/2024 11:23 AM [facility] Anion Gap 9 3 - 11 LAB CHEMISTRY METHOD 04/26/2024 11:23 AM [facility] Glucose 85 70 - 100 mg/dL LAB CHEMISTRY METHOD 04/26/2024 11:23 AM [facility] BUN 11 5 - 25 mg/dL LAB CHEMISTRY METHOD 04/26/2024 11:23 AM [facility] Creatinine 0.86 0.50 - 1.10 mg/dL LAB CHEMISTRY METHOD 04/26/2024 11:23 AM [facility] eGFR 89 >=60 mL/min/1. 73m2 LAB CHEMISTRY METHOD 04/26/2024 11:23 AM [facility] Comment:Calculation based on the??Chronic Kidney Disease Epidemiology Collaboration (CKD-EPI) equation refit??without adjustment for race. BUN/Creatinine Ratio 12.8 LAB CHEMISTRY METHOD 04/26/2024 11:23 AM [facility] Calcium 8.8 8.5 - 10.5 mg/dL LAB CHEMISTRY METHOD 04/26/2024 11:23 AM [facility] Blood Venous blood specimen / Unknown Venipuncture / Unknown 04/26/2024 10:00 AM EST 04/26/2024 10:47 AM EST us Chelita SHEIKH LAB BLOOD ORDERABLES Final R esult [facility] [address] [place] [address], [place] [phone] * ECG 12 lead (04/26/2024 9:43 AM EST) [facility] Ventricular Rate ECG 77 BPM GEMUSE Atrial Rate 77 BPM GEMUSE P-R Interval 144 ms GEMUSE QRS Duration 84 ms GEMUSE Q-T Interval 366 ms GEMUSE QTc 414 ms GEMUSE P Wave [place] 57 degrees GEMUSE R [place] 38 degrees GEMUSE T [place] 53 degrees GEMUSE ECG Interpretation Normal sinus rhythm Normal ECG No previous ECGs available Confirmed by MD Sierra Christopher ([id number]) on 04/26/2024 9:51:59 PM GEMUSE 04/26/2024 9:43 AM EST 04/26/2024 9:51 PM EST Result [facility] Chelita SHEIKH ECG ORDERABLES Final Result GEMUSE * External clinical lab (03/19/2024) Provider Susy Onbase LAB BLOOD ORDERABLES Fin al Result * (ABNORMAL) Lipid panel (10/06/2023) [facility] LDL/HDL Ratio 4 0 - 4 Triglycerides 121 0 - 150 mg/dL Cholesterol 193 0 - 200 mg/dL HDL 51 >=40 mg/dL LDL Cholesterol 118(A) 0 - 100 mg/dL Blood Venous blood specimen / Unknown Result [facility] Provider LAB BLOOD ORDERABLES Gabbi l Result * HIV Screening (12/24/2010) [facility] HIV Screening abstracted Result [facility] Historical Provider HEALTH MAINTENANCE Final Result * Pap Smear (12/24/2010) [facility] Pap smear abstracted, no interpretation Historical Provider HEALTH MAINTENANCE Final Result * Hepatitis C Screening (05/27/2009) [facility] Hepatitis C Screening abstracted Result [facility] Provider HEALTH MAINTENANCE Final Result from Last 3 Months or Most Recently Relevant to Health Maintenance Insurance [facility] Care Teams Waitstaff Captain Relationship Specialty Start Date End Date Ofelia Layne FNP [address] [place] [phone] PCP - General Nurse Practitioner 04/18/24
--- OUTSIDE RECORDS SUMMARY | 2024-05-16 18:32 | XMS_ITS | Encounter Summary ---
Author Organization [facility] Address [address] [place] [address] Care Team Providers Care Epoxy Specialist Name Role Phone Steffen Robles MD Primary Care Provider [phone] Dayanna Arellano MD Primary Care Provider [phone] Encounter Details Date Type Department Care Team Description 08/04/2012 Night Triage Doc Medical Records [address] [place] [address] Abstract, Provider Social History Tobacco Use Types [...] on filedocumented in this encounter Care Teams Epoxy Specialist Relationship Specialty Start Date End Date Steffen Robles MD [address] [place] [address] PCP - General 12/05/08 04/20/23 Dayanna Arellano MD [address] [place] [address] PCP - General Internal Medicine 04/21/23 documented as of this encounter
--- OUTSIDE RECORDS SUMMARY | 2024-05-16 18:32 | XMS_ITS | Encounter Summary ---
Author Organization [facility] Address [address] [place] [address] Care Team Providers Care Chemotherapist Name Role Phone Ofelia Layne Primary Care Provider [phone] Reason for Visit * Reason Comments Pre-op Exam JACOB 05/09 Encounter Details Date Type Department Care Team ([facility] Contact Info) Description 04/26/2024 10:45 AM EST Consult Bariatric Surgery - [place] [address] [phone] Chelita Amador PA 271 [facility] [address] [place] [address] Class 3 severe obesity due to excess [...] (one) time each day. 30 packet 04/26/2024 simethicone (MYLICON) 80 mg chewable tablet Chew 1 tablet (80 mg total) every 6 (six) hours if needed for flatulence. 120 tablet 04/26/2024 polyethylene glycol (MIRALAX) 17 gram packet Take 17 g by mouth 1 (one) time each day. 510 g 04/26/2024 acetaminophen (TYLENOL) 500 mg tablet Take 2 tablets (1,000 mg total) by mouth every 8 (eight) hours. 180 tablet 04/26/2024 ursodioL (ACTIGALL) 300 mg capsule Take 1 capsule (300 mg total) by mouth 2 (two) times a day. 60 each 5 04/26/2024 5 pantoprazole (PROTONIX) 40 mg EC tablet Take 1 tablet (40 mg total) by mouth 1 (one) time each day before breakfast. Do not crush, chew, or split. 30 each 2 04/26/2024 5 ondansetron (ZOFRAN) 4 mg tablet Take 1 tablet (4 mg total) by mouth every 8 (eight) hours if needed for nausea or vomiting for up to 7 days. 21 tablet 04/26/2024 5 documented in this encounter Progress Notes * KORI Santana - 04/26/2024 10:45 AM EST aKtja Tony is a 38 y.o. year old [...] (BMI) of 50.0 to 59.9 in adult (CMS/[facility]) PAST SURGICAL HISTORY: Past Surgical [...] in adult, unspecified whether serious comorbidity present (CMS/[facility]) PLAN: 1. Obesity - Post [...] Description 05/28/2024 7:30 AM EDT Hospital Encounter [address] [phone] Neida Mohan MD [address] [address] 05/28/2024 7:30 AM EDT - 05/28/2024 10:30 AM EDT Surgery [facility] OR [address] [place] [phone] Neida Mohan MD [address] [address] DAVINCI ANASTOMOSIS DUODENOILEAL SINGLE (JACOB) [38820 (CPT??)] 06/12/2024 9:45 AM EDT Office Visit Bariatric Surgery - [place] [address] [phone] Chelita Amador PA [address] [address] 2024 10:30 AM EDT Telemedicine Bariatric Surgery - [place] [address] [phone] Randee Daniel, RD [address] [phone] 07/24/2024 11:15 AM EDT Office Visit Bariatric Surgery - [place] [address] [phone] Chelita Amador PA [address] [phone] Scheduled Procedures Name Priority Associated Diagnoses Date/Ti [...] obesity documented in this encounter Care Teams Chemotherapist Relationship Specialty Start Date End Date Ofelia Layne FNP [address] [place] [phone] PCP - General Nurse Practitioner 04/18/24 documented as of this encounter
--- OUTSIDE RECORDS SUMMARY | 2024-05-16 18:32 | XMS_ITS | Clinical Summary ---
Author Organization [facility] Address [address] [place] [address] Care Team Providers Care Rotary Shear Operator Name Role Phone Dayanna Arellano MD Primary Care Provider [phone] Allergies No known active allergies Medications Medication [...] 09/09/2015 Active Cholecalciferol (Vitamin D3) 1.25 MG (21724 UT) CapIndications:Class 3 severe obesity with body [...] H RISK PATIENTS (#1) 2050 Care Teams Rotary Shear Operator Relationship Specialty Start Date End Date Dayanna Arellano MD PCP - General Internal Medicine 04/21/23
--- OUTSIDE RECORDS SUMMARY | 2024-05-16 18:32 | XMS_ITS | Encounter Summary ---
Author Organization [facility] Address [address] [place] [address] Care Team Providers Care Sales And Service Consultant Name Role Phone Dayanna Arellano MD Primary Care Provider [phone] Reason for Visit * Reason Onset Date Comments LAB WORK 08/31/2023 Encounter Details Date Type Department Care Team Description 08/31/2023 Telephone Bariatric Surgery - [facility] [address] [phone] Randee Diallo MS,RDN,LDN [address] [phone] LAB WORK Social History Tobacco Use Types [...] on filedocumented in this encounter Care Teams Sales And Service Consultant Relationship Specialty Start Date End Date Dayanna Arellano MD PCP - General Internal Medicine 04/21/23 documented as of this encounter
--- OUTSIDE RECORDS SUMMARY | 2024-05-16 18:32 | XMS_ITS | Encounter Summary ---
Author Organization [facility] Address [address] [place] [address] Care Team Providers Care Tube Coater Name Role Phone Steffen Robles MD Primary Care Provider Dayanna Arellano MD Primary Care Provider [phone] Encounter Details Date Type Department Care Team Description 05/17/2012 Health Service Worker Report Medical Records [address] [place] [address] Edson Rouse III, MD Social History Tobacco [...] on filedocumented in this encounter Care Teams Tube Coater Relationship Specialty Start Date End Date Steffen Robles MD [address] [place] [address] PCP - General 12/05/08 04/20/23 Dayanna Arellano MD [address] [place] [address] PCP - General Internal Medicine 04/21/23 documented as of this encounter
--- OUTSIDE RECORDS SUMMARY | 2024-05-16 18:32 | XMS_ITS | Encounter Summary ---
Author Organization [facility] [place] [address] Care Team Providers Care Fruit Thinner Name Role Phone LiudmilaYanetOfelia Kearney Primary Care Provider [phone] Reason for Visit * Reason Onset Date Comments Advice Only 05/07/2024 Encounter Details Date Type Department Care Team ([facility] Contact Info) Description 05/07/2024 Telephone Bariatric Surgery - [place] 175 [facility] [address] [place] [phone] Neida Mohan MD 175 [facility] [address] [place] [address] Advice Only Social History Tobacco Use Types [...] or Dr Mohan Please call patient at [phone] documented in this encounter Plan of Treatment Upcoming Encounters Date Type Department Care Team (Latest Contact Info) Description 05/28/2024 7:30 AM EDT Hospital Encounter [facility] Main OR [address] [place] [phone] Neida Mohan MD [address] [address] 05/28/2024 7:30 AM EDT - 05/28/2024 10:30 AM EDT Surgery [facility] Main OR [address] [place] [phone] Neida Mohan MD [address] [address] DAVINCI ANASTOMOSIS DUODENOILEAL SINGLE (JACOB) [[id number] (CPT??)] 06/12/2024 9:45 AM EDT Office Visit Bariatric Surgery [facility] [address] [phone] Chelita Amador PA [address] [address] 2024 10:30 AM EDT Telemedicine Bariatric Surgery [facility] [address] [phone] [phone] 07/24/2024 11:15 AM EDT Office Visit Bariatric Surgery [facility] [address] [phone] Chelita Amador PA [address] [address] Scheduled Procedures Name Priority Associated Diagnoses Date/Ti me ANASTOMOSIS DUODENOILEAL SINGLE ROBOT Morbid obesity ([facility]/HCC) 05/28/2024 7:30 AM EDT documented as of this encounter Visit Diagnoses Not on filedocumented in this encounter Care Teams Fruit Thinner Relationship Specialty Start Date End Date Ofelia Layne FNP [address] [place] [phone] PCP - General Nurse Practitioner 04/18/24 documented as of this encounter
--- OUTSIDE RECORDS SUMMARY | 2024-05-16 18:32 | XMS_ITS | Encounter Summary ---
Author Organization [facility] Address [address] [place] [address] Care Team Providers Care Treatment Technician Name Role Phone Dayanna Arellano MD Primary Care Provider [phone] Reason for Visit * Reason Onset Date Comments REFERRAL 10/06/2023 Encounter Details Date Type Department Care Team Description 10/06/2023 Telephone OBGYN - [place] [address] [place] [address] Selina Garcia MD [address] [place] [phone] REFERRAL Social History Tobacco Use Types Packs/Day [...] PM EDT Patient referred to us by [facility]- for screening for malignant neoplasm of cervix. Left message on to call back. documented in this encounter Plan of Treatment Not on file documented as of this encounter Visit Diagnoses Not on filedocumented in this encounter Care Teams Treatment Technician Relationship Specialty Start Date End Date Dayanna Arellano MD PCP - General Internal Medicine 04/21/23 documented as of this encounter
--- OUTSIDE RECORDS SUMMARY | 2024-05-16 18:32 | XMS_ITS | Encounter Summary ---
Author Organization [facility] Address [address] [place] [address] Care Team Providers Care Plastic Tubing Insulation Supervisor Name Role Phone Steffen Robles MD Primary Care Provider [phone] Dayanna Arellano MD Primary Care Provider [phone] Encounter Details Date Type Department Care Team Description 06/22/2010 Macerator Operator Report Medical Records [address] [place], [place] [phone] Chao Mac Social History Tobacco Use Types [...] on filedocumented in this encounter Care Teams Plastic Tubing Insulation Supervisor Relationship Specialty Start Date End Date Steffen Robles MD [address] [place] [phone] PCP - General 12/05/08 04/20/23 Dayanna Arellano MD [address] [place] [phone] PCP - General Internal Medicine 04/21/23 documented as of this encounter
--- OUTSIDE RECORDS SUMMARY | 2024-05-16 18:32 | XMS_ITS | Encounter Summary ---
Author Organization [facility] Address [address] [place] [address] Care Team Providers Care Instructor Extension Work Name Role Phone LiudmilaYanetOfelia Kearney Primary Care Provider [phone] Reason for Visit * Reason Onset Date Comments Advice Only 04/23/2024 Pre admission te sting Encounter Details Date Type Department Care Team (Late st Contact Info) Description 04/23/2024 Telephone Bariatric Surgery - [place] 175 [facility] [address] [place] [phone] Neida Mohan MD 175 [facility] [address] [place] [address] Advice Only (Pre admission testing) Social History [...] 05/28/2024 7:30 AM EDT Hospital Encounter [facility] OR [address] [place] [phone] Neida Mohan MD [address] [address] 05/28/2024 7:30 AM EDT - 05/28/2024 10:[address] [facility] OR [address] [place] [phone] Neida Mohan MD [address] [address] DAVINCI ANASTOMOSIS DUODENOILEAL SINGLE (JACOB) [[id number] (CPT??)] 06/12/2024 9:45 AM EDT Office Visit Bariatric Surgery - [address] [phone] Chelita Amador PA [address] [address] 2024 10:30 AM EDT Telemedicine Bariatric Surgery - [address] [phone] [address] 07/24/2024 11:15 AM EDT Office Visit Bariatric Surgery - [place] 175 [facility] [address] [place] [phone] Chelita Amador PA 271 [facility] [address] [place] [address] Scheduled Procedures Name Priority Associated Diagnoses Date/Ti me ANASTOMOSIS DUODENOILEAL SINGLE ROBOT Morbid obesity ([facility]) 05/28/2024 7:30 AM EDT documented as of this encounter Visit Diagnoses Not on filedocumented in this encounter Care Teams Instructor Extension Work Relationship Specialty Start Date End Date Ofelia Layne FNP [address] [place] [phone] PCP - General Nurse Practitioner 04/18/24 documented as of this encounter
== END 2024-05-16 17:06 | disposition home or self-care (01) ==
LOC: HO.HMCFM 16:08
PROVIDERS: PCP Nurse Practitioner Family; Visit Provider Nurse Practitioner Family
DX: C44.520 Squamous cell carcinoma of anal skin (principal); Z80.8 Family history of malignant neoplasm of other organs or systems; Z80.0 Family history of malignant neoplasm of digestive organs; Z80.3 Family history of malignant neoplasm of breast; Z84.89 Family history of other specified conditions

== ENCOUNTER → 2024-05-16 16:08 | Outpatient (BNVA) | payer OTHER, SELFPAY | PROVIDERS: PCP Nurse Practitioner Family; Visit Provider Nurse Practitioner Family ==

== ENCOUNTER 2024-06-12 14:55 | Outpatient (AMB) | payer OTHER, SELFPAY ==
[2024-06-12 14:59] VITALS: BMI 51.2
--- NOTE | 2024-06-12 14:59 | A.OFFVIS_ITS ---
Vital Signs 06/12/24 14:59 Height 5 ft 7 in Weight 327 lb BMI 51.2 Intake Visit Reasons: follow up leg check Intake Note: follow up Leg check s/p Left LE Micro 04/30/24, since last seen she had dual switch jacob bypass w/ Dr. Mohan. 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 She initially underwent the procedure on April 30, 2024, and experienced post-operative concerns related to a potential Deep Vein Thrombosis (DVT). Although placed on Eliquis, further investigation ruled out the presence of DVT. Following this, she has undergone a JACOB bypass for weight management, with a weight loss of 27 pounds noted so far. The patient's presentation includes continued venous sufficiency issues in the untreated right leg, with particular emphasis on significant venous varicosities. The previously treated leg has shown improvement, although there is some persistent bruising. She would like to undergo right lower extremity treatment as soon as possible. [facility] Medical History Pre-diabetes URI (upper respiratory infection) (04/09/24) Acute respiratory disease Labial lesion History of syphilis ADRIÁN (obstructive sleep apnea) Iron deficiency anemia Vitamin D deficiency Hypersomnia Edema Surgical History Hx of dilation and curettage Family History Father HTN (hypertension) Cirrhosis Colon cancer Paternal Aunt History of breast cancer Paternal Grandmother Diabetes Maternal Grandmother Colon cancer Other FH: mental illness Hypercholesteremia Substance use Social History Household Members: None Caregiver staying overnight: No Housing: Apartment Are you a primary memory care director to a significant other at home: No Do you presently have visiting nurse or other home services: No 75 years or older and lives alone: No Comment: medicated Patient Tobacco Use Status: Former Tobacco user Tobacco use type: Cigarette Years Smoked: 26 quit 02/2023 e-Cigarette/Vaping Use: Never Used Second Hand Smoke Exposure: No Substance Use Type: Marijuana service: No Current occupational status: employed 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 Current occupational exposures/hazards: No Cognitive needs: No Hearing needs: No Vision needs: No Review of Systems Const Reports as per HPI ENT Reports no additional complaints Card Denies chest pain, Denies chest pain at rest and Denies chest pain with activity Resp Denies chest congestion and Denies cough GI Reports no additional complaints Musc Details: pain over varicosities, aching of lower extremities, swelling, cramping, heaviness and tiredness, itching Denies abnormal gait Skin/Breast Reports pruritus and Denies wounds Neuro Reports no additional complaints and Denies abnormal gait Psych Denies no additional complaints Physical Exam Vital Signs: BMI result Body Mass Index 51.2 Const General: cooperative, healthy appearing and comfortable Orientation/consciousness: oriented to person, oriented to place and oriented to time Neck Carotids: no bruits Chest Chest palpation & inspection: normal inspection of the chest and normal palpation of entire chest wall Resp Effort & Inspection: normal respiratory effort and able to speak in complete sentences Cardio Rate: regular rate Heart sounds: S1 normal heart sound present and S2 normal heart sound present Peripheral pulses: Peripheral pulses 2+ throughout GI Inspection: Yes normal to inspection Skin Other: +2 edema, large rope-like varicosities greater than 4 mm right CEAP Classification C4 - skin color changes Ep - Etiology Primary As - superficial veins P - reflux General skin exam: dry skin Neuro General: oriented to person, oriented to place and oriented to time Extrem Right lower extremity: full ROM, normal capillary refill and edema Left lower extremity: full ROM, normal capillary refill and edema Psych Mental Status: mental status grossly normal Assessment & Plan Assessment & Plan (1) Varicose veins of right lower extremity with inflammation: Code(s): I83.11 - Varicose veins of right lower extremity with inflammation Category: Medical Plan: This patient has varicose veins with inflammation. They continue to be a source of discomfort for the patient. The patient has tried conservative treatment with compression, leg elevation and exercise program for over 3 months time. They have been compliant with all treatment. This has provided minimal relief for the patient. I do not anticipate this course of treatment will alter the underlying etiology. The patient has been scheduled for lower extremity venous treatment inclusive of --- right lower extremity microphlebectomy. Risks, benefits, and complications of this procedure has been discussed in detail with the patient including but not limited to bleeding, infection, and the development of a DVT. The patient has demonstrated a clear understanding and has consented. We will schedule the patient as soon as possible. Thank you for allowing us to participate in this patient's care. If there are any questions or concerns please do not hesitate to contact us. (2) Varicose veins of left lower extremity with inflammation: Comment: 04/30/2024 - left leg operative microphlebectomy Code(s): I83.12 - Varicose veins of left lower extremity with inflammation Category: Medical Plan: Doing well will treat right lower extremity. Coding Level of Care Code Est Pt Level 4 (94446) Complex EM visit Add On G2211 Diagnoses Varicose veins of right lower extremity with inflammation I83.11 Varicose veins of left lower extremity with inflammation I83.12
--- OUTSIDE RECORDS SUMMARY | 2024-06-12 18:02 | XMS_ITS | Encounter Summary ---
Author Organization [facility] Address [address] [place] [address] Care Team Providers Care Water Filtration Technician Name Role Phone Steffen Robles MD Primary Care Provider [phone] Dayanna Arellano MD Primary Care Provider [phone] Encounter Details Date Type Department Care Team Description 11/07/2011 Night Triage Doc Medical Records [address] [place] [address] Abstract, Provider Social History Tobacco Use Types [...] on filedocumented in this encounter Care Teams Water Filtration Technician Relationship Specialty Start Date End Date Steffen Robles MD [address] [place] [phone] PCP - General 12/05/08 04/20/23 Dayanna Arellano MD [address] [place] [phone] PCP - General Internal Medicine 04/21/23 documented as of this encounter
--- OUTSIDE RECORDS SUMMARY | 2024-06-12 18:02 | XMS_ITS | Encounter Summary ---
Author Organization [facility] Address [address] [place] [address] Care Team Providers Care Cigar Bander Name Role Phone Steffen Robles MD Primary Care Provider [phone] Dayanna Arellano MD Primary Care Provider [phone] Encounter Details Date Type Department Care Team Description 01/14/2012 Hospital Medical Records [address] [place] [address] Karla Romero MD Social History Tobacco Use [...] on filedocumented in this encounter Care Teams Cigar Bander Relationship Specialty Start Date End Date Steffen Robles MD [address] [place] [phone] PCP - General 12/05/08 04/20/23 Dayanna Arellano MD [address] [place] [address] PCP - General Internal Medicine 04/21/23 documented as of this encounter
--- OUTSIDE RECORDS SUMMARY | 2024-06-12 18:03 | XMS_ITS | Clinical Summary ---
Author Organization [facility] Address [address] [place] [address] Phone Care Team Providers Care News Reporter Name Role Phone LiudmilaYanetCaioOfelia garza YEYO Primary Care Provider [phone] Allergies No known active allergies Medications buPROPion SR (WELLBUTRIN SR) 150 mg 12 hr tablet Take 1 tablet (150 mg total) by mouth 2 (two) times a day. for 90 days 12/12/19 24 Active ferrous sulfate 324 mg (65 mg elemental iron) EC tablet Take 1 tablet (324 mg total) by mouth 2 (two) times a day. 12/06/19 24 Active cholecalcifero l (VITAMIN D-3) 1,250 mcg (50,000 unit) capsuleIndicat ions:Obesity, class 3 TAKE 1 CAPSULE BY MOUTH ONE TIME PER WEEK 8 capsule 04/03/19 25 Active acetaminophen (TYLENOL) 500 mg tablet Take 2 tablets (1,000 mg total) by mouth every 8 (eight) hours. 180 tablet 04/26/19 25 Active simethicone (MYLICON) 80 mg chewable tablet Chew 1 tablet (80 mg total) every 6 (six) hours if needed for flatulence. 120 tablet 04/26/19 25 Active wheat dextrin 3 gram/3.5 gram powder in packet Take 1 packet by mouth 1 (one) time each day. 30 packet 04/26/19 25 Active polyethylene glycol (MIRALAX) 17 gram packet Take 17 g by mouth 1 (one) time each day. 510 g 05/30/19 25 025 Active enoxaparin (LOVENOX) 40 mg/0.4 mL syringe Inject 0.4 mL (40 mg total) under the skin 2 (two) times a day. 28 each 05/30/19 Active oxyCODONE (ROXICODONE) 5 mg immediate release tablet Take 1 tablet (5 mg total) by mouth every 4 (four) hours if needed for severe pain. Max Daily Amount: 30 mg 12 tablet 05/30/19 Active naltrexone (DEPADE) 50 mg tablet Take 1 tablet (50 mg total) by mouth 1 (one) time each day. 02/06/20 025 Discontinued(St op Taking at Discharge) pantoprazole (PROTONIX) 40 mg EC tablet Take 1 tablet (40 mg total) by mouth 1 (one) time each day before breakfast. Do not crush, chew, or split. 30 each 2 04/26/19 025 Discontinued polyethylene glycol (MIRALAX) 17 gram packet Take 17 g by mouth 1 (one) time each day. 510 g 04/26/19 025 Discontinued ursodioL (ACTIGALL) 300 mg capsule Take 1 capsule (300 mg total) by mouth 2 (two) times a day. 60 each 5 04/26/19 025 Discontinued Active Problems Problem Noted Date Diagnosed Date Morbid obesity 05/08/2024 Class 3 severe obesity due t o excess calories without serious comorbidity with body mass index (BMI) of 45.0 to 49.9 in adult 12/02/2023 Seasonal allergies 08/21/2010 Tinea versicolor 05/13/2009 Overview (12/02/2023): Tinea Versicolor 05/14 right arm & back Scoliosis 10/29/2008 Backache 09/23/2005 Overview (12/02/2023): IMO update Encounters Date Type Department Care Team Description 06/12/2024 9:45 AM EDT Office Visit Bariatric Surgery - [address] [place] [phone] Chelita Pedersen PA Class 3 severe obesity due to excess calories without serious comorbidity with body mass index (BMI) of 45.0 to 49.9 in adult (Primary Dx); Bariatric surgery status 06/05/2024 Telephone Bariatric Surgery - [address] [phone] Neida Mohan MD Return to Work (Patient needs a return to work note) 06/04/2024 Telephone Bariatric Surgery [address] [phone] Hilda Diehl, RN 05/29/2024 [place] [facility] [address] [phone] Neida Mohan MD Medication Problem (Blood clots) 05/28/2024 7:35 AM EDT Anesthesia Event [facility] Main OR [address] [place] [phone] Jersey Everett DO 05/28/2024 7:30 AM EDT - 05/28/2024 10:30 AM EDT Surgery [facility] Main OR [address] [place] [phone] Neida Mohan MD DAVINCI ANASTOMOSIS DUODENOILEAL SINGLE (JACOB)-S [[id number] (CPT??)] 05/28/2024 5:54 AM EDT - 05/29/2024 12:10 PM EDT Hospital Encounter [facility] Medical Surgical Unit [address] [place] [phone] Neida Mohan MD Morbid obesity (CMS/HCC) Discharge Disposition: Home or Self Care 05/25/2024 Telephone Bariatric Surgery [address] [phone] Hilda Diehl, RN 05/07/2024 Telephone Bariatric Surgery [address] [phone] Neida Mohan MD Advice Only 05/02/2024 2:00 PM EST Telemedicine Bariatric Surgery - [address] [phone] Randee Daniel RD Class 3 severe obesity with body mass index (BMI) of 50.0 to 59.9 in adult, unspecified obesity type, unspecified whether serious comorbidity present (CMS/HCC) (Primary Dx) 04/26/2024 10:45 AM EST Consult Bariatric Surgery [address] [phone] Chelita Amador PA Class 3 severe obesity due to excess calories with body mass index (BMI) of 50.0 to 59.9 in adult, unspecified whether serious comorbidity present (CMS/HCC) (Primary Dx) 04/26/2024 10:25 AM EST - 04/26/2024 11:59 PM EST Hospital Encounter [facility] Xray [address] [place] [phone] Discharge Disposition: Home or Self Care 04/23/2024 Telephone Bariatric Surgery [address] [phone] Neida Mohan MD Advice Only (Pre admission testing) 04/02/2024 3:30 PM EST Office Visit Bariatric Surgery [address] [phone] Chelita Amador PA Class 3 severe obesity due to excess calories with body mass index (BMI) of 50.0 to 59.9 in adult, unspecified whether serious comorbidity present (CMS/HCC) (Primary Dx) 03/15/2024 3:15 PM EST Office Visit Bariatric Surgery [address] [phone] Neida Mohan MD Class 3 severe obesity with body mass index (BMI) of 50.0 to 59.9 in adult, unspecified obesity type, unspecified whether serious comorbidity present (CMS/HCC) (Primary Dx) from Last 3 Months Immunizations Name Administration Dates Next Due HPV, Quadrivalent 01/31/2008 Tdap Tetanus diptheria acell ular pertussis (Boostrix; Adacel) 7yo and older 08/12/2008 Surgical History Surgery Date Site/Laterality Comments DILATION AND CURETTAGE OF UTERUS VEIN SURGERY Medical History Medical History Date Comments Backache, unspecified 09/23/2005 DX:Backach e, unspecified Seasonal allergies 08/21/2010 DX:Seasonal a llergies GERD (gastroesophageal reflux disease) Sleep apnea Family History Medical History Relation Name Comments [...] drink = 0.6 oz pur e alcohol) Interpersonal Safety Answer Date Record ed Physical Abuse 05/28/2024 Verbal Abuse 05/28/2024 Comments No Sex and Gender Information Value Date Recorded Sex Assigned at Female 04/25/2024 9:26 AM EST Legal Sex Female 12:47 PM EST Gender Identity Female 04/25/2024 9:26 AM EST Sexual Orientation Choose not to disclose 2024 5:54 AM EDT Sexual Orientation Straight 05/28/2024 5: 54 AM EDT Obstetrics History Last Filed Vital Signs Vital Sign Reading Time Taken Comments Blood Pressure 119/79 06/12/2024 9:59 AM EDT Pulse 76 06/12/2024 9:59 AM EDT Temperature 36.5 ??C (97.7 ??F) 05/29/2024 7:48 AM ED T Respiratory Rate 17 05/29/2024 7:48 AM EDT Oxygen Saturation 96% 05/29/2024 7:48 AM EDT Inhaled Oxygen Concentration - - Weight 139 kg (307 lb) 06/12/2024 9:59 AM EDT Height 170.2 cm (5' 7 ) 06/12/2024 9:59 AM EDT Body Mass Index 48.08 06/12/2024 9:59 AM EDT Plan of Treatment Upcoming Encounters Date Type Department Care Team (Late st Contact Info) Description 2024 10:30 AM EDT Telemedicine Bariatric Surgery - [place] [address] [phone] Randee Daniel, RAMÍREZ [address] [address] 07/24/2024 11:15 AM EDT Office Visit Bariatric Surgery - [place] [address] [phone] Chelita Amdaor PA [address] [phone] Health Maintenance Due Date Last Done Comments [...] 5 season) 2023 09/28/2020, 08/05/2020 Influenza Vaccine (Season Ended) 2024 DTaP,Tdap,and Td Vaccines (3 - Td or [...] age to complete this topic Meningococcal B Vaccine Aged Out No l onger eligible based on patient's age to complete this topic RSV Immunization Patients Under 20 months Aged Out No longer eligible b ased on patient's age to complete this topic Varicella Vaccines Aged Out No longer eligible based on patient's age to complete this topic Procedures Procedure Name Priority Date/Time Associated Diagnosis Comments CBC WITH AUTO DIFFERENTIAL Routine 05/29/2024 6:38 AM EDT MAGNESIUM Routine 05/29/2024 6:38 AM EDT BASIC METABOLIC PANEL Routine 05/29/2024 6:38 AM EDT CBC AND DIFFERENTIAL Routine 05/29/2024 6:38 AM EDT CPAP NIV Routine 05/28/2024 8:30 PM EDT TISSUE EXAM Routine 05/28/2024 10:03 AM EDT Morbid obesity (CMS/HCC) IN UNLISTED PROCEDURE LAPAROSCOPIC STOMACH 05/28/2024 7:33 AM EDT Morbid obesity (CMS/HCC) POC , URINE DIAGNOSTIC Routine 05/28/2024 6:10 AM EDT XR CHEST 2 VIEWS Routine 04/26/2024 10:2 [...] Recently Relevant to Health Maintenance Results * (ABNORMAL) CBC auto differential (05/29/2024 6:38 AM EDT) Only the most recent of2 resultswithin the time period is included. WBC 10.7 4.8 - 10.8 K/mcL LAB HEMETOLOGY METHOD 05/29/2024 7:09 AM [facility] RBC 4.00 3.80 - 4.80 M/mcL LAB HEMETOLOGY METHOD 05/29/2024 7:09 AM [facility] Hemoglobin 11.9 11.5 - 16.0 g/dL LAB HEMETOLOGY METHOD 05/29/2024 7:09 AM [facility] Hematocrit 37.5 35.0 - 47.0 % LAB HEMETOLOGY METHOD 05/29/2024 7:09 AM [facility] MCV 93.8 79.0 - 98.0 FL LAB HEMETOLOGY METHOD 05/29/2024 7:09 AM [facility] MCH 29.8 27.0 - 32.0 pcg LAB HEMETOLOGY METHOD 05/29/2024 7:09 AM [facility] MCHC 31.7(L) 32.0 - 37.0 g/dL LAB HEMETOLOGY METHOD 05/29/2024 7:09 AM [facility] RDW 13.2 11.0 - 15.0 % LAB HEMETOLOGY METHOD 05/29/2024 7:09 AM [facility] Platelets 194 130 - 400 K/mcL LAB HEMETOLOGY METHOD 05/29/2024 7:09 AM [facility] MPV 9.5 7.0 - 11.0 FL LAB HEMETOLOGY METHOD 05/29/2024 7:09 AM [facility] NRBC 0.0 <1.0 % LAB HEMETOLOGY METHOD 05/29/2024 7:09 AM [facility] NRBC Absolute 0.00 <0.10 K/mcL LAB HEMETOLOGY METHOD 05/29/2024 7:09 AM [facility] Neutrophils Relative 70.8 % LAB HEMETOLOGY METHOD 05/29/2024 7:09 AM [facility] Lymphocytes Relative 19.0 % LAB HEMETOLOGY METHOD 05/29/2024 7:09 AM [facility] Monocytes Relative 9.0 % LAB HEMETOLOGY METHOD 05/29/2024 7:09 AM [facility] Eosinophils Relative 0.4 % LAB HEMETOLOGY METHOD 05/29/2024 7:09 AM [facility] Basophils Relative 0.3 % LAB HEMETOLOGY METHOD 05/29/2024 7:09 AM [facility] Immature Granulocytes Relative 0.5 % LAB HEMETOLOGY METHOD 05/29/2024 7:09 AM [facility] Neutrophils Absolute 7.60(H) 1.50 - 7.00 K/mcL LAB HEMETOLOGY METHOD 05/29/2024 7:09 AM [facility] Lymphocytes Absolute 2.04 1.00 - 5.00 K/mcL LAB HEMETOLOGY METHOD 05/29/2024 7:09 AM [facility] Monocytes Absolute 0.97 0.20 - 1.00 K/mcL LAB HEMETOLOGY METHOD 05/29/2024 7:09 AM EDT [facility] Eosinophils Absolute 0.04 0.00 - 0.50 K/[facility] LAB HEMETOLOGY METHOD 05/29/2024 7:09 AM EDT [facility] Basophils Absolute 0.03 0.00 - 0.20 K/[facility] LAB HEMETOLOGY METHOD 05/29/2024 7:09 AM EDT [facility] Immature Granulocytes Absolute 0.05(H) 0.00 - 0.03 K/[facility] LAB HEMETOLOGY METHOD 05/29/2024 7:09 AM EDT [facility] Blood Venous blood specimen / Unknown Venipuncture / Unknown 05/29/2024 6:38 AM EDT 05/29/2024 6:48 AM EDT Chelita SHEIKH LAB BLOOD ORDERABLES Final R esult Performing Organization Address City/[facility]/ZIP Co de Phone Number [facility] [address] [place] [address], [place] [phone] * Magnesium (05/29/2024 6:38 AM EDT) Only the most recent of2 resultswithin the time period is included. Magnesium 2.2 1.9 - 2.6 mg/dL LAB CHEMISTRY METHOD 05/29/2024 7:21 AM EDT [facility] Blood Venous blood specimen / Unknown Venipuncture / Unknown 05/29/2024 6:38 AM EDT 05/29/2024 6:48 AM EDT Chelita SHEIKH LAB BLOOD ORDERABLES Final R esult [facility] [address] [place] [address], [place] [phone] * (ABNORMAL) Basic metabolic panel (05/29/2024 6:38 AM EDT) Only the most recent of2 resultswithin the time period is included. Sodium 137 133 - 145 mmol/L LAB CHEMISTRY METHOD 05/29/2024 7:21 AM [facility] Potassium 3.9 3.5 - 5.5 mmol/L LAB CHEMISTRY METHOD 05/29/2024 7:21 AM [facility] Chloride 106 96 - 110 mmol/L LAB CHEMISTRY METHOD 05/29/2024 7:21 AM [facility] CO2 26 21 - 32 mmol/L LAB CHEMISTRY METHOD 05/29/2024 7:21 AM [facility] Anion Gap 5 3 - 11 LAB CHEMISTRY METHOD 05/29/2024 7:21 AM [facility] Glucose 109(H) 70 - 100 mg/dL LAB CHEMISTRY METHOD 05/29/2024 7:21 AM [facility] BUN 8 5 - 25 mg/dL LAB CHEMISTRY METHOD 05/29/2024 7:21 AM [facility] Creatinine 0.70 0.50 - 1.10 mg/dL LAB CHEMISTRY METHOD 05/29/2024 7:21 AM [facility] eGFR 114 >=60 mL/min/1. 73m2 LAB CHEMISTRY METHOD 05/29/2024 7:21 AM [facility] Comment:Calculation based on the??Chronic Kidney Disease Epidemiology Collaboration (CKD-EPI) equation refit??without adjustment for race. BUN/Creatinine Ratio 11.4 LAB CHEMISTRY METHOD 05/29/2024 7:21 AM [facility] Calcium 8.5 8.5 - 10.5 mg/dL LAB CHEMISTRY METHOD 05/29/2024 7:21 AM [facility] Blood Venous blood specimen / Unknown Venipuncture / Unknown 05/29/2024 6:38 AM EDT 05/29/2024 6:48 AM EDT us Chelita SHEIKH LAB BLOOD ORDERABLES Final R esult [facility] [address] [place] [address], * Tissue exam (05/28/2024 10:03 AM EDT) Final Diagnosis A. Stomach, partial gastrectomy: - Portion of stomach with no specific pathologic changes. 05/29/2024 12:29 PM EDT [facility] Gross Description A. Stomach, : Labeled stomach . Received in formalin is a 24 x 4 x 3 cm portion of stomach with an irregular staple line. The serosa is alonzo-pink, smooth and glistening with minimal attached adipose tissue. The gastric lumen contains bloody mucoid material. The mucosa is alonzo-pink to red, with unremarkable rugal folds. The wall (muscularis) is uniform in thickness and averages 0.2 cm. The margin adjacent to the staple lines is inked black. Hog Ringer sections are submitted in one cassette, including a perpendicular section to the margin and random stomach, three pieces. DELPHINE 05/29/2024 12:29 PM EDT [facility] Disclaimer Unless otherwise specified, all tissue is 10% NB formalin fixed and paraffin embedded. 05/29/2024 12:29 PM EDT [facility] Tissue Stomach structure / Unknown 05/28/2024 10:03 AM EDT 05/28/2024 11:13 AM EDT us Neida Mohan MD LAB PATHOLOGY ORDERABLES Fin al Result [facility] [address] [place] [address], [place] [phone] * POC , urine manually resulted (05/28/2024 6:10 AM EDT) HCG, Ur POC Negative Negative POC hCG Int QC Pass? Yes Yes Urine Urine specimen obtained by clean catch procedure / Unknown 05/28/2024 6:10 AM EDT Jersey Everett DO POINT OF CARE TEST ENTER/EDIT O RDERABLES Final Result * XR Chest 2 Views (04/26/2024 10:28 AM EST) Anatomical Region Laterality Modality Body Radiographic Chely ging 04/26/2024 10:3 3 AM EST Impressions 04/26/2024 10:34 AM EST Normal examination. Code 37694 -------- FINAL REPORT -------- Dictated By: Billy Kam Dictated Date: 04/26/2024 10:33 ET Assigned Physician: Billy Kam Reviewed and Electronically Signed By: Billy Kam Signed Date: 04/26/2024 10:34 ET Workstation ID: [id number] Transcribed By: Self Edit Transcribed Date: 04/26/2024 [...] angles are clear. IMPRESSION: Normal examination. Code 00202 -------- FINAL REPORT -------- Dictated By: Billy Kam Dictated Date: 04/26/2024 10:33 ET Assigned Physician: Billy Kam Reviewed and Electronically Signed By: Billy Kam Signed Date: 04/26/2024 10:34 ET Workstation ID: [id number] Transcribed By: Self Edit Transcribed Date: 04/26/2024 10:33 ET us Chelita SHEIKH IMG XR PROCEDURES Final Resu lt * (ABNORMAL) Urinalysis with reflex microscopic and culture (04/26/2024 10:00 AM EST) Specific [place] Urine 1.012 1.003 - 1.030 LAB URINALYSIS - AUTOMATED METHOD 04/26/2024 10:54 AM [facility] pH, Urine 6.0 5.0 - 8.0 pH LAB URINALYSIS - AUTOMATED METHOD 04/26/2024 10:54 AM [facility] Leukocytes, Urine Trace(A) Negative LAB URINALYSIS - AUTOMATED METHOD 04/26/2024 10:54 AM [facility] Nitrite, Urine Negative Negative LAB URINALYSIS - AUTOMATED METHOD 04/26/2024 10:54 AM [facility] Protein, Urine Negative <=Trace mg/dL LAB URINALYSIS - AUTOMATED METHOD 04/26/2024 10:54 AM [facility] Glucose, Urine Negative Negative mg/dL LAB URINALYSIS - AUTOMATED METHOD 04/26/2024 10:54 AM [facility] Ketones, Urine Negative Negative mg/dL LAB URINALYSIS - AUTOMATED METHOD 04/26/2024 10:54 AM [facility] Urobilinogen, Urine 0.2 0.2 - 1.0 mg/dL LAB URINALYSIS - AUTOMATED METHOD 04/26/2024 10:54 AM [facility] Bilirubin, Urine Negative Negative LAB URINALYSIS - AUTOMATED METHOD 04/26/2024 10:54 AM [facility] Blood, Urine Negative Negative LAB URINALYSIS - AUTOMATED METHOD 04/26/2024 10:54 AM [facility] RBC, Urine 1.8 0 - 4 /HPF LAB URINALYSIS - AUTOMATED METHOD 04/26/2024 10:54 AM [facility] WBC, Urine 3.3 0 - 4 /HPF LAB URINALYSIS - AUTOMATED METHOD 04/26/2024 10:54 AM [facility] Squamous Epithelial, Urine 44 0 - 60 /LPF LAB URINALYSIS - AUTOMATED METHOD 04/26/2024 10:54 AM [facility] Bacteria, Urine Negative Negative /HPF LAB URINALYSIS - AUTOMATED METHOD 04/26/2024 10:54 AM [facility] Hyaline Casts, Urine 0.4 0 - 3 /LPF LAB URINALYSIS - AUTOMATED METHOD 04/26/2024 10:54 AM [facility] Urine Urine specimen obtained by clean catch procedure / Unknown Non-blood Collection / Unknown 04/26/2024 10:00 AM EST 04/26/2024 10:47 AM EST Chelita SHEIKH LAB URINE ORDERABLES Final R esult Performing Organization Address City/[facility]/ZIP Co de Phone Number [facility] [address] [place] [address], [place] [phone] * Steele urine culture tube (04/26/2024 10:00 AM EST) Extra Tube Hold for add-ons. 04/26/2024 12:01 PM [facility] Comment:Auto resulted. Urine Urine specimen obtained by clean catch procedure / Unknown Non-blood Collection / Unknown 04/26/2024 10:00 AM EST 04/26/2024 10:47 AM EST us Chelita SHEIKH LAB URINE ORDERABLES Final R esult [facility] [address] [place] [address], [place] [phone] * Prothrombin time with INR (04/26/2024 10:00 AM EST) Protime 12.3 10.6 - 13.9 sec LAB COAGULATION METHOD 04/26/2024 11:11 AM EST [facility] INR 1.0 LAB COAGULATION METHOD 04/26/2024 11:11 AM EST [facility] Blood Venous blood specimen / Unknown Venipuncture / Unknown 04/26/2024 10:00 AM EST 04/26/2024 10:47 AM EST Chelita SHEIKH LAB BLOOD ORDERABLES Final R esult [facility] [address] [place] [address], [place] [phone] * Type and screen (04/26/2024 10:00 AM EST) Pathologist [facility] ABO Group O 04/26/2024 4:39 PM [facility] Rh Type Positive 04/26/2024 4:39 PM EST [facility] Antibody Screen Negative 04/26/2024 4:39 PM EST [facility] Blood Venous blood specimen / Unknown Venipuncture / Unknown 04/26/2024 10:00 AM EST 04/26/2024 10:46 AM EST us Chelita SHEIKH LAB BLOOD BANK TEST ORDERABL ES Final Result [facility] [address] [place] [address], [place] [phone] * Culture urine (04/26/2024 10:00 AM EST) [facility] Culture, Urine No growth 04/27/2024 10:31 AM EST [facility] Urine Urine specimen obtained by clean catch procedure / Unknown Non-blood Collection / Unknown 04/26/2024 10:00 AM EST 04/26/2024 10:54 AM EST Chelita SHEIKH LAB MICROBIOLOGY - GENERAL O RDERABLES Final Result [facility] [address] [place] [address], [place] [phone] * ECG 12 lead (04/26/2024 9:43 AM EST) Pathologist [facility] Ventricular Rate ECG 77 BPM GEMUSE Atrial Rate 77 BPM GEMUSE P-R Interval 144 ms GEMUSE QRS Duration 84 ms GEMUSE Q-T Interval 366 ms GEMUSE QTc 414 ms GEMUSE P Wave [place] 57 degrees GEMUSE R [place] 38 degrees GEMUSE T [place] 53 degrees GEMUSE ECG Interpretation Normal sinus rhythm Normal ECG No previous ECGs available Confirmed by MD Sierra Christopher ([id number]) on 04/26/2024 9:51:59 PM GEMUSE 04/26/2024 9:43 AM EST 04/26/2024 9:51 PM EST Chelita SHEIKH ECG ORDERABLES Final Result GEMUSE * External clinical lab (03/19/2024) Provider Susy Onbase LAB BLOOD ORDERABLES Fin al Result * (ABNORMAL) Lipid panel (10/06/2023) Pathologist [facility] LDL/HDL Ratio 4 0 - 4 Triglycerides 121 0 - 150 mg/dL Cholesterol 193 0 - 200 mg/dL HDL 51 >=40 mg/dL LDL Cholesterol 118(A) 0 - 100 mg/dL Blood Venous blood specimen / Unknown Historical Provider LAB BLOOD ORDERABLES Gabbi l Result * HIV Screening (12/24/2010) Pathologist [facility] HIV Screening abstracted Historical Provider HEALTH MAINTENANCE Final Result * Pap Smear (12/24/2010) Pap smear abstracted, no interpretation us Historical Provider HEALTH MAINTENANCE Final Result * Hepatitis C Screening (05/27/2009) Hepatitis C Screening abstracted us Historical Provider HEALTH MAINTENANCE Final Result from Last 3 Months or Most Recently Relevant to Health Maintenance Insurance [facility] [place] [address] Advance Directives * Full Code - Default (Latest Code Status on File) Date Activated Date Inactivated Comments 05/28/2024 6:06 AM 05/29/2024 2:15 PM This is orde r is used when code status has not been discussed with the patient, or code status is otherwise unknown/unconfirmed To update the patient's code status, place a code status order. Do not modify or discontinue any currently active code status orders. Care Teams News Reporter Relationship Specialty Start Date End Date Ofelia Layne FNP [address] [place] [phone] PCP - General Nurse Practitioner 04/18/24
--- OUTSIDE RECORDS SUMMARY | 2024-06-12 18:03 | XMS_ITS | Encounter Summary ---
Author Organization [facility] Address [address] [place] [address] Care Team Providers Care Cad Cam Programmer Name Role Phone Ofelia Layne Primary Care Provider [phone] Reason for Visit * Reason Comments Post-op Visit [facility] 05/28 Encounter Details Date Type Department Care Team ([facility] st Contact Info) Description 06/12/2024 9:45 AM EDT Office Visit Bariatric Surgery - [place] 175 [facility] [address] [place] [address] Chelita Amador PA 175 [facility] 120 [place], [place] [phone] Class 3 severe obesity due to excess calories without serious comorbidity with body mass index (BMI) of 45.0 to 49.9 in adult (Primary Dx); Bariatric surgery status Social History Tobacco Use Types Packs/Day Years [...] Orientation Straight 05/28/2024 5: 54 AM EDT documented as of this encounter Last Filed Vital Signs Vital Sign Reading Time Taken Comments Blood Pressure 119/79 06/12/2024 9:59 AM EDT Pulse 76 06/12/2024 9:59 AM EDT Temperature - - Respiratory Rate - - Oxygen Saturation - - Inhaled Oxygen Concentration - - Weight 139 kg (307 lb) 06/12/2024 9:59 AM EDT Height 170.2 cm (5' 7 ) 06/12/2024 9:59 AM EDT Body Mass Index 48.08 06/12/2024 9:59 AM EDT documented in this encounter Progress Notes * KORI Santana - 06/12/2024 9:45 AM EDT 06/12/2024 HPI: Katja Tony presents for surgical follow up s/p RORY molina/ Kimberlee at [facility] on 05/28/24. She is doing well with no current concerns or complaints. -27 lbs at her preop visit on 04/26/2024 She is tolerating a stage III pur??ed diet without nausea or vomiting Doing well with protein intake Drinking plenty of clear fluids No acid reflux No abdominal pain Had some initial constipation which has since been relieved with MiraLAX Urinating without difficulty Taking daily multivitamin Denies fever, chills, chest pain, shortness of breath Body mass index is 48.08 kg/m??. Pathology: A. Stomach, partial gastrectomy: - Portion of stomach with no specific pathologic changes. ROS: GENERAL: No malaise, significant weight loss or fever HEENT: No changes in hearing or vision, nose bleeds or other nasal problems NECK: No lumps, goiter, pain or significant neck swelling RESPIRATORY: No cough, wheezing or shortness of breath CARDIOVASCULAR: No chest pain, leg swelling or palpitations GI: No abdominal discomfort, blood in stools or black stools MUSCULOSKELETAL: No joint pain or swelling, back pain, or muscle pain. SKIN: No lesions, rash or itching The remainder of the review of systems is noncontributory PAST MEDICAL HISTORY: Patient Active Problem List Diagnosis Backache Scoliosis Seasonal allergies Tinea versicolor Class 3 severe obesity due to excess calories without serious comorbidity with body mass index (BMI) of 45.0 to 49.9 in adult Morbid obesity (CMS/HCC) PAST SURGICAL HISTORY: Past Surgical History: Procedure Laterality Date DILATION AND CURETTAGE OF UTERUS VEIN SURGERY SOCIAL HISTORY: Social History Tobacco Use [...] There are no discontinued medications. ACTIVE MEDICATIONS: Medication list was reviewed/updated with the patient. No outpatient medications have been marked as taking for the 06/12/24 encounter (Office Visit) with KORI Santana. ALLERGIES: No Known Allergies PE: Vitals: 06/12/24 0959 BP: 119/79 Pulse: 76 Weight: 139 kg (307 lb) Height: 1.702 m (67 ) APPEARANCE: Alert and in no acute distress EYES: Conjunctiva and sclera normal. HEART: RRR with normal S1 and S2, no murmurs LUNG: Nonlabored respirations ABDOMEN: The incisions are healing well. There are no signs of infection, significant erythema, active drainage, seroma, hematoma or dehiscence at the surgical site. Soft, non-tender, non-distended NEURO: Awake, alert and oriented EXTREMITIES: Extremities warm and well perfused without clubbing, cyanosis, or edema. A/P: 1. Class 3 severe obesity due to excess calories without serious comorbidity with body mass index (BMI) of 45.0 to 49.9 in adult 2. Bariatric surgery status The patient is doing very well following surgery with good healing of surgical site. She is advised regarding care of the incision site and is instructed to call if any wound drainage,fever, or other concerns arise. The patient will follow up in 4-6 weeks and she is to call if there are any problems prior to scheduled visit. KORI Santana documented in this encounter Plan of Treatment Upcoming Encounters Date Type Department Care Team (Late st Contact Info) Description 2024 10:30 AM EDT Telemedicine Bariatric Surgery - [place] [address] [phone] [address] 07/24/2024 11:15 AM EDT Office Visit Bariatric Surgery - [place] [address] [phone] Chelita Amador PA [address] [address] documented as of this encounter Visit Diagnoses Diagnosis Class 3 severe obesity due to excess calories without serious comorbidity with body mass index (BMI) of 45.0 to 49.9 in adult- Primary Bariatric surgery status documented in this encounter Care Teams Cad Cam Programmer Relationship Specialty Start Date End Date Ofelia Layne FNP [address] [place] [phone] PCP - General Nurse Practitioner 04/18/24 documented as of this encounter
--- OUTSIDE RECORDS SUMMARY | 2024-06-12 18:03 | XMS_ITS | Encounter Summary ---
Author Organization [facility] Address [address] [place] [address] Care Team Providers Care Student Development Specialist Name Role Phone Dayanna Arellano MD Primary Care Provider [phone] Reason for Visit * Reason Onset Date Comments REFERRAL 10/06/2023 Encounter Details Date Type Department Care Team Description 10/06/2023 Telephone OBGYN - [place] [address] [place] [address] Selina Garcia MD [address] [place] [phone] REFERRAL Social History Tobacco Use Types Packs/Day [...] PM EDT Patient referred to us by [facility]- for screening for malignant neoplasm of cervix. Left message on to call back. documented in this encounter Plan of Treatment Not on file documented as of this encounter Visit Diagnoses Not on filedocumented in this encounter Care Teams Student Development Specialist Relationship Specialty Start Date End Date Dayanna Arellano MD PCP - General Internal Medicine 04/21/23 documented as of this encounter
--- OUTSIDE RECORDS SUMMARY | 2024-06-12 18:03 | XMS_ITS | Encounter Summary ---
Author Organization [facility] [place] [address] Care Team Providers Care Celebrity Chef Entrepreneur Media Personality Name Role Phone Ofelia Layne Primary Care Provider [phone] Reason for Visit * Reason Onset Date Comments Medication Problem 05/29/2024 Blood clots Encounter Details Date Type Department Care Team ([facility] Contact Info) Description 05/29/2024 Telephone Bariatric Surgery - [place] 175 [facility] [address] [place] [phone] Neida Mohan MD 175 [facility] 120 [place] [address] Medication Problem (Blood clots) Social History Tobacco Use Types Packs/Day Years [...] AM EDT documented as of this encounter Progress Notes * Trini Butcher - 05/29/2024 12:59 PM EDT Patient was given a script for a medication for blood clots. Please call pharmacy to clarify documented in this encounter Plan of Treatment Upcoming Encounters Date Type Department Care Team (Late st Contact Info) Description 2024 10:30 AM EDT Telemedicine Bariatric Surgery - [place] [address] [phone] [address] 07/24/2024 11:15 AM EDT Office Visit Bariatric Surgery - [place] [address] [phone] Chelita Amador PA [address] [address] documented as of this encounter Visit Diagnoses Not on filedocumented in this encounter Care Teams Celebrity Chef Entrepreneur Media Personality Relationship Specialty Start Date End Date Ofelia Layne FNP [address] [place] [address] PCP - General Nurse Practitioner 04/18/24 documented as of this encounter
--- OUTSIDE RECORDS SUMMARY | 2024-06-12 18:03 | XMS_ITS | Encounter Summary ---
Author Organization [facility] Address [address] [place] [address] Care Team Providers Care Practice Management Consultant Name Role Phone Steffen Robles MD Primary Care Provider [phone] Dayanna Arellano MD Primary Care Provider [phone] Reason for Visit * Reason Onset Date Comments er follow up 06/05/2014 [facility] 06/05/2014 Encounter Details Date Type Department Care Team Description 06/05/2014 Telephone Adult Medicine [facility] [address] [place] [phone] Steffen Robles MD [address] [place] [phone] er follow up ([facility]); injury Social History [...] appointment needed Hospital patient was treated at: [facility] Was this only an ER visit [...] on filedocumented in this encounter Care Teams Practice Management Consultant Relationship Specialty Start Date End Date Steffen Robles MD [address] [place] [address] PCP - General 12/05/08 04/20/23 Dayanna Arellano MD [address] [place] [address] PCP - General Internal Medicine 04/21/23 documented as of this encounter
== END 2024-06-12 15:35 | disposition home or self-care (01) ==
LOC: HO.HVS 14:56
PROVIDERS: PCP Nurse Practitioner Family; Visit Provider Surgery Vascular Surgery
DX: I83.11 Varicose veins of right lower extremity with inflammation (principal); I83.12 Varicose veins of left lower extremity with inflammation
CPT/HCPCS: 99024

== ENCOUNTER → 2024-06-12 14:55 | Outpatient (BNVA) | payer OTHER, SELFPAY | PROVIDERS: PCP Nurse Practitioner Family; Visit Provider Surgery Vascular Surgery | DX: I83.11 Varicose veins of right lower extremity with inflammation (principal); I83.12 Varicose veins of left lower extremity with inflammation | CPT/HCPCS: 99212 ==

== ENCOUNTER 2024-06-18 07:46 | Day surgery (SDC) | payer OTHER, SELFPAY ==
--- OUTSIDE RECORDS SUMMARY | 2024-06-13 06:06 | XMS_ITS | Clinical Summary ---
Author Organization 175 [facility] Address [address] [place] [address] Phone Care Team Providers Care Specimen Collector Name Role Phone LiudmilaYanetCaioOfelia garza YEYO Primary Care Provider [phone] Allergies No known active allergies Medications buPROPion [...] mouth 1 (one) time each day. 02/06/20 Discontinued(St op Taking at Discharge) polyethylene glycol (MIRALAX) 17 gram packet Take 17 g by mouth 1 (one) time each day. 510 g 04/26/19 025 Discontinued Active Problems Problem Noted [...] AM EDT Office Visit Bariatric Surgery - [address] [phone] Chelita Amador PA Class 3 severe obesity due to excess calories without serious comorbidity with body mass index (BMI) of 45.0 to 49.9 in adult (Primary Dx); Bariatric surgery status 06/05/2024 Telephone Bariatric Surgery [address] [phone] Neida Mohan MD Return to Work (Patient needs a return to work note) 06/04/2024 Telephone Bariatric Surgery [address] [phone] Hilda Diehl, RN 05/29/2024 Telephone Bariatric Surgery [address] [phone] Neida Mohan MD Medication Problem (Blood clots) 05/28/2024 7:35 AM EDT Anesthesia Event [facility] Main OR [address] [place] [phone] Jersey Everett DO 05/28/2024 7:30 AM EDT - 05/28/2024 10:30 AM EDT Surgery [facility] OR [address] [place] [phone] Neida Mohan MD DAVINCI ANASTOMOSIS DUODENOILEAL SINGLE (JACOB)-S [[id number] (CPT??)] 05/28/2024 5:54 AM EDT - 05/29/2024 12:10 PM EDT Hospital Encounter [facility] Medical Surgical Unit [address] [place] [phone] Neida Mohan MD Morbid obesity (CMS/HCC) Discharge Disposition: Home or Self Care 05/25/2024 Telephone Bariatric Surgery [address] [phone] Hilda Diehl, RN 05/07/2024 Telephone Bariatric Surgery [address] [phone] Neida Mohan MD Advice Only 05/02/2024 2:00 PM EST Telemedicine Bariatric Surgery [address] [phone] Class 3 severe obesity with body mass index (BMI) of 50.0 to 59.9 in adult, unspecified obesity type, unspecified whether serious comorbidity present (CMS/HCC) (Primary Dx) 04/26/2024 10:45 AM EST Consult Bariatric Surgery - [address] [phone] Chelita Amador PA Class 3 severe obesity due to excess calories with body mass index (BMI) of 50.0 to 59.9 in adult, unspecified whether serious comorbidity present (CMS/HCC) (Primary Dx) 04/26/2024 10:25 AM EST - 04/26/2024 11:59 PM EST Hospital Encounter [facility] Xray [address] [place] [phone] Discharge Disposition: Home or Self Care 04/23/2024 Telephone Bariatric Surgery - [place] [address] [phone] Neida Mohan MD Advice Only (Pre admission testing) 04/02/2024 3:30 PM EST Office Visit Bariatric Surgery [address] [phone] Chelita Amador PA Class 3 severe obesity due to excess calories with body mass index (BMI) of 50.0 to 59.9 in adult, unspecified whether serious comorbidity present (CMS/HCC) (Primary Dx) 03/15/2024 3:15 PM EST Office Visit Bariatric Surgery - [address] [phone] Neida Mohan MD Class 3 severe obesity [...] Telemedicine Bariatric Surgery [facility] [address] [phone] [address] 07/24/2024 11:15 AM EDT Office Visit Bariatric Surgery [facility] [address] [phone] Chelita Amador PA [address] [address] Health Maintenance Due Date Last Done Comments [...] 05/28/2024 10:03 AM EDT Morbid obesity (CMS/HCC) DE UNLISTED PROCEDURE LAPAROSCOPIC STOMACH 05/28/2024 7:33 AM [...] of2 resultswithin the time period is included. [facility] WBC 10.7 4.8 - 10.8 K/mcL LAB [...] [facility] Eosinophils Absolute 0.04 0.00 - 0.50 K/mcL LAB HEMETOLOGY METHOD 05/29/2024 7:09 AM [facility] Basophils Absolute 0.03 0.00 - 0.20 K/mcL LAB HEMETOLOGY METHOD 05/29/2024 7:09 AM EDT [facility] Immature Granulocytes Absolute 0.05(H) 0.00 - 0.03 K/mcL LAB HEMETOLOGY METHOD 05/29/2024 7:09 AM EDT [facility] Blood Venous blood specimen / Unknown Venipuncture / Unknown 05/29/2024 6:38 AM EDT 05/29/2024 6:48 AM EDT Chelita SHEIKH LAB BLOOD ORDERABLES Final R esult Performing Organization Address City/[facility]/ZIP Co de Phone Number [facility] [address] [place] [address], [place] [phone] * Magnesium (05/29/2024 6:38 AM EDT) Only the most recent of2 resultswithin the time period is included. Magnesium 2.2 1.9 - 2.6 mg/dL LAB CHEMISTRY METHOD 05/29/2024 7:21 AM EDT [facility] Blood Venous blood specimen / Unknown Venipuncture / Unknown 05/29/2024 6:38 AM EDT 05/29/2024 6:48 AM EDT Chelita SHEIKH LAB BLOOD ORDERABLES Final R esult Performing Organization Address City/[facility]/ZIP Co de Phone Number [facility] [address] [place] [address], [place] [phone] * (ABNORMAL) Basic metabolic panel (05/29/2024 6:38 AM EDT) Only the most recent of2 resultswithin the time period is included. Sodium 137 133 - 145 mmol/L LAB CHEMISTRY METHOD 05/29/2024 7:21 AM EDT [facility] Potassium 3.9 3.5 - 5.5 mmol/L LAB CHEMISTRY METHOD 05/29/2024 7:21 AM EDT [facility] Chloride 106 96 - 110 mmol/L [...] SHEIKH LAB BLOOD ORDERABLES Final R esult [facility] [address] [place] [address], * Tissue exam (05/28/2024 10:03 AM EDT) Final Diagnosis A. Stomach, partial gastrectomy: - Portion of stomach with no specific pathologic changes. 05/29/2024 12:29 PM EDT [facility] Gross Description A. Stomach, : Labeled [...] to the staple lines is inked black. Trenching Machine Operator sections are submitted in one cassette, including a perpendicular section to the margin and random stomach, three pieces. DELPHINE 05/29/2024 12:29 PM EDT [facility] Disclaimer Unless otherwise specified, all tissue is 10% NB formalin fixed and paraffin embedded. 05/29/2024 12:29 PM EDT [facility] Tissue Stomach structure / Unknown 05/28/2024 10:03 AM EDT 05/28/2024 11:13 AM EDT Neida Mohan MD LAB PATHOLOGY ORDERABLES Fin al Result [facility] [address] [place] [address], * POC , urine manually resulted (05/28/2024 [...] 04/26/2024 10:34 AM EST Normal examination. Code 00751 -------- FINAL REPORT -------- Dictated By: Billy Kam Dictated Date: 04/26/2024 10:33 ET Assigned Physician: Billy Kam Reviewed and Electronically Signed By: Billy Kam Signed Date: 04/26/2024 10:34 ET Workstation ID: [id number] Transcribed By: Self Edit Transcribed Date: 04/26/2024 [...] angles are clear. IMPRESSION: Normal examination. Code 67008 -------- FINAL REPORT -------- Dictated By: Billy Kam Dictated Date: 04/26/2024 10:33 ET Assigned Physician: Billy Kam Reviewed and Electronically Signed By: Billy Kam Signed Date: 04/26/2024 10:34 ET Workstation ID: [id number] Transcribed By: Self Edit Transcribed Date: 04/26/2024 10:33 ET Chelita SHEIKH IMG XR PROCEDURES Final Resu lt * (ABNORMAL) Urinalysis with reflex microscopic and culture (04/26/2024 10:00 AM EST) Specific [place] Urine 1.012 1.003 - 1.030 LAB URINALYSIS - AUTOMATED METHOD 04/26/2024 10:54 AM [facility] pH, Urine 6.0 5.0 - 8.0 pH LAB URINALYSIS - AUTOMATED METHOD 04/26/2024 10:54 AM [facility] Leukocytes, Urine Trace(A) Negative LAB URINALYSIS - AUTOMATED METHOD 04/26/2024 10:54 AM [facility] Nitrite, Urine Negative Negative LAB URINALYSIS - AUTOMATED METHOD 04/26/2024 10:54 AM [facility] Protein, Urine Negative <=Trace mg/dL LAB URINALYSIS - AUTOMATED METHOD 04/26/2024 10:54 AM [facility] Glucose, Urine Negative Negative mg/dL LAB URINALYSIS - AUTOMATED METHOD 04/26/2024 10:54 AM [facility] Ketones, Urine Negative Negative mg/dL LAB URINALYSIS - AUTOMATED METHOD 04/26/2024 10:54 AM [facility] Urobilinogen, Urine 0.2 0.2 - 1.0 mg/dL LAB URINALYSIS - AUTOMATED METHOD 04/26/2024 10:54 AM [facility] Bilirubin, Urine Negative Negative LAB URINALYSIS - AUTOMATED METHOD 04/26/2024 10:54 AM [facility] Blood, Urine Negative Negative LAB URINALYSIS - AUTOMATED METHOD 04/26/2024 10:54 AM [facility] RBC, Urine 1.8 0 - 4 /HPF LAB URINALYSIS - AUTOMATED METHOD 04/26/2024 10:54 AM [facility] WBC, Urine 3.3 0 - 4 /HPF LAB URINALYSIS - AUTOMATED METHOD 04/26/2024 10:54 AM [facility] Squamous Epithelial, Urine 44 0 - 60 /LPF LAB URINALYSIS - AUTOMATED METHOD 04/26/2024 10:54 AM [facility] Bacteria, Urine Negative Negative /HPF LAB URINALYSIS - AUTOMATED METHOD 04/26/2024 10:54 AM [facility] Hyaline Casts, Urine 0.4 0 - 3 /LPF LAB URINALYSIS - AUTOMATED METHOD 04/26/2024 10:54 AM [facility] Urine Urine specimen obtained by clean catch procedure / Unknown Non-blood Collection / Unknown 04/26/2024 10:00 AM EST 04/26/2024 10:47 AM EST Chelita SHEIKH LAB URINE ORDERABLES Final R esult [facility] [address] [place] [address], [place] [phone] * Steele urine culture tube (04/26/2024 10:00 AM EST) Extra Tube Hold for add-ons. 04/26/2024 12:01 PM [facility] Comment:Auto resulted. Urine Urine specimen obtained by clean catch procedure / Unknown Non-blood Collection / Unknown 04/26/2024 10:00 AM EST 04/26/2024 10:47 AM EST us Chelita SHEIKH LAB URINE ORDERABLES Final R esult [facility] [address] [place] [address], [place] [phone] * Prothrombin time with INR (04/26/2024 10:00 AM EST) Protime 12.3 10.6 - 13.9 sec LAB COAGULATION METHOD 04/26/2024 11:11 AM [facility] INR 1.0 LAB COAGULATION METHOD 04/26/2024 11:11 AM [facility] Blood Venous blood specimen / Unknown Venipuncture / Unknown 04/26/2024 10:00 AM EST 04/26/2024 10:47 AM EST us Chelita SHEIKH LAB BLOOD ORDERABLES Final R esult [facility] [address] [place] [address], [place] [phone] * Type and screen (04/26/2024 10:00 AM EST) ABO Group O 04/26/2024 4:39 PM EST [facility] Rh Type Positive 04/26/2024 4:39 PM EST [facility] Antibody Screen Negative 04/26/2024 4:39 PM EST [facility] Blood Venous blood specimen / Unknown Venipuncture / Unknown 04/26/2024 10:00 AM EST 04/26/2024 10:46 AM EST us Chelita SHEIKH LAB BLOOD BANK TEST ORDERABL ES Final Result Performing Organization Address [facility]/ZIP Co de Phone Number [facility] [address] [place] [address], [place] [phone] * Culture urine (04/26/2024 10:00 AM EST) Culture, Urine No growth 04/27/2024 10:31 AM EST [facility] Urine Urine specimen obtained by clean catch procedure / Unknown Non-blood Collection / Unknown 04/26/2024 10:00 AM EST 04/26/2024 10:54 AM EST us Chelita SHEIKH LAB MICROBIOLOGY - GENERAL O RDERABLES Final Result [facility] [address] [place] [address], [place] [phone] * ECG 12 lead (04/26/2024 9:43 AM EST) [facility] Ventricular Rate ECG 77 BPM GEMUSE Atrial Rate 77 BPM GEMUSE P-R Interval 144 ms GEMUSE QRS Duration 84 ms GEMUSE Q-T Interval 366 ms GEMUSE QTc 414 ms GEMUSE P Wave [place] 57 degrees GEMUSE R [place] 38 degrees GEMUSE T [place] 53 degrees GEMUSE ECG Interpretation Normal sinus rhythm Normal ECG No previous ECGs available Confirmed by MD Sierra Christopher ([id number]) on 04/26/2024 9:51:59 PM GEMUSE 04/26/2024 9:43 AM EST 04/26/2024 9:51 PM EST Result [facility] Chelita SHEIKH ECG ORDERABLES Final Result GEMUSE * External clinical lab (03/19/2024) Result [facility] LAB BLOOD ORDERABLES Fin al Result * (ABNORMAL) Lipid panel (10/06/2023) [facility] LDL/HDL Ratio 4 0 - 4 Triglycerides 121 0 - 150 mg/dL Cholesterol 193 0 - 200 mg/dL HDL 51 >=40 mg/dL LDL Cholesterol 118(A) 0 - 100 mg/dL Blood Venous blood specimen / Unknown Result [facility] Provider LAB BLOOD ORDERABLES Gabbi l Result * HIV Screening (12/24/2010) [facility] HIV Screening abstracted Result [facility] Historical Provider HEALTH MAINTENANCE Final Result * Pap Smear (12/24/2010) [facility] Pap smear abstracted, no interpretation Result [facility] Provider HEALTH MAINTENANCE Final Result * Hepatitis C Screening (05/27/2009) [facility] Hepatitis C Screening abstracted Result [facility] Zarina MENDOZA HEALTH MAINTENANCE Final Result from Last 3 Months or Most Recently Relevant to Health Maintenance Insurance [facility] Advance Directives * Full Code - Default [...] currently active code status orders. Care Teams Specimen Collector Relationship Specialty Start Date End Date Ofelia Layne FNP [address] [place] [phone] PCP - General Nurse Practitioner 04/18/24
--- OUTSIDE RECORDS SUMMARY | 2024-06-13 06:06 | XMS_ITS | Encounter Summary ---
Author Organization [facility] [place] [address] Care Team Providers Care Radio Personality Name Role Phone Ofelia Layne Primary Care Provider [phone] Reason for Visit * Reason Onset Date Comments Medication Problem 05/29/2024 Blood clots Encounter Details Date Type Department Care Team ([facility] Contact Info) Description 05/29/2024 Telephone Bariatric Surgery - [place] 175 [facility] [address] [place] [phone] Neida Mohan MD 175 [facility] [address] [place] [address] Medication Problem (Blood clots) Social History Tobacco [...] 10:30 AM EDT Telemedicine Bariatric Surgery - [place] [address] [phone] [address] 07/24/2024 11:15 AM EDT Office Visit Bariatric Surgery - [place] [address] [phone] Chelita Amador PA [address] [address] documented as of this encounter Visit Diagnoses Not on filedocumented in this encounter Care Teams Radio Personality Relationship Specialty Start Date End Date Ofelia Layne FNP [address] [place] [phone] PCP - General Nurse Practitioner 04/18/24 documented as of this encounter
--- OUTSIDE RECORDS SUMMARY | 2024-06-13 06:06 | XMS_ITS | Encounter Summary ---
Author Organization [facility] Address [address] [place] [address] Care Team Providers Care Sliver Lap Machine Tender Name Role Phone Ofelia Layne Primary Care Provider [phone] Reason for Visit * Reason Comments Post-op Visit [facility] 05/28 Encounter Details Date Type Department Care Team ([facility] st Contact Info) Description 06/12/2024 9:45 AM EDT Office Visit Bariatric Surgery - [place] 175 [facility] 120 [place] [phone] Chelita Amador PA 175 [facility] 120 [place], [place] [id number] Class 3 severe obesity due to excess [...] follow up s/p RORY molina/ Kimberlee at [facility] on 05/28/24. She is doing [...] 10:30 AM EDT Telemedicine Bariatric Surgery - [place] [address] [phone] [address] 07/24/2024 11:15 AM EDT Office Visit Bariatric Surgery - [place] [address] [phone] Chelita Amador PA [address] [address] documented as of this encounter Visit Diagnoses Diagnosis Class 3 severe obesity due to excess calories without serious comorbidity with body mass index (BMI) of 45.0 to 49.9 in adult- Primary Bariatric surgery status documented in this encounter Care Teams Sliver Lap Machine Tender Relationship Specialty Start Date End Date Ofelia Layne FNP [address] [place] [phone] PCP - General Nurse Practitioner 04/18/24 documented as of this encounter
--- NOTE | 2024-06-18 07:36 | MHC.SHP ---
Pre-Procedural Eval Section A - 24 Hr Update-Section A only Date of Service: 06/18/24 The patient is an INPATIENT: No Changes since office visit: Yes Patient answered all questions The patient has been examined within 24 hours of the surgical procedure. The History & Physical has been completed within 30 days and I have reviewed it.: Yes Section B - Complete if H&P > 30 days Chief Complaint: Varicose veins of right lower extremity with infla Allergies: Allergies Allergy/AdvReac Type Severity Reaction Status Date / Time No Known Allergies Allergy Verified 06/12/24 15:03 Plan I have reviewed the history and physical and performed a pertinent physical examination on my patient. No changes have occurred unless specified. Time Spent With Patient Time: Total time managing care of this patient today ____ minutes.
[2024-06-18 07:59] VITALS: BP 133/82; PULSE 73; RESP 18; TEMP 36.6; O2SAT 98; BMI 47.1
[2024-06-18 08:14] LABS: UPreg QC Valid YES; Urine Pregnancy NEGATIVE (NEGATIVE)
[2024-06-18] MEDS: Lactated Ringers 1,000 ML 50 ML IVCONT (08:20)
--- NOTE | 2024-06-18 08:24 | P.CONAN_ITS ---
HPI - Anesthesia Eval Consult details Narrative: 38 yo female patient for Right leg microphlebectomy PMFSH Active Problems Active Problems: All Active Problems Varicose veins of right lower extremity with inflammation (Acute) Family history of breast cancer (Acute) Family history of colon cancer (Acute) Family history of brain cancer (Acute) Squamous cell carcinoma of anal skin (Acute) Embolism from superficial vein of left lower extremity (Acute) Status post phlebectomy (Acute) Bilateral low back pain with sciatica (Acute) Varicose veins of left lower extremity with inflammation (Acute) Encounter for well woman exam with routine gynecological exam (Acute) Encounter for general adult medical examination without abnormal findings (Acute) Blurred vision (Acute) Tinea versicolor (Acute) FLORINA (generalized anxiety disorder) (Acute) Cervical cancer screening (Acute) Varicose veins of both legs with edema (Acute) Morbid (severe) obesity due to excess calories (Acute) History of syphilis (Acute) ADRIÁN (obstructive sleep apnea) (Acute) Iron deficiency anemia (Acute) Vitamin D deficiency (Acute) H/o marijuana use Past Medical History Medical History Hx of phlebitis Pre-diabetes URI (upper respiratory infection) (04/09/24) Acute respiratory disease Labial lesion History of syphilis ADRIÁN (obstructive sleep apnea) Iron deficiency anemia Vitamin D deficiency Hypersomnia Edema Family History Family History Father HTN (hypertension) Cirrhosis Colon cancer Paternal Aunt History of breast cancer Paternal Grandmother Diabetes Maternal Grandmother Colon cancer Other FH: mental illness Hypercholesteremia Substance use Family history of problems with anesthesia: No Surgical History Surgical History Hx of bypass gastroenterostomy Hx of dilation and curettage History of Problems with Anesthesia: No Social History Social History Household Members: None Housing: Apartment Are you a primary vehicle care specialist to a significant other at home: No Do you presently have visiting nurse or other home services: No Comment: medicated Patient Tobacco Use Status: Former Tobacco user Tobacco use type: Cigarette Years Smoked: 26 quit 02/2023 e-Cigarette/Vaping Use: Never Used Second Hand Smoke Exposure: No Substance Use Type: Marijuana Have you been hit, kicked, punched, or otherwise hurt by someone within the past year? 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 Current occupational exposures/hazards: No Cognitive needs: No Hearing needs: No Vision needs: No Meds Allergies Allergy/AdvReac Type Severity Reaction Status Date / Time No Known Allergies Allergy Verified 06/12/24 15:03 Active Medications: Current Medications Lactated Ringer's (Lr) 1,000 mls @ 50 mls/hr IVCONT .Q20H SUKHWINDER Last Admin: 06/18/24 08:20 Dose: 50 mls/hr Cefazolin Sodium/Dextrose (Ancef) 2 gm in 50 mls @ 100 mls/hr IV PREOP ONE Stop: 06/18/24 08:26 Home Medications ?Medication ?Instructions ?Recorded ?Confirmed ?Last Taken ?Type cholecalciferol (vitamin D3) 1,250 1,250 mcg PO QWEEK 11/15/23 05/16/24 05/18/24 History mcg (50,000 unit) capsule ursodiol 300 mg capsule mg PO 06/12/24 06/18/24 History Exam Height,Weight and Vital Signs: Height 5 ft 7 in Weight 136.4 kg Last Vital Signs Temp 98 F 06/18/24 07:59 Pulse 73 06/18/24 07:59 Resp 18 06/18/24 07:59 BP 133/82 06/18/24 07:59 Pulse Ox 98 06/18/24 07:59 O2 Del Method Room Air 06/18/24 07:59 Pertinent Lab Results Pertinent Lab Results: Laboratory Tests 06/18/24 08:03 Urine Test NEGATIVE Airway Mallampati Class: II TM Dist: >3cm Neck ROM: Full Loose/Missing/Broken Teeth: Yes (Broken tooth bottom back right, missing some teeth. Denies loose teeth) Heart: RRR Lungs: CTAB Other: A couple of healing bruises noticed anterior chest wall near shoulder- patient states from cat previous day Assessment and Plan Assessment Anesthesia Assessment: Anesthesia Plan Discussed and Chart Reviewed Final Anesthetic Review Family History of Problems with Anesthesia: No History of Problems with Anesthesia: No NPO: Yes ASA Class: III Final Preanesthetic Review: No Changes in Pt Med Stat, Meds/Allgs Chart Reviewed, Consent Obtained/Reviewed and Anes Risks/Benef Reviewed Patient Risk: Intermediate Procedure Risk: Low Assessment/Block/Sedation in SS: Assess/Block/Sedation-SS Anesthetic Plan Anesthetic Plan: GA Disposition: Standard PACU
[2024-06-18] MEDS: Acetaminophen 1,000 MG/100 ML PIGGYBACK 400 MG IV (10:00)
[2024-06-18] MEDS: ceFAZolin Sodium/Dextrose,Iso 2 GM/50 ML PIGGYBACK IV (10:00)
--- NOTE | 2024-06-18 11:01 | W.PM.OPN ---
Operative Note Operative Note Date of Service: 06/18/24 Narrative: Operative note by [facility] Preoperative diagnosis: Right leg varicose veins with inflammation Postoperative diagnosis: Same Procedure:1. Right leg microphlebectomy 2. Ligation of right leg venous cluster Surgeon:Fan Sy M.D. Bell Cleaner: Vesta SHEIKH Anesthesia: General Specimens: 1 Drains: None Estimated blood loss: 100 mL Procedure in detail: Varicose veins were marked in the standing position on the right leg and the patient was then placed in the supine position. The right lower extremity was prepared and draped to allow knee flexion in the sterile field. The patient had large superficial varicose veins with significant symptoms of pain. It was therefore determined to perform microphlebectomies of the clusters of varicose veins. The patient had bulging varicose veins which were previously marked in the standing position. A small stab incision was made longitudinally directly overlying the varicose vein in the calf and the varicose vein was grasped with a hemostat aided by a vein hook. It was then dissected as far proximally and distally as possible and avulsed. A total of 25 stab incisions were made and the procedure of stab phlebectomies was repeated 25 times. Once this was accomplished there was a cluster noted on the right medial thigh. We made an incision over the cluster and it was ligated. We got to the base and ligated this with a 3-0 silk tie. Residual varicosities was then removed. Hemostasis was checked and stab incision sites were closed with steri-strips and sterile dressing was given with gauze and krilex wrap followed by an galina bandage. There were no complications and blood loss was minimal. Post-Op instructions were given and a follow-up appointment was recommended. This note is constructed using voice recognition software. While every effort has been made to ensure accuracy, photography sales associate errors may have been included. Thank you for allowing me to participate in the care of your patient. Yours sincerely, Fan Sy MD, FACS, R.P.V.I.
[2024-06-18 11:06] VITALS: BP 100/44; PULSE 79; RESP 16; TEMP 36.4; O2SAT 98
[2024-06-18 11:11] VITALS: BP 91/45; PULSE 75; RESP 18; O2SAT 98
[2024-06-18] MEDS: fentaNYL citrate/PF 100 MCG/2 ML VIAL 25 MCG IVPUSH ×2 (11:11→11:16)
[2024-06-18 11:16] VITALS: BP 96/54; PULSE 70; RESP 14; RESP 15; O2SAT 97
[2024-06-18 11:21] VITALS: BP 115/64; PULSE 69; RESP 13; O2SAT 97
[2024-06-18] MEDS: oxyCODONE HCl Immed Release 5 MG TABLET PO (11:24)
[2024-06-18 11:36] VITALS: BP 105/78; PULSE 73; RESP 16; TEMP 36.6; O2SAT 94
== END 2024-06-18 12:38 | disposition home or self-care (01) ==
PROVIDERS: Anesthesiology; PCP Nurse Practitioner Family; Visit Provider Surgery Vascular Surgery
PROC: (CPT 37766; principal; 2024-06-18 09:30)
DX: I83.11 Varicose veins of right lower extremity with inflammation (principal); R73.03 Prediabetes; J06.9 Acute upper respiratory infection, unspecified; Z87.891 Personal history of nicotine dependence; R60.9 Edema, unspecified; I83.12 Varicose veins of left lower extremity with inflammation; Z98.890 Other specified postprocedural states; D50.9 Iron deficiency anemia, unspecified; E55.9 Vitamin D deficiency, unspecified; G47.33 Obstructive sleep apnea (adult) (pediatric); G47.10 Hypersomnia, unspecified; Z79.899 Other long term (current) drug therapy; Z98.84 Bariatric surgery status; Z86.19 Personal history of other infectious and parasitic diseases
CPT/HCPCS: 37766; 37785; 81025; 88304; J0131; J0690; J1100; J2003; J2250; J2405; J2704; J2795; J3010

== ENCOUNTER → 2024-06-18 07:46 | Outpatient (BNV) | payer OTHER, SELFPAY | PROVIDERS: PCP Nurse Practitioner Family; Visit Provider Surgery Vascular Surgery | DX: I83.11 Varicose veins of right lower extremity with inflammation (principal) | CPT/HCPCS: 37766; 37785 ==

== ENCOUNTER 2024-06-19 14:25 | Outpatient (AMB) | payer OTHER, SELFPAY ==
--- NOTE | 2024-06-19 14:02 | A.OFFVIS_ITS ---
Intake Visit Reasons: Post op bleeding s/p Micro 06/18/24 Intake Note: Right LE Micro 06/18/24 and had some bleeding through and bandage was rolling, needs new bandage Mopper Required: No Accompanied by: Self / Same As Patient Allergies No Known Allergies Allergy (Verified 06/19/24 14:13) HPI HPI Post op bleeding s/p Micro 06/18/24: Details: Katja is presenting today s/p right microphlebectomy yesterday in the OR. She states this morning the wraps have been rolling down and some of the steri- strips have fallen off. There is some bleeding noted on a couple of the incision sites. She states she is feeling well after the procedure, better than when we did the left leg. She has not showered. [facility] Medical History Hx of phlebitis Pre-diabetes URI (upper respiratory infection) (04/09/24) Acute respiratory disease Labial lesion History of syphilis ADRIÁN (obstructive sleep apnea) Iron deficiency anemia Vitamin D deficiency Hypersomnia Edema Surgical History Hx of bypass gastroenterostomy Hx of dilation and curettage Family History Father HTN (hypertension) Cirrhosis Colon cancer Paternal Aunt History of breast cancer Paternal Grandmother Diabetes Maternal Grandmother Colon cancer Other FH: mental illness Hypercholesteremia Substance use Social History Household Members: None Caregiver staying overnight: No Housing: Apartment Are you a primary resident care manager rn to a significant other at home: No Do you presently have visiting nurse or other home services: No 75 years or older and lives alone: No Comment: medicated Patient Tobacco Use Status: Former Tobacco user Tobacco use type: Cigarette Years Smoked: 26 quit 02/2023 e-Cigarette/Vaping Use: Never Used Second Hand Smoke Exposure: No Substance Use Type: Marijuana service: No Current occupational status: employed 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 Current occupational exposures/hazards: No Cognitive needs: No Hearing needs: No Vision needs: No Review of Systems Const Reports as per HPI and Denies weakness ENT Reports Normal hearing present and Denies dizziness Card Reports as per HPI, Denies chest pain, Denies chest pain at rest, Denies chest pain with activity, Denies dyspnea and Denies dyspnea on exertion Resp Reports as per HPI, Denies cough, Denies dyspnea and Denies dyspnea on exertion GI Reports as per HPI, Denies abdominal pain, Denies nausea and Denies vomiting Musc Denies numbness Skin/Breast Reports as per HPI, Denies erythema and Denies wounds Neuro Reports Normal hearing present, Denies dizziness, Denies numbness, Denies Sensory deficit (Neuro) and Denies weakness Psych Reports no additional complaints Endo Reports no additional complaints Physical Exam Const General: healthy appearing and no acute distress Orientation/consciousness: patient oriented x3 HEENT Head: Yes normal to inspection Ears: hearing grossly normal bilaterally Mouth: Normal oral and palatal mucosa present Resp Effort & Inspection: normal respiratory effort and able to speak in complete sentences Auscultation: clear to auscultation bilaterally Cardio Jugular venous distension: no JVD Rate: regular rate Rhythm: regular rhythm Heart sounds: S1 normal heart sound present and S2 normal heart sound present Bruits: no abdominal aortic bruits, no carotid bruits, no femoral bruits and no renal bruits Peripheral pulses: Peripheral pulses 2+ throughout GI Inspection: Yes normal to inspection Palpation (GI): No Abdominal aortic bruit present Skin General skin exam: no rashes or lesions noted Wounds: no wounds Hair: normal Neuro General: patient oriented x3 Cranial nerves: Yes Normal hearing present Cognition (Neuro): normal cognition Gait exam (Neuro): Normal gait present Motor exam (neuro): 5/5 motor strength present throughout Sensory Exam: No Sensory deficit (Neuro) Extrem Other: Right lower extremity: Most steri strips in place. 3 incisions, one on the upper medial thigh, one on the anterior calf, and another on the lower medial calf, the steri strips are off. Slight bleeding noted on the upper medial thigh incision site; pressure applied and the bleeding stopped. Steri-strips reapplied. Several areas of bruising noted around the incision sites. General: Yes normal to inspection, Yes full ROM, Yes capillary refill normal and Yes normal gait Assessment & Plan Assessment & Plan (1) Status post phlebectomy: Code(s): Z98.890 - Other specified postprocedural states Category: Surgical Plan: Katja is s/p right lower extremity microphlebectomy yesterday in the OR. She states that today the wraps were rolling down and that she noticed some of the steri strips fell off and there was a little bleeding noted on the bandages. I was able to replace the 3 steri strips that had fallen off. I was able to re- wrap her leg with Kerlix and Artemio bandage. She states she felt much better after the wrap. I discussed with her to keep the wraps on til at least tomorrow afternoon if she can, and then she can take them down and shower. I discussed with her that the steri-strips will likely fall off on their own in about 5-7 days. If she has any other bleeding/concerns, she can reach back out to us. She has a follow up appt in 2w. If there are any questions or concerns, please do not hesitate to reach out to us. Medications: Discontinued bupropion HCl SR Discontinued Reason: Patient Completed Course 200 mg PO BID 90 days 180 tabs 1RF Coding Level of Care Code Est Pt Level 3 (23312) Diagnoses Status post phlebectomy Z98.890
--- OUTSIDE RECORDS SUMMARY | 2024-06-19 17:39 | XMS_ITS | Encounter Summary ---
Author Organization [facility] [place] [address] Care Team Providers Care Curb And Gutter Laborer Name Role Phone Ofelia Layne Primary Care Provider [phone]- [phone] Reason for Visit * Reason Onset Date Comments Medication Problem 05/29/2024 Blood clots Encounter Details Date Type Department Care Team ([facility] Contact Info) Description 05/29/2024 Telephone Bariatric Surgery - [place] 175 [facility] [address] [place] [phone] Neida Mohan MD 175 [facility] 120 [place] [address] Medication Problem (Blood clots) Social History Tobacco [...] 10:30 AM EDT Telemedicine Bariatric Surgery - [place] [address] [phone] [address] 07/24/2024 11:15 AM EDT Office Visit Bariatric Surgery - [place] [address] [phone] Chelita Amador PA [address] [address] documented as of this encounter Visit Diagnoses Not on filedocumented in this encounter Care Teams Curb And Gutter Laborer Relationship Specialty Start Date End Date Ofelia Layne FNP [address] [place] [address] PCP - General Nurse Practitioner 04/18/24 documented as of this encounter
--- OUTSIDE RECORDS SUMMARY | 2024-06-19 17:39 | XMS_ITS | Clinical Summary ---
Author Organization 175 [facility] Address [address] [place] [address] Phone Care Team Providers Care Data Processing Systems Consultant Name Role Phone LiudmilaYanetCaioOfelia garza YEYO Primary Care Provider [phone] Allergies No known active allergies Medications buPROPion [...] 02/06/20 025 Discontinued(St op Taking at Discharge) polyethylene glycol (MIRALAX) 17 gram packet Take 17 g by mouth 1 (one) time each day. 510 g 04/26/19 025 Discontinued Active Problems Problem Noted Date Diagnosed Date Morbid obesity ([facility] V24, [facility] V28) 2024 Class 3 severe obesity due t o excess calories without serious comorbidity with body mass index (BMI) of 45.0 to 49.9 in adult 12/02/2023 Seasonal allergies 08/21/2010 Tinea versicolor 05/13/2009 Overview (12/02/2023): Tinea Versicolor 05/14 right arm & back Scoliosis 10/29/2008 Backache 09/23/2005 Overview (12/02/2023): IMO update Encounters Date Type Department Care Team Description 06/12/2024 9:45 AM EDT Office Visit Bariatric Surgery - [address] [phone] Chelita Amador PA Class 3 severe obesity due to excess calories without serious comorbidity with body mass index (BMI) of 45.0 to 49.9 in adult (Primary Dx); Bariatric surgery status 06/05/2024 Telephone Bariatric Surgery [address] [phone] Neida Mohan MD Return to Work (Patient needs a return to work note) 06/04/2024 Telephone Bariatric Surgery - [address] [phone] Hilda Diehl, RN 05/29/2024 Telephone Bariatric Surgery - [address] [phone] Neida Mohan MD Medication Problem (Blood clots) 05/28/2024 7:35 AM EDT Anesthesia Event [facility] Main OR [address] [place] [address] Jersey Everett DO 05/28/2024 7:30 AM EDT - 05/28/2024 10:30 AM EDT Surgery [facility] OR [address] [place] [phone] Nieda Mohan MD DAVINCI ANASTOMOSIS DUODENOILEAL SINGLE (JACOB)-S [[id number] (CPT??)] 05/28/2024 5:54 AM EDT - 05/29/2024 12:10 PM EDT Hospital Encounter [facility] Medical Surgical Unit [address] [place] [phone] Neida Mohan MD Morbid obesity (CMS/[facility] V24, [facility] V28) Discharge Disposition: Home or Self Care 05/25/2024 Telephone Bariatric Surgery - [address] [phone] Hilda Diehl, RN 05/07/2024 Telephone Bariatric Surgery - [address] [phone] Neida Mohan MD Advice Only 05/02/2024 2:00 PM EST Telemedicine Bariatric Surgery - [address] [phone] Class 3 severe obesity with body mass index (BMI) of 50.0 to 59.9 in adult, unspecified obesity type, unspecified whether serious comorbidity present (CMS/HCC V24, CMS/[facility] V28) (Primary Dx) 04/26/2024 10:45 AM EST Consult Bariatric Surgery - [address] [phone] Chelita Amador PA Class 3 severe obesity due to excess calories with body mass index (BMI) of 50.0 to 59.9 in adult, unspecified whether serious comorbidity present ([facility] V24, [facility] V28) (Primary Dx) 04/26/2024 10:25 AM EST - 04/26/2024 11:59 PM EST Hospital Encounter [facility] Xray [address] [place] [phone] Discharge Disposition: Home or Self Care 04/23/2024 Telephone Bariatric Surgery [address] [phone] Neida Mohan MD Advice Only (Pre admission testing) 04/02/2024 3:30 PM EST Office Visit Bariatric Surgery - [address] [phone] Chelita Amador PA Class 3 severe obesity due to excess calories with body mass index (BMI) of 50.0 to 59.9 in adult, unspecified whether serious comorbidity present ([facility] V24, [facility] V28) (Primary Dx) from Last 3 Months Immunizations [...] 2024 10:30 AM EDT Telemedicine Bariatric Surgery [facility] [address] [phone] [address] 07/24/2024 11:15 AM EDT Office Visit Bariatric Surgery [facility] [address] [phone] Chelita Amador PA [address] [address] Health Maintenance Due Date Last Done Comments [...] Routine 05/28/2024 10:03 AM EDT Morbid obesity (CMS/HCC V24, CMS/HCC V28) [place] UNLISTED PROCEDURE LAPAROSCOPIC STOMACH 05/28/2024 7:33 AM EDT Morbid obesity (CMS/HCC V24, CMS/HCC V28) POC , URINE DIAGNOSTIC Routine 05/28/2024 6:10 AM EDT XR CHEST 2 VIEWS Routine 04/26/2024 10:2 8 AM EST Class 3 severe obesity due to excess calories with body mass index (BMI) of 50.0 to 59.9 in adult, unspecified whether serious comorbidity present (CMS/HCC V24, CMS/HCC V28) CBC WITH AUTO DIFFERENTIAL Routine 04/26/2024 10:00 AM EST Class 3 severe obesity due to excess calories with body mass index (BMI) of 50.0 to 59.9 in adult, unspecified whether serious comorbidity present (CMS/HCC V24, CMS/HCC V28) STEELE URINE CULTURE TUBE Routine 04/26/2024 10:00 AM EST Class 3 severe obesity due to excess calories with body mass index (BMI) of 50.0 to 59.9 in adult, unspecified whether serious comorbidity present (CMS/HCC V24, CMS/HCC V28) URINALYSIS WITH REFLEX MICROSCOPIC AND CULTURE Routine 04/26/2024 10:00 AM EST Class 3 severe obesity due to excess calories with body mass index (BMI) of 50.0 to 59.9 in adult, unspecified whether serious comorbidity present (CMS/HCC V24, CMS/HCC V28) CBC AND DIFFERENTIAL Routine 04/26/2024 10:00 AM EST Class 3 severe obesity due to excess calories with body mass index (BMI) of 50.0 to 59.9 in adult, unspecified whether serious comorbidity present (CMS/HCC V24, CMS/HCC V28) BASIC METABOLIC PANEL Routine 04/26/2024 10:00 AM EST Class 3 severe obesity due to excess calories with body mass index (BMI) of 50.0 to 59.9 in adult, unspecified whether serious comorbidity present (CMS/HCC V24, CMS/HCC V28) MAGNESIUM Routine 04/26/2024 10:00 AM EST Class 3 severe obesity due to excess calories with body mass index (BMI) of 50.0 to 59.9 in adult, unspecified whether serious comorbidity present (CMS/HCC V24, CMS/HCC V28) PROTHROMBIN TIME WITH INR Routine 04/26/2024 10:00 AM EST Class 3 severe obesity due to excess calories with body mass index (BMI) of 50.0 to 59.9 in adult, unspecified whether serious comorbidity present (CMS/HCC V24, CMS/HCC V28) TYPE AND SCREEN Routine 04/26/2024 10:00 AM EST Class 3 severe obesity due to excess calories with body mass index (BMI) of 50.0 to 59.9 in adult, unspecified whether serious comorbidity present (CMS/HCC V24, CMS/HCC V28) URINALYSIS WITH REFLEX MICROSCOPIC AND CULTURE Routine 04/26/2024 10:00 AM EST Class 3 severe obesity due to excess calories with body mass index (BMI) of 50.0 to 59.9 in adult, unspecified whether serious comorbidity present (CMS/HCC V24, CMS/HCC V28) CULTURE URINE Routine 04/26/2024 10:00 AM EST Class 3 severe obesity due to excess calories with body mass index (BMI) of 50.0 to 59.9 in adult, unspecified whether serious comorbidity present (CMS/HCC V24, CMS/HCC V28) ECG 12-LEAD Routine 04/26/2024 9:43 AM EST Class 3 severe obesity due to excess calories with body mass index (BMI) of 50.0 to 59.9 in adult, unspecified whether serious comorbidity present (CMS/HCC V24, CMS/HCC V28) LIPID PANEL Routine 10/06/2023 HIV SCREENING Routine 12/24/2010 PAP SMEAR Routine 12/24/2010 HEPATITIS C SCREENING Routine 05/27/2009 from Last 3 Months or Most Recently Relevant to Health Maintenance Results * (ABNORMAL) CBC auto differential (05/29/2024 6:38 AM EDT) Only the most recent of2 resultswithin the time period is included. WBC 10.7 4.8 - 10.8 K/mcL LAB HEMETOLOGY METHOD 05/29/2024 7:09 AM [facility] RBC 4.00 3.80 - 4.80 M/mcL LAB HEMETOLOGY METHOD 05/29/2024 7:09 AM [facility] Hemoglobin 11.9 11.5 - 16.0 g/dL LAB HEMETOLOGY METHOD 05/29/2024 7:09 AM [facility] Hematocrit 37.5 35.0 - 47.0 % LAB HEMETOLOGY METHOD 05/29/2024 7:09 AM [facility] MCV 93.8 79.0 - 98.0 FL LAB HEMETOLOGY METHOD 05/29/2024 7:09 AM [facility] MCH 29.8 27.0 - 32.0 pcg LAB HEMETOLOGY METHOD 05/29/2024 7:09 AM [facility] MCHC 31.7(L) 32.0 - 37.0 g/dL LAB HEMETOLOGY METHOD 05/29/2024 7:09 AM [facility] RDW 13.2 11.0 - 15.0 % LAB HEMETOLOGY METHOD 05/29/2024 7:09 AM [facility] Platelets 194 130 - 400 K/mcL LAB HEMETOLOGY METHOD 05/29/2024 7:09 AM [facility] MPV 9.5 7.0 - 11.0 FL LAB HEMETOLOGY METHOD 05/29/2024 7:09 AM [facility] NRBC 0.0 <1.0 % LAB HEMETOLOGY METHOD 05/29/2024 7:09 AM [facility] NRBC Absolute 0.00 <0.10 K/mcL LAB HEMETOLOGY METHOD 05/29/2024 7:09 AM [facility] Neutrophils Relative 70.8 % LAB HEMETOLOGY METHOD 05/29/2024 7:09 AM [facility] Lymphocytes Relative 19.0 % LAB HEMETOLOGY METHOD 05/29/2024 7:09 AM [facility] Monocytes Relative 9.0 % LAB HEMETOLOGY METHOD 05/29/2024 7:09 AM [facility] Eosinophils Relative 0.4 % LAB HEMETOLOGY METHOD 05/29/2024 7:09 AM [facility] Basophils Relative 0.3 % LAB HEMETOLOGY METHOD 05/29/2024 7:09 AM [facility] Immature Granulocytes Relative 0.5 % LAB HEMETOLOGY METHOD 05/29/2024 7:09 AM [facility] Neutrophils Absolute 7.60(H) 1.50 - 7.00 K/mcL LAB HEMETOLOGY METHOD 05/29/2024 7:09 AM [facility] Lymphocytes Absolute 2.04 1.00 - 5.00 K/mcL LAB HEMETOLOGY METHOD 05/29/2024 7:09 AM [facility] Monocytes Absolute 0.97 0.20 - 1.00 K/mcL LAB HEMETOLOGY METHOD 05/29/2024 7:09 AM [facility] Eosinophils Absolute 0.04 0.00 - 0.50 K/mcL LAB HEMETOLOGY METHOD 05/29/2024 7:09 AM EDT [facility] Basophils Absolute 0.03 0.00 - 0.20 K/mcL LAB HEMETOLOGY METHOD 05/29/2024 7:09 AM EDT [facility] Immature Granulocytes Absolute 0.05(H) 0.00 - 0.03 K/mcL LAB HEMETOLOGY METHOD 05/29/2024 7:09 AM EDT [facility] Blood Venous blood specimen / Unknown Venipuncture / Unknown 05/29/2024 6:38 AM EDT 05/29/2024 6:48 AM EDT Chelita SHEIKH LAB BLOOD ORDERABLES Final R [facility] Performing Organization Address [facility]/ZIP Co de Phone Number [facility] [address] [place] [address], * Magnesium (05/29/2024 6:38 AM EDT) Only the most recent of2 resultswithin the time period is included. Magnesium 2.2 1.9 - 2.6 mg/dL LAB CHEMISTRY METHOD 05/29/2024 7:21 AM EDT [facility] Blood Venous blood specimen / Unknown Venipuncture / Unknown 05/29/2024 6:38 AM EDT 05/29/2024 6:48 AM EDT us Chelita SHEIKH LAB BLOOD ORDERABLES Final R esult [facility] [address] [place] [address], [place] [phone] * (ABNORMAL) Basic metabolic panel (05/29/2024 6:38 AM EDT) Only the most recent of2 resultswithin the time period is included. Sodium 137 133 - 145 mmol/L LAB CHEMISTRY METHOD 05/29/2024 7:21 AM [facility] Potassium 3.9 3.5 - 5.5 mmol/L LAB CHEMISTRY METHOD 05/29/2024 7:21 AM [facility] Chloride 106 96 - 110 mmol/L LAB CHEMISTRY METHOD 05/29/2024 7:21 AM [facility] CO2 26 21 - 32 mmol/L LAB CHEMISTRY METHOD 05/29/2024 7:21 AM [facility] Anion Gap 5 3 - 11 LAB CHEMISTRY METHOD 05/29/2024 7:21 AM [facility] Glucose 109(H) 70 - 100 mg/dL LAB CHEMISTRY METHOD 05/29/2024 7:21 AM [facility] BUN 8 5 - 25 mg/dL LAB CHEMISTRY METHOD 05/29/2024 7:21 AM [facility] Creatinine 0.70 0.50 - 1.10 mg/dL LAB CHEMISTRY METHOD 05/29/2024 7:21 AM [facility] eGFR 114 >=60 mL/min/1. 73m2 LAB CHEMISTRY METHOD 05/29/2024 7:21 AM [facility] Comment:Calculation based on the??Chronic Kidney Disease Epidemiology Collaboration (CKD-EPI) equation refit??without adjustment for race. BUN/Creatinine Ratio 11.4 LAB CHEMISTRY METHOD 05/29/2024 7:21 AM [facility] Calcium 8.5 8.5 - 10.5 mg/dL LAB CHEMISTRY METHOD 05/29/2024 7:21 AM [facility] Blood Venous blood specimen / Unknown Venipuncture / Unknown 05/29/2024 6:38 AM EDT 05/29/2024 6:48 AM EDT us Chelita SHEIKH LAB BLOOD ORDERABLES Final R esult [facility] [address] [place] [address], [place] [phone] * Tissue exam (05/28/2024 10:03 AM EDT) Final Diagnosis A. Stomach, partial gastrectomy: - Portion of stomach with no specific pathologic changes. 05/29/2024 12:29 PM EDT [facility] Gross Description A. Stomach, : [...] to the staple lines is inked black. Columnist sections are submitted in one cassette, including a perpendicular section to the margin and random stomach, three pieces. DELPHINE 05/29/2024 12:29 PM EDT [facility] Disclaimer Unless otherwise specified, all tissue is 10% NB formalin fixed and paraffin embedded. 05/29/2024 12:29 PM EDT [facility] Tissue Stomach structure / Unknown 05/28/2024 10:03 AM EDT 05/28/2024 11:13 AM EDT us Neida Mohan MD LAB PATHOLOGY ORDERABLES Fin al Result [facility] [address] [place] [address], [place] [phone] * POC , urine manually resulted (05/28/2024 [...] 04/26/2024 10:34 AM EST Normal examination. Code 64006 -------- FINAL REPORT -------- Dictated By: Billy Kam Dictated Date: 04/26/2024 10:33 ET Assigned Physician: Billy Kam Reviewed and Electronically Signed By: Billy Kam Signed Date: 04/26/2024 10:34 ET Workstation ID: [id number] Transcribed By: Self Edit Transcribed Date: 04/26/2024 [...] angles are clear. IMPRESSION: Normal examination. Code 73556 -------- FINAL REPORT -------- Dictated By: Billy Kam Dictated Date: 04/26/2024 10:33 ET Assigned Physician: Billy Kam Reviewed and Electronically Signed By: Billy Kam Signed Date: 04/26/2024 10:34 ET Workstation ID: [id number] Transcribed By: Self Edit Transcribed Date: 04/26/2024 10:33 ET us Chelita Amador PA IMG XR PROCEDURES Final Resu lt * (ABNORMAL) Urinalysis with reflex microscopic and culture (04/26/2024 10:00 AM EST) Specific [place] Urine 1.012 1.003 - 1.030 LAB URINALYSIS - AUTOMATED METHOD 04/26/2024 10:[address] [facility] pH, Urine 6.0 5.0 - 8.0 pH LAB URINALYSIS - AUTOMATED METHOD 04/26/2024 10:[address] [facility] Leukocytes, Urine Trace(A) Negative LAB URINALYSIS - AUTOMATED METHOD 04/26/2024 10:[address] [facility] Nitrite, Urine Negative Negative LAB URINALYSIS - AUTOMATED METHOD 04/26/2024 10:[address] [facility] Protein, Urine Negative <=Trace mg/dL LAB URINALYSIS - AUTOMATED METHOD 04/26/2024 10:[address] [facility] Glucose, Urine Negative Negative mg/dL LAB URINALYSIS - AUTOMATED METHOD 04/26/2024 10:[address] [facility] Ketones, Urine Negative Negative mg/dL LAB URINALYSIS - AUTOMATED METHOD 04/26/2024 10:[address] [facility] Urobilinogen, Urine 0.2 0.2 - 1.0 mg/dL LAB URINALYSIS - AUTOMATED METHOD 04/26/2024 10:[address] [facility] Bilirubin, Urine Negative Negative LAB URINALYSIS - AUTOMATED METHOD 04/26/2024 10:[address] [facility] Blood, Urine Negative Negative LAB URINALYSIS - AUTOMATED METHOD 04/26/2024 10:[address] [facility] RBC, Urine 1.8 0 - 4 /HPF LAB URINALYSIS - AUTOMATED METHOD 04/26/2024 10:[address] [facility] WBC, Urine 3.3 0 - 4 /HPF LAB URINALYSIS - AUTOMATED METHOD 04/26/2024 10:[address] [facility] Squamous Epithelial, Urine 44 0 - 60 /LPF LAB URINALYSIS - AUTOMATED METHOD 04/26/2024 10:[address] [facility] Bacteria, Urine Negative Negative /HPF LAB URINALYSIS - AUTOMATED METHOD 04/26/2024 10:[address] [facility] Hyaline Casts, Urine 0.4 0 - 3 /LPF LAB URINALYSIS - AUTOMATED METHOD 04/26/2024 10:[address] [facility] Urine Urine specimen obtained by clean catch procedure / Unknown Non-blood Collection / Unknown 04/26/2024 10:00 AM EST 04/26/2024 10:47 AM EST Chelita SHEIKH LAB URINE ORDERABLES Final R esult Performing Organization Address [facility]/ZIP Co de Phone Number [facility] [address] [place] [address], [place] [phone] * Steele urine culture tube (04/26/2024 10:00 AM EST) Extra Tube Hold for add-ons. 04/26/2024 12:[address] [facility] Comment:Auto resulted. Urine Urine specimen obtained by clean catch procedure / Unknown Non-blood Collection / Unknown 04/26/2024 10:00 AM EST 04/26/2024 10:47 AM EST Chelita SHEIKH LAB URINE ORDERABLES Final R esult Performing Organization Address [facility]/ZIP Co de Phone Number [facility] [address] [place] [address], [place] [phone] * Prothrombin time with INR (04/26/2024 10:00 AM EST) Protime 12.3 10.6 - 13.9 sec LAB COAGULATION METHOD 04/26/2024 11:[address] [facility] INR 1.0 LAB COAGULATION METHOD 04/26/2024 11:11 AM EST [facility] Blood Venous blood specimen / Unknown Venipuncture / Unknown 04/26/2024 10:00 AM EST 04/26/2024 10:47 AM EST us Chelita SHEIKH LAB BLOOD ORDERABLES Final R esult Performing Organization Address [facility] Co de Phone Number [facility] [address] [place] [address], [place] [phone] * Type and screen (04/26/2024 10:00 AM EST) ABO Group O 04/26/2024 4:39 PM EST [facility] Rh Type Positive 04/26/2024 4:39 PM EST [facility] Antibody Screen Negative 04/26/2024 4:39 PM EST [facility] Blood Venous blood specimen / Unknown Venipuncture / Unknown 04/26/2024 10:00 AM EST 04/26/2024 10:46 AM EST us Chelita SHEIKH LAB BLOOD BANK TEST ORDERABL ES Final Result Performing Organization Address [facility] de Phone Number [facility] [address] [place] [address], [place] [phone] * Culture urine (04/26/2024 10:00 AM EST) Culture, Urine No growth 04/27/2024 10:31 AM EST [facility] Urine Urine specimen obtained by clean catch procedure / Unknown Non-blood Collection / Unknown 04/26/2024 10:00 AM EST 04/26/2024 10:54 AM EST us Chelita SHEIKH LAB MICROBIOLOGY - GENERAL O RDERABLES Final Result Performing Organization Address [facility] Co de Phone Number [facility] [address] [place] [address], * ECG 12 lead (04/26/2024 9:43 AM EST) Pathologist [facility] Ventricular Rate ECG 77 BPM GEMUSE Atrial Rate 77 BPM GEMUSE P-R Interval 144 ms GEMUSE QRS Duration 84 ms GEMUSE Q-T Interval 366 ms GEMUSE QTc 414 ms GEMUSE P Wave [place] 57 degrees GEMUSE R [place] 38 degrees GEMUSE T [place] 53 degrees GEMUSE ECG Interpretation Normal sinus rhythm Normal ECG No previous ECGs available Confirmed by MD Sierra Christopher ([id number]) on 04/26/2024 9:51:59 PM GEMUSE 04/26/2024 9:43 AM EST 04/26/2024 9:51 PM EST Chelita SHEIKH ECG ORDERABLES Final Result GEMUSE * (ABNORMAL) Lipid panel (10/06/2023) Pathologist [facility] LDL/HDL Ratio 4 0 - 4 Triglycerides 121 0 - 150 mg/dL Cholesterol 193 0 - 200 mg/dL HDL 51 >=40 mg/dL LDL Cholesterol 118(A) 0 - 100 mg/dL Blood Venous blood specimen / Unknown Result [facility] Historical Provider LAB BLOOD ORDERABLES Gabbi l Result * HIV Screening (12/24/2010) [facility] HIV Screening abstracted Historical Provider HEALTH MAINTENANCE Final Result * Pap Smear (12/24/2010) [facility] Pap smear abstracted, no interpretation Result [facility] Historical Provider HEALTH MAINTENANCE Final Result * Hepatitis C Screening (05/27/2009) Pathologist [facility] Hepatitis C Screening abstracted Result [facility] Provider HEALTH MAINTENANCE Final Result from Last 3 Months or Most Recently Relevant to Health Maintenance Insurance [facility] Advance Directives * Full Code - [...] currently active code status orders. Care Teams Data Processing Systems Consultant Relationship Specialty Start Date End Date Ofelia Layne FNP [address] [place] [address] PCP - General Nurse Practitioner 04/18/24
== END 2024-06-19 14:29 | disposition home or self-care (01) ==
LOC: HO.HVS 14:25
PROVIDERS: PCP Nurse Practitioner Family; Visit Provider Physician Assistant Surgical
DX: Z98.890 Other specified postprocedural states (principal)
CPT/HCPCS: 99024

== ENCOUNTER → 2024-06-19 14:25 | Outpatient (BNVA) | payer OTHER, SELFPAY | PROVIDERS: PCP Nurse Practitioner Family; Visit Provider Physician Assistant Surgical | DX: Z48.812 Encounter for surgical aftercare following surgery on the circulatory system (principal); Z98.890 Other specified postprocedural states | CPT/HCPCS: 99212 ==

== ENCOUNTER 2024-07-24 14:28 | Outpatient (AMB) | payer OTHER, SELFPAY ==
--- NOTE | 2024-07-24 15:50 | A.OFFPC_ITS ---
Vital Signs 07/24/24 16:34 Height 5 ft 7 in Weight 282 lb BMI 44.2 Intake Visit Reasons: gas examiner referral Intake Note: Telehealth Patient c/o not being able to sit or walk straight after losing weight and patient also is in need of a referral for gas examiner. Cytology Technologist Required: No Allergies No Known Allergies Allergy (Verified 07/24/24 15:53) Medication List - Last Reconciled 07/24/24 by YEYO Beckham-ANNA acetaminophen 1,000 mg (2 x 500 mg) PO Q6H PRN bupropion HCl XL (Wellbutrin XL) 300 mg PO QAM bupropion HCl XL (Wellbutrin XL) 150 mg PO QAM cholecalciferol (vitamin D3) 1,250 mcg PO QWEEK ursodiol mg PO Tobacco use date assessed: 07/24/24 Dental Screening Dental Screen Date: 07/24/24 Did you have a dental visit in the last 12 months?: Yes Did you have a dental problem in the last 6 months where you did not have access to dental care?: No Was dental information given to patient?: Patient has dentist HPI HPI Comments History of Present Illness Details 39-year-old female with scoliosis, seaso nal allergies, former smoker, obesity, varicose veins in BLE, generalized anxiety disorder, family hx of breast ca/colon ca/brain ca, 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) family history: father() alcohol abuse + bipolar, paternal grandmother diabetes, maternal grandmother colon cancer, maternal aunt breast cancer, maternal aunt brain cancer s/p gastric bypass 2024, s/p phlebectomy of lower ext, excision of squamous cell ca of skin 04/2024 Health Maintenance: Tdap 10/04/23 [place] [facility] [place] clinic at [facility] GEOSPATIAL SCIENTIST vascular Derm History of Present Illness - The patient is a 39-year-old female pr esenting with complaints of acute on chronic lower back pain and chronic skin rash. - There has been significant weight loss over the past year attributed to bariatric surgery, losing over 100 pounds. - The lower back pain is continuous and is provoked by sitting, standing, and prolonged work-related activities. It is described as aching and challenging, especially during work hours. - The patient attempted non-prescriptive interventions such as waist trainers w/o relief Denies red flags assoc w/ back pain. - Past medical history includes treatmen t of Squamous Cell Carcinoma of skin & tinea versicolor. - Tinea rash is noted to spread, occurin g predominantly on the cheeks and between the breasts, has been treated w/ several oral and topical meds w/o relief; infact it is worse. She has been referred to [facility] 3 x and no appt has been secured. Unsure what is going on here. - The patient's obstructive sleep apnea has improved, with reduced snoring recorded; she remains attached to CPAP usage for comfort. - Lifestyle adjustments include dietary changes and increased physical activity, resulting in an overall increase in energy levels. Assessment and Plan 1. lower back pain The ongoing lower back pain will be managed with consideration for a recommended posture corrector and strengthening exercises targeting core stability. These steps are aimed to help alleviate postural strain due to surgery-associated anatomical changes. do pilates and core exercises 2. skin rash Due to the progression and spread of the papular rash, a more urgent referral has been made to restart dermatology consultation efforts promptly. The aim is to diagnose the rash conclusively and start appropriate treatment considering any delayed reaction to initial interventions. [place]where [place] that [place]t. 3. History of Squamous Cell Carcinoma There's been no evidence of recurrent carcinoma upon review. The plan includes continued annual follow-ups to closely monitor for any signs of recurrence 4. Weight loss post bariatric surgery The patient is continuing positive strides in lifestyle changes, which support maintaining a healthy weight post-surgery. Scheduled follow-ups with the weight management team are anticipated once the patient resolves scheduling conflicts. 5. Obstructive Sleep Apnea We recommend continued adherence to CPAP therapy even as symptoms improve, ensuring no regression in sleep apnea management efficacy. FU as scheduled or sooner as needed. Telehealth Attestation This visit was conducted via telehealth and all clinical information was verified and documented accurately. The patient has been explained that this is an interactive (audio/video) telehealth encounter and what that consists of. The patient understands and wishes to proceed. [employer] platform was used. Total time spent caring for the patient today was 21 minutes. This includes time spent before the visit reviewing the chart, time spent during the visit, and time spent after the visit on documentation, reviewing laboratory results, diagnostic imaging, medications, performing a medically necessary evaluation, counseling on diagnoses, care coordination, ordering appropriate tests, ordering appropriate medications, review of tests performed by other providers, reporting test results with the patient, communication with other healthcare providers. [facility] Medical History Hx of phlebitis Pre-diabetes URI (upper respiratory infection) (04/09/24) Acute respiratory disease Labial lesion History of syphilis ADRIÁN (obstructive sleep apnea) Iron deficiency anemia Vitamin D deficiency Hypersomnia Edema Surgical History Hx of bypass gastroenterostomy Hx of dilation and curettage Family History Father HTN (hypertension) Cirrhosis Colon cancer Paternal Aunt History of breast cancer Paternal Grandmother Diabetes Maternal Grandmother Colon cancer Other FH: mental illness Hypercholesteremia Substance use Social History Household Members: None Caregiver staying overnight: No Housing: Apartment Are you a primary home health care coordinator to a significant other at home: No Do you presently have visiting nurse or other home services: No 75 years or older and lives alone: No Comment: medicated Patient Tobacco Use Status: Former Tobacco user Tobacco use type: Cigarette Years Smoked: 26 quit 02/2023 e-Cigarette/Vaping Use: Never Used Second Hand Smoke Exposure: No Substance Use Type: Marijuana service: No Current occupational status: employed 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 Chao Flower, Agustina Butcher, Chuy Dave and colleagues, with an educational jame from [employer]. Physical exam (Primary Care) Tobacco/Smoking Status: Tobacco use Status Tobacco use date assessed 07/24/24 07/24/24 15:53 Patient Tobacco Use Status Former Tobacco user 07/24/24 15:53 Tobacco use type Cigarette 07/24/24 15:53 e-Cigarette/Vaping Use Never Used 07/24/24 15:53 Thrive Assessment: Date of Thrive Assessment Date Thrive assessed 03/19/24 07/24/24 15:53 Telehealth Telehealth [facility] Location of provider rendering services: practice address Location of patient: address on file Patient Identification confirmed using: Name, : Yes Telehealth method: voice only Patient verbally consented to treatment: Yes Patient verbally consented to billing insurance company: Yes Patient informed of any privacy concerns related to visit: Yes Minutes spent on Phone/Video with Pt.: 13 Coding Level of Care Code Tele Est Pt Level 3 (85193) Complex EM visit Add On G2211 Diagnoses Tinea versicolor B36.0 Squamous cell carcinoma of anal skin C44.520 Morbid (severe) obesity due to excess calories E66.01 ADRIÁN (obstructive sleep apnea) G47.33 Assessment & Plan Assessment & Plan (1) Tinea versicolor: Code(s): B36.0 - Pityriasis versicolor Category: Medical (2) Squamous cell carcinoma of anal skin: Comment: + biopsy Deacon Wharton 04/25/24 Code(s): C44.520 - Squamous cell carcinoma of anal skin Category: Medical (3) Morbid (severe) obesity due to excess calories: Code(s): E66.01 - Morbid (severe) obesity due to excess calories Category: Medical (4) ADRIÁN (obstructive sleep apnea): Comment: sleep study 11/17/2023 [facility] 12/2023 Code(s): G47.33 - Obstructive sleep apnea (adult) (pediatric) Category: Medical Plan . Orders: Referrals Dermatology Referral B36.0 - Pityriasis versicolor, C44.520 - Squamous cell carcinoma of anal skin
--- OUTSIDE RECORDS SUMMARY | 2024-07-24 15:52 | XMS_ITS | Clinical Summary ---
Author Organization 175 [facility] Address [address] [place] [address] Phone Care Team Providers Care Mems Integration Engineer Name Role Phone LiudmilaYanetCaioOfelia garza YEYO Primary Care Provider [phone] Allergies No known active allergies Medications buPROPion SR (WELLBUTRIN SR) 150 mg 12 hr tablet Take 1 tablet (150 mg total) by mouth 2 (two) times a day. for 90 days 12/12/2023 Active ferrous sulfate 324 mg (65 mg elemental iron) EC tablet Take 1 tablet (324 mg total) by mouth 2 (two) times a day. 12/06/2023 Active cholecalciferol (VITAMIN D-3) 1,250 mcg (50,000 unit) capsuleIndicati ons:Obesity, class 3 TAKE 1 CAPSULE BY MOUTH ONE TIME PER WEEK 8 capsule 04/03/2024 Active acetaminophen (TYLENOL) 500 mg tablet Take 2 tablets (1,000 mg total) by mouth every 8 (eight) hours. 180 tablet 04/26/2024 Active simethicone (MYLICON) 80 mg chewable tablet Chew 1 tablet (80 mg total) every 6 (six) hours if needed for flatulence. 120 tablet 04/26/2024 Active wheat dextrin 3 gram/3.5 gram powder in packet Take 1 packet by mouth 1 (one) time each day. 30 packet 04/26/2024 Active enoxaparin (LOVENOX) 40 mg/0.4 mL syringe Inject 0.4 mL (40 mg total) under the skin 2 (two) times a day. 28 each 05/29/2024 Active oxyCODONE (ROXICODONE) 5 mg immediate release tablet Take 1 tablet (5 mg total) by mouth every 4 (four) hours if needed for severe pain. Max Daily Amount: 30 mg 12 tablet 05/29/2024 Active polyethylene glycol (MIRALAX) 17 gram packet Take 17 g by mouth 1 (one) time each day. 510 g 05/29/2024 06/29/19 25 Active Problems Problem Noted Date Diagnosed Date Morbid obesity ([facility] V24, [facility] V28) 2024 Class 3 severe obesity with body mass index (BMI) of 45.0 to 49.9 in adult ([facility] V24, [facility] V28) 12/02/2023 Seasonal allergies 08/21/2010 Tinea versicolor 05/13/2009 Overview (12/02/2023): Tinea Versicolor 05/14 right arm & back Scoliosis 10/29/2008 Backache 09/23/2005 Overview (12/02/2023): IMO update Encounters Date Type Department Care Team Description 07/24/2024 Telephone Bariatric Surgery [address] [phone] Hilda Diehl RN 2024 10:30 AM EDT Telemedicine Bariatric Surgery [address] [phone] Class 3 severe obesity with body mass index (BMI) of 45.0 to 49.9 in adult, unspecified obesity type, unspecified whether serious comorbidity present ([facility] V24, [facility] V28) (Primary Dx) 06/12/2024 9:45 AM EDT Office Visit Bariatric Surgery [address] [phone] Chelita Amador PA Class 3 severe obesity due to excess calories without serious comorbidity with body mass index (BMI) of 45.0 to 49.9 in adult ([facility] V24, [facility] V28) (Primary Dx); Bariatric surgery status 06/05/2024 Telephone Bariatric Surgery - [address] [phone] Neida Mohan MD Return to Work (Patient needs a return to work note) 06/04/2024 Telephone Bariatric Surgery - [address] [phone] Hilda Diehl, RN 05/29/2024 Telephone Bariatric Surgery [address] [phone] Neida Mohan MD Medication Problem (Blood clots) 05/28/2024 7:35 AM EDT Anesthesia Event [facility] [place] [address] [place] [phone] Jersey Everett DO 05/28/2024 7:30 AM EDT - 05/28/2024 10:[address] [facility] [place] [address] [place] [phone] Neida Mohan MD DAVINCI ANASTOMOSIS DUODENOILEAL SINGLE (JACOB)-S [[id number] (CPT??)] 05/28/2024 5:54 AM EDT - 05/29/2024 12:10 PM EDT Hospital Encounter [facility] Surgical Unit [address] [place] [phone] Neida Mohan MD Morbid obesity (CMS/[facility] V24, [facility] V28) Discharge Disposition: Home or Self Care 05/25/2024 Telephone Bariatric Surgery [address] [phone] Hilda Diehl, BARBARA 05/07/2024 Telephone Bariatric Surgery [address] [phone] Neida Mohan MD Advice Only 05/02/2024 2:00 PM EST Telemedicine Bariatric Surgery - [address] [place] [phone] Class 3 severe obesity with body mass index (BMI) of 50.0 to 59.9 in adult, unspecified obesity type, unspecified whether serious comorbidity present (CMS/[facility] V24, [facility] V28) (Primary Dx) 04/26/2024 10:45 AM EST Consult Bariatric Surgery - [place] [address] [phone] Chelita Amador PA Class 3 severe obesity due to excess calories with body mass index (BMI) of 50.0 to 59.9 in adult, unspecified whether serious comorbidity present (CMS/HCC V24, CMS/[facility] V28) (Primary Dx) 04/26/2024 10:25 AM EST - 04/26/2024 11:59 PM EST Hospital Encounter [facility] Xray [address] [place] [address] Discharge Disposition: Home or Self Care from Last 3 Months Immunizations Name Administration [...] EDT Inhaled Oxygen Concentration - - Weight 132 kg (291 lb) 2024 10:00 AM EDT Height 170.2 cm (5' 7 ) 06/12/2024 9:59 AM EDT Body Mass Index 45.58 06/12/2024 9:59 AM EDT Plan of Treatment Upcoming Encounters Date Type Department Care Team (Late st Contact Info) Description 07/26/2024 3:00 PM EDT Telemedicine Bariatric Surgery [facility] [address] [phone] Malgorzata Tanner, RD [address] [phone] 11/14/2024 3:15 PM EDT Office Visit Bariatric Surgery [address] [phone] Chelita Amador PA [address] [phone] Health Maintenance Due Date Last Done Comments [...] EDT Morbid obesity (CMS/HCC V24, CMS/HCC V28) NM UNLISTED PROCEDURE LAPAROSCOPIC STOMACH 05/28/2024 7:33 AM [...] V24, CMS/HCC V28) LIPID PANEL Routine 10/06/2023 HM HIV SCREENING [...] K/mcL LAB HEMETOLOGY METHOD 05/29/2024 7:09 AM [facility] RBC 4.00 3.80 - 4.80 M/mcL LAB HEMETOLOGY METHOD 05/29/2024 7:09 AM [facility] Hemoglobin 11.9 11.5 - 16.0 g/dL LAB HEMETOLOGY METHOD 05/29/2024 7:09 AM [facility] Hematocrit 37.5 35.0 - 47.0 % LAB HEMETOLOGY METHOD 05/29/2024 7:09 AM [facility] MCV 93.8 79.0 - 98.0 FL LAB HEMETOLOGY METHOD 05/29/2024 7:09 AM [facility] MCH 29.8 27.0 - 32.0 pcg LAB HEMETOLOGY METHOD 05/29/2024 7:09 AM [facility] MCHC 31.7(L) 32.0 - 37.0 g/dL LAB HEMETOLOGY METHOD 05/29/2024 7:09 AM [facility] RDW 13.2 11.0 - 15.0 % LAB HEMETOLOGY METHOD 05/29/2024 7:09 AM [facility] Platelets 194 130 - 400 K/mcL LAB HEMETOLOGY METHOD 05/29/2024 7:09 AM [facility] MPV 9.5 7.0 - 11.0 FL LAB HEMETOLOGY METHOD 05/29/2024 7:09 AM [facility] NRBC 0.0 <1.0 % LAB HEMETOLOGY METHOD 05/29/2024 7:09 AM [facility] NRBC Absolute 0.00 <0.10 K/mcL LAB HEMETOLOGY METHOD 05/29/2024 7:09 AM [facility] Neutrophils Relative 70.8 % LAB HEMETOLOGY METHOD 05/29/2024 7:09 AM [facility] Lymphocytes Relative 19.0 % LAB HEMETOLOGY METHOD 05/29/2024 7:09 AM [facility] Monocytes Relative 9.0 % LAB HEMETOLOGY METHOD 05/29/2024 7:09 AM [facility] Eosinophils Relative 0.4 % LAB HEMETOLOGY METHOD 05/29/2024 7:09 AM [facility] Basophils Relative 0.3 % LAB HEMETOLOGY METHOD 05/29/2024 7:09 AM [facility] Immature Granulocytes Relative 0.5 % LAB HEMETOLOGY METHOD 05/29/2024 7:09 AM [facility] Neutrophils Absolute 7.60(H) 1.50 - 7.00 K/mcL LAB HEMETOLOGY METHOD 05/29/2024 7:09 AM [facility] Lymphocytes Absolute 2.04 1.00 - 5.00 K/mcL LAB HEMETOLOGY METHOD 05/29/2024 7:09 AM [facility] Monocytes Absolute 0.97 0.20 - 1.00 K/mcL LAB HEMETOLOGY METHOD 05/29/2024 7:09 AM [facility] Eosinophils Absolute 0.04 0.00 - 0.50 K/mcL LAB HEMETOLOGY METHOD 05/29/2024 7:09 AM [facility] Basophils Absolute 0.03 0.00 - 0.20 K/mcL LAB HEMETOLOGY METHOD 05/29/2024 7:09 AM [facility] Immature Granulocytes Absolute 0.05(H) 0.00 - 0.03 K/mcL LAB HEMETOLOGY METHOD 05/29/2024 7:09 AM EDT [facility] Blood Venous blood specimen / Unknown Venipuncture / Unknown 05/29/2024 6:38 AM EDT 05/29/2024 6:48 AM EDT Chelita SHEIKH LAB BLOOD ORDERABLES Final R esult Performing Organization Address City/[facility]/ZIP Co de Phone Number [facility] [address] [place] [address], [place] [phone] * Magnesium (05/29/2024 6:38 AM EDT) Only the most recent of2 resultswithin the time period is included. Magnesium 2.2 1.9 - 2.6 mg/dL LAB CHEMISTRY METHOD 05/29/2024 7:21 AM EDT [facility] Blood Venous blood specimen / Unknown Venipuncture / Unknown 05/29/2024 6:38 AM EDT 05/29/2024 6:48 AM EDT Chelita SHEIKH LAB BLOOD ORDERABLES Final R esult Performing Organization Address City/[facility]/ZIP Co de Phone Number [facility] [address] [place] [address], [place] [phone] * (ABNORMAL) Basic metabolic panel (05/29/2024 6:38 AM EDT) Only the most recent of2 resultswithin the time period is included. Sodium 137 133 - 145 mmol/L LAB CHEMISTRY METHOD 05/29/2024 7:21 AM EDT [facility] Potassium 3.9 3.5 - 5.5 mmol/L LAB CHEMISTRY METHOD 05/29/2024 7:21 AM EDT [facility] Chloride 106 96 - 110 mmol/L LAB CHEMISTRY METHOD 05/29/2024 7:21 AM [facility] CO2 26 21 - 32 mmol/L LAB CHEMISTRY METHOD 05/29/2024 7:21 AM [facility] Anion Gap 5 3 - 11 LAB CHEMISTRY METHOD 05/29/2024 7:21 AM [facility] Glucose 109(H) 70 - 100 mg/dL LAB CHEMISTRY METHOD 05/29/2024 7:21 AM [facility] BUN 8 5 - 25 mg/dL LAB CHEMISTRY METHOD 05/29/2024 7:21 AM [facility] Creatinine 0.70 0.50 - 1.10 mg/dL LAB CHEMISTRY METHOD 05/29/2024 7:21 AM [facility] eGFR 114 >=60 mL/min/1. 73m2 LAB CHEMISTRY METHOD 05/29/2024 7:21 AM [facility] Comment:Calculation based on the??Chronic Kidney Disease Epidemiology Collaboration (CKD-EPI) equation refit??without adjustment for race. BUN/Creatinine Ratio 11.4 LAB CHEMISTRY METHOD 05/29/2024 7:21 AM [facility] Calcium 8.5 8.5 - 10.5 mg/dL LAB CHEMISTRY METHOD 05/29/2024 7:21 AM [facility] Blood Venous blood specimen / Unknown Venipuncture / Unknown 05/29/2024 6:38 AM EDT 05/29/2024 6:48 AM EDT us Chelita SHEIKH LAB BLOOD ORDERABLES Final R esult [facility] [address] [place] [address], * Tissue exam (05/28/2024 10:03 AM EDT) Final Diagnosis A. Stomach, partial gastrectomy: - Portion of stomach with no specific pathologic changes. 05/29/2024 12:29 PM EDT [facility] Gross Description A. Stomach, [...] to the staple lines is inked black. Courtroom Deputy sections are submitted in one cassette, including a perpendicular section to the margin and random stomach, three pieces. DELPHINE 05/29/2024 12:29 PM EDT [facility] Disclaimer Unless otherwise specified, all tissue is 10% NB formalin fixed and paraffin embedded. 05/29/2024 12:29 PM EDT [facility] Tissue Stomach structure / Unknown 05/28/2024 10:03 AM EDT 05/28/2024 11:13 AM EDT Neida Mohan MD LAB PATHOLOGY ORDERABLES Fin al Result [facility] [address] [place] [address], * POC , urine manually resulted (05/28/2024 [...] 04/26/2024 10:34 AM EST Normal examination. Code 24339 -------- FINAL REPORT -------- Dictated By: Billy Kam Dictated Date: 04/26/2024 10:33 ET Assigned Physician: Billy Kam Reviewed and Electronically Signed By: Billy Kam Signed Date: 04/26/2024 10:34 ET Workstation ID: [id number] Transcribed By: Self Edit Transcribed Date: 04/26/2024 [...] angles are clear. IMPRESSION: Normal examination. Code 29572 -------- FINAL REPORT -------- Dictated By: Billy Kam Dictated Date: 04/26/2024 10:33 ET Assigned Physician: Billy Kam Reviewed and Electronically Signed By: Billy Kam Signed Date: 04/26/2024 10:34 ET Workstation ID: [id number] Transcribed By: Self Edit Transcribed Date: 04/26/2024 10:33 ET us Chelita SHEIKH IMG XR PROCEDURES Final Resu lt * (ABNORMAL) Urinalysis with reflex microscopic and culture (04/26/2024 10:00 AM EST) Pathologist [facility] Specific Cross Urine 1.012 1.003 - 1.030 LAB URINALYSIS - AUTOMATED METHOD 04/26/2024 10:54 AM [facility] pH, Urine 6.0 5.0 - 8.0 pH LAB URINALYSIS - AUTOMATED METHOD 04/26/2024 10:54 AM [facility] Leukocytes, Urine Trace(A) Negative LAB URINALYSIS - AUTOMATED METHOD 04/26/2024 10:54 AM [facility] Nitrite, Urine Negative Negative LAB URINALYSIS - AUTOMATED METHOD 04/26/2024 10:54 AM [facility] Protein, Urine Negative <=Trace mg/dL LAB URINALYSIS - AUTOMATED METHOD 04/26/2024 10:54 AM [facility] Glucose, Urine Negative Negative mg/dL LAB URINALYSIS - AUTOMATED METHOD 04/26/2024 10:54 AM [facility] Ketones, Urine Negative Negative mg/dL LAB URINALYSIS - AUTOMATED METHOD 04/26/2024 10:54 AM [facility] Urobilinogen, Urine 0.2 0.2 - 1.0 mg/dL LAB URINALYSIS - AUTOMATED METHOD 04/26/2024 10:54 AM [facility] Bilirubin, Urine Negative Negative LAB URINALYSIS - AUTOMATED METHOD 04/26/2024 10:54 AM [facility] Blood, Urine Negative Negative LAB URINALYSIS - AUTOMATED METHOD 04/26/2024 10:54 AM [facility] RBC, Urine 1.8 0 - 4 /HPF LAB URINALYSIS - AUTOMATED METHOD 04/26/2024 10:54 AM [facility] WBC, Urine 3.3 0 - 4 /HPF LAB URINALYSIS - AUTOMATED METHOD 04/26/2024 10:54 AM [facility] Squamous Epithelial, Urine 44 0 - 60 /LPF LAB URINALYSIS - AUTOMATED METHOD 04/26/2024 10:54 AM [facility] Bacteria, Urine Negative Negative /HPF LAB URINALYSIS - AUTOMATED METHOD 04/26/2024 10:54 AM EST [facility] Hyaline Casts, Urine 0.4 0 - 3 /LPF LAB URINALYSIS - AUTOMATED METHOD 04/26/2024 10:54 AM [facility] Urine Urine specimen obtained by clean catch procedure / Unknown Non-blood Collection / Unknown 04/26/2024 10:00 AM EST 04/26/2024 10:47 AM EST Chelita SHEIKH LAB URINE ORDERABLES Final R esult [facility] [address] [place] [address], [place] [phone] * Steele urine culture tube (04/26/2024 10:00 AM EST) Extra Tube Hold for add-ons. 04/26/2024 12:01 PM [facility] Comment:Auto resulted. Urine Urine specimen obtained by clean catch procedure / Unknown Non-blood Collection / Unknown 04/26/2024 10:00 AM EST 04/26/2024 10:47 AM EST us Chelita SHEIKH LAB URINE ORDERABLES Final R esult Performing Organization Address City/[facility]/ZIP Co de Phone Number [facility] [address] [place] [address], [place] [phone] * Prothrombin time with INR (04/26/2024 10:00 AM EST) Protime 12.3 10.6 - 13.9 sec LAB COAGULATION METHOD 04/26/2024 11:11 AM [facility] INR 1.0 LAB COAGULATION METHOD 04/26/2024 11:11 AM [facility] Blood Venous blood specimen / Unknown Venipuncture / Unknown 04/26/2024 10:00 AM EST 04/26/2024 10:47 AM EST us Chelita SHEIKH LAB BLOOD ORDERABLES Final R esult Performing Organization Address City/[facility]/ZIP Co de Phone Number [facility] [address] [place] [address], [place] [phone] * Type and screen (04/26/2024 10:00 AM EST) ABO Group O 04/26/2024 4:39 PM EST [facility] Rh Type Positive 04/26/2024 4:39 PM EST [facility] Antibody Screen Negative 04/26/2024 4:39 PM EST [facility] Blood Venous blood specimen / Unknown Venipuncture / Unknown 04/26/2024 10:00 AM EST 04/26/2024 10:46 AM EST us Chelita SHEIKH LAB BLOOD BANK TEST ORDERABL ES Final Result Performing Organization Address [facility] de Phone Number [facility] [address] [place] [address], [place] [phone] * Culture urine (04/26/2024 10:00 AM EST) [facility] Culture, Urine No growth 04/27/2024 10:31 AM EST [facility] Urine Urine specimen obtained by clean catch procedure / Unknown Non-blood Collection / Unknown 04/26/2024 10:00 AM EST 04/26/2024 10:54 AM EST us Chelita SHEIKH LAB MICROBIOLOGY - GENERAL O RDERABLES Final Result Performing Organization Address City/[facility]/ZIP Co de Phone Number [facility] [address] [place] [address], [place] [phone] * ECG 12 lead (04/26/2024 9:43 AM EST) [facility] Ventricular Rate ECG 77 BPM GEMUSE Atrial Rate 77 BPM GEMUSE P-R Interval 144 ms GEMUSE QRS Duration 84 ms GEMUSE Q-T Interval 366 ms GEMUSE QTc 414 ms GEMUSE P Wave [place] 57 degrees GEMUSE R [place] 38 degrees GEMUSE T [place] 53 degrees GEMUSE ECG Interpretation Normal sinus rhythm Normal ECG No previous ECGs available Confirmed by MD Rigo, Adrian ([id number]) on 04/26/2024 9:51:59 PM GEMUSE 04/26/2024 9:43 AM EST 04/26/2024 9:51 PM EST Result [facility] Chelita SHEIKH ECG ORDERABLES Final Result GEMUSE * (ABNORMAL) Lipid panel (10/06/2023) [facility] LDL/HDL Ratio 4 0 - 4 Triglycerides 121 0 - 150 mg/dL Cholesterol 193 0 - 200 mg/dL HDL 51 >=40 mg/dL LDL Cholesterol 118(A) 0 - 100 mg/dL Blood Venous blood specimen / Unknown Result [facility] Provider LAB BLOOD ORDERABLES Gabbi l Result * HIV Screening (12/24/2010) [facility] HIV Screening abstracted Result [facility] Provider HEALTH MAINTENANCE Final Result * Pap Smear (12/24/2010) [facility] Pap smear abstracted, no interpretation Result [facility] Provider HEALTH MAINTENANCE Final Result * Hepatitis C Screening (05/27/2009) [facility] Hepatitis C Screening abstracted Result [facility] Provider HEALTH MAINTENANCE Final Result from Last 3 Months or Most Recently Relevant to Health Maintenance Insurance [employer] Advance Directives * Full Code [...] currently active code status orders. Care Teams Mems Integration Engineer Relationship Specialty Start Date End Date Ofelia Layne FNP [address] [place] [phone] PCP - General Nurse Practitioner 04/18/24
--- OUTSIDE RECORDS SUMMARY | 2024-07-24 15:52 | XMS_ITS | Encounter Summary ---
Author Organization [facility] [place] [address] Care Team Providers Care Facility Manager Histology Name Role Phone Ofelia Layne Primary Care Provider [phone] Encounter Details Date Type Department Care Team ([facility] Contact Info) Description 07/24/2024 Telephone Bariatric Surgery - [address] [place] [address] Hilda Diehl, RN Social History Tobacco Use Types Packs/Day Years [...] as of this encounter Progress Notes * Hilda Diehl RN - 07/24/2024 11:10 AM EDT Bariatric Nurse Coordinator: Called patient to follow up regarding JACOB procedure on 05/28/2024. Shewas last seen by Chelita SHEIKH 2 weeks post op on 06/12/2024. Unfortunately, patient has had to cancel her scheduled follow up appointments on 07/03 & 07/24 due to her work schedule. She is only able to make an appointment for after 3pm. She is scheduled for 11/14/2024 at 3:15 pm - which is currently the next available with bariatric PA/surgeon. Patient reports she is feeling well, able to meet fluid and protein goals, denies signs and symptoms of dehydration, denies any complications related to bariatric surgery, no ED visits. 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 Encouraged patient to contact us for any questions or concerns / complications. documented in this encounter Plan of Treatment Upcoming Encounters Date Type Department Care Team (Late st Contact Info) Description 07/26/2024 3:00 PM EDT Telemedicine Bariatric Surgery - [address] [phone] Malgorzata Tanner, RAMÍREZ [address] [phone] 11/14/2024 3:15 PM EDT Office Visit Bariatric Surgery - [address] [phone] Chelita Amador PA [address] [phone] documented as of this encounter Visit Diagnoses Not on filedocumented in this encounter Care Teams Facility Manager Histology Relationship Specialty Start Date End Date Ofelia Layne FNP [address] [place] [phone] PCP - General Nurse Practitioner 04/18/24 documented as of this encounter
[2024-07-24 16:34] VITALS: BMI 44.2
== END 2024-07-24 16:46 | disposition home or self-care (01) ==
LOC: HO.HMCFM 14:28
PROVIDERS: PCP Nurse Practitioner Family; Visit Provider Nurse Practitioner Family
DX: B36.0 Pityriasis versicolor (principal); C44.520 Squamous cell carcinoma of anal skin; E66.01 Morbid (severe) obesity due to excess calories; G47.33 Obstructive sleep apnea (adult) (pediatric)

== ENCOUNTER → 2024-07-24 14:28 | Outpatient (BNVA) | payer OTHER, SELFPAY | PROVIDERS: PCP Nurse Practitioner Family; Visit Provider Nurse Practitioner Family ==

== ENCOUNTER 2024-08-07 15:38 | Outpatient (AMB) | payer OTHER, SELFPAY ==
--- NOTE | 2024-08-07 15:59 | A.OFFPC_ITS ---
Vital Signs 08/07/24 17:14 Height 5 ft 7 in Weight 271 lb BMI 42.4 Intake Visit Reasons: Cpap issues /coughing up blood Intake Note: Telehealth regarding cpap issues and coughing up blood. Topographic Computator Required: No Allergies No Known Allergies Allergy (Verified 08/07/24 17:09) Medication List - Last Reconciled 08/07/24 by YEYO Beckham-BC acetaminophen 1,000 mg (2 x 500 mg) PO Q6H PRN bupropion HCl XL (Wellbutrin XL) 300 mg PO QAM bupropion HCl XL (Wellbutrin XL) 150 mg PO QAM cholecalciferol (vitamin D3) 1,250 mcg PO QWEEK ursodiol mg PO Tobacco use date assessed: 07/24/24 Dental Screening Dental Screen Date: 07/24/24 HPI HPI Comments History of Present Illness Details 39-year-old female with scoliosis, seaso nal allergies, former smoker, obesity, varicose veins in BLE, generalized anxiety disorder, family hx of breast ca/colon ca/brain ca, 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 Specialists: Bariatric clinic at [facility] NEUROSURGERY SPINE PHYSICIAN vascular Derm History of Present Illness - The patient is a 39-year-old female pr esenting with CPAP machine issues and hemoptysis. - Awoke gasping for air, burning throat, coughing up blood on Tuesday while using CPAP. - Reports wheezing, lung pain; - since this time she has stopped using CPAP. Her breathing is back to normal. No additional hemoptysis. - She cont to lose weight s/p bariatric surgery. Machine has not been adjusted since this time Review of Systems - Respiratory: Reports wheezing, burning sensation in throat, coughing, coughing up blood (hemoptysis); Denies current symptoms. - Sleep: Reports trouble with CPAP machi ne, recently stopped use. - Neurologic: Denies falling asleep unin tentionally while driving or in inappropriate settings since stopping. Assessment and Plan 1. Sleep Apnea - Order in-lab sleep study for CPAP titr ation. - Current advice is to stop CPAP use pen yi further assessment. - ? changes needed to accomodate wt loss 2. Hemoptysis - No current issues; monitor respiratory status. - Further evaluation following sleep silvia dy as needed. My office will arrange f/u once results are in if she develops day time sleepiness, etc, advised she contact my office Telehealth Attestation The visit was conducted via telehealth, and the documentation accurately reflects the encounter. The patient has been explained that this is an interactive (audio/video) telehealth encounter and what that consists of. The patient understands and wishes to proceed. PolyPid platform was used. Total time spent caring for the patient today was 15 minutes. This includes time spent before the visit reviewing the chart, time spent during the visit, and time spent after the visit on documentation, reviewing laboratory results, diagnostic imaging, medications, performing a medically necessary evaluation, counseling on diagnoses, care coordination, ordering appropriate tests, ordering appropriate medications, review of tests performed by other providers, reporting test results with the patient, communication with other healthcare providers. [facility] Medical History Hx of phlebitis Pre-diabetes URI (upper respiratory infection) (04/09/24) Acute respiratory disease Labial lesion History of syphilis ADRIÁN (obstructive sleep apnea) Iron deficiency anemia Vitamin D deficiency Hypersomnia Edema Surgical History Hx of bypass gastroenterostomy Hx of dilation and curettage Family History Father HTN (hypertension) Cirrhosis Colon cancer Paternal Aunt History of breast cancer Paternal Grandmother Diabetes Maternal Grandmother Colon cancer Other FH: mental illness Hypercholesteremia Substance use Social History Household Members: None Caregiver staying overnight: No Housing: Apartment Are you a primary career services director to a significant other at home: No Do you presently have visiting nurse or other home services: No 75 years or older and lives alone: No Comment: medicated Patient Tobacco Use Status: Former Tobacco user Tobacco use type: Cigarette Years Smoked: 26 quit 02/2023 e-Cigarette/Vaping Use: Never Used Second Hand Smoke Exposure: No Substance Use Type: Marijuana service: No Current occupational status: employed 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 Chao Flower, Agustina Butcher, Chuy Dave and colleagues, with an educational jame from [employer]. Physical exam (Primary Care) Tobacco/Smoking Status: Tobacco use Status Tobacco use date assessed 07/24/24 08/07/24 16:00 Patient Tobacco Use Status Former Tobacco user 08/07/24 16:00 Tobacco use type Cigarette 08/07/24 16:00 e-Cigarette/Vaping Use Never Used 08/07/24 16:00 Thrive Assessment: Date of Thrive Assessment Date Thrive assessed 03/19/24 08/07/24 16:00 Telehealth Telehealth Telehealth Platform: [facility] Location of provider rendering services: practice address Location of patient: address on file Patient Identification confirmed using: Name, : Yes Telehealth method: voice only Patient verbally consented to treatment: Yes Patient verbally consented to billing insurance company: Yes Patient informed of any privacy concerns related to visit: Yes Minutes spent on Phone/Video with Pt.: 7 Coding Level of Care Code Tele Est Pt Level 2 (47277) Complex EM visit Add On G2211 Diagnoses ADRIÁN (obstructive sleep apnea) G47.33 Assessment & Plan Assessment & Plan (1) ADRIÁN (obstructive sleep apnea): Comment: sleep study 11/17/2023 [facility] 12/2023 Code(s): G47.33 - Obstructive sleep apnea (adult) (pediatric) Category: Medical Plan . Orders: Orders RT PSG in-lab sleep titration Today G47.33 - Obstructive sleep apnea (adult) (pediatric)
[2024-08-07 17:14] VITALS: BMI 42.4
== END 2024-08-07 17:15 | disposition home or self-care (01) ==
LOC: HO.HMCFM 15:38
PROVIDERS: PCP Nurse Practitioner Family; Visit Provider Nurse Practitioner Family
DX: G47.33 Obstructive sleep apnea (adult) (pediatric) (principal)

== ENCOUNTER → 2024-08-07 15:38 | Outpatient (BNVA) | payer OTHER, SELFPAY | PROVIDERS: PCP Nurse Practitioner Family; Visit Provider Nurse Practitioner Family | DX: Z13.89 Encounter for screening for other disorder (principal) ==

== ENCOUNTER 2024-09-14 09:22 | Outpatient (AMB) | payer OTHER, SELFPAY ==
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
[2024-09-14 09:33] VITALS: BP 102/68; PULSE 85; RESP 12; TEMP 36.2; O2SAT 98; BMI 40.4
--- OUTSIDE RECORDS SUMMARY | 2024-09-14 09:38 | XMS_ITS | Clinical Summary ---
Author Organization [address] [facility] Address [address] [place] [address] Phone Care Team Providers Care Drawbench Operator Name Role Phone LiudmilaYanetCaio, Ofeliaterrie ORONA Primary Care Provider [phone] Allergies No known active allergies Medications buPROPion [...] Amount: 30 mg 12 tablet 05/29/2024 Active Active Problems Problem Noted Date Diagnosed Date S/P bariatric surgery 07/26/2024 Morbid obesity [place] [place] [facility] [place]) 2024 Class 3 severe obesity with body mass index (BMI) of 45.0 to 49.9 in adult ([facility] V24, [facility] V28) 12/02/2023 Seasonal allergies 08/21/2010 Tinea versicolor 05/13/2009 Overview (12/02/2023): Tinea Versicolor 05/14 right arm & back Scoliosis 10/29/2008 Backache 09/23/2005 Overview (12/02/2023): [facility] update Encounters Date Type Department Care Team Description 07/26/2024 3:00 PM EDT Telemedicine Bariatric Surgery [address] [id number] S/P bariatric surgery (Primary Dx) 07/24/2024 Telephone Bariatric Surgery [address] [phone] Hilda Diehl RN 2024 10:30 AM EDT Telemedicine Bariatric Surgery [address] [phone] [address]ee [address] Class 3 severe obesity with body mass index (BMI) of 45.0 to 49.9 in adult, unspecified obesity type, unspecified whether serious comorbidity present ([facility] [place] [facility] [place]) (Primary Dx) from Last 3 Months [...] 76 06/12/2024 9:59 AM EDT Temperature 36.5 C (97.7 F) 05/29/2024 7:48 AM EDT Respiratory Rate 17 05/29/2024 7:48 AM EDT Oxygen Saturation 96% 05/29/2024 7:48 AM EDT Inhaled Oxygen Concentration - - Weight 127 kg (279 lb) 07/26/2024 2:00 PM EDT Height 170.2 cm (5' 7 ) 06/12/2024 9:59 AM EDT Body Mass Index 43.7 06/12/2024 9:59 AM EDT Plan of Treatment Upcoming Encounters Date Type Department Care Team (Late st Contact Info) Description 11/14/2024 3:15 PM EDT Office Visit Bariatric Surgery - [place] [address] [facility] [address] [place] [address] Chelita Amador PA [address] [facility] [address] [place] [address] Health Maintenance Due Date Last Done Comments Pneumococcal Vaccine: Pediatrics (0 to 5 Years) and At-Risk Patients (6 to 49 Years) (1 of 2 - PCV) 2004 HPV Vaccines (2 - 3-dose series) 02/28/2008 01/31/2008 Hepatitis B Vaccines (2 of 3 - 19+ 3-dose series) 04/20/2012 03/23/2012 Cervical Cancer Screening: P ap Smear 12/24/2013 12/24/2010 Depression Screening 09/27/2023 Social Influencers of Health Screening 09/27/2023 COVID-19 Vaccine (3 - 2023-2 5 season) 2023 09/28/2020, 08/05/2020 Influenza Vaccine (#1) 2024 DTaP,Tdap,and Td Vaccines (3 - Td [...] Procedure Name Priority Date/Time Associated Diagnosis Comments LIPID PANEL Routine 10/06/2023 HIV SCREENING Routine 12/24/2010 PAP SMEAR Routine 12/24/2010 HEPATITIS C SCREENING Routine 05/27/2009 from Last 3 Months or Most Recently Relevant to Health Maintenance Results * (ABNORMAL) Lipid panel (10/06/2023) Pathologist [facility] LDL/HDL Ratio 4 0 - 4 Triglycerides 121 0 - 150 mg/dL Cholesterol 193 0 - 200 mg/dL HDL 51 >=40 mg/dL LDL Cholesterol 118(A) 0 - 100 mg/dL Blood Venous blood specimen / Unknown [facility] Provider LAB BLOOD ORDERABLES Gabbi l Result * HIV Screening (12/24/2010) Pathologist [facility] HIV Screening abstracted [facility] Provider HEALTH MAINTENANCE Final Result * Pap Smear (12/24/2010) Pathologist [facility] Pap smear abstracted, no interpretation [facility] Provider HEALTH MAINTENANCE Final Result * Hepatitis C Screening (05/27/2009) Pathologist [facility] Hepatitis C Screening abstracted [facility] Provider HEALTH MAINTENANCE Final Result from Last 3 Months or Most Recently Relevant to Health Maintenance Insurance [facility] [employer] Advance Directives * Full Code [...] currently active code status orders. Care Teams Drawbench Operator Relationship Specialty Start Date End Date Ofelia Layne FNP [address] [place] [phone] PCP - General Nurse Practitioner 04/18/24
== END 2024-09-14 10:15 | disposition home or self-care (01) ==
LOC: HO.HMCFM 09:23
PROVIDERS: PCP Nurse Practitioner Family; Visit Provider Nurse Practitioner Family
DX: M54.50 Low back pain, unspecified (principal); M54.9 Dorsalgia, unspecified; Z04.3 Encounter for examination and observation following other accident; G44.209 Tension-type headache, unspecified, not intractable; V89.2XXA Person injured in unspecified motor-vehicle accident, traffic, initial encounter

== ENCOUNTER → 2024-09-14 09:22 | Outpatient (BNVA) | payer OTHER, SELFPAY | PROVIDERS: PCP Nurse Practitioner Family; Visit Provider Nurse Practitioner Family | DX: G47.33 Obstructive sleep apnea (adult) (pediatric) (principal); M54.50 Low back pain, unspecified; G44.209 Tension-type headache, unspecified, not intractable; V89.2XXA Person injured in unspecified motor-vehicle accident, traffic, initial encounter; Y93.9 Activity, unspecified; Y92.9 Unspecified place or not applicable; Y99.9 Unspecified external cause status | CPT/HCPCS: 96127 ==

== ENCOUNTER 2024-09-21 14:24 | Outpatient (REF) | payer OTHER, SELFPAY ==
--- NOTE | ~2024-09-21 | XR_ITS ---
EXAMINATION: XR LUMBAR SPINE 4 OR MORE VIEWS HISTORY: M54.50 - Low back pain, unspecified COMPARISON: There are no prior studies for comparison. FINDINGS: AP, lateral, bilateral oblique, and coned down views of the lumbar spine are submitted. Osseous mineralization is normal. There is mild anterior wedging of T12. Five nonrib-bearing lumbar vertebral bodies are identified, maintaining normal height and alignment without evidence of fracture or spondylolisthesis. There is moderate degenerative disc disease at T11-12, T12-L1, and L1-2, with osteophyte formation. The posterior elements are intact. There is no spondylolysis. The visualized paraspinal soft tissues are unremarkable. XR/XR lumbar spine 4V min IMPRESSION: 1. Mild anterior wedging of T12. 2. Moderate degenerative disc disease of the thoracolumbar junction. Electronically signed by: Chao Lucio MD 09/21/2024 02:57 PM EDT
--- NOTE | ~2024-09-21 | XR_ITS ---
EXAMINATION: XR SACROILIAC JOINTS CLINICAL INFORMATION: M54.50 - Low back pain, unspecified COMPARISON: None available. TECHNIQUE: 3 views of the sacroiliac joints FINDINGS: SI joints are symmetrical. There is minimal degenerative change in the inferior right SI joint with osteophytes and sclerosis. No other abnormalities are evident. XR/XR sacroiliac joint 1-2V IMPRESSION: Mild degenerative changes in the lower right SI joint. Electronically signed by: Amol Duarte MD 09/21/2024 02:58 PM EDT
--- OUTSIDE RECORDS SUMMARY | 2024-09-21 14:27 | XMS_ITS | Encounter Summary ---
Author Organization [facility] Address [address] [place] [address] Care Team Providers Care Data Input Clerk Name Role Phone Steffen Robles MD Primary Care Provider [phone] Dayanna Arellano MD Primary Care Provider [phone] Encounter Details Date Type Department Care Team Description 11/07/2011 Night Triage Doc Medical Records [address] [place] [address] Abstract, Provider Social History Tobacco Use Types [...] on filedocumented in this encounter Care Teams Data Input Clerk Relationship Specialty Start Date End Date Steffen Robles MD [address] [place] [address] PCP - General 12/05/08 04/20/23 Dayanna Arellano MD [address] [place] [address] PCP - General Internal Medicine 04/21/23 documented as of this encounter
--- OUTSIDE RECORDS SUMMARY | 2024-09-21 14:27 | XMS_ITS | Clinical Summary ---
Author Organization [facility] Address [address] [place] [address] Phone Care Team Providers Care Assistant Program Director Name Role Phone LiudmilaYanetCaioOfelia garza YEYO Primary Care Provider [phone] Allergies No known active allergies Medications buPROPion [...] Date S/P bariatric surgery 07/26/2024 Morbid obesity ([facility] [place], [facility] [place]28) 2024 Class 3 severe obesity with body mass index (BMI) of 45.0 to 49.9 in adult ([facility] V24, [facility] V28) 12/02/2023 Seasonal allergies 08/21/2010 Tinea versicolor 05/13/2009 Overview (12/02/2023): Tinea Versicolor 05/14 right arm & back Scoliosis 10/29/2008 Backache 09/23/2005 Overview (12/02/2023): [facility] [place] update Encounters Date Type Department Care Team Description 07/26/2024 3:00 PM EDT Telemedicine Bariatric Surgery [address] [phone] S/P bariatric surgery (Primary Dx) 07/24/2024 Telephone Bariatric Surgery [address] [phone] Hilda Diehl RN 2024 10:30 AM EDT Telemedicine Bariatric Surgery [address] [phone] [address]ee [address] Class 3 severe obesity with body mass index (BMI) of 45.0 to 49.9 in adult, unspecified obesity type, unspecified whether serious comorbidity present ([facility] [place], [facility] V28) (Primary Dx) from Last 3 Months [...] PM EDT Office Visit Bariatric Surgery - [place] [address] [facility] [address] [place] [address] Chelita Amador PA 175 [facility] [address] [place] [address] Health Maintenance Due Date Last Done Comments [...] Results * (ABNORMAL) Lipid panel (10/06/2023) Pathologist [facility] LDL/HDL Ratio 4 0 - 4 Triglycerides 121 0 - 150 mg/dL Cholesterol 193 0 - 200 mg/dL HDL 51 >=40 mg/dL LDL Cholesterol 118(A) 0 - 100 mg/dL Blood Venous blood specimen / Unknown [facility] Provider LAB BLOOD ORDERABLES Gabbi l Result * HIV Screening (12/24/2010) Pathologist [facility] HIV Screening abstracted [facility] Provider HEALTH MAINTENANCE Final Result * Pap Smear (12/24/2010) Pathologist Counts include [facility] beds at the [facility] Pap smear abstracted, no interpretation [facility] Provider HEALTH MAINTENANCE Final Result * Hepatitis C Screening (05/27/2009) Pathologist Counts include 234 beds at the [facility] Hepatitis C Screening abstracted [facility] Provider HEALTH MAINTENANCE Final Result from Last 3 Months or Most Recently Relevant to Health Maintenance Insurance [facility] Advance Directives * Full Code [...] currently active code status orders. Care Teams Assistant Program Director Relationship Specialty Start Date End Date Ofelia Layne FNP [address] [place] [address] PCP - General Nurse Practitioner 04/18/24
== END 2024-09-21 14:25 | disposition home or self-care (01) ==
LOC: HO.HMGCX 14:24
PROVIDERS: PCP Nurse Practitioner Family; Visit Provider Nurse Practitioner Family
DX: M54.50 Low back pain, unspecified (principal); M54.9 Dorsalgia, unspecified; V89.2XXA Person injured in unspecified motor-vehicle accident, traffic, initial encounter
CPT/HCPCS: 72110; 72200

== ENCOUNTER → 2024-09-21 14:28 | Outpatient (BNV) | payer OTHER, SELFPAY | PROVIDERS: PCP Nurse Practitioner Family; Visit Provider Radiology Diagnostic Radiology | DX: M51.35 Other intervertebral disc degeneration, thoracolumbar region (principal); M54.50 Low back pain, unspecified | CPT/HCPCS: 72110; 72200 ==

== ENCOUNTER → 2024-11-23 19:38 | Outpatient (BNV) | payer OTHER, SELFPAY | PROVIDERS: PCP Nurse Practitioner Family; Visit Provider Radiology Diagnostic Radiology | DX: M47.816 Spondylosis without myelopathy or radiculopathy, lumbar region (principal) | CPT/HCPCS: 72148 ==

== ENCOUNTER 2024-11-23 19:44 | Outpatient (REF) | payer OTHER, SELFPAY ==
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
--- OUTSIDE RECORDS SUMMARY | 2024-11-23 19:47 | XMS_ITS | Clinical Summary ---
Author Organization 175 [facility] Address [address] [place] [address] Phone Care Team Providers Care Box Closing Machine Operator Name Role Phone LiudmilaOfelia Dutta YEYO Primary Care Provider Allergies No known active allergies Medications buPROPion SR (WELLBUTRIN SR) 150 mg 12 hr tablet Take 1 tablet (150 mg total) by mouth 2 (two) times a day. for 90 days 4 Active cholecalcifero l (VITAMIN D-3) 1,250 mcg (50,000 unit) capsuleIndicat ions:Obesity, class 3 (CMS/HCC V28) TAKE 1 CAPSULE BY MOUTH ONE TIME PER WEEK 8 capsule 5 Active acetaminophen (TYLENOL) 500 mg tablet Take 2 tablets (1,000 mg total) by mouth every 8 (eight) hours. 180 tablet 5 Active simethicone (MYLICON) 80 mg chewable tablet Chew 1 tablet (80 mg total) every 6 (six) hours if needed for flatulence. 120 tablet 5 Active wheat dextrin 3 gram/3.5 gram powder in packet Take 1 packet by mouth 1 (one) time each day. 30 packet 5 Active enoxaparin (LOVENOX) 40 mg/0.4 mL syringe Inject 0.4 mL (40 mg total) under the skin 2 (two) times a day. 28 each 5 Active oxyCODONE (ROXICODONE) 5 mg immediate release tablet Take 1 tablet (5 mg total) by mouth every 4 (four) hours if needed for severe pain. Max Daily Amount: 30 mg 12 tablet 5 Active ferrous sulfate 325 mg (65 mg iron) EC tablet Take 1 tablet (325 mg total) by mouth 1 (one) time each day with breakfast. Do not crush, chew, or split. 90 each 5 02/15/20 25 Active zinc gluconate 30 mg tablet Take 1 tablet (30 mg total) by mouth 1 (one) time each day. 30 tablet 5 12/20/19 25 Active ferrous sulfate 324 mg (65 mg elemental iron) EC tablet Take 1 tablet (324 mg total) by mouth 2 (two) times a day. 4 11/17/19 25 Discontinued Active Problems Problem Noted Date Diagnosed Date S/P bariatric surgery 07/26/2024 Morbid obesity ([facility] V24, [facility] V28) 2024 Class 2 severe obesity due t o excess calories with serious comorbidity and body mass index (BMI) of 37.0 to 37.9 in adult 12/02/2023 Seasonal allergies 08/21/2010 Tinea versicolor 05/13/2009 Overview (12/02/2023): Tinea Versicolor 05/14 right arm & back Scoliosis 10/29/2008 Backache 09/23/2005 Overview (12/02/2023): [facility] update Encounters Date Type Department Care Team Description 11/14/2024 3:15 PM EDT Office Visit Bariatric Surgery - [address] [place] [address] Chelita Amador PA Class 2 severe obesity due to excess calories with serious comorbidity and body mass index (BMI) of 37.0 to 37.9 in adult ([facility] V24, [facility] V28) (Primary Dx); Bariatric surgery status from Last 3 Months Immunizations Name Administration [...] Sign Reading Time Taken Comments Blood Pressure 111/71 11/14/2024 3:16 PM EDT Pulse 63 11/14/2024 3:16 PM EDT Temperature 36.6 C (97.8 F) 11/14/2024 3:16 PM EDT Respiratory Rate 17 05/29/2024 7:48 AM EDT Oxygen Saturation 96% 05/29/2024 7:48 AM EDT Inhaled Oxygen Concentration - - Weight 109 kg (241 lb) 11/14/2024 3:16 PM EDT Height 170.2 cm (5' 7 ) 11/14/2024 3:16 PM EDT Body Mass Index 37.75 11/14/2024 3:16 PM EDT Plan of Treatment Upcoming Encounters Date Type Department Care Team (Late st Contact Info) Description 04/16/2025 3:00 PM EST Office Visit Bariatric Surgery - [address] [place] [phone] Chelita Amador, PA [address] [place], [place] [address], [place] [address] Health Maintenance Due Date Last Done Comments Pneumococcal Vaccine: Pediatrics (0 to 5 Years) and At-Risk Patients (6 to 49 Years) (1 of 2 - PCV) 2004 HPV Vaccines (2 - 3-dose series) 02/28/2008 01/31/2008 Hepatitis B Vaccines (2 of 3 - 19+ 3-dose series) 04/20/2012 03/23/2012 Cervical Cancer Screening: P ap Smear 12/24/2013 12/24/2010 Social Influencers of Health Screening 09/27/2023 Depression Screening 03/07/2024 COVID-19 Vaccine (3 - 2024-2 6 season) 2024 09/28/2020, 08/05/2020 Influenza Vaccine (#1) 2024 DTaP,Tdap,and [...] Procedure Name Priority Date/Time Associated Diagnosis Comments VITAMIN A Routine 11/14/2024 3:28 PM EDT Class 2 severe obesity due to excess calories with serious comorbidity and body mass index (BMI) of 37.0 to 37.9 in adult (CMS/HCC V24, [facility] V28) Bariatric surgery status VITAMIN B1 Routine 11/14/2024 3:28 PM EDT Class 2 severe obesity due to excess calories with serious comorbidity and body mass index (BMI) of 37.0 to 37.9 in adult ([facility] V24, [facility] V28) Bariatric surgery status VITAMIN B12 Routine 11/14/2024 3:28 PM EDT Class 2 severe obesity due to excess calories with serious comorbidity and body mass index (BMI) of 37.0 to 37.9 in adult ([facility] V24, [facility] V28) Bariatric surgery status VITAMIN B6 Routine 11/14/2024 3:28 PM EDT Class 2 severe obesity due to excess calories with serious comorbidity and body mass index (BMI) of 37.0 to 37.9 in adult ([facility] V24, [facility] V28) Bariatric surgery status VITAMIN D 25 HYDROXY Routine 11/14/2024 3:28 PM EDT Class 2 severe obesity due to excess calories with serious comorbidity and body mass index (BMI) of 37.0 to 37.9 in adult ([facility] V24, [facility] V28) Bariatric surgery status ZINC Routine 11/14/2024 3:28 PM EDT Class 2 severe obesity due to excess calories with serious comorbidity and body mass index (BMI) of 37.0 to 37.9 in adult ([facility] V24, [facility] V28) Bariatric surgery status IRON AND TIBC Routine 11/14/2024 3:28 PM EDT Class 2 severe obesity due to excess calories with serious comorbidity and body mass index (BMI) of 37.0 to 37.9 in adult ([facility] V24, [facility] V28) Bariatric surgery status FOLATE Routine 11/14/2024 3:28 PM EDT Class 2 severe obesity due to excess calories with serious comorbidity and body mass index (BMI) of 37.0 to 37.9 in adult (CMS/HCC V24, CMS/HCC V28) Bariatric surgery status COPPER, SERUM Routine 11/14/2024 3:28 PM EDT Class 2 severe obesity due to excess calories with serious comorbidity and body mass index (BMI) of 37.0 to 37.9 in adult (CMS/HCC V24, CMS/HCC V28) Bariatric surgery status COMPREHENSIVE METABOLIC PANEL Routine 11/14/2024 3:28 PM EDT Class 2 severe obesity due to excess calories with serious comorbidity and body mass index (BMI) of 37.0 to 37.9 in adult (CMS/HCC V24, CMS/HCC V28) Bariatric surgery status HCG QUALITATIVE, URINE Routine 3:28 PM EDT Class 3 severe obesity due to excess calories with body mass index (BMI) of 50.0 to 59.9 in adult, unspecified whether serious comorbidity present (CMS/HCC V24, CMS/HCC V28) LIPID PANEL Routine 10/06/2023 HM HIV SCREENING Routine 12/24/2010 HM PAP SMEAR Routine 12/24/2010 HEPATITIS C SCREENING Routine 05/27/2009 from Last 3 Months or Most Recently Relevant to Health Maintenance Results * (ABNORMAL) Iron and TIBC (11/14/2024 3:28 PM EDT) Iron 34(L) 40 - 150 mcg/dL LAB CHEMISTRY METHOD 11/14/2024 7:51 PM EDT [facility] TIBC 351 250 - 450 mcg/dL LAB CHEMISTRY METHOD 11/14/2024 7:51 PM EDT [facility] Iron Saturation 10(L) 15 - 50 % LAB CHEMISTRY METHOD 11/14/2024 7:51 PM T [facility] Blood Venous blood specimen / Unknown Venipuncture / Unknown 11/14/2024 3:28 PM EDT 11/14/2024 3:28 PM EDT Chelita SHEIKH LAB BLOOD ORDERABLES Final R esult Performing Organization Address City/[facility] Co de Phone Number [facility] ([facility]) [facility] [address] [place] [address], [place] [phone] * Copper, serum (11/14/2024 3:28 PM EDT) Copper 1168 810 - 1990 ug/L 11/20/2024 8:44 AM EDT [facility] Comment: Copper values may be elevated to twice the normal levels in . Elevated results may be due to sample collected in a non-certified trace element-free tube. This test was developed and the performance characteristics determined by [facility]. It has not been cleared or approved by the FDA. The laboratory is regulated under CLIA as qualified to perform high-complexity testing. This test is used for patient testing purposes. It should not be regarded as investigational or for research. Test performed at [facility], [address] , [place] [address] Tana Garza MD, PhD - Record Librarian Blood Venous blood specimen / Unknown Venipuncture / Unknown 11/14/2024 3:28 PM EDT 11/14/2024 3:28 PM EDT Chelita SHEIKH LAB BLOOD ORDERABLES Final R esult [facility] [address] [place] [address] * (ABNORMAL) Zinc (11/14/2024 3:28 PM EDT) Zinc 47(L) 60 - 130 ug/dL 11/19/2024 12:52 PM EDT [facility] Comment: Elevated results may be due to sample collected in a non-certified trace element-free tube. This test was developed and the performance characteristics determined by [facility]. It has not been cleared or approved by the FDA. The laboratory is regulated under CLIA as qualified to perform high-complexity testing. This test is used for patient testing purposes. It should not be regarded as investigational or for research. Test performed at [facility], [address] [place] [address] Tana Garza MD, PhD - Record Librarian Blood Venous blood specimen / Unknown Venipuncture / Unknown 11/14/2024 3:28 PM EDT 11/14/2024 3:28 PM EDT [employer] [place] LAB BLOOD ORDERABLES Final R esult Performing Organization Address [facility] Co de Phone Number [facility] [address] [place] [address] * Vitamin A (11/14/2024 3:28 PM EDT) [facility] Vitamin A 38 38 - 106 ug/dL 11/20/2024 6:[address] [facility] Comment: This test was developed and the performance characteristics determined by [facility]. It has not been cleared or approved by the FDA. The laboratory is regulated under CLIA as qualified to perform high-complexity testing. This test is used for patient testing purposes. It should not be regarded as investigational or for research. Test performed at [facility], [address] [place] [address] Tana Garza MD, PhD - Record Librarian Blood Venous blood specimen / Unknown Venipuncture / Unknown 11/14/2024 3:28 PM EDT 11/14/2024 3:28 PM EDT Chelita Nabila [place] LAB BLOOD ORDERABLES Final R esult Performing Organization Address City/[facility] Co de Phone Number [facility] [address] [place] [address] * , urine (11/14/2024 3:28 PM EDT) Pathologist [facility] Preg Test, Ur Negative Negative 11/14/2024 7:33 PM EDT [facility] Urine Urine specimen obtained by clean catch procedure / Unknown Non-blood Collection / Unknown 11/14/2024 3:28 PM EDT 11/14/2024 3:28 PM EDT Chelita SHEIKH LAB URINE ORDERABLES Final R esult Performing Organization Address City/[facility]/ZIP Co de Phone Number [facility] [address] [place] [address], [place] [phone] * Vitamin D 25 hydroxy (11/14/2024 3:28 PM EDT) [facility] Vit D, 25-Hydroxy 31.1 30.0 - 80.0 ng/mL LAB CHEMISTRY METHOD 11/14/2024 8:37 PM EDT [facility] Blood Venous blood specimen / Unknown Venipuncture / Unknown 11/14/2024 3:28 PM EDT 11/14/2024 3:28 PM EDT Chelita SHEIKH LAB BLOOD ORDERABLES Final R esult Performing Organization Address [facility]/ZIP Co de Phone Number [facility] [address] [place] [address], [place] [phone] * Vitamin B1 (11/14/2024 3:28 PM EDT) [facility] Vitamin B1 Whole Blood 57 38 - 122 ug/L 11/20/2024 6:34 AM EDT [facility] Comment: This test was developed and the performance characteristics determined by [facility]. It has not been cleared or approved by the FDA. The laboratory is regulated under CLIA as qualified to perform high-complexity testing. This test is used for patient testing purposes. It should not be regarded as investigational or for research. Test performed at [facility], [address] , [place] [address] Tana Garza MD, PhD - Record Librarian Blood Venous blood specimen / Unknown Venipuncture / Unknown 11/14/2024 3:28 PM EDT 11/14/2024 3:28 PM EDT Chelita SHEIKH LAB BLOOD ORDERABLES Final R esult Performing Organization Address City/[facility]/ZIP Co de Phone Number [facility] [address] [place] [address] * Vitamin B6 (11/14/2024 3:28 PM EDT) Vitamin B6 (Pyridoxine) Level 5 5 - 50 ug/L 11/20/2024 8:[address] [facility] Comment: This test was developed and the performance characteristics determined by [facility]. It has not been cleared or approved by the FDA. The laboratory is regulated under CLIA as qualified to perform high-complexity testing. This test is used for patient testing purposes. It should not be regarded as investigational or for research. Test performed at [facility], [address] [facility], [place] [address] Tana Garza MD, PhD - Record Librarian Blood Venous blood specimen / Unknown Venipuncture / Unknown 11/14/2024 3:28 PM EDT 11/14/2024 3:28 PM EDT Chelita SHEIKH LAB BLOOD ORDERABLES Final R esult [facility] [address] [place] [address] * Folate (11/14/2024 3:28 PM EDT) Folate 6.7 2.8 - 17.0 ng/ml LAB CHEMISTRY METHOD 11/14/2024 8:14 PM EDT [facility] Blood Venous blood specimen / Unknown Venipuncture / Unknown 11/14/2024 3:28 PM EDT 11/14/2024 3:28 PM EDT Chelita SHEIKH LAB BLOOD ORDERABLES Final R esult [facility] [address] [place] [address], [place] [phone] * Vitamin B12 (11/14/2024 3:28 PM EDT) [facility] Vitamin B-12 584 250 - 900 pcg/mL LAB CHEMISTRY METHOD 11/14/2024 8:14 PM EDT [facility] Blood Venous blood specimen / Unknown Venipuncture / Unknown 11/14/2024 3:28 PM EDT 11/14/2024 3:28 PM EDT Chelita SHEIKH LAB BLOOD ORDERABLES Final R esult Performing Organization Address City/[facility]/ZIP Co de Phone Number [facility] [address] [place] [address], [place] [phone] * Comprehensive metabolic panel (11/14/2024 3:28 PM EDT) [facility] Sodium 137 133 - 145 mmol/L LAB CHEMISTRY METHOD 11/14/2024 7:53 PM EDT [facility] Potassium 3.9 3.5 - 5.5 mmol/L LAB CHEMISTRY METHOD 11/14/2024 7:53 PM EDT [facility] Chloride 107 96 - 110 mmol/L LAB CHEMISTRY METHOD 11/14/2024 7:53 PM T [facility] CO2 23 21 - 32 mmol/L LAB CHEMISTRY METHOD 11/14/2024 7:53 PM EDT [facility] Anion Gap 7 3 - 11 LAB CHEMISTRY METHOD 11/14/2024 7:53 PM T [facility] Glucose 74 70 - 100 mg/dL LAB CHEMISTRY METHOD 11/14/2024 7:53 PM EDT [facility] BUN 15 5 - 25 mg/dL LAB CHEMISTRY METHOD 11/14/2024 7:53 PM [facility] Creatinine 0.80 0.50 - 1.10 mg/dL LAB CHEMISTRY METHOD 11/14/2024 7:53 PM [facility] eGFR 96 >=60 mL/min/1. 73m2 LAB CHEMISTRY METHOD 11/14/2024 7:53 PM [facility] Comment:Calculation based on the Chronic Kidney Disease Epidemiology Collaboration (CKD-EPI) equation refit without adjustment for race. BUN/Creatinine Ratio 18.8 LAB CHEMISTRY METHOD 11/14/2024 7:53 PM [facility] Calcium 8.8 8.5 - 10.5 mg/dL LAB CHEMISTRY METHOD 11/14/2024 7:53 PM [facility] AST (SGOT) 20 10 - 42 unit/L LAB CHEMISTRY METHOD 11/14/2024 7:53 PM [facility] ALT (SGPT) 32 10 - 60 unit/L LAB CHEMISTRY METHOD 11/14/2024 7:53 PM [facility] Alkaline Phosphatase 89 42 - 121 unit/L LAB CHEMISTRY METHOD 11/14/2024 7:53 PM [facility] Total Protein 7.2 6.0 - 8.0 g/dL LAB CHEMISTRY METHOD 11/14/2024 7:53 PM [facility] Albumin 3.9 3.2 - 5.0 g/dL LAB CHEMISTRY METHOD 11/14/2024 7:53 PM [facility] Total Bilirubin 0.3 0.0 - 1.4 mg/dL LAB CHEMISTRY METHOD 11/14/2024 7:53 PM [facility] Blood Venous blood specimen / Unknown Venipuncture / Unknown 11/14/2024 3:28 PM EDT 11/14/2024 3:28 PM EDT Chelita SHEIKH LAB BLOOD ORDERABLES Final R esult Performing Organization Address [facility]/State/ZIP Co de Phone Number [facility] ([facility]) [facility] [address] [place] [address], * (ABNORMAL) Lipid panel (10/06/2023) [facility] LDL/HDL Ratio 4 0 - 4 Triglycerides 121 0 - 150 mg/dL Cholesterol 193 0 - 200 mg/dL HDL 51 >=40 mg/dL LDL Cholesterol 118(A) 0 - 100 mg/dL Blood Venous blood specimen / Unknown [facility] Provider LAB BLOOD ORDERABLES Gabbi l Result * HIV Screening (12/24/2010) [facility] HIV Screening abstracted [facility] Provider HEALTH MAINTENANCE Final Result * Pap Smear (12/24/2010) [facility] Pap smear abstracted, no interpretation [facility] Provider HEALTH MAINTENANCE Final Result * Hepatitis C Screening (05/27/2009) [facility] Hepatitis C Screening abstracted [facility] Provider HEALTH MAINTENANCE Final Result from Last 3 Months or Most Recently Relevant to Health Maintenance Insurance [facility] Advance Directives * Full [...] currently active code status orders. Care Teams Box Closing Machine Operator Relationship Specialty Start Date End Date Ofelia Layne FNP [address] [place] [phone] PCP - General Nurse Practitioner 04/18/24
== END 2024-11-23 19:45 | disposition home or self-care (01) ==
LOC: HO.MRI 19:44
PROVIDERS: PCP Nurse Practitioner Family; Visit Provider Nurse Practitioner Family
DX: M54.42 Lumbago with sciatica, left side (principal); M54.41 Lumbago with sciatica, right side; G89.29 Other chronic pain; V89.2XXD Person injured in unspecified motor-vehicle accident, traffic, subsequent encounter
CPT/HCPCS: 72148

== ENCOUNTER 2024-11-27 15:06 | Outpatient (AMB) | payer OTHER, SELFPAY ==
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
[2024-11-27 15:20] VITALS: BMI 25.1
--- OUTSIDE RECORDS SUMMARY | 2024-11-27 18:07 | XMS_ITS | Clinical Summary ---
Author Organization 175 [facility] Address [address] [place] [address] Phone Care Team Providers Care Principal Product Manager Name Role Phone LiudmilaOfelia Dutta YEYO Primary [...] Date S/P bariatric surgery 07/26/2024 Morbid obesity ([facility] V24, [facility] V28) 2024 Class 2 severe obesity due [...] PM EDT Office Visit Bariatric Surgery - [address] [place] [address] Chelita Amador PA Class 2 severe obesity due to excess calories with serious comorbidity and body mass index (BMI) of 37.0 to 37.9 in adult ([facility] V24, [facility] V28) (Primary Dx); Bariatric surgery status from [...] PM EST Office Visit Bariatric Surgery - [address] [place] [id number] Chelita Amador, PA [address] [place], [place] [address], [place] [address] Health Maintenance Due Date Last [...] 37.0 to 37.9 in adult (CMS/HCC V24, CMS/[facility] V28) Bariatric surgery status VITAMIN B1 Routine 11/14/2024 3:28 PM EDT Class 2 severe obesity due to excess calories with serious comorbidity and body mass index (BMI) of 37.0 to 37.9 in adult ([facility] V24, [facility] V28) Bariatric surgery status VITAMIN B12 Routine 11/14/2024 3:28 PM EDT Class 2 severe obesity due to excess calories with serious comorbidity and body mass index (BMI) of 37.0 to 37.9 in adult ([facility] V24, [facility] V28) Bariatric surgery status VITAMIN B6 Routine 11/14/2024 3:28 PM EDT Class 2 severe obesity due to excess calories with serious comorbidity and body mass index (BMI) of 37.0 to 37.9 in adult ([facility] V24, [facility] V28) Bariatric surgery status VITAMIN D 25 HYDROXY Routine 11/14/2024 3:28 PM EDT Class 2 severe obesity due to excess calories with serious comorbidity and body mass index (BMI) of 37.0 to 37.9 in adult ([facility] V24, [facility] V28) Bariatric surgery status ZINC Routine 11/14/2024 3:28 PM EDT Class 2 severe obesity due to excess calories with serious comorbidity and body mass index (BMI) of 37.0 to 37.9 in adult ([facility] V24, [facility] V28) Bariatric surgery status IRON AND TIBC Routine 11/14/2024 3:28 PM EDT Class 2 severe obesity due to excess calories with serious comorbidity and body mass index (BMI) of 37.0 to 37.9 in adult ([facility] V24, [facility] V28) Bariatric surgery status FOLATE Routine 11/14/2024 [...] LAB CHEMISTRY METHOD 11/14/2024 7:51 PM EDT [facility] TIBC 351 250 - 450 mcg/dL LAB CHEMISTRY METHOD 11/14/2024 7:51 PM EDT [facility] Iron Saturation 10(L) 15 - 50 % LAB CHEMISTRY METHOD 11/14/2024 7:51 PM T [facility] Blood Venous blood specimen / Unknown Venipuncture / Unknown 11/14/2024 3:28 PM EDT 11/14/2024 3:28 PM EDT Chelita SHEIKH LAB BLOOD ORDERABLES Final R esult Performing Organization Address City/[facility] Co de Phone Number [phone] [address] [place] [address], [place] [phone] * Copper, serum (11/14/2024 3:28 PM EDT) Copper 1168 810 - 1990 ug/L 11/20/2024 8:44 AM EDT [facility] Comment: Copper values may be elevated to twice the normal levels in . Elevated results may be due to sample collected in a non-certified trace element-free tube. This test was developed and the performance characteristics determined by [facility]. It has not been cleared or approved by the FDA. The laboratory is regulated under CLIA as qualified to perform high-complexity testing. This test is used for patient testing purposes. It should not be regarded as investigational or for research. Test performed at [facility], [address] , [place] [address] Tana Garza MD, PhD - [employer] Blood Venous blood specimen / Unknown Venipuncture / Unknown 11/14/2024 3:28 PM EDT 11/14/2024 3:28 PM EDT Chelita SHEIKH LAB BLOOD ORDERABLES Final R esult [facility] [address] [place] [address] * (ABNORMAL) Zinc (11/14/2024 3:28 PM EDT) Zinc 47(L) 60 - 130 ug/dL 11/19/2024 12:52 PM EDT [facility] Comment: Elevated results may be due to sample collected in a non-certified trace element-free tube. This test was developed and the performance characteristics determined by [facility]. It has not been cleared or approved by the FDA. The laboratory is regulated under CLIA as qualified to perform high-complexity testing. This test is used for patient testing purposes. It should not be regarded as investigational or for research. Test performed at [facility], [address] [place] [address] Tana Garza MD, PhD - [employer]attle [employer] Blood Venous blood specimen / Unknown Venipuncture / Unknown 11/14/2024 3:28 PM EDT 11/14/2024 3:28 PM EDT [employer] [place] LAB BLOOD ORDERABLES Final R esult Performing Organization Address [facility] Co de Phone Number [facility] [address] [place] [address] * Vitamin A (11/14/2024 3:28 PM EDT) [facility] Vitamin A 38 38 - 106 ug/dL 11/20/2024 6:01 AM EDT [facility] Comment: This test was developed and the performance characteristics determined by [facility]. It has not been cleared or approved by the FDA. The laboratory is regulated under CLIA as qualified to perform high-complexity testing. This test is used for patient testing purposes. It should not be regarded as investigational or for research. Test performed at [facility], [address] [place] [address] Tana Garza MD, PhD - [employer]attle [employer]er Blood Venous blood specimen / Unknown Venipuncture / Unknown 11/14/2024 3:28 PM EDT 11/14/2024 3:28 PM EDT Chelita Nabila [place] LAB BLOOD ORDERABLES Final R esult Performing Organization Address City/[facility] Co de Phone Number [facility] [address] [place] [address] * , urine (11/14/2024 3:28 PM EDT) Pathologist [facility] Preg Test, Ur Negative Negative 11/14/2024 7:33 PM EDT [facility] Urine Urine specimen obtained by clean catch procedure / Unknown Non-blood Collection / Unknown 11/14/2024 3:28 PM EDT 11/14/2024 3:28 PM EDT Chelita SHEIKH LAB URINE ORDERABLES Final R esult Performing Organization Address City/[facility]/ZIP Co de Phone Number [facility] [address] [place] [address], [place] [phone] * Vitamin D 25 hydroxy (11/14/2024 3:28 PM EDT) [facility] Vit D, 25-Hydroxy 31.1 30.0 - 80.0 ng/mL LAB CHEMISTRY METHOD 11/14/2024 8:37 PM EDT [facility] Blood Venous blood specimen / Unknown Venipuncture / Unknown 11/14/2024 3:28 PM EDT 11/14/2024 3:28 PM EDT Chelita SHEIKH LAB BLOOD ORDERABLES Final R esult Performing Organization Address [facility]/ZIP Co de Phone Number [facility] [address] [place] [address], [place] [phone] * Vitamin B1 (11/14/2024 3:28 PM EDT) [facility] Vitamin B1 Whole Blood 57 38 - 122 ug/L 11/20/2024 6:34 AM EDT [facility] Comment: This test was developed and the performance characteristics determined by [facility]. It has not been cleared or approved by the FDA. The laboratory is regulated under CLIA as qualified to perform high-complexity testing. This test is used for patient testing purposes. It should not be regarded as investigational or for research. Test performed at [facility], [address] , [place] [address] Tana Garza MD, PhD - [employer]attle [employer] Blood Venous blood specimen / Unknown Venipuncture / Unknown 11/14/2024 3:28 PM EDT 11/14/2024 3:28 PM EDT Chelita SHEIKH LAB BLOOD ORDERABLES Final R esult Performing Organization Address City/[facility]/ZIP Co de Phone Number [facility] [address] [place] [address] * Vitamin B6 (11/14/2024 3:28 PM EDT) Vitamin B6 (Pyridoxine) Level 5 5 - 50 ug/L 11/20/2024 8:45 AM EDT [facility] Comment: This test was developed and the performance characteristics determined by [facility]. It has not been cleared or approved by the FDA. The laboratory is regulated under CLIA as qualified to perform high-complexity testing. This test is used for patient testing purposes. It should not be regarded as investigational or for research. Test performed at [facility], [address] [facility], [place] [address] Tana Garza MD, PhD - [employer]attle [employer] Blood Venous blood specimen / Unknown Venipuncture / Unknown 11/14/2024 3:28 PM EDT 11/14/2024 3:28 PM EDT Chelita SHEIKH LAB BLOOD ORDERABLES Final R esult [facility] [address] [place] [address] * Folate (11/14/2024 3:28 PM EDT) Folate 6.7 2.8 - 17.0 ng/ml LAB CHEMISTRY METHOD 11/14/2024 8:14 PM EDT [facility] Blood Venous blood specimen / Unknown Venipuncture / Unknown 11/14/2024 3:28 PM EDT 11/14/2024 3:28 PM EDT Chelita SHEIKH LAB BLOOD ORDERABLES Final R esult [facility] [address] [place] [address], [place] [phone] * Vitamin B12 (11/14/2024 3:28 PM EDT) [facility] Vitamin B-12 584 250 - 900 pcg/mL LAB CHEMISTRY METHOD 11/14/2024 8:14 PM EDT [facility] Blood Venous blood specimen / Unknown Venipuncture / Unknown 11/14/2024 3:28 PM EDT 11/14/2024 3:28 PM EDT Chelita SHEIKH LAB BLOOD ORDERABLES Final R esult Performing Organization Address City/[facility]/ZIP Co de Phone Number [facility] [address] [place] [address], [place] [phone] * Comprehensive metabolic panel (11/14/2024 3:28 PM EDT) [facility] Sodium 137 133 - 145 mmol/L LAB CHEMISTRY METHOD 11/14/2024 7:53 PM EDT [facility] Potassium 3.9 3.5 - 5.5 mmol/L LAB CHEMISTRY METHOD 11/14/2024 7:53 PM EDT [facility] Chloride 107 96 - 110 mmol/L LAB CHEMISTRY METHOD 11/14/2024 7:53 PM T [facility] CO2 23 21 - 32 mmol/L LAB CHEMISTRY METHOD 11/14/2024 7:53 PM EDT [facility] Anion Gap 7 3 - 11 LAB CHEMISTRY METHOD 11/14/2024 7:53 PM T [facility] Glucose 74 70 - 100 mg/dL LAB CHEMISTRY METHOD 11/14/2024 7:53 PM EDT [facility] BUN 15 5 - 25 mg/dL LAB CHEMISTRY METHOD 11/14/2024 7:53 PM [facility] Creatinine 0.80 0.50 - 1.10 mg/dL LAB CHEMISTRY METHOD 11/14/2024 7:53 PM [facility] eGFR 96 >=60 mL/min/1. 73m2 LAB CHEMISTRY METHOD 11/14/2024 7:53 PM [facility] Comment:Calculation based on the Chronic Kidney Disease Epidemiology Collaboration (CKD-EPI) equation refit without adjustment for race. BUN/Creatinine Ratio 18.8 LAB CHEMISTRY METHOD 11/14/2024 7:53 PM [facility] Calcium 8.8 8.5 - 10.5 mg/dL LAB CHEMISTRY METHOD 11/14/2024 7:53 PM [facility] AST (SGOT) 20 10 - 42 unit/L LAB CHEMISTRY METHOD 11/14/2024 7:53 PM [facility] ALT (SGPT) 32 10 - 60 unit/L LAB CHEMISTRY METHOD 11/14/2024 7:53 PM [facility] Alkaline Phosphatase 89 42 - 121 unit/L LAB CHEMISTRY METHOD 11/14/2024 7:53 PM [facility] Total Protein 7.2 6.0 - 8.0 g/dL LAB CHEMISTRY METHOD 11/14/2024 7:53 PM [facility] Albumin 3.9 3.2 - 5.0 g/dL LAB CHEMISTRY METHOD 11/14/2024 7:53 PM [facility] Total Bilirubin 0.3 0.0 - 1.4 mg/dL LAB CHEMISTRY METHOD 11/14/2024 7:53 PM [facility] Blood Venous blood specimen / Unknown Venipuncture / Unknown 11/14/2024 3:28 PM EDT 11/14/2024 3:28 PM EDT Chelita SHEIKH LAB BLOOD ORDERABLES Final R esult Performing Organization Address [facility]/State/ZIP Co de Phone Number [phone] [address] [place] [address], * (ABNORMAL) Lipid panel (10/06/2023) [facility] LDL/HDL Ratio 4 0 - 4 Triglycerides 121 0 - 150 mg/dL Cholesterol 193 0 - 200 mg/dL HDL 51 >=40 mg/dL LDL Cholesterol 118(A) 0 - 100 mg/dL Blood Venous blood specimen / Unknown [facility] Provider LAB BLOOD ORDERABLES Gabbi l Result * HIV Screening (12/24/2010) [facility] HIV Screening abstracted [facility] Provider HEALTH MAINTENANCE Final Result * Pap Smear (12/24/2010) [facility] Pap smear abstracted, no interpretation [facility] Provider HEALTH MAINTENANCE Final Result * Hepatitis C Screening (05/27/2009) [facility] Hepatitis C Screening abstracted [facility] Provider HEALTH MAINTENANCE Final Result from Last 3 Months or Most Recently Relevant to Health Maintenance Insurance [facility] Advance Directives * Full [...] currently active code status orders. Care Teams Principal Product Manager Relationship Specialty Start Date End Date Ofelia Layne FNP [address] [place] [address] PCP - General Nurse Practitioner 04/18/24
== END 2024-11-27 15:24 | disposition home or self-care (01) ==
LOC: HO.HMCFM 15:06
PROVIDERS: PCP Nurse Practitioner Family; Visit Provider Nurse Practitioner Family
DX: M43.06 Spondylolysis, lumbar region (principal); M43.9 Deforming dorsopathy, unspecified; V89.2XXA Person injured in unspecified motor-vehicle accident, traffic, initial encounter

== ENCOUNTER 2024-12-18 14:50 | Outpatient (AMB) | payer OTHER, SELFPAY ==
--- NOTE | 2024-12-18 14:52 | MHC.OFFVIS ---
Vital Signs 12/18/24 14:53 Height 5 ft 7 in Weight 160 lb BMI 25.1 Intake Visit Reasons: PRN follow up VV Intake Note: PRN follow up VV bilateral LE. Pt has lost weight and is seeing more large VV and clusters where she had some previously removed. ALso states they do get sore. Unix Manager Required: No Accompanied by: Self / Same As Patient Allergies No Known Allergies Allergy (Verified 12/18/24 14:56) HPI HPI PRN follow up VV: Details: The patient is a 39-year-old female presenting with varicose veins. She underwent a microphlebectomy in June 2024 and has experienced significant weight loss following gastric bypass surgery, losing approximately 200 pounds. The patient reports that as she loses weight, more varicose veins become visible, with some becoming hard and sore. The patient had previous procedures performed in a hospital setting due to the size of the veins and associated bleeding issues. She has been advised that the veins may become more prominent with weight loss, but once treated, they should not recur in the same location. 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 She now plans for re-evaluation of left lower extremity. Of note she has been compliant with compression. [facility] Medical History Hx of phlebitis Pre-diabetes URI (upper respiratory infection) (04/09/24) Acute respiratory disease Labial lesion History of syphilis ADRIÁN (obstructive sleep apnea) Iron deficiency anemia Vitamin D deficiency Hypersomnia Edema Surgical History Hx of bypass gastroenterostomy Hx of dilation and curettage Family History Father HTN (hypertension) Cirrhosis Colon cancer Paternal Aunt History of breast cancer Paternal Grandmother Diabetes Maternal Grandmother Colon cancer Other FH: mental illness Hypercholesteremia Substance use Social History Household Members: None Caregiver staying overnight: No Housing: Apartment Are you a primary resident care technician to a significant other at home: No Do you presently have visiting nurse or other home services: No 75 years or older and lives alone: No Comment: medicated Patient Tobacco Use Status: Former Tobacco user Tobacco use type: Cigarette Years Smoked: 26 quit 02/2023 e-Cigarette/Vaping Use: Never Used Second Hand Smoke Exposure: No Substance Use Type: Marijuana service: No Current occupational status: employed 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 Current occupational exposures/hazards: No Cognitive needs: No Hearing needs: No Vision needs: No Review of Systems Const Reports as per HPI ENT Reports no additional complaints Card Denies chest pain, Denies chest pain at rest and Denies chest pain with activity Resp Denies chest congestion and Denies cough GI Reports no additional complaints Musc Details: pain over varicosities, aching of lower extremities, swelling, cramping, heaviness and tiredness, itching Denies abnormal gait Skin/Breast Reports pruritus and Denies wounds Neuro Reports no additional complaints and Denies abnormal gait Psych Denies no additional complaints Physical Exam Vital Signs: BMI result Body Mass Index 25.1 Const General: cooperative, healthy appearing and comfortable Orientation/consciousness: oriented to person, oriented to place and oriented to time Neck Carotids: no bruits Chest Chest palpation & inspection: normal inspection of the chest and normal palpation of entire chest wall Resp Effort & Inspection: normal respiratory effort and able to speak in complete sentences Cardio Rate: regular rate Heart sounds: S1 normal heart sound present and S2 normal heart sound present Peripheral pulses: Peripheral pulses 2+ throughout GI Inspection: Yes normal to inspection Skin Other: +2 edema, large rope-like varicosities greater than 4 mm left anterior thigh and calf CEAP Classification C4 - skin color changes Ep - Etiology Primary As - superficial veins P - reflux General skin exam: dry skin Neuro General: oriented to person, oriented to place and oriented to time Extrem Right lower extremity: full ROM, normal capillary refill and edema Left lower extremity: full ROM, normal capillary refill and edema Psych Mental Status: mental status grossly normal Assessment & Plan Assessment & Plan (1) Varicose veins of left lower extremity with inflammation: Comment: 04/30/2024 - left leg operative microphlebectomy Code(s): I83.12 - Varicose veins of left lower extremity with inflammation Category: Medical Plan: We discussed the recurrence of varicose veins following significant weight loss and the plan to continue hospital-based procedures due to their size. The patient was informed that once treated, the veins should not recur in the same location, although new ones may appear. A follow-up appointment is scheduled for March to reassess and plan further treatment, focusing on the left leg initially for possible microphlebectomy. Plan Patient was informed and verbally consented to the use of an ambient scribe for clinic note documentation during this visit. Patient Instructions: - Schedule a follow-up appointment in March for reassessment and further treatment planning. - Continue with compression, elevation and exercise Coding Level of Care Code Est Pt Level 3 (15792) Diagnoses Varicose veins of left lower extremity with inflammation I83.12
[2024-12-18 14:53] VITALS: BMI 25.1
--- OUTSIDE RECORDS SUMMARY | 2024-12-18 17:44 | XMS_ITS | Clinical Summary ---
Author Organization [address] [facility] Address [address] [place] [address] Phone Care Team Providers Care Firer Kiln Name Role Phone LiudmilaOfelia Dutta YEYO Primary Care Provider [phone] Allergies No known active allergies Medications buPROPion SR (WELLBUTRIN SR) 150 mg 12 hr tablet Take 1 tablet (150 mg total) by mouth 2 (two) times a day. for 90 days 12/12/2023 Active cholecalciferol (VITAMIN D-3) 1,250 mcg (50,000 unit) capsuleIndicati ons:Obesity, class 3 (CMS/HCC V28) TAKE 1 CAPSULE [...] Amount: 30 mg 12 tablet 05/29/2024 Active ferrous sulfate 325 mg (65 mg iron) EC tablet Take 1 tablet (325 mg total) by mouth 1 (one) time each day with breakfast. Do not crush, chew, or split. 90 each 11/16/2024 Active zinc gluconate 30 mg tablet Take 1 tablet (30 mg total) by mouth 1 (one) time each day. 30 tablet 11/19/2024 5 Active Active Problems Problem Noted Date Diagnosed Date S/P bariatric surgery 07/26/2024 Morbid obesity ([facility] V24, [facility] V28) 2024 Class 2 severe obesity [...] PM EDT Office Visit Bariatric Surgery - [address] [place] [phone] Chelita Amador PA Class 2 severe obesity due to excess calories with serious comorbidity and body mass index (BMI) of 37.0 to 37.9 in adult (CMS/[facility] V24, [facility] V28) (Primary Dx); Bariatric surgery status from Last 3 Months Immunizations Immunization Administration Dates Next Due HPV, Quadrivalent 01/31/2008 [...] Safety Answer Date Record ed Physical Abuse Unrecognized value 05/28/2024 Verbal Abuse Unrecognized value 05/28/2024 Comments No Sex and Gender Information [...] PM EST Office Visit Bariatric Surgery - [address] [place] [address] Chelita Amador PA [address] [place] [phone] Health Maintenance Due Date Last Done [...] Cholesterol Screening (Lipid Panel) 10/05/2028 10/06/2023, 10/06/2023 RSV Immunization Adult Patients (1 - 1-dose 75+ series) 2060 Hepatitis C Screening Completed 05/27/2009 HIV Screening [...] 37.9 in adult (CMS/HCC V24, CMS/[facility] V28) Bariatric surgery status VITAMIN B1 Routine 11/14/2024 3:28 PM EDT Class 2 severe obesity due to excess calories with serious comorbidity and body mass index (BMI) of 37.0 to 37.9 in adult ([facility]/HCC V24, CMS/[facility] V28) Bariatric surgery status VITAMIN B12 Routine 11/14/2024 3:28 PM EDT Class 2 severe obesity due to excess calories with serious comorbidity and body mass index (BMI) of 37.0 to 37.9 in adult ([facility]/HCC V24, CMS/HCC V28) Bariatric surgery status VITAMIN B6 Routine 11/14/2024 3:28 PM EDT Class 2 severe obesity due to excess calories with serious comorbidity and body mass index (BMI) of 37.0 to 37.9 in adult ([facility] V24, [facility] V28) Bariatric surgery status VITAMIN D 25 HYDROXY Routine 11/14/2024 3:28 PM EDT Class 2 severe obesity due to excess calories with serious comorbidity and body mass index (BMI) of 37.0 to 37.9 in adult ([facility]/HCC V24, CMS/[facility] V28) Bariatric surgery status ZINC Routine 11/14/2024 3:28 PM EDT Class 2 severe obesity due to excess calories with serious comorbidity and body mass index (BMI) of 37.0 to 37.9 in adult ([facility]/HCC V24, CMS/[facility] V28) Bariatric surgery status IRON AND TIBC Routine 11/14/2024 3:28 PM EDT Class 2 severe obesity due to excess calories with serious comorbidity and body mass index (BMI) of 37.0 to 37.9 in adult ([facility]/HCC V24, CMS/HCC V28) Bariatric surgery status FOLATE Routine 11/14/2024 3:28 PM EDT Class 2 severe obesity due to excess calories with serious comorbidity and body mass index (BMI) of 37.0 to 37.9 in adult ([facility]/HCC V24, CMS/[facility] V28) Bariatric surgery status COPPER, SERUM Routine [...] LAB CHEMISTRY METHOD 11/14/2024 7:51 PM EDT [facility] TIBC 351 250 - 450 mcg/dL LAB CHEMISTRY METHOD 11/14/2024 7:51 PM EDT [facility] Iron Saturation 10(L) 15 - 50 % LAB CHEMISTRY METHOD 11/14/2024 7:51 PM T [facility] Blood Venous blood specimen / Unknown Venipuncture / Unknown 11/14/2024 3:28 PM EDT 11/14/2024 3:28 PM EDT Chelita SHEIKH LAB BLOOD ORDERABLES Final R esult [facility] [address] [place] [address], * Copper, serum (11/14/2024 3:28 PM EDT) Copper 1168 810 - 1990 ug/L 11/20/2024 8:44 AM EDT [facility] Comment: Copper values may be elevated [...] at [facility], [address] , [place] [address] Tana Garza MD, PhD - Mandarin Speaking Nanny Blood Venous blood specimen / Unknown Venipuncture / Unknown 11/14/2024 3:28 PM EDT 11/14/2024 3:28 PM EDT Chelita SHEIKH LAB BLOOD ORDERABLES Final R esult [facility] [address] [place] [address] * (ABNORMAL) Zinc (11/14/2024 3:28 PM EDT) Zinc 47(L) 60 - 130 ug/dL 11/19/2024 12:52 PM EDT [facility] Comment: Elevated results may be due [...] at [facility], [address] [place] [address] Tana Garza MD, PhD - Mandarin Speaking Nanny Blood Venous blood specimen / Unknown Venipuncture / Unknown 11/14/2024 3:28 PM EDT 11/14/2024 3:28 PM EDT Chelita SHEIKH LAB BLOOD ORDERABLES Final R esult Performing Organization Address City/[facility]/ZIP Co de Phone Number [facility] [address] [place] [address] * Vitamin A (11/14/2024 3:28 PM EDT) Pathologist [facility] Vitamin A 38 38 - 106 ug/dL 11/20/2024 6:01 AM EDT [facility] Comment: This test was developed [...] at [facility], [address] [facility], [place] [address] Tana Garza MD, PhD - Mandarin Speaking Nanny Blood Venous blood specimen / Unknown Venipuncture / Unknown 11/14/2024 3:28 PM EDT 11/14/2024 3:28 PM EDT Chelita SHEIKH LAB BLOOD ORDERABLES Final R esult Performing Organization Address City/[facility]/ZIP Co de Phone Number [facility] [address] [place] [address] * , urine (11/14/2024 3:28 PM EDT) Preg Test, Ur Negative Negative 11/14/2024 7:33 PM EDT [facility] Urine Urine specimen obtained by clean catch procedure / Unknown Non-blood Collection / Unknown 11/14/2024 3:28 PM EDT 11/14/2024 3:28 PM EDT Chelita SHEIKH LAB URINE ORDERABLES Final R esult Performing Organization Address [facility]/ZIP Co de Phone Number [facility] [address] [place] [address], [place] [phone] * Vitamin D 25 hydroxy (11/14/2024 3:28 PM EDT) Vit D, 25-Hydroxy 31.1 30.0 - 80.0 ng/mL LAB CHEMISTRY METHOD 11/14/2024 8:37 PM EDT [facility] Blood Venous blood specimen / Unknown Venipuncture / Unknown 11/14/2024 3:28 PM EDT 11/14/2024 3:28 PM EDT Chelita SHEIKH LAB BLOOD ORDERABLES Final R esult Performing Organization Address [facility] de Phone Number [facility] [address] [place] [address], [place] [phone] * Vitamin B1 (11/14/2024 3:28 PM EDT) Vitamin B1 Whole Blood 57 38 - 122 ug/L 11/20/2024 6:34 AM EDT [facility] Comment: This test was developed and the performance characteristics determined by [facility]. It has not been cleared or approved by the FDA. The laboratory is regulated under CLIA as qualified to perform high-complexity testing. This test is used for patient testing purposes. It should not be regarded as investigational or for research. Test performed at [facility], [address] , [place] [address] Tana Garza MD, PhD - Mandarin Speaking Nanny Blood Venous blood specimen / Unknown Venipuncture / Unknown 11/14/2024 3:28 PM EDT 11/14/2024 3:28 PM EDT Chelita SHEIKH LAB BLOOD ORDERABLES Final R esult [facility] [address] [place] [address] * Vitamin B6 (11/14/2024 3:28 PM EDT) [facility] Vitamin B6 (Pyridoxine) Level 5 5 - 50 ug/L 11/20/2024 8:45 AM EDT [facility] Comment: This test was developed [...] at [facility], [address] [facility] [place] [address] Tana Garza MD, PhD - Mandarin Speaking Nanny Blood Venous blood specimen / Unknown Venipuncture / Unknown 11/14/2024 3:28 PM EDT 11/14/2024 3:28 PM EDT Chelita SHEIKH LAB BLOOD ORDERABLES Final R esult Performing Organization Address City/[facility]/ZIP Co de Phone Number [facility] [address] [place] [address] * Folate (11/14/2024 3:28 PM EDT) Pathologist [facility] Folate 6.7 2.8 - 17.0 ng/ml LAB CHEMISTRY METHOD 11/14/2024 8:14 PM EDT [facility] Blood Venous blood specimen / Unknown Venipuncture / Unknown 11/14/2024 3:28 PM EDT 11/14/2024 3:28 PM EDT Chelita SHEIKH LAB BLOOD ORDERABLES Final R esult Performing Organization Address City/[facility]/ZIP Co de Phone Number [facility] [address] [place] [address], * Vitamin B12 (11/14/2024 3:28 PM EDT) [facility] Vitamin B-12 584 250 - 900 pcg/mL LAB CHEMISTRY METHOD 11/14/2024 8:14 PM EDT [facility] Blood Venous blood specimen / Unknown Venipuncture / Unknown 11/14/2024 3:28 PM EDT 11/14/2024 3:28 PM EDT Chelita SHEIKH LAB BLOOD ORDERABLES Final R esult Performing Organization Address [facility]/ZIP Co de Phone Number [facility] [address] [place] [address], * Comprehensive metabolic panel (11/14/2024 3:28 PM EDT) [facility] Sodium 137 133 - 145 mmol/L LAB CHEMISTRY METHOD 11/14/2024 7:53 PM EDT [facility] Potassium 3.9 3.5 - 5.5 mmol/L LAB CHEMISTRY METHOD 11/14/2024 7:53 PM [facility] Chloride 107 96 - 110 mmol/L LAB CHEMISTRY METHOD 11/14/2024 7:53 PM [facility] CO2 23 21 - 32 mmol/L LAB CHEMISTRY METHOD 11/14/2024 7:53 PM T [facility] Anion Gap 7 3 - 11 LAB CHEMISTRY METHOD 11/14/2024 7:53 PM [facility] Glucose 74 70 - 100 mg/dL LAB CHEMISTRY METHOD 11/14/2024 7:53 PM [facility] BUN 15 5 - 25 mg/dL LAB CHEMISTRY METHOD 11/14/2024 7:53 PM EDT [facility] Creatinine 0.80 0.50 - 1.10 mg/dL LAB CHEMISTRY METHOD 11/14/2024 7:53 PM EDT [facility] eGFR 96 >=60 mL/min/1. 73m2 LAB CHEMISTRY METHOD 11/14/2024 7:53 PM T [facility] Comment:Calculation based on the Chronic Kidney Disease Epidemiology Collaboration (CKD-EPI) equation refit without adjustment for race. BUN/Creatinine Ratio 18.8 LAB CHEMISTRY METHOD 11/14/2024 7:53 PM EDT [facility] Calcium 8.8 8.5 - 10.5 mg/dL LAB CHEMISTRY METHOD 11/14/2024 7:53 PM [facility] AST (SGOT) 20 10 - 42 unit/L LAB CHEMISTRY METHOD 11/14/2024 7:53 PM [facility] ALT (SGPT) 32 10 - 60 unit/L LAB CHEMISTRY METHOD 11/14/2024 7:53 PM [facility] Alkaline Phosphatase 89 42 - 121 unit/L LAB CHEMISTRY METHOD 11/14/2024 7:53 PM [facility] Total Protein 7.2 6.0 - 8.0 g/dL LAB CHEMISTRY METHOD 11/14/2024 7:53 PM [facility] Albumin 3.9 3.2 - 5.0 g/dL LAB CHEMISTRY METHOD 11/14/2024 7:53 PM [facility] Total Bilirubin 0.3 0.0 - 1.4 mg/dL LAB CHEMISTRY METHOD 11/14/2024 7:53 PM [facility] Blood Venous blood specimen / Unknown Venipuncture / Unknown 11/14/2024 3:28 PM EDT 11/14/2024 3:28 PM EDT us Chelita SHEIKH LAB BLOOD ORDERABLES Final R esult [facility] [address] [place] [address], * (ABNORMAL) Lipid panel (10/06/2023) LDL/HDL Ratio 4 0 - 4 Triglycerides 121 0 - 150 mg/dL Cholesterol 193 0 - 200 mg/dL HDL 51 >=40 mg/dL LDL Cholesterol 118(A) 0 - 100 mg/dL Blood Venous blood specimen / Unknown [facility] Provider MD LAB BLOOD ORDERABLES Gabbi l Result * HIV Screening (12/24/2010) Pathologist [facility] HIV Screening abstracted [facility] Provider HEALTH MAINTENANCE Final Result * Pap Smear (12/24/2010) Pathologist [facility] Pap smear abstracted, no interpretation [facility] Provider HEALTH MAINTENANCE Final Result * Hepatitis C Screening (05/27/2009) Pathologist [facility] Hepatitis C Screening abstracted [facility] Provider HEALTH MAINTENANCE Final Result from Last 3 Months or Most Recently Relevant to Health Maintenance Insurance [facility] Advance Directives * [...] currently active code status orders. Care Teams Firer Kiln Relationship Specialty Start Date End Date Ofelia Layne FNP [address] [place] [address] PCP - General Nurse Practitioner 04/18/24
== END 2024-12-18 15:20 | disposition home or self-care (01) ==
LOC: HO.HVS 14:51
PROVIDERS: PCP Nurse Practitioner Family; Visit Provider Surgery Vascular Surgery
DX: I83.12 Varicose veins of left lower extremity with inflammation (principal)
CPT/HCPCS: 99213

== ENCOUNTER 2025-01-02 15:00 | Outpatient (RCR) | payer OTHER, SELFPAY ==
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
--- NOTE | 2025-01-02 15:42 | MHC.PT.DC ---
[facility] [place] [facility] [place] [facility] [place] [facility] [address] Elias Moncada [address] [phone] F: [phone] F: [phone] F: [phone] F: [phone] Physical Therapy Discharge Report Diagnosis: B LBP with sciatica Date of Surgery: n/a Date of Evaluation: 11/27/24 Date of Discharge: 01/02/25 Treatments to Date: 4 Cancellations to Date: 0 No Shows to Date: 1 Discharge Status: Achieved Goals Improved Function Independent with HEP Patient Elected to Stop Discharge Summary: 01/02/2025: Pt is no longer feeling pain. She is independent in her exercises needing min to no cues. She has met her functional goals. At this time she would prefer to work on HEP at home vs continuing in the clinic. Pt therefore self d/c. Electronically signed by: Whit Arnold, PT, DPT, ATC Please sign and return to therapist. Thank you for your referral.
== END 2025-01-02 15:42 | disposition home or self-care (01) ==
LOC: HO.PTCHIC 15:00
PROVIDERS: PCP Nurse Practitioner Family; Visit Provider Nurse Practitioner Family
DX: M54.42 Lumbago with sciatica, left side (principal); M54.41 Lumbago with sciatica, right side; G89.29 Other chronic pain
CPT/HCPCS: 97110; 97161

== ENCOUNTER 2025-01-08 14:55 | Outpatient (AMB) | payer OTHER, SELFPAY ==
--- NOTE | 2025-01-08 14:57 | A.OFFPC_ITS ---
Vital Signs 01/08/25 15:00 Height 5 ft 7 in Weight 231 lb 4 oz BMI 36.2 BP 118/70 Blood Pressure Location Lt brachial Position Sitting Respiration 12 Pulse 68 Pulse Source Pulse Oximeter Temp 97.2 F Temp Source Oral Pulse Oximetry (%) 99 Oxygen Delivery Method Room Air Intake Visit Reasons: August CPE, sooner PRN Intake Note: CPE On Air Talent Required: No Allergies No Known Allergies Allergy (Verified 01/08/25 15:04) Medication List - Last Reconciled 01/08/25 by YEYO Beckham-BC acetaminophen 1,000 mg (2 x 500 mg) PO Q6H PRN bupropion HCl XL 150 mg PO QAM cholecalciferol (vitamin D3) 1,250 mcg PO QWEEK cyclobenzaprine 10 mg PO Q8H PRN 5 days ferrous sulfate 325 mg PO QAM ursodiol mg PO zinc gluconate 30 mg PO DAILY Tobacco use date assessed: 01/08/25 Dental Screening Dental Screen Date: 01/08/25 Did you have a dental visit in the last 12 months?: Yes Did you have a dental problem in the last 6 months where you did not have access to dental care?: No Was dental information given to patient?: Patient has dentist HPI HPI Comments History of Present Illness Details 39-year-old female with scoliosis, seaso nal allergies, former smoker, obesity, varicose veins in BLE, generalized anxiety disorder, family hx of breast ca/colon ca/brain ca, 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) s/p gastric bypass 2024, s/p phlebectomy of lower ext, excision of squamous cell ca of skin 04/2024 family history: father() alcohol abuse + bipolar, paternal grandmother diabetes, maternal grandmother colon cancer, maternal aunt breast cancer, maternal aunt brain cancer 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 Menorrhagia: - The patient reports her periods have b ecome excessively heavy since her gastric bypass surgery. - She bleeds through ultra tampons withi n 30 minutes, which has caused her to leave work. - She also experiences bleeding through an ultra tampon overnight. - Prior to her weight loss, she had heav y periods for the first 2-3 days that would then taper off. - She has an appointment with her PATIENT ACCOUNTS COORDINATOR next month to address this issue. Alopecia and Zinc Deficiency: - The patient reports significant hair l oss, describing it as balding that extends back, with hair breaking into short strands. - She indicates this is caused by a diag nosed low zinc level. - She was prescribed zinc and iron suppl ements but stopped the zinc due to severe constipation, as she could not have a bowel movement for five days. - The patient's gastric bypass surgery i s noted as the reason for malabsorption, leading to the zinc deficiency and a potential need for lifelong supplementation. - Her prescription for zinc has no refil ls, and her next follow-up is in April. Varicose Veins: - The patient reports having varicose ve ins that became more prominent and visible after her weight loss. - She has seen a vascular surgeon, Dr. jannette Macias, who noted the severity of the veins. - She is scheduled for surgery on her le ft leg in March to address the larger veins. - Veins are now also appearing on her up per legs and going down her calf. - The patient regularly wears compressio n stockings. Vaginal Odor: - The patient complains of a recurrent f ishy vaginal odor that she notices shortly after showering. - She notes this issue has occurred more frequently since her weight loss surgery, whereas she rarely had it before. Generalized Anxiety Disorder: - The patient has a history of generaliz ed anxiety disorder. - She recently restarted bupropion and r eports feeling better, with improved energy and mood. - She notes that prior to restarting, sh guevara was irritable and felt that everyone was upsetting her. Obstructive Sleep Apnea: - The patient uses a CPAP machine for ob structive sleep apnea and states she loves it. - She missed a scheduled appointment for a repeat sleep study and has not rescheduled. - She reports a recent episode of waking up choking, which she attributes to acid reflux after eating late. Past Medical History - Generalized anxiety disorder, managed with bupropion - Obesity, current BMI 36.2 - Varicose veins of lower extremities - Obstructive sleep apnea, uses CPAP - Zinc deficiency - Chronic back pain - History of Tinea versicolor, now resol jyoti - Acid reflux Past Surgical History - Gastric bypass - Varicose vein surgery planned for Jan redmond Family History - The patient's sister underwent DNA jyoti ting that indicated a high risk for s everal types of cancer. - Family history is positive for cancer on both her paternal and maternal sides. Social History - Alcohol use: The patient reports she h as completely quit drinking alcohol. - Exercise: The patient is physically ac tive and engages in hiking, having recently completed several mountains and planning to hike [place]. - Weight management: Status post gastric bypass surgery for obesity. - Body image: The patient expresses diss atisfaction with loose skin on her neck ( turkey neck ) following significant weight loss and is considering dermatological treatments. Health Maintenance - An order was placed for a screening ma mmogram, which the patient can schedule after she turns 40 in June. - Advised the patient to gather specific details from her sister regarding her genetic cancer screening (test name, ordering provider, payment method) to determine the next steps for her own potential screening. - Advised to find a new coater that accepts her insurance for evaluation of blurry vision. - Recommended to schedule a follow-up vi sit in one year for a complete physical or sooner if needed. Review of Systems - Gynecological: Reports menorrhagia sin ce weight loss surgery, requiring frequent changes of ultra tampons. - Reports recurrent fishy vaginal odor. - Integumentary: Reports significant gautam r loss and breakage. - Reports prominent varicose veins on le gs. - Concerned about loose skin on her neck post-weight loss. - History of tinea versicolor which has resolved. - Gastrointestinal: Reports severe const ipation when taking iron and zinc supplements together. - Reports choking episodes at night attr ibuted to acid reflux. - Eyes: Reports blurry vision when looki ng at a computer screen, even with glasses. - Musculoskeletal: Reports ongoing back pain. Patient reports varicose veins, with plans for surgery in March - Psychiatric: Reports improved mood and energy since restarting bupropion for anxiety. Physical Exam General: Well developed, well nourished, in no acute distress. Appears stated age. Head: Normocephalic, atraumatic. Eyes: Pupils are equal, round and reactive to light and accommodation. Conjunctivae are clear. Scleras nonicteric bilat. Vision grossly normal. Ears: TMs clear AU, EACS WNL Nose: Patent, without discharge. Neck: No carotid bruit bilat. Supple, no adenopathy or thyromegaly. Breast: Edu on SBE Lungs: Clear to auscultation bilaterally. No rales, rhonchi or wheeze noted. Good air flow in all rodriguez. Heart: Regular rate and rhythm. No murmurs, click, rubs or gallops are noted. Abdomen: Bowel sounds present in all quadrants. The abdomen is soft, nontender, with no masses or organomegaly noted. No hernias are noted. : Deferred. Reviewed recommendations for routine BLEACHING MACHINE OPERATOR. Pulses: Peripheral pulses are equal and palpable bilaterally. Extremities: No clubbing, cyanosis nor edema is noted. y. Neurologic: Gait and station normal. Cranial Nerves 2-12 intact. Motor strength grossly symmetrical and intact. No sensory loss. Balance normal. Skin: No rashes, ulcers, or lesions noted. Turgor is good. Skin color is good. Hair and nails are without abnormalities. Psych: Normal eye contact, affect and mood appropriate, and normal interactions. Patient is alert and appropriate to context. Results - Labs: Reports low zinc level, which is contributing to her hair loss. Medical Decision Making The patient is a 39-year-old female, status post gastric bypass, here for a complete physical exam with several concerns. Her primary complaints include menorrhagia, alopecia, and varicose veins, most of which have developed or worsened since her significant weight loss. Her menorrhagia is severe and requires evaluation by her PATIENT ACCOUNTS COORDINATOR, with whom she has an appointment next month. Given her history of varicose veins and upcoming surgery, hormonal control is not recommended at this time due to the increased risk of thrombosis. An ablation may be a future consideration. The patient's alopecia is directly attributed to her low zinc levels, a common complication of gastric bypass surgery. She was advised to restart her zinc supplement. To manage the associated constipation, it was recommended to reintroduce the iron supplement every other day after a week of being on zinc alone. For the recurrent vaginal odor, a self-collection swab will be provided for testing for bacterial vaginosis when symptoms are present, avoiding an unnecessary office visit. Her generalized anxiety disorder is well-controlled on bupropion, which was refilled. For health maintenance, an order for her initial screening mammogram was placed, to be completed after she turns 40. Regarding her family history of cancer, the patient was advised to gather specific details about her sister's genetic testing before considering a referral for genetic counseling. Overall follow-up will be in one year or as needed. Plan 1. Menorrhagia - The patient will follow up with her OB /BLEACHING MACHINE OPERATOR next month for evaluation. - Due to her history of varicose veins, hormonal contraception is not recommended as a first-line treatment due to the risk of blood clots. - Recommended to continue managing sympt oms until her specialty appointment. 2. Alopecia And Zinc Deficiency - The patient's hair loss is attributed to low zinc levels post-gastric bypass. - Advised the patient to restart the zin c supplement immediately. - To manage constipation, it was recomme nded to wait a week before re-adding the iron supplement, and then to take it every other day to assess tolerance. - Zinc levels should be monitored routin tong. - A refill for zinc was provided. 3. Vaginal Odor - A swab will be provided for the patien nicolette to self-collect a sample for analysis the next time she experiences symptoms. - Instructed to message the office if sy mptoms recur to utilize the home collection kit. 4. Generalized Anxiety Disorder - The patient reports significant improv ement in mood and energy since restarting bupropion. - A refill for bupropion was prescribed. 5. Refer to genetics for cancer risk @ [facility] as i am not familiar with the place her sister used. Patient Instructions - Restart your zinc supplement for your hair loss. - To help with constipation, stop your i sophia pills for about a week. Then, start taking the iron every other day and see if that helps. - Keep your appointment with the PATIENT ACCOUNTS COORDINATOR next month to discuss your heavy periods. - You will be given a vaginal swab kit. If you notice the fishy odor again, use the kit to collect a sample at home and let our office know. - Continue taking your bupropion for anx iety as it seems to be helping. A refill has been sent. - An order for your first mammogram has been placed. You should schedule this sometime after your 40th birthday in June. - Please ask your sister for the exact d etails of the genetic cancer test she had done. Once you have that information, send me a message so we can decide on the next steps. - Find a new eye doctor that takes your insurance to get your blurry vision checked. - Continue with your plan for varicose v ein surgery in March. - Follow up here in one year for your ne xt physical, or sooner if any issues arise. Consent Patient was informed and verbally consented to the use of an ambient scribe for clinic note documentation during this visit. [facility] Medical History Hx of phlebitis Pre-diabetes URI (upper respiratory infection) (04/09/24) Acute respiratory disease Labial lesion History of syphilis ADRIÁN (obstructive sleep apnea) Iron deficiency anemia Vitamin D deficiency Hypersomnia Edema Surgical History Hx of bypass gastroenterostomy Hx of dilation and curettage Family History Father HTN (hypertension) Cirrhosis Colon cancer Paternal Aunt History of breast cancer Paternal Grandmother Diabetes Maternal Grandmother Colon cancer Other FH: mental illness Hypercholesteremia Substance use Social History Household Members: None Caregiver staying overnight: No Housing: Apartment Are you a primary child care associate teacher to a significant other at home: No Do you presently have visiting nurse or other home services: No 75 years or older and lives alone: No Comment: medicated Patient Tobacco Use Status: Former Tobacco user Tobacco use type: Cigarette Years Smoked: 26 quit 02/2023 e-Cigarette/Vaping Use: Never Used Second Hand Smoke Exposure: No Substance Use Type: Marijuana service: No Current occupational status: employed 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 1. Little interest or pleasure in doing things: not at all 2. Feeling down, depressed, or hopeless: not at all 3. Trouble falling or staying asleep, or sleeping too much: not at all 4. Feeling tired or having little energy: not at all 5. Poor appetite or overeating: not at all 6. Feeling bad about yourself - or that you are a failure or have let yourself or your family down: not at all 7. Trouble concentrating on things, such as reading the newspaper or watching television: not at all 8. Moving or speaking so slowly that other people could have noticed. Or the opposite - being so fidgety or restless that you have been moving around a lot more than usual: not at all 9. Thoughts that you would be better off or of hurting yourself in some way: not at all Total score: 0 Depression Screening Interpretation: Negative Depression Screening Done: Yes 93318 - PHQ-9 Billing: Yes Source: Developed by Drs. Chao Flower, Agustina Butcher, Chuy Dave and colleagues, with an educational jame from [employer]. Thrive Questionnaire Date Thrive assessed: 01/08/25 I am a: Patient What is your living situation today?: I choose not to answer this question Within the past 12 months, did the food you bought not last and you didn't have the money to get more?: I choose not to answer this question Within the past 12 months, did you worry whether your food would run out before you got money to buy more?: I choose not to answer this question Do you have trouble paying for medicines?: I choose not to answer this question Do you have trouble getting transportation to medical appointments?: I choose not to answer this question Do you have trouble paying your heating and electricity bill?: I choose not to answer this question Do you have trouble taking care of your child, family member or friend?: I choose not to answer this question Do you have trouble with day-to-day activities such as bathing, preparing meals, shopping, managing finances, etc.?: I choose not to answer this question Are you currently unemployed and looking for a job?: I choose not to answer this question Are you interested in more education?: I choose not to answer this question Please select the resources that you would like help with: None Currently or been in a relationship where the following occur: I choose not to answer THRIVE Score: 0 AUDIT C Alcohol Use Questionnaire (AUDIT-C) 1. How often do you have a drink containing alcohol?: Never 3. How often do you have six or more drinks on one occasion?: Never Total Score: 0 Score Reviewed/Action Taken: Yes FLORINA-7 AMB Questionnaire FLORINA-7 Date FLORINA - 7 assessed: 01/08/25 Feeling nervous, anxious, or on edge: 0 = Not at all Not being able to stop or control worryin = Not at all Worrying too much about different things: 0 = Not at all Trouble relaxin = Not at all Being so restless that it is hard to sit still: 0 = Not at all Becoming easily annoyed or irritable: 0 = Not at all Feeling afraid as if something awful might happen: 0 = Not at all Total FLORINA-7 score (0-4 normal; 5-9 mild; 10-14 moderate; 15-21 severe): 0 Source: Developed by Drs. Chao Flower, Agustina Butcher, Chuy Dave and colleagues, with an educational jame from [employer]. FLORINA-7 Assessment Billing FLORINA-7 Assessment Tool: FLORINA-7 Assessment 46040 Physical exam (Primary Care) Vital Signs: Last Vital Signs Temp 97.2 F 01/08/25 15:00 Pulse 68 01/08/25 15:00 Resp 12 01/08/25 15:00 BP 118/70 01/08/25 15:00 Pulse Ox 99 01/08/25 15:00 Oxygen Delivery Method Room Air 01/08/25 15:00 BMI result Body Mass Index 36.2 Tobacco/Smoking Status: Tobacco use Status Tobacco use date assessed 01/08/25 01/08/25 15:02 Patient Tobacco Use Status Former Tobacco user 01/08/25 15:02 Tobacco use type Cigarette 01/08/25 15:02 e-Cigarette/Vaping Use Never Used 01/08/25 15:02 PHQ-9: PHQ-9 Score PHQ-9: Total score 0 01/08/25 15:43 Depression Screening Interpretation: Negative Thrive Assessment: Date of Thrive Assessment Date Thrive assessed 01/08/25 01/08/25 15:02 Currently or been in a relationship where the following occur: I choose not to a [employer] [facility] Office Procedures Flu Questionnaire Does the patient have a severe egg allergy?: No Does the patient have severe life threatening allergies?: No Does the patient have a fever or illness today?: No Has the patient ever had Guillain-[place] Syndrome?: No Has the patient ever had any past reaction to a flu shot?: No Immunizations Fluarix 8514-2029 (PF) 45 mcg (15 mcg x 3)/0.5 mL IM syringe Performing Provider: AZAM Beckham Performing Location: [facility] Administered by: Kristen Espino MA on 01/08/25 15:43 Dose Route Admin Location Dispensed Lot Number Expiration Date NDC Funnel Coater 0.5 mL IM Left Deltoid 0.5 mL [id number] 09/03/25 61615-063-45 [employer] VIS Given Date VIS Provided VIS Publication Date 01/08/25 Single Vaccine 24 Eligibility Eligibility Date Funding Source Not [facility] Eligible 01/08/25 Private Coding Level of Care Code Est Pt Prev Care 18-39y(80111) Diagnoses Encounter for general adult medical examination without abnormal findings Z00.00 Varicose veins of both legs with edema I83.893 Zinc deficiency E60 Other iron deficiency anemia D50.8 Iron deficiency anemia type: other iron deficiency Menorrhagia with regular cycle N92.0 Menorrhagia type: with regular cycle Influenza vaccination administered at current visit Z23 FLORINA (generalized anxiety disorder) F41.1 ADRIÁN (obstructive sleep apnea) G47.33 Family history of breast cancer Z80.3 Family history of brain cancer Z80.8 Family history of colon cancer Z80.0 Vaginal discharge N89.8 Additional Codes FLORINA-7 Assessment Billing - FLORINA-7 Assessment Tool: FLORINA-7 Assessment 70324 ([id number]) PHQ-9 - 75866 - PHQ-9 Billing: Yes ([id number]) Assessment & Plan Assessment & Plan (1) Encounter for general adult medical examination without abnormal findings: Onset Date: ~01/08/25 Code(s): Z00.00 - Encounter for general adult medical examination without abnormal findings Category: Medical (2) Varicose veins of both legs with edema: Code(s): I83.893 - Varicose veins of bilateral lower extremities with other complications Category: Medical (3) Zinc deficiency: Comment: d/t wt loss surgery Code(s): E60 - Dietary zinc deficiency Category: Medical (4) Iron deficiency anemia: Code(s): D50.9 - Iron deficiency anemia, unspecified Category: Medical Qualifiers: Iron deficiency anemia type: other iron deficiency Qualified Code(s): D50.8 - Other iron deficiency anemias (5) Menorrhagia: Code(s): N92.0 - Excessive and frequent menstruation with regular cycle Category: Medical Qualifiers: Menorrhagia type: with regular cycle Qualified Code(s): N92.0 - Excessive and frequent menstruation with regular cycle (6) Influenza vaccination administered at current visit: Onset Date: ~01/08/25 Code(s): Z23 - Encounter for immunization Category: Medical (7) FLORINA (generalized anxiety disorder): Code(s): F41.1 - Generalized anxiety disorder Category: Medical (8) ADRIÁN (obstructive sleep apnea): Comment: sleep study 11/17/2023 [facility] 12/2023 Code(s): G47.33 - Obstructive sleep apnea (adult) (pediatric) Category: Medical (9) Family history of breast cancer: Comment: maternal aunt Code(s): Z80.3 - Family history of malignant neoplasm of breast Category: Medical (10) Family history of brain cancer: Comment: maternal aunt Code(s): Z80.8 - Family history of malignant neoplasm of other organs or systems Category: Medical (11) Family history of colon cancer: Comment: maternal grandma Code(s): Z80.0 - Family history of malignant neoplasm of digestive organs Category: Medical (12) Vaginal discharge: Code(s): N89.8 - Other specified noninflammatory disorders of vagina Plan . Orders: Orders Influenza 9090-4929 Immunization Today Z23 - Encounter for immunization MM tomosynthesis screening BI Today Z12.31 - Encounter for screening mammogram for malignant neoplasm of breast Referrals Genetics Referral Z80.0 - Family history of malignant neoplasm of digestive organs, Z80.3 - Family history of malignant neoplasm of breast, Z80.8 - Family history of malignant neoplasm of other organs or systems Medications: New zinc gluconate 30 mg PO DAILY 90 tabs 0RF Refilled bupropion HCl XL 150 mg PO QAM 90 tabs 0RF Patient Instructions: Health screenings for women You should visit your health care provider from time to time, even if you are healthy. The purpose of these visits is to: Screen for medical issues Assess your risk for future medical problems Encourage a healthy lifestyle Update vaccinations and other preventive care services Help you get to know your provider in case of an illness Information Even if you feel fine, you should still see your provider for regular checkups. These visits can help you avoid problems in the future. For example, the only way to find out if you have high blood pressure is to have it checked regularly. High blood sugar and high cholesterol levels also may not have any symptoms in the early stages. A simple blood test can check for these conditions. There are specific times when you should see your provider or receive specific health screenings. The [place] Preventive Services Task Force publishes a list of recommended screenings. Below are screening guidelines for women ages 18 to 39. BLOOD PRESSURE SCREENING Your blood pressure should be checked at least once every 3 to 5 years if: Your blood pressure is in the normal range (top number less than 120 mm Hg and bottom number less than 80 mm Hg) You don't have risk factors for high blood pressure Ask your provider if you need your blood pressure checked more often if: The top number is 120 to 129 mm Hg or the bottom number is 70 to 79 mm Hg You have diabetes, heart disease, kidney problems, are overweight, or have certain other health conditions You have a first-degree relative with high blood pressure You are Black You had high blood pressure during a If the top number is 130 mm Hg or greater or the bottom number is 80 mm Hg or greater, this is considered stage 1 hypertension. Schedule an appointment with your provider to learn how you can reduce your blood pressure. Watch for blood pressure screenings in your area. Ask your provider if you can stop in to have your blood pressure checked. BREAST CANCER SCREENING Experts do not agree about the benefits of breast self-exams in finding breast cancer or saving lives. Talk to your provider about what is best for you. A screening mammogram is not recommended for most women under age 40. Your provider may discuss and recommend mammograms, MRI scans, or ultrasounds if you have an increased risk for breast cancer, such as: A mother or sister who had breast cancer at a young age (most often starting screening earlier than the age the close relative was diagnosed) You carry a high-risk genetic marker CERVICAL CANCER SCREENING Cervical cancer screening should start at age 21 years unless your provider advises otherwise. After the first test: Women ages 21 through 29 should have a Pap test every 3 years. Exoprts do not agree on whether HPV testing is recommended for this age group. Women ages 30 through 65 should be screened with either a Pap test every 3 years or the HPV test every 5 years or both tests every 5 years (called cotesting ). Women who have been treated for precancer (cervical dysplasia) should continue to have Pap tests for 20 years after treatment or until age 65, whichever is longer. If you have had your uterus and cervix removed (total hysterectomy), and you have not been diagnosed with cervical cancer or precancer (high grade cervical neoplasia), you do not need cervical cancer screening. CHOLESTEROL SCREENING Cholesterol screening should begin at: Age 45 for women with no known risk factors for coronary heart disease Age 20 for women with known risk factors for coronary heart disease Repeat cholesterol screening should take place: Every 5 years for women with normal cholesterol levels More often if changes occur in lifestyle (including weight gain and diet) More often if you have diabetes, heart disease, kidney problems, or certain other conditions DIABETES SCREENING You should be screened for diabetes starting at age 35 and then repeated every 3 years if you have no risk factors for diabetes. Screening may need to start earlier and be repeated more often if you have other risk factors for diabetes, such as: You have a first degree relative with diabetes. You are overweight or have obesity. You have high blood pressure, prediabetes, or a history of heart disease. Screening for diabetes should be done if you are planning to become and you are overweight and have other risk factors such as high blood pressure. DENTAL EXAM Go to the dentist once or twice every year for an exam and cleaning. Your dentist will evaluate if you need more frequent visits. EYE EXAM Have an eye exam every 5 to 10 years before age 40. If you have vision problems, have an eye exam every 2 years or more often if recommended by your provider. You should have an eye exam that includes an examination of your retina (back of your eye) at least every year if you have diabetes. IMMUNIZATIONS Commonly needed vaccines include: Flu shot: get one every year. COVID-19 vaccine: ask your provider what is best for you. Tetanus-diphtheria and acellular pertussis (Tdap) vaccine: have one at or after age 19 as one of your tetanus-diphtheria vaccines if you did not receive it as an adolescent. Tetanus-diphtheria: have a booster (or Tdap) every 10 years. Varicella vaccine: receive 2 doses if you never had chickenpox or the varicella vaccine. Hepatitis B vaccine: receive 2, 3, or 4 doses, depending on your exact circumstances. Measles, mumps, and rubella (MMR) vaccine: receive 1 to 2 doses if you are not already immune to MMR. Your provider can tell you if you are immune. Ask your provider about the human papillomavirus (HPV) vaccine if: You have not received the HPV vaccine in the past You have not completed the full vaccine series (you should catch up on this shot) Ask your provider if you should receive other immunizations if you have certain health problems that increase your risk for some diseases such as pneumonia. INFECTIOUS DISEASE SCREENING Women who are sexually active should be screened for chlamydia and gonorrhea up until age 25. Women 25 years and older should be screened for chlamydia and gonorrhea if at high risk. Screening for hepatitis C: All adults ages 18 to 79 should get a one-time test for hepatitis C. people should be screened at every . Screening for human immunodeficiency virus (HIV): All people ages 15 to 65 should get a one-time test for HIV. Depending on your lifestyle and medical history, you may also need to be screened for infections such as syphilis and HIV, as well as other infections. PHYSICAL EXAM All adults should visit their provider from time to time, even if they are healthy. The purpose of these visits is to: Screen for disease Assess your risk of future medical problems Encourage a healthy lifestyle Update your vaccinations and other preventive care services Maintain a relationship with a provider in case of an illness Your height, weight, and BMI should be checked at every exam. During your exam, your provider may ask you about: Depression and anxiety Diet and exercise Alcohol and tobacco use Safety issues, such as using seat belts, smoke detectors, and intimate partner violence Your medicines and risk for interactions SKIN SELF-EXAM Your provider may check your skin for signs of skin cancer, especially if you're at high risk, such as if you: Have had skin cancer before Have close relatives with skin cancer Have a weakened immune system OTHER SCREENING Talk with your provider about colon cancer screening if you have a strong family history of colon cancer or polyps, or if you have had inflammatory bowel disease or polyps yourself. Routine bone density screening of women under 40 is not recommended.
[2025-01-08 15:00] VITALS: BP 118/70; PULSE 68; RESP 12; TEMP 36.2; O2SAT 99; BMI 36.2
--- OUTSIDE RECORDS SUMMARY | 2025-01-08 18:01 | XMS_ITS | Clinical Summary ---
Author Organization [address] [facility] Address [address] [place] [address] Phone Care Team Providers Care Neuroscientist Name Role Phone LiudmilaOfelia Dutta YEYO Primary Care Provider [phone] Allergies No known active allergies Medications buPROPion [...] crush, chew, or split. 90 each 11/16/2024 02/15/20 25 Active zinc gluconate 30 mg tablet Take 1 tablet (30 mg total) by mouth 1 (one) time each day. 30 tablet 11/19/2024 12/20/19 25 Active Problems Problem Noted Date Diagnosed Date S/P bariatric surgery 07/26/2024 Morbid obesity (CMS/[facility] V24, [facility] V28) 2024 Class 2 severe obesity due [...] PM EDT Office Visit Bariatric Surgery - [address] [id number] Chelita Amador PA Class 2 severe obesity due to excess calories with serious comorbidity and body mass index (BMI) of 37.0 to 37.9 in adult (CMS/[facility] V24, CMS/[facility] V28) (Primary Dx); Bariatric surgery status from [...] PM EST Office Visit Bariatric Surgery - [address] [place] [id number] Chelita Amador, KORI [address] [place] [phone] Health Maintenance Due Date Last Done [...] 37.0 to 37.9 in adult (CMS/HCC V24, CMS/[facility] V28) Bariatric surgery status VITAMIN B1 Routine 11/14/2024 3:28 PM EDT Class 2 severe obesity due to excess calories with serious comorbidity and body mass index (BMI) of 37.0 to 37.9 in adult ([facility]/HCC V24, CMS/HCC V28) Bariatric surgery status VITAMIN B12 Routine 11/14/2024 3:28 PM EDT Class 2 severe obesity due to excess calories with serious comorbidity and body mass index (BMI) of 37.0 to 37.9 in adult ([facility]/HCC V24, CMS/HCC V28) Bariatric surgery status VITAMIN B6 Routine 11/14/2024 3:28 PM EDT Class 2 severe obesity due to excess calories with serious comorbidity and body mass index (BMI) of 37.0 to 37.9 in adult ([facility]/HCC V24, CMS/[facility] V28) Bariatric surgery status VITAMIN D 25 HYDROXY Routine 11/14/2024 3:28 PM EDT Class 2 severe obesity due to excess calories with serious comorbidity and body mass index (BMI) of 37.0 to 37.9 in adult ([facility]/HCC V24, CMS/HCC V28) Bariatric surgery status ZINC Routine 11/14/2024 3:28 PM EDT Class 2 severe obesity due to excess calories with serious comorbidity and body mass index (BMI) of 37.0 to 37.9 in adult ([facility]/HCC V24, CMS/HCC V28) Bariatric surgery status IRON AND TIBC Routine 11/14/2024 3:28 PM EDT Class 2 severe obesity due to excess calories with serious comorbidity and body mass index (BMI) of 37.0 to 37.9 in adult (CMS/HCC V24, CMS/HCC V28) Bariatric surgery status FOLATE [...] LAB CHEMISTRY METHOD 11/14/2024 7:51 PM EDT [facility] TIBC 351 250 - 450 mcg/dL LAB CHEMISTRY METHOD 11/14/2024 7:51 PM EDT [facility] Iron Saturation 10(L) 15 - 50 % LAB CHEMISTRY METHOD 11/14/2024 7:51 PM T [facility] Blood Venous blood specimen / Unknown Venipuncture / Unknown 11/14/2024 3:28 PM EDT 11/14/2024 3:28 PM EDT Chelita SHEIKH LAB BLOOD ORDERABLES Final R esult [facility] ([facility]) [facility] [address] [place] [address], * Copper, serum (11/14/2024 3:28 PM EDT) Copper 1168 810 - 1990 ug/L 11/20/2024 8:44 AM EDT [facility] Comment: Copper values may be elevated to twice the normal levels in . Elevated results may be due to sample collected in a non-certified trace element-free tube. This test was developed and the performance characteristics determined by [facility]. It has not been cleared or approved by the FDA. The laboratory is regulated under CLIA as qualified to perform high-complexity testing. This test is used for patient testing purposes. It should not be regarded as investigational or for research. Test performed at [facility], [address] , [place] [address] Tana Garza MD, PhD - School Fundraising Director Blood Venous blood specimen / Unknown Venipuncture / Unknown 11/14/2024 3:28 PM EDT 11/14/2024 3:28 PM EDT Chelita SHEIKH LAB BLOOD ORDERABLES Final R esult [facility] [address] [place] [address] * (ABNORMAL) Zinc (11/14/2024 3:28 PM EDT) Zinc 47(L) 60 - 130 ug/dL 11/19/2024 12:52 PM EDT [facility] Comment: Elevated results may be due to sample collected in a non-certified trace element-free tube. This test was developed and the performance characteristics determined by [facility]. It has not been cleared or approved by the FDA. The laboratory is regulated under CLIA as qualified to perform high-complexity testing. This test is used for patient testing purposes. It should not be regarded as investigational or for research. Test performed at [facility], [address] [place] [address] Tana Garza MD, PhD - School Fundraising Director Blood Venous blood specimen / Unknown Venipuncture / Unknown 11/14/2024 3:28 PM EDT 11/14/2024 3:28 PM EDT Chelita SHEIKH LAB BLOOD ORDERABLES Final R esult Performing Organization Address City/[facility]/ZIP Co de Phone Number [facility] [address] [place] [address] * Vitamin A (11/14/2024 3:28 PM EDT) [facility] Vitamin A 38 38 - 106 ug/dL 11/20/2024 6:01 AM EDT [facility] Comment: This test was developed and the performance characteristics determined by [facility]. It has not been cleared or approved by the FDA. The laboratory is regulated under CLIA as qualified to perform high-complexity testing. This test is used for patient testing purposes. It should not be regarded as investigational or for research. Test performed at [facility], [address] [facility], [place] [address] Tana Garza MD, PhD - School Fundraising Director Blood Venous blood specimen / Unknown Venipuncture / Unknown 11/14/2024 3:28 PM EDT 11/14/2024 3:28 PM EDT Chelita SHEIKH LAB BLOOD ORDERABLES Final R esult Performing Organization Address City/[facility]/ZIP Co de Phone Number [facility] [address] [place] [address] * , urine (11/14/2024 3:28 PM EDT) Preg Test, Ur Negative Negative 11/14/2024 7:33 PM EDT [facility] Urine Urine specimen obtained by clean catch procedure / Unknown Non-blood Collection / Unknown 11/14/2024 3:28 PM EDT 11/14/2024 3:28 PM EDT Chelita SHEIKH LAB URINE ORDERABLES Final R esult Performing Organization Address [facility]/ZIP Co de Phone Number [facility] [address] [place] [address], [place] [phone] * Vitamin D 25 hydroxy (11/14/2024 3:28 PM EDT) Vit D, 25-Hydroxy 31.1 30.0 - 80.0 ng/mL LAB CHEMISTRY METHOD 11/14/2024 8:37 PM EDT [facility] Blood Venous blood specimen / Unknown Venipuncture / Unknown 11/14/2024 3:28 PM EDT 11/14/2024 3:28 PM EDT Chelita SHEIKH LAB BLOOD ORDERABLES Final R esult Performing Organization Address [facility] de Phone Number [facility] [address] [place] [address], [place] [phone] * Vitamin B1 (11/14/2024 3:28 PM EDT) Vitamin B1 Whole Blood 57 38 - 122 ug/L 11/20/2024 6:34 AM EDT [facility] Comment: This test was developed and the performance characteristics determined by [facility]. It has not been cleared or approved by the FDA. The laboratory is regulated under CLIA as qualified to perform high-complexity testing. This test is used for patient testing purposes. It should not be regarded as investigational or for research. Test performed at [facility], [address] , [place] [address] Tana Garza MD, PhD - School Fundraising Director Blood Venous blood specimen / Unknown Venipuncture / Unknown 11/14/2024 3:28 PM EDT 11/14/2024 3:28 PM EDT Chelita SHEIKH LAB BLOOD ORDERABLES Final R esult [facility] [address] [place] [address] * Vitamin B6 (11/14/2024 3:28 PM EDT) Pathologist [facility] Vitamin B6 (Pyridoxine) Level 5 5 - 50 ug/L 11/20/2024 8:45 AM EDT [facility] Comment: This test was developed and the performance characteristics determined by [facility]. It has not been cleared or approved by the FDA. The laboratory is regulated under CLIA as qualified to perform high-complexity testing. This test is used for patient testing purposes. It should not be regarded as investigational or for research. Test performed at [facility], [address] [place] [address] Tana Garza MD, PhD - School Fundraising Director Blood Venous blood specimen / Unknown Venipuncture / Unknown 11/14/2024 3:28 PM EDT 11/14/2024 3:28 PM EDT Chelita SHEIKH LAB BLOOD ORDERABLES Final R esult [facility] [address] [place] [address] * Folate (11/14/2024 3:28 PM EDT) Pathologist [facility] Folate 6.7 2.8 - 17.0 ng/ml LAB CHEMISTRY METHOD 11/14/2024 8:14 PM EDT [facility] Blood Venous blood specimen / Unknown Venipuncture / Unknown 11/14/2024 3:28 PM EDT 11/14/2024 3:28 PM EDT Chelita SHEIKH LAB BLOOD ORDERABLES Final R esult Performing Organization Address City/[facility]/ZIP Co de Phone Number [facility] [address] [place] [address], * Vitamin B12 (11/14/2024 3:28 PM EDT) [facility] Vitamin B-12 584 250 - 900 pcg/mL LAB CHEMISTRY METHOD 11/14/2024 8:14 PM EDT [facility] Blood Venous blood specimen / Unknown Venipuncture / Unknown 11/14/2024 3:28 PM EDT 11/14/2024 3:28 PM EDT Chelita SHEIKH LAB BLOOD ORDERABLES Final R esult Performing Organization Address [facility]/ZIP Co de Phone Number [facility] [address] [place] [address], * Comprehensive metabolic panel (11/14/2024 3:28 PM EDT) [facility] Sodium 137 133 - 145 mmol/L LAB CHEMISTRY METHOD 11/14/2024 7:53 PM EDT [facility] Potassium 3.9 3.5 - 5.5 mmol/L LAB CHEMISTRY METHOD 11/14/2024 7:53 PM T [facility] Chloride 107 96 - 110 mmol/L LAB CHEMISTRY METHOD 11/14/2024 7:53 PM [facility] CO2 23 21 - 32 mmol/L LAB CHEMISTRY METHOD 11/14/2024 7:53 PM EDT [facility] Anion Gap 7 3 - 11 LAB CHEMISTRY METHOD 11/14/2024 7:53 PM [facility] Glucose 74 70 - 100 mg/dL LAB CHEMISTRY METHOD 11/14/2024 7:53 PM [facility] BUN 15 5 - 25 mg/dL LAB CHEMISTRY METHOD [facility]/14[facility]24 [facility] Creatinine 0.80 0.50 - 1.10 mg/dL LAB CHEMISTRY METHOD 11/14/2024 7:53 PM [facility] eGFR 96 >=60 mL/min/1. 73m2 LAB CHEMISTRY METHOD 11/14/2024 7:53 PM [facility] Comment:Calculation based on the Chronic Kidney Disease Epidemiology Collaboration (CKD-EPI) equation refit without adjustment for race. BUN/Creatinine Ratio 18.8 LAB CHEMISTRY METHOD 11/14/2024 7:53 PM [facility] Calcium 8.8 8.5 - 10.5 mg/dL LAB CHEMISTRY METHOD 11/14/2024 7:53 PM [facility] AST (SGOT) 20 10 - 42 unit/L LAB CHEMISTRY METHOD 11/14/2024 7:53 PM [facility] ALT (SGPT) 32 10 - 60 unit/L LAB CHEMISTRY METHOD 11/14/2024 7:53 PM [facility] Alkaline Phosphatase 89 42 - 121 unit/L LAB CHEMISTRY METHOD 11/14/2024 7:53 PM [facility] Total Protein 7.2 6.0 - 8.0 g/dL LAB CHEMISTRY METHOD 11/14/2024 7:53 PM [facility] Albumin 3.9 3.2 - 5.0 g/dL LAB CHEMISTRY METHOD 11/14/2024 7:53 PM [facility] Total Bilirubin 0.3 0.0 - 1.4 mg/dL LAB CHEMISTRY METHOD 11/14/2024 7:53 PM [facility] Blood Venous blood specimen / Unknown Venipuncture / Unknown 11/14/2024 3:28 PM EDT 11/14/2024 3:28 PM EDT us Chelita SHEIKH LAB BLOOD ORDERABLES Final R esult [facility] ([facility] [address] [place] [address], * (ABNORMAL) Lipid panel (10/06/2023) LDL/HDL Ratio 4 0 - 4 Triglycerides 121 0 - 150 mg/dL Cholesterol 193 0 - 200 mg/dL HDL 51 >=40 mg/dL LDL Cholesterol 118(A) 0 - 100 mg/dL Blood Venous blood specimen / Unknown [facility] Provider MD LAB BLOOD ORDERABLES Gabbi l Result * HIV Screening (12/24/2010) Pathologist [facility] HIV Screening abstracted [facility] Provider HEALTH MAINTENANCE Final Result * Pap Smear (12/24/2010) Pathologist [facility] Pap smear abstracted, no interpretation [facility] Provider HEALTH MAINTENANCE Final Result * Hepatitis C Screening (05/27/2009) Pathologist [facility] Hepatitis C Screening abstracted [facility] Provider HEALTH MAINTENANCE Final Result from Last 3 Months or Most Recently Relevant to Health Maintenance Insurance [facility] [place] [address] Advance Directives * Full Code - Default [...] currently active code status orders. Care Teams Neuroscientist Relationship Specialty Start Date End Date Ofelia Layne FNP [address] [place] [phone] PCP - General Nurse Practitioner 04/18/24
== END 2025-01-08 17:05 | disposition home or self-care (01) ==
LOC: HO.HMCFM 14:56
PROVIDERS: PCP Nurse Practitioner Family; Visit Provider Nurse Practitioner Family
DX: Z00.00 Encounter for general adult medical examination without abnormal findings (principal); I83.893 Varicose veins of bilateral lower extremities with other complications; E60 Dietary zinc deficiency; D50.8 Other iron deficiency anemias; N92.0 Excessive and frequent menstruation with regular cycle; N89.8 Other specified noninflammatory disorders of vagina; G47.33 Obstructive sleep apnea (adult) (pediatric); F41.1 Generalized anxiety disorder; Z98.84 Bariatric surgery status; Z23 Encounter for immunization; Z80.3 Family history of malignant neoplasm of breast; Z80.8 Family history of malignant neoplasm of other organs or systems; Z80.0 Family history of malignant neoplasm of digestive organs

== ENCOUNTER 2025-01-08 14:55 | Outpatient (REF) | payer OTHER, SELFPAY ==
[2025-01-08 23:08] LABS: Bacterial Vaginosis PCR NEGATIVE (Negative); Candida Group PCR NOT DETECTED (Not Detect); Candida glab krusei PCR NOT DETECTED (Not Detect); Trichomonas vaginalis PCR NOT DETECTED (Not Detect)
== END 2025-01-08 14:56 | disposition home or self-care (01) ==
LOC: HO.LAB 14:55
PROVIDERS: PCP Nurse Practitioner Family; Visit Provider Nurse Practitioner Family
DX: Z00.00 Encounter for general adult medical examination without abnormal findings (principal); I83.893 Varicose veins of bilateral lower extremities with other complications; E60 Dietary zinc deficiency; N92.0 Excessive and frequent menstruation with regular cycle; N89.8 Other specified noninflammatory disorders of vagina; G47.33 Obstructive sleep apnea (adult) (pediatric); F41.1 Generalized anxiety disorder; L65.9 Nonscarring hair loss, unspecified; D50.8 Other iron deficiency anemias; Z23 Encounter for immunization; Z80.3 Family history of malignant neoplasm of breast; Z80.8 Family history of malignant neoplasm of other organs or systems; Z80.0 Family history of malignant neoplasm of digestive organs; Z99.89 Dependence on other enabling machines and devices
CPT/HCPCS: 81515; 90471; 90656; 96127; 99395

== ENCOUNTER 2025-02-06 14:27 | Outpatient (AMB) | payer OTHER, SELFPAY ==
[2025-02-06 14:29] VITALS: BP 122/68; BMI 35.2
--- NOTE | 2025-02-06 14:29 | A.OFFVIS_ITS ---
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 Clothing Consultant concerns: Regular menses. Heavy menses 3/4 days, over the last year. Currently is sexually active, uses condoms. She denies vaginal itching or irritation. STI screening offered; she accepts. She tries to eat healthy and stays active with exercise. Lost 160lbs., in the last year. History of postop embolus following leg phlebectomy. Last pap smear 2023, negative. History of abnormal Pap >10yrs. ago, negative paps since that timeframe. [facility] Medical History Abnormal uterine bleeding (AUB) Hx of phlebitis Pre-diabetes URI (upper respiratory infection) (04/09/24) Acute respiratory disease Labial lesion History of syphilis ADRIÁN (obstructive sleep apnea) Iron deficiency anemia Vitamin D deficiency Hypersomnia Edema Surgical History Hx of bypass gastroenterostomy Hx of dilation and curettage Family History Father HTN (hypertension) Cirrhosis Colon cancer Paternal Aunt History of breast cancer Paternal Grandmother Diabetes Maternal Grandmother Colon cancer Other FH: mental illness Hypercholesteremia Substance use Social History Household Members: None Caregiver staying overnight: No Housing: Apartment Are you a primary resident care manager rn to a significant other at home: No Do you presently have visiting nurse or other home services: No 75 years or older and lives alone: No Comment: medicated Patient Tobacco Use Status: Former Tobacco user Tobacco use type: Cigarette Years Smoked: 26 quit 02/2023 e-Cigarette/Vaping Use: Never Used Second Hand Smoke Exposure: No Substance Use Type: Marijuana service: No Current occupational status: employed 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 Current occupational exposures/hazards: No Cognitive needs: No Hearing needs: No Vision needs: No Female Reproductive History Menstrual Age of Menarche: 13 Duration of menses: 3-5 days Date of last menstrual period: 01/30/25 control method: condoms Total pregnancies: 3 Number of Living Children: 1 Ab induced: 1 Ab spontaneous: 1 Date of last pap smear: 01/26/24 History of abnormal pap smear: Yes History of STI: Yes Review of Systems Const All systems reviewed & are unremarkable except as noted in HPI and below Reports as per HPI Eyes Reports no additional complaints ENT Reports no additional complaints Card Reports no additional complaints Resp Reports no additional complaints GI Reports as per HPI and Reports no additional complaints Reports as per HPI Musc Reports no additional complaints Skin/Breast Reports as per HPI Neuro Reports no additional complaints Psych Reports no additional complaints Endo Reports no additional complaints Andrés/Lymph Reports no additional complaints Aller/Immun Reports no additional complaints Physical Exam Vital Signs: Last Vital Signs BP 122/68 02/06/25 14:29 BMI result Body Mass Index 35.2 Const General: cooperative, healthy appearing, no acute distress, well developed and alert Orientation/consciousness: patient oriented x3 HEENT Head: Yes normal to inspection Eyes General: appearance normal, both eyes and all related structures Neck Neck: Yes normal visual inspection Thyroid: Thyroid normal Chest Chest palpation & inspection: normal inspection of the chest and other (no puckering, dimpling, peau de orange, retraction, discharge, masses) Breast/axilla inspection: normal inspection of the breasts Breast/axilla palpation: normal palpation of the breasts Resp Effort & Inspection: normal respiratory effort GI Inspection: Yes normal to inspection and Yes scar Palpation (GI): Soft to palpation Rectal Exam - Female: deferred General: Yes bladder normal to palpation External Female Exam: normal external appearance and normal appearance of the urethra Speculum Exam - Vagina: normal appearance of the vagina, normal palpation and normal vaginal discharge Speculum Exam - Cervix: normal appearance of the cervix and normal palpation Bimanual exam- vagina & uterus: normal bimanual exam, normal palpation, uterine size normal, bladder normal to palpation, normal palpation and non-tender Bimanual Exam- Adnexa, other: no masses Skin General skin exam: no rashes or lesions noted Rashes: no rashes Neuro General: patient oriented x3 Cognition (Neuro): normal cognition Extrem General: Yes normal to inspection Psych Attitude: cooperative Thought process: Normal thought process present Results AMB Test Urine AMB Test Urine Negative Last Edit by Joann Mari CMA on 02/06/25 15:12 Assessment & Plan Assessment & Plan (1) Abnormal uterine bleeding (AUB): Code(s): N93.9 - Abnormal uterine and vaginal bleeding, unspecified Category: Medical Plan: Discuss workup for AUB to include pelvic ultrasound, cervical cultures, lab work, UPT, endometrial biopsy. EMB preprocedure anticipatory guidance reviewed advised to have something to eat and drink and take 3 Advil or 2 Tylenol 1 hour before procedure time. Consider cycle control options possibly progesterone only due to history of embolus. Plan further discussion at follow up. The patient expressed understanding and agreement with the plan of care. All of her questions and concerns were addressed to the best of my ability. Total time I personally spent on visit and management today: ?20 minutes. Time spent included review of pertinent office notes in the electronic health record; review of laboratory and imaging results; review of personal family medical history; performing physical exam; discussing diagnosis and plan of care with the patient; documenting the encounter in the EMR. (2) Encounter for well woman exam with routine gynecological exam: Code(s): Z01.419 - Encounter for gynecological examination (general) (routine) without abnormal findings Category: Medical Plan Discussed: Current recommendations for pap smears per ASCCP guidelines. Breast awareness and periodic breast exams. Maintain a healthy lifestyle including a well balanced diet and routine exercise. Patient verbalizes understanding and agrees to the plan of care. She was given opportunity to ask questions and all questions were answered to the best of my ability. 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 This note is constructed using voice recognition software. While every effort has been made to ensure accuracy, cook enchilada errors may have been included. Orders: Orders Bacterial Vaginosis Panel Today Z01.419 - Encounter for gynecological examinati on (general) (routine) without abnormal findings CT NG by PCR Vag/Cerv Today Z01.419 - Encounter for gynecological examination (general) (routine) without abnormal findings Complete Blood Count no Diff Today N93.9 - Abnormal uterine and vaginal bleeding, unspecified TSH reflex Free T4 Today N93.9 - Abnormal uterine and vaginal bleeding, unspecified AMB HCG Urine Test Today Z32.02 - Encounter for test, result negative US pelvic and transvaginal Today N93.9 - Abnormal uterine and vaginal bleeding, unspecified Coding Level of Care Code Est Pt Level 2 (08554) Est Pt Prev Care 18-39y(38035) Diagnoses Abnormal uterine bleeding (AUB) N93.9 Encounter for well woman exam with routine gynecological exam Z01.419
== END 2025-02-06 15:10 | disposition home or self-care (01) ==
LOC: HO.HWS 14:28
PROVIDERS: PCP Nurse Practitioner Family; Visit Provider Advanced Practice Midwife
DX: Z01.419 Encounter for gynecological examination (general) (routine) without abnormal findings (principal); N93.9 Abnormal uterine and vaginal bleeding, unspecified; Z32.02 Encounter for pregnancy test, result negative
CPT/HCPCS: 99212; 99395; 99459

== ENCOUNTER 2025-02-06 14:27 | Outpatient (REF) | payer OTHER, SELFPAY ==
[2025-02-06 15:48] LABS: Hematocrit 38.8 % (37.0-47.0); Hemoglobin 12.6 g/dl (12.0-16.0); Mean Corpuscular HGB Conc 32.5 g/dl (31.0-35.0); Mean Corpuscular Hemoglobin 30.1 pg (27.0-33.0); Mean Corpuscular Volume 92.8 fL (80.0-98.0); NRBC Abs Auto 0.000 X10*3/uL (0.0-0.012); NRBC Pct Auto 0.0 /100WBC (0.0-0.2); Platelet Count 249 X10*3/uL (160-400); Red Blood Count 4.18 X10*6/uL (4.20-5.50); White Blood Count 6.9 X10*3/uL (4.8-10.8)
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
--- OUTSIDE RECORDS SUMMARY | 2025-02-06 17:45 | XMS_ITS | Encounter Summary ---
Author Organization [facility] Prior to 01/06/2024 Address [address] [place] [address] Care Team Providers Care Hatchery Attendant Name Role Phone Steffen Robles MD Primary Care Provider [phone] Dayanna Arellano MD Primary Care Provider [phone] Encounter Details Date Type Department Care Team Description 06/22/2010 Manager Beverage Report Medical Records [address] [place] [id number] [place] Social History Tobacco Use Types [...] on filedocumented in this encounter Care Teams Hatchery Attendant Relationship Specialty Start Date End Date Steffen Robles MD [address] [place] [phone] PCP - General 12/05/08 04/20/23 Dayanna Arellano MD [address] [place] [id number] PCP - General Internal Medicine 04/21/23 documented as of this encounter
--- OUTSIDE RECORDS SUMMARY | 2025-02-06 17:45 | XMS_ITS | Encounter Summary ---
Author Organization [facility] Prior to 01/06/2024 Address [address] [place] [address] Care Team Providers Care Before And After School Daycare Worker Name Role Phone Dayanna Arellano MD Primary Care Provider [phone] Reason for Visit * Reason Onset Date Comments REFERRAL 10/06/2023 Encounter Details Date Type Department Care Team Description 10/06/2023 Telephone OBGYN - [facility] [address] [place] [address] Selina Garcia MD [address] [place] [id number] REFERRAL Social History Tobacco Use Types Packs/Day [...] [place] [facility] [facility]- for screening for malignant neoplasm of cervix. Left message on to call back. documented in this encounter Plan of Treatment Not on file documented as of this encounter Visit Diagnoses Not on filedocumented in this encounter Care Teams Before And After School Daycare Worker Relationship Specialty Start Date End Date Dayanna Arellano MD PCP - General Internal Medicine 04/21/23 documented as of this encounter
--- OUTSIDE RECORDS SUMMARY | 2025-02-06 17:45 | XMS_ITS | Encounter Summary ---
Author Organization [facility] Prior to 01/06/2024 Address [address] [place] [address] Care Team Providers Care Spa Coordinator Name Role Phone Dayanna Arellano MD Primary Care Provider [phone] Encounter Details Date Type Department Care Team Description 11/10/2023 Commissioning Agent Reports Bariatric Surgery - [address] [place] [address] Social History Tobacco Use Types [...] on filedocumented in this encounter Care Teams Spa Coordinator Relationship Specialty Start Date End Date Dayanna Arellano MD PCP - General Internal Medicine 04/21/23 documented as of this encounter
--- OUTSIDE RECORDS SUMMARY | 2025-02-06 17:45 | XMS_ITS | Clinical Summary ---
Author Organization [facility] Address [address] [place] [address] Phone Care Team Providers Care Cargo Surveyor Name Role Phone LiudmilaOfelia Dutta YEYO Primary Care Provider [phone] Allergies No known active allergies Medications buPROPion [...] chew, or split. 90 each 11/16/2024 Active Active Problems Problem Noted Date Diagnosed Date S/P bariatric surgery 07/26/2024 Morbid obesity ([facility] V24, [facility] V28) 2024 Class 2 severe obesity due [...] PM EDT Office Visit Bariatric Surgery - [address] [id number] Chelita Amador, PA Class 2 severe obesity due to excess calories with serious comorbidity and body mass index (BMI) of 37.0 to 37.9 in adult ([facility] V24, [facility] V28) (Primary Dx); Bariatric surgery status from [...] PM EST Office Visit Bariatric Surgery - [address] [place] [address] Chelita Amador PA [address] [place] [phone] Health Maintenance Due Date Last Done [...] (CMS/HCC V24, CMS/HCC V28) Bariatric surgery status VITAMIN B1 Routine 11/14/2024 3:28 PM EDT Class 2 severe obesity due to excess calories with serious comorbidity and body mass index (BMI) of 37.0 to 37.9 in adult ([facility] V24, [facility] V28) Bariatric surgery status VITAMIN B12 Routine 11/14/2024 3:28 PM EDT Class 2 severe obesity due to excess calories with serious comorbidity and body mass index (BMI) of 37.0 to 37.9 in adult ([facility] V24, [facility] V28) Bariatric surgery status VITAMIN B6 Routine 11/14/2024 3:28 PM EDT Class 2 severe obesity due to excess calories with serious comorbidity and body mass index (BMI) of 37.0 to 37.9 in adult ([facility] V24, [facility] V28) Bariatric surgery status VITAMIN D 25 HYDROXY Routine 11/14/2024 3:28 PM EDT Class 2 severe obesity due to excess calories with serious comorbidity and body mass index (BMI) of 37.0 to 37.9 in adult ([facility] V24, [facility] V28) Bariatric surgery status ZINC Routine 11/14/2024 3:28 PM EDT Class 2 severe obesity due to excess calories with serious comorbidity and body mass index (BMI) of 37.0 to 37.9 in adult ([facility] V24, [facility] V28) Bariatric surgery status IRON AND TIBC Routine 11/14/2024 3:28 PM EDT Class 2 severe obesity due to excess calories with serious comorbidity and body mass index (BMI) of 37.0 to 37.9 in adult ([facility] V24, [facility] V28) Bariatric surgery status FOLATE Routine 11/14/2024 3:28 PM EDT Class 2 severe obesity due to excess calories with serious comorbidity and body mass index (BMI) of 37.0 to 37.9 in adult ([facility] V24, [facility] V28) Bariatric surgery status COPPER, SERUM Routine [...] serious comorbidity present (CMS/HCC V24, CMS/[facility] V28) LIPID PANEL Routine 10/06/2023 HIV SCREENING [...] % LAB CHEMISTRY METHOD 11/14/2024 7:51 PM EDT [facility] Blood Venous blood specimen / Unknown Venipuncture / Unknown 11/14/2024 3:28 PM EDT 11/14/2024 3:28 PM EDT us Chelita SHEIKH LAB BLOOD ORDERABLES Final R esult [facility] ([facility]) [facility] [address] [place] [address], * Copper, serum (11/14/2024 3:28 PM EDT) Copper 1168 810 - 1990 ug/L 11/20/2024 8:[address] [facility] Comment: Copper values may be elevated to twice the normal levels in . Elevated results may be due to sample collected in a non-certified trace element-free tube. This test was developed and the performance characteristics determined by [facility]. It has not been cleared or approved by the FDA. The laboratory is regulated under CLIA as qualified to perform high-complexity testing. This test is used for patient testing purposes. It should not be regarded as investigational or for research. Test performed at [facility], [address] [place] [address] Tana Garza MD, PhD - Event Lighting Specialist Blood Venous blood specimen / Unknown Venipuncture / Unknown 11/14/2024 3:28 PM EDT 11/14/2024 3:28 PM EDT Chelita SHEIKH LAB BLOOD ORDERABLES Final R esult [facility] [address] [place] [address] * (ABNORMAL) Zinc (11/14/2024 3:28 PM EDT) Zinc 47(L) 60 - 130 ug/dL 11/19/2024 12:[address] [facility] Comment: Elevated results may be due to sample collected in a non-certified trace element-free tube. This test was developed and the performance characteristics determined by [facility]. It has not been cleared or approved by the FDA. The laboratory is regulated under CLIA as qualified to perform high-complexity testing. This test is used for patient testing purposes. It should not be regarded as investigational or for research. Test performed at [facility], [address] [place] [address] Tana Garza MD, PhD - Event Lighting Specialist Blood Venous blood specimen / Unknown Venipuncture / Unknown 11/14/2024 3:28 PM EDT 11/14/2024 3:28 PM EDT Chelita SHEIKH LAB BLOOD ORDERABLES Final R esult Performing Organization Address City/[facility]/ZIP Co de Phone Number [facility] [address] [place] [address] * Vitamin A (11/14/2024 3:28 PM EDT) [facility] Vitamin A 38 38 - 106 ug/dL 11/20/2024 6:01 AM EDT [facility] Comment: This test was developed and the performance characteristics determined by [facility]. It has not been cleared or approved by the FDA. The laboratory is regulated under CLIA as qualified to perform high-complexity testing. This test is used for patient testing purposes. It should not be regarded as investigational or for research. Test performed at [facility], [address] [place] [address] Tana Garza MD, PhD - Event Lighting Specialist Blood Venous blood specimen / Unknown Venipuncture / Unknown 11/14/2024 3:28 PM EDT 11/14/2024 3:28 PM EDT Chelita SHEIKH LAB BLOOD ORDERABLES Final R esult Performing Organization Address City/[facility]/ZIP Co de Phone Number [facility] [address] [place] [address] * , urine (11/14/2024 3:28 PM EDT) Pathologist [facility] Preg Test, Ur Negative Negative 11/14/2024 7:33 PM EDT [facility] Urine Urine specimen obtained by clean catch procedure / Unknown Non-blood Collection / Unknown 11/14/2024 3:28 PM EDT 11/14/2024 3:28 PM EDT Chelita SHEIKH LAB URINE ORDERABLES Final R esult Performing Organization Address City/[facility]/ZIP Co de Phone Number [facility] [address] [place] [address], [place] [phone] * Vitamin D 25 hydroxy (11/14/2024 3:28 PM EDT) [facility] Vit D, 25-Hydroxy 31.1 30.0 - 80.0 ng/mL LAB CHEMISTRY METHOD 11/14/2024 8:37 PM EDT [facility] Blood Venous blood specimen / Unknown Venipuncture / Unknown 11/14/2024 3:28 PM EDT 11/14/2024 3:28 PM EDT Chelita SHEIKH LAB BLOOD ORDERABLES Final R esult Performing Organization Address [facility] Co de Phone Number [facility] [address] [place] [address], [place] [phone] * Vitamin B1 (11/14/2024 3:28 PM EDT) [facility] Vitamin B1 Whole Blood 57 38 - 122 ug/L 11/20/2024 6:[address] [facility] Comment: This test was developed and the performance characteristics determined by [facility]. It has not been cleared or approved by the FDA. The laboratory is regulated under CLIA as qualified to perform high-complexity testing. This test is used for patient testing purposes. It should not be regarded as investigational or for research. Test performed at [facility], [facility] [address] [place] [address] Tana Garza MD, PhD - Event Lighting Specialist Blood Venous blood specimen / Unknown Venipuncture / Unknown 11/14/2024 3:28 PM EDT 11/14/2024 3:28 PM EDT us Chelita SHEIKH LAB BLOOD ORDERABLES Final R esult [facility] [address] [place] [address] * Vitamin B6 (11/14/2024 3:28 PM EDT) Pathologist [facility] Vitamin B6 (Pyridoxine) Level 5 5 - 50 ug/L 11/20/2024 8:45 AM EDT [facility] Comment: This test was developed and the performance characteristics determined by [facility]. It has not been cleared or approved by the FDA. The laboratory is regulated under CLIA as qualified to perform high-complexity testing. This test is used for patient testing purposes. It should not be regarded as investigational or for research. Test performed at [facility], [address] , [place] [address] Tana Garza MD, PhD - Event Lighting Specialist Blood Venous blood specimen / Unknown Venipuncture / Unknown 11/14/2024 3:28 PM EDT 11/14/2024 3:28 PM EDT Chelita SHEIKH LAB BLOOD ORDERABLES Final R esult Performing Organization Address [facility]/ZIP Co de Phone Number [facility] [address] [place] [address] * Folate (11/14/2024 3:28 PM EDT) [facility] Folate 6.7 2.8 - 17.0 ng/ml LAB CHEMISTRY METHOD 11/14/2024 8:14 PM EDT [facility] Blood Venous blood specimen / Unknown Venipuncture / Unknown 11/14/2024 3:28 PM EDT 11/14/2024 3:28 PM EDT Chelita SHEIKH LAB BLOOD ORDERABLES Final R esult [facility] [address] [place] [address], [place] [phone] * Vitamin B12 (11/14/2024 3:28 PM EDT) Pathologist [facility] Vitamin B-12 584 250 - 900 pcg/mL LAB CHEMISTRY METHOD 11/14/2024 8:14 PM EDT [facility] Blood Venous blood specimen / Unknown Venipuncture / Unknown 11/14/2024 3:28 PM EDT 11/14/2024 3:28 PM EDT us Chelita SHEIKH LAB BLOOD ORDERABLES Final R esult [facility] [address] [place] [address], [place] [phone] * Comprehensive metabolic panel (11/14/2024 3:28 PM EDT) [facility] Sodium 137 133 - 145 mmol/L LAB CHEMISTRY METHOD 11/14[facility]2024 7:[facility] Potassium 3.9 3.5 - 5.5 mmol/L LAB CHEMISTRY METHOD 11/14/2024 7:53 PM [facility] Chloride 107 96 - 110 mmol/L LAB CHEMISTRY METHOD 11/14/2024 7:53 PM [facility] CO2 23 21 - 32 mmol/L LAB CHEMISTRY METHOD 11/14/2024 7:53 PM [facility] Anion Gap 7 3 - 11 LAB CHEMISTRY METHOD 11/14/2024 7:53 PM [facility] Glucose 74 70 - 100 mg/dL LAB CHEMISTRY METHOD 11/14/2024 7:53 PM [facility] BUN 15 5 - 25 mg/dL LAB CHEMISTRY METHOD 11/14/2024 7:53 PM [facility] Creatinine 0.80 0.50 - 1.10 mg/dL LAB CHEMISTRY METHOD 11/14/2024 7:53 [facility] eGFR 96 >=60 mL/min/1. 73m2 LAB CHEMISTRY METHOD 11/14/2024 7:53 PM [facility] Comment:Calculation based on the Chronic Kidney Disease Epidemiology Collaboration (CKD-EPI) equation refit without adjustment for race. BUN/Creatinine Ratio 18.8 LAB CHEMISTRY METHOD 11/14/2024 7:53 PM [facility] Calcium 8.8 8.5 - 10.5 mg/dL LAB CHEMISTRY METHOD 11/14/2024 7:53 PM [facility] AST (SGOT) 20 10 - 42 unit/L LAB CHEMISTRY METHOD 11/14/2024 7:53 PM [facility] ALT (SGPT) 32 10 - 60 unit/L LAB CHEMISTRY METHOD 11/14/2024 7:53 PM [facility] Alkaline Phosphatase 89 42 - 121 unit/L LAB CHEMISTRY METHOD 11/14/2024 7:53 PM [facility] Total Protein 7.2 6.0 - 8.0 g/dL LAB CHEMISTRY METHOD 11/14/2024 7:53 PM [facility] Albumin 3.9 3.2 - 5.0 g/dL LAB CHEMISTRY METHOD 11/14/2024 7:53 PM [facility] Total Bilirubin 0.3 0.0 - 1.4 mg/dL LAB CHEMISTRY METHOD 11/14/2024 7:53 PM [facility] Blood Venous blood specimen / Unknown Venipuncture / Unknown 11/14/2024 3:28 PM EDT 11/14/2024 3:28 PM EDT us Chelita SHEIKH LAB BLOOD ORDERABLES Final R esult [facility] [address] [place] [address], * (ABNORMAL) Lipid panel (10/06/2023) [facility] LDL/HDL Ratio 4 0 - 4 Triglycerides 121 0 - 150 mg/dL Cholesterol 193 0 - 200 mg/dL HDL 51 >=40 mg/dL LDL Cholesterol 118(A) 0 - 100 mg/dL Blood Venous blood specimen / Unknown Result [facility] Provider LAB BLOOD ORDERABLES Gabbi l Result * HIV Screening (12/24/2010) [facility] HIV Screening abstracted Result [facility] Provider HEALTH MAINTENANCE Final Result * Pap Smear (12/24/2010) [facility] Pap smear abstracted, no interpretation Result [facility] Provider HEALTH MAINTENANCE Final Result * Hepatitis C Screening (05/27/2009) [facility] Hepatitis C Screening abstracted Result [facility] Provider HEALTH MAINTENANCE Final Result from Last 3 Months or Most Recently Relevant to Health Maintenance Insurance [id number] Advance Directives * Full [...] currently active code status orders. Care Teams Cargo Surveyor Relationship Specialty Start Date End Date Ofelia Layne FNP [address] [place] [address] PCP - General Nurse Practitioner 04/18/24
--- OUTSIDE RECORDS SUMMARY | 2025-02-06 17:45 | XMS_ITS | Encounter Summary ---
Author Organization [facility] Prior to 01/06/2024 Address [address] [place] [address] Care Team Providers Care Senior Geotechnical Engineer Name Role Phone Steffen Robles MD Primary Care Provider [phone] Dayanna Arellano MD Primary Care Provider [phone] Encounter Details Date Type Department Care Team Description 05/17/2012 Way Inspector Report Medical Records [address] [place] [id number] Edson Rouse III, MD Social History Tobacco [...] filedocumented in this encounter Care Teams Senior Geotechnical Engineer Relationship Specialty Start Date End Date Steffen Robles MD [address] [place] [address] [phone] PCP - General 12/05/08 04/20/23 Dayanna Arellano MD [address] [place] [address] [phone] PCP - General Internal Medicine 04/21/23 documented as of this encounter
[2025-02-06 22:42] LABS: Bacterial Vaginosis PCR NEGATIVE (Negative); Candida Group PCR NOT DETECTED (Not Detect); Candida glab krusei PCR NOT DETECTED (Not Detect); Trichomonas vaginalis PCR NOT DETECTED (Not Detect)
[2025-02-06 23:30] LABS: CT PCR NOT DETECTED (Not Detect.); NG PCR NOT DETECTED (Not Detect.)
== END 2025-02-06 14:28 | disposition home or self-care (01) ==
LOC: HO.LAB 14:27
PROVIDERS: PCP Nurse Practitioner Family; Visit Provider Advanced Practice Midwife
DX: Z01.419 Encounter for gynecological examination (general) (routine) without abnormal findings (principal); N93.9 Abnormal uterine and vaginal bleeding, unspecified; Z20.2 Contact with and (suspected) exposure to infections with a predominantly sexual mode of transmission
CPT/HCPCS: 36415; 81515; 84443; 85027; 87491; 87591

== ENCOUNTER 2025-02-08 12:39 | Outpatient (REF) | payer OTHER, SELFPAY ==
--- NOTE | ~2025-02-08 | US_ITS ---
CLINICAL HISTORY: N93.9 - Abnormal uterine and vaginal bleeding, unspecified Ultrasound of the female pelvis Comparison: None provided Technique: Grayscale ultrasound with assistance of color Doppler. Transabdominal scanning performed for overall anatomy. Transvaginal scanning performed for better anatomic delineation. Findings: Anteverted uterus measures 8.5 x 4.1 x 6.1 cm. Heterogeneous myometrium is more conspicuous at the inner myometrial region, several cystic foci up to 5 mm, no mass is seen. Mildly striated endometrium, 12 mm in thickness, no focal lesion is seen. Small nabothian cysts. Normal right ovary, 2.0 x 1.8 x 2.0 cm. No abnormal vascular flow. Normal left ovary, 2.8 x 3.9 x 1.9 cm. 1.6 cm follicle noted. No abnormal vascular flow. No free fluid. Impression: 1. Mildly thickened endometrium, uncertain etiology, may be related to current menstrual stage, recommend follow-up ultrasound during early proliferative phase. 2. Suspect uterine adenomyosis. This document has been electronically signed by: Beatriz Marques MD on 02/08/2025 16:52:06
== END 2025-02-08 12:40 | disposition home or self-care (01) ==
LOC: HO.US 12:39
PROVIDERS: PCP Nurse Practitioner Family; Visit Provider Advanced Practice Midwife
DX: N93.9 Abnormal uterine and vaginal bleeding, unspecified (principal)
CPT/HCPCS: 76830; 76856

== ENCOUNTER → 2025-02-08 12:41 | Outpatient (BNV) | payer OTHER, SELFPAY | PROVIDERS: PCP Nurse Practitioner Family; Visit Provider Radiology Diagnostic Radiology | DX: N93.9 Abnormal uterine and vaginal bleeding, unspecified (principal); N85.00 Endometrial hyperplasia, unspecified | CPT/HCPCS: 76830; 76856 ==

== ENCOUNTER 2025-02-21 14:29 | Outpatient (AMB) | payer OTHER, SELFPAY ==
[2025-02-21 14:33] VITALS: BP 98/6; BMI 34.3
--- NOTE | 2025-02-21 14:33 | MHC.OFFVIS ---
Vital Signs 02/21/25 14:33 Height 5 ft 7 in Weight 219 lb BMI 34.3 BP 98/6 L Blood Pressure Location Lt brachial Position Sitting Intake Visit Reasons: U/S Follow up Intake Note: pt noticed balck spot on her clitiral larsen. Paper Coating Machine Operator: Paper Coating Machine Operator Present Allergies No Known Allergies Allergy (Verified 02/21/25 14:37) Medication List - Last Reconciled 02/21/25 by Gill Dodson LPN acetaminophen 1,000 mg (2 x 500 mg) PO Q6H PRN bupropion HCl XL 150 mg PO QAM zinc gluconate 30 mg PO DAILY Is last menstrual period known: Yes Last menstrual period: 01/30/25 Post menopausal: No Patient : No HPI Comments Details: Patient is here today for a pelvic ultrasound and EMB procedure, history of AUB. LMP 02/03/2025, ultrasound completed 02/09/2020. She reports concerns for a black mole noted near her clitoris. [facility] Medical History Thickened endometrium Adenomyosis Abnormal uterine bleeding (AUB) Hx of phlebitis Pre-diabetes URI (upper respiratory infection) (04/09/24) Acute respiratory disease Labial lesion History of syphilis ADRIÁN (obstructive sleep apnea) Iron deficiency anemia Vitamin D deficiency Hypersomnia Edema Surgical History Hx of bypass gastroenterostomy Hx of dilation and curettage Family History Father HTN (hypertension) Cirrhosis Colon cancer Paternal Aunt History of breast cancer Paternal Grandmother Diabetes Maternal Grandmother Colon cancer Other FH: mental illness Hypercholesteremia Substance use Social History Household Members: None Caregiver staying overnight: No Housing: Apartment Are you a primary director of home care hospice to a significant other at home: No Do you presently have visiting nurse or other home services: No 75 years or older and lives alone: No Comment: medicated Patient Tobacco Use Status: Former Tobacco user Tobacco use type: Cigarette Years Smoked: 26 quit 02/2023 e-Cigarette/Vaping Use: Never Used Second Hand Smoke Exposure: No Substance Use Type: Marijuana Patient : No service: No Current occupational status: employed 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 Current occupational exposures/hazards: No Cognitive needs: No Hearing needs: No Vision needs: No Female Reproductive History Menstrual Age of Menarche: 13 Date of last menstrual period: 01/30/25 control method: none Date of last pap smear: 01/26/24 History of abnormal pap smear: No History of STI: No Review of Systems Const All systems reviewed & are unremarkable except as noted in HPI and below Physical Exam Vital Signs: Last Vital Signs BP 98/6 L 02/21/25 14:33 BMI result Body Mass Index 34.3 Const General: cooperative, healthy appearing and no acute distress Orientation/consciousness: patient oriented x3 GI Inspection: Yes normal to inspection Palpation (GI): Soft to palpation and Other GI palpation findings present (Nontender) Rectal Exam - Female: visual inspection normal Other: External-right dennis clitoral black duncan lesion approximately 5 mm General: Yes bladder normal to palpation External Female Exam: normal appearance of the urethra Speculum Exam - Vagina: normal appearance of the vagina, normal palpation and normal vaginal discharge Speculum Exam - Cervix: normal appearance of the cervix and normal palpation Bimanual exam- vagina & uterus: normal bimanual exam, normal palpation, uterine size normal, bladder normal to palpation, normal palpation, uterine shape normal and non-tender Bimanual Exam- Adnexa, other: normal adnexae Neuro General: patient oriented x3 Results Reviewed Results Reviewed: [address] [address] Ultrasound Report Signed Patient: Katja Tony MR#: [id number] : 1985 Acct:[id number] Age/Sex: 39 / F ADM Date: 02/08/25 Loc: HO.US Attending Dr: Beth Quintanilla CNM Ordering Physician: Beth Quintanilla CNM Date of Service: 02/08/25 Procedure(s): US pelvic and transvaginal Accession Number(s): [id number] cc: Beth Quintanilla CNM; Ofelia Layne MATHEMATICAL SCIENCES PROFESSOR-~ Reason for Exam: N93.9 - Abnormal uterine and vaginal bleeding, unspecified CLINICAL HISTORY: N93.9 - Abnormal uterine and vaginal bleeding, unspecified Ultrasound of the female pelvis Comparison: None provided Technique: Grayscale ultrasound with assistance of color Doppler. Transabdominal scanning performed for overall anatomy. Transvaginal scanning performed for better anatomic delineation. Findings: Anteverted uterus measures 8.5 x 4.1 x 6.1 cm. Heterogeneous myometrium is more conspicuous at the inner myometrial region, several cystic foci up to 5 mm, no mass is seen. Mildly striated endometrium, 12 mm in thickness, no focal lesion is seen. Small nabothian cysts. Normal right ovary, 2.0 x 1.8 x 2.0 cm. No abnormal vascular flow. Normal left ovary, 2.8 x 3.9 x 1.9 cm. 1.6 cm follicle noted. No abnormal vascular flow. No free fluid. Impression: 1. Mildly thickened endometrium, uncertain etiology, may be related to current menstrual stage, recommend follow-up ultrasound during early proliferative phase. 2. Suspect uterine adenomyosis. This document has been electronically signed by: Beatriz Marques MD on 02/08/2025 16:52:06 Dictated By: Beatriz Marques MD Signed By: <Electronically signed by Beatriz Marques MD in OV> 02/08/251652 DD/ 51 TD/TT: 02/08/251651 Software Writer: Assessment & Plan Assessment & Plan (1) Abnormal uterine bleeding (AUB): Code(s): N93.9 - Abnormal uterine and vaginal bleeding, unspecified Category: Medical Plan: Advised to schedule endometrial biopsy and vulvar biopsy procedure. Anticipatory guidance for procedure with [id number] ibuprofen 3 tablets or acetaminophen 2 tablets with food and fluids 1 hour before her procedure. The patient expressed understanding and agreement with the plan of care. All of her questions and concerns were addressed to the best of my ability. This note is constructed using voice recognition software. (2) Thickened endometrium: Code(s): R93.89 - Abnormal findings on diagnostic imaging of other specified body structures Category: Medical Plan: Discussed endometrial findings. Plan Discussed: Ultrasound findings- Impression: 1. Mildly thickened endometrium, uncertain etiology, may be related to current menstrual stage, recommend follow-up ultrasound during early proliferative phase. 2. Suspect uterine adenomyosis. Counseled regarding ultrasound findings. Recommended MRI for further confirmation of adenomyosis. We will discuss cycle control at future visit pending results. The patient expressed understanding an you know what she had this paper underneath the arlene and look at I was looking things so we had to papers close this year she will with the MRI gut asked specific questions and personally d agreement with the plan of care. All of her questions and concerns were addressed to the best of my ability. This note is constructed using voice recognition software. While every effort has been made to ensure accuracy, senior core java developer errors may have been included. Orders: Orders MR pelvis wo/w con Today N80.03 - Adenomyosis of the uterus, N93.9 - Abnormal uterine and vaginal bleeding, unspecified Coding Level of Care Code Est Pt Level 3 (57377) Diagnoses Abnormal uterine bleeding (AUB) N93.9 Thickened endometrium R93.89
--- OUTSIDE RECORDS SUMMARY | 2025-02-21 18:37 | XMS_ITS | Encounter Summary ---
Author Organization [facility] Prior to 01/06/2024 Address [address] [place] [address] Care Team Providers Care Chassis Inspector Name Role Phone Steffen Robles MD Primary Care Provider [phone] Dayanna Arellano MD Primary Care Provider [phone] Encounter Details Date Type Department Care Team Description 05/17/2012 Pharmacy Operations Specialist Report Medical Records [address] [place] [id number] Edson Rouse III, MD Social History Tobacco [...] on filedocumented in this encounter Care Teams Chassis Inspector Relationship Specialty Start Date End Date Steffen Robles MD [address] [place] [address] [phone] PCP - General 12/05/08 04/20/23 Dayanna Arellano MD [address] [place] [address] [phone] PCP - General Internal Medicine 04/21/23 documented as of this encounter
--- OUTSIDE RECORDS SUMMARY | 2025-02-21 18:37 | XMS_ITS | Encounter Summary ---
Author Organization [facility] Prior to 01/06/2024 Address [address] [place] [address] Care Team Providers Care Heel Slugger Name Role Phone Dayanna Arellano MD Primary Care Provider [phone] Encounter Details Date Type Department Care Team Description 11/10/2023 Grappler Reports Bariatric Surgery - [address] [place] [address] Social History Tobacco Use Types [...] on filedocumented in this encounter Care Teams Heel Slugger Relationship Specialty Start Date End Date Dayanna Arellano MD PCP - General Internal Medicine 04/21/23 documented as of this encounter
--- OUTSIDE RECORDS SUMMARY | 2025-02-21 18:37 | XMS_ITS | Encounter Summary ---
Author Organization [facility] Prior to 01/06/2024 Address [address] [place] [address] Care Team Providers Care Instrument Worker Name Role Phone Steffen Robles MD Primary Care Provider [phone] Dayanna Arellano MD Primary Care Provider [phone] Encounter Details Date Type Department Care Team Description 11/07/2011 Night Triage Doc Medical Records [address] [place] [id number] Abstract, Provider Social History Tobacco Use Types [...] on filedocumented in this encounter Care Teams Instrument Worker Relationship Specialty Start Date End Date Steffen Robles MD [address] [place] [id number] PCP - General 12/05/08 04/20/23 Dayanna Arellano MD [address] [place] [id number] PCP - General Internal Medicine 04/21/23 documented as of this encounter
--- OUTSIDE RECORDS SUMMARY | 2025-02-21 18:37 | XMS_ITS | Clinical Summary ---
Author Organization [facility] Prior to 01/06/2024 Address [address] [place] [address] Care Team Providers Care Youth Care Worker Name Role Phone Dayanna Arellano MD Primary Care Provider [phone] Allergies No known active allergies Medications Medication [...] 09/09/2015 Active Cholecalciferol (Vitamin D3) 1.25 MG (36006 UT) CapIndications:Class 3 severe obesity with body [...] 83 07/25/2023 2:26 PM EDT Temperature 36.7 C (98.1 F) 07/13/2023 1:48 PM EDT Respiratory Rate 14 09/09/2015 2:06 PM EDT Oxygen Saturation 92% 07/13/2023 1:48 PM EDT Inhaled Oxygen Concentration - - Weight 171 kg (377 lb) 08/31/2023 8:07 AM EDT Height 172.7 cm (5' 8 ) 07/25/2023 2:26 PM EDT Body Mass Index 57.32 07/25/2023 2:26 PM EDT Plan of Treatment Health Maintenance Due Date Last Done Comments Covid-19 Vaccine (#1) 1985 TOBACCO CHECK/ADVISE 06/30/2003 CERVICAL CANCER SCREENING 12/24/20132010, 05/27/2009, 01/31/2008 DTAP/TDAP/TD (2 - Td or Tdap) 08/12/2018 08/12/2008 BMI CHECK/ADVISE 03/07/2024 07/25/2023 DEPRESSION SCREENING/FOLLOWUP 03/07/2024 SOCIAL NEEDS SCREENING 03/07/2024 INFLUENZA (#1) 2024 CHOLESTEROL SCREENING 10/05/2028 10/06/2023 PNEUMOCOCCAL VACCINE FOR HIG H RISK PATIENTS (#1) 2050 Care Teams Youth Care Worker Relationship Specialty Start Date End Date Dayanna Arellano MD PCP - General Internal Medicine 04/21/23
--- OUTSIDE RECORDS SUMMARY | 2025-02-21 18:37 | XMS_ITS | Clinical Summary ---
Author Organization [facility] Address [address] [place] [address] Phone Care Team Providers Care Supervisor Screen Making Name Role Phone LiudmilaOfelia Dutta YEYO Primary Care Provider [phone] Allergies No known active allergies Medications buPROPion SR (WELLBUTRIN SR) 150 mg 12 hr tablet Take 1 tablet (150 mg total) by mouth 2 (two) times a day. for 90 days 12/12/19 24 Active cholecalcifero l (VITAMIN D-3) 1,250 [...] each day. 30 packet 04/26/19 25 Active enoxaparin (LOVENOX) 40 mg/0.4 mL syringe Inject 0.4 mL (40 mg total) under the skin 2 (two) times a day. 28 each 05/30/19 25 Active oxyCODONE (ROXICODONE) 5 mg immediate release tablet Take 1 tablet (5 mg total) by mouth every 4 (four) hours if needed for severe pain. Max Daily Amount: 30 mg 12 tablet 05/30/19 25 Active ferrous sulfate 325 mg (65 mg iron) EC tablet TAKE 1 TABLET BY MOUTH DAILY WITH BREAKFAST DO NOT CRUSH, CHEW, OR SPLIT 90 tablet 02/14/20 25 Active ferrous sulfate 325 mg (65 mg iron) EC tablet Take 1 tablet (325 mg total) by mouth 1 (one) time each day with breakfast. Do not crush, chew, or split. 90 each 11/17/19 25 025 Discontinued Active Problems Problem Noted Date Diagnosed Date S/P bariatric surgery 07/26/2024 Morbid obesity 05/08/2024 Class 2 severe obesity due t o excess calories with serious comorbidity and body mass index (BMI) of 37.0 to 37.9 in adult 12/02/2023 Seasonal allergies 08/21/2010 Tinea versicolor 05/13/2009 Overview (12/02/2023): Tinea Versicolor 05/14 right arm & back Scoliosis 10/29/2008 Backache 09/23/2005 Overview (12/02/2023): IMO update Immunizations Immunization Administration Dates Next Due HPV, [...] Orientation Straight 05/28/2024 5: 54 AM EDT Last Filed Vital Signs Vital Sign Reading [...] PM EST Office Visit Bariatric Surgery - [address] [place] [phone] [address] [address] Health Maintenance Due Date Last Done [...] Maintenance Results * (ABNORMAL) Lipid panel (10/06/2023) LDL/HDL Ratio 4 0 - 4 Triglycerides 121 0 - 150 mg/dL Cholesterol 193 0 - 200 mg/dL HDL 51 >=40 mg/dL LDL Cholesterol 118(A) 0 - 100 mg/dL Blood Venous blood specimen / Unknown us Historical Provider LAB BLOOD ORDERABLES Gabbi l Result * HIV Screening (12/24/2010) Pathologist [facility] HIV Screening abstracted Historical Provider HEALTH MAINTENANCE Final Result * Pap Smear (12/24/2010) Pap smear abstracted, no interpretation [facility] Provider HEALTH MAINTENANCE Final Result * Hepatitis C Screening (05/27/2009) Pathologist [facility] Hepatitis C Screening abstracted Historical Provider HEALTH MAINTENANCE Final Result from Last 3 Months or Most Recently Relevant to Health Maintenance Insurance [facility] Advance Directives * Full Code - [...] currently active code status orders. Care Teams Supervisor Screen Making Relationship Specialty Start Date End Date Ofelia Layne FNP [address] [place] [phone] PCP - General Nurse Practitioner 04/18/24
--- OUTSIDE RECORDS SUMMARY | 2025-02-21 18:37 | XMS_ITS | Encounter Summary ---
Author Organization [facility] Prior to 01/06/2024 Address [address] [place] [address] Care Team Providers Care Compliance Advisor Name Role Phone Steffen Robles MD Primary Care Provider [phone] Dayanna Arellano MD Primary Care Provider [phone] Encounter Details Date Type Department Care Team Description 01/14/2012 Hospital Medical Records [address] [place] [address] Karla Romero MD Social History Tobacco Use [...] on filedocumented in this encounter Care Teams Compliance Advisor Relationship Specialty Start Date End Date Steffen Robles MD [address] [place] [phone] PCP - General 12/05/08 04/20/23 Dayanna Arellano MD [address] [place] [address] PCP - General Internal Medicine 04/21/23 documented as of this encounter
--- OUTSIDE RECORDS SUMMARY | 2025-02-21 18:37 | XMS_ITS | Encounter Summary ---
Author Organization [facility] Prior to 01/06/2024 Address [address] [place] [address] Care Team Providers Care Fusion Juncture Grinder Name Role Phone Steffen Robles MD Primary Care Provider [phone] Dayanna Arellano MD Primary Care Provider [phone] Reason for Visit * Reason Onset Date Comments er follow up 06/05/2014 [facility] 06/05/2014 Encounter Details Date Type Department Care Team Description 06/05/2014 Telephone Adult Medicine [address] [phone] Steffen Robles MD [address] [place] [address] [phone] er follow up ([facility]); injury Social History Tobacco Use Types Packs/Day [...] appointment needed Hospital patient was treated at: [facility] Was this only an ER visit [...] on filedocumented in this encounter Care Teams Fusion Juncture Grinder Relationship Specialty Start Date End Date Steffen Robles MD [address] [place] [phone] PCP - General 12/05/08 04/20/23 Dayanna Arellano MD [address] [place] [id number] PCP - General Internal Medicine 04/21/23 documented as of this encounter
--- OUTSIDE RECORDS SUMMARY | 2025-02-21 18:37 | XMS_ITS | Encounter Summary ---
Author Organization [facility] Prior to 01/06/2024 Address [address] [place] [address] Care Team Providers Care Documentation Spec Name Role Phone Dayanna Arellano MD Primary Care Provider [phone] Reason for Visit * Reason Onset Date Comments REFERRAL 10/06/2023 Encounter Details Date Type Department Care Team Description 10/06/2023 Telephone OBGYN - [place] [address] [place] [address] Selina Garcia MD [address] [place] [phone] REFERRAL Social History Tobacco Use Types Packs/Day [...] PM EDT Patient referred to us by [facility] Family MedicineOfelia PSYCHOLOGICAL ASSISTANT- for screening for malignant neoplasm of cervix. Left message on to call back. documented in this encounter Plan of Treatment Not on file documented as of this encounter Visit Diagnoses Not on filedocumented in this encounter Care Teams Documentation Spec Relationship Specialty Start Date End Date Dayanna Arellano MD PCP - General Internal Medicine 04/21/23 documented as of this encounter
--- OUTSIDE RECORDS SUMMARY | 2025-02-21 18:37 | XMS_ITS | Encounter Summary ---
Author Organization [facility] Prior to 01/06/2024 Address [address] [place] [address] Care Team Providers Care Math And Physics Instructor Name Role Phone Dayanna Arellano MD Primary Care Provider [phone] Reason for Visit * Reason Onset Date Comments LAB WORK 08/31/2023 Encounter Details Date Type Department Care Team Description 08/31/2023 Telephone Bariatric Surgery - [place] [address] [address] Randee Diallo MS,RDN,LDN [address] [id number] LAB WORK Social History Tobacco Use Types [...] on filedocumented in this encounter Care Teams Math And Physics Instructor Relationship Specialty Start Date End Date Dayanna Arellano MD PCP - General Internal Medicine 04/21/23 documented as of this encounter
== END 2025-02-21 15:22 | disposition home or self-care (01) ==
LOC: HO.HWS 14:30
PROVIDERS: PCP Nurse Practitioner Family; Visit Provider Advanced Practice Midwife
DX: N93.9 Abnormal uterine and vaginal bleeding, unspecified (principal); R93.89 Abnormal findings on diagnostic imaging of other specified body structures
CPT/HCPCS: 99213

== ENCOUNTER → 2025-02-21 14:29 | Outpatient (BNVA) | payer OTHER, SELFPAY | PROVIDERS: PCP Nurse Practitioner Family; Visit Provider Advanced Practice Midwife | DX: N93.9 Abnormal uterine and vaginal bleeding, unspecified (principal); R93.89 Abnormal findings on diagnostic imaging of other specified body structures | CPT/HCPCS: 99212 ==